=== PATIENT | female | born 1955 | race Caucasian/White ===

== ENCOUNTER 2018-05-24 11:51 | Emergency (ER) | payer OTHER, SELFPAY ==
[2018-05-24 11:52] VITALS: BP 125/78; PULSE 66; RESP 22; TEMP 36.4; O2SAT 99; BMI 17.7
[2018-05-24 12:11] VITALS: TEMP 36.5; BMI 18.3
--- NOTE | 2018-05-24 12:11 | RAD_ITS ---
STUDY: X-RAY CHEST REASON FOR EXAM: Female, 63 years old. SOBSShort of Breath/Dyspnea TECHNIQUE: Frontal and lateral views of the chest. COMPARISON: None. FINDINGS: The lungs are clear and expanded. There is no demonstrated pleural abnormality. Normal size heart. Normal mediastinum and chepe. Normal visualized pulmonary arteries. There is atherosclerotic calcification of the aortic arch with tortuosity. There is a dextroscoliosis of the thoracic spine. There is degenerative osteoarthritis of the bilateral shoulders. There is no demonstrated abnormality of the visualized soft tissue structures of the upper abdomen. RAD/Chest PA and Lateral IMPRESSION: Degenerative changes, as described above. No demonstrated acute cardiopulmonary process. Electronically Signed: Naresh Keith, at 13:50 EDT Tel , Service support ,
[2018-05-24 12:34] LABS: Absolute Lymphocyte Count 1.63 X10^3/ul (0.83-4.51); Absolute Neutrophil Count 6.2 X10^3/uL (2.0-7.7); Basophil# 0.02 X10^3/uL; Basophil% 0.2 % (0-1); Eosinophil# 0.12 X10^3/uL; Eosinophils% 1.4 % (0-5); Hematocrit 44.8 % (37-47); Hemoglobin 14.4 g/dl (12.0-15.0); Lymphocyte # 1.63 X10^3/ul (4.0); Lymphocyte % 19.1 % (19-41); Mean Corp Hgb Conc 32.1 g/gl (32-36); Mean Corpuscular Hgb 30.4 pg (27.0-32.0); Mean Corpuscular Volume 94.7 fL (81-99); Mean Platelet Vol. 10.6 fl (6.2-12.0); Monocyte# 0.55 X10^3/uL; Monocyte% 6.4 % (0-10); Neutrophil # 6.21 X10^3/uL (2.7-7.7); Neutrophil % 72.8 % (47-70); Platelet Count 298 K/mm3 (150-450); RBC Distribution Width SD 44.8 fl (35.1-43.9); Red Blood Count 4.73 M/mm3 (4.2-5.4); White Blood Count 8.5 K/mm3 (4.4-11.0)
[2018-05-24 12:36] LABS: POSITIVE COUNT NO; POSITIVE DIFFERENTIAL NO; POSITIVE MORPHOLOGY NO
[2018-05-24 12:40] LABS: Anion Gap 6 (5-15); BUN 23 mg/dL (7-18); BUN/Creat Ratio 43.6 RATIO (10-20); Calcium,Total 9.1 mg/dL (8.5-10.1); Chloride 104 mmol/L (98-107); Creatinine, Serum 0.53 mg/dL (0.55-1.02); EST Glomerular Filtration Rate 125 mL/min (>60); Est Glom Filt Rate - Afr Amer 151 mL/min (>60); Estimated Creatinine Clearance 68.98 ml/min; Glucose 93 mg/dL (74-106); Sodium Level 137 mmol/L (136-145)
[2018-05-24 12:54] VITALS: BP 116/61; PULSE 63; RESP 15; TEMP 36.4; O2SAT 96
[2018-05-24] MEDS: 0.9% Normal Saline 1,000 ML 75 ML IV (12:54)
--- NOTE | 2018-05-24 13:00 | RAD_ITS ---
STUDY: X-RAY - ABDOMEN/PELVIS REASON FOR EXAM: Female, 63 years old. ConstipationSRAD - Abdomen TECHNIQUE: Single AP view of the abdomen / pelvis. COMPARISON: None. FINDINGS: Normal visualized lung bases. There is an unremarkable bowel gas pattern. There is no demonstrated free abdominal air. There is an electronic device in the right upper quadrant measures approximately 2 cm in diameter. The visualized liver, spleen and kidneys are grossly normal in size and morphology. Normal soft tissue structures. There are diffuse degenerative changes and severe levoscoliosis of the lumbar spine the angle measures approximately 8 degrees of the visualized lumbar spine. RAD/Abdomen Single View IMPRESSION: There is an electronic device in the right upper quadrant measures approximately 2 cm in diameter. Electronically Signed: Naresh Keith, at 13:50 EDT Tel , Service support ,
[2018-05-24 13:03] LABS: Bacteria 0 SEEN /hpf (None Seen); Mucous, Urine 0 SEEN /hpf (<or=2+); Red Blood Cells-Urine 0 SEEN /hpf (0-5); White Blood Cells 0 SEEN /hpf (0-5)
[2018-05-24 13:07] LABS: Color, Urine Yellow (Yellow); Glucose, Dipstick Normal (Normal); Ketone-Dipstick 5 mg/dl (Negative); Leukocyte Esterase-Dipstick 25 /ul (Negative); Nitrite-Dipstick Negative (Negative); Occult Blood-Urine Negative /ul (Negative); Protein-Dipstick 15 mg/dl (Negative); Urine Bilirubin Dipstick Negative (Negative); Urine Clarity Clear (Clear); Urine Urobilinogen Normal (Normal)
[2018-05-24 13:12] LABS: Squamous Epithelial Cells - UA 0-5 SEEN /hpf (5-10)
[2018-05-24 14:13] VITALS: BP 119/65; PULSE 60; RESP 18; TEMP 36.7; O2SAT 95
[2018-05-24 15:22] VITALS: BP 114/63; PULSE 66; RESP 13; TEMP 37.1; O2SAT 94
--- NOTE | 2018-05-24 15:27 | ED.VISSUMM ---
- ER Visit Summary Date of Service: 05/24/18 Chief Complaint: Constipation, shortness of breath History of Present Illness: The patient is a 63 F who reports having constipation for the past 2 weeks. She is passing small amounts of stool with a stool softener. She also reports having shortness of breath for the past 4 days. Patient states he is on a special diet medication to try to increase her weight. Her [facility] doctor had advised that she may need to be admitted for not malnutrition. Physical Examination: Vital signs unremarkable. Patient sitting upright in bed no acute distress. Head neck examination does reveal dry mucous membranes. Heart is regular rate and rhythm. Lung sounds are clear. Abdomen is soft with mild diffuse tenderness. No guarding or rebound. Hypoactive bowel sounds are present throughout. Test Results: Two-view chest x-ray shows degenerative changes with no acute process. Abdominal x-ray shows electronic device in the right upper quadrant measuring 2 cm in diameter. None of the bowel gas pattern is noted. CBC and chemistry studies significant only for a BUN of 23. Urinalysis shows 5 ketones. Emergency Department Course and Treatment: Patient is given IV fluids. Test results are discussed with patient. At this point she appears to be maintaining her hydration well. Electrolytes look appropriate at this time. Patient will be given a prescription for MiraLAX. We will avoid mag citrate as I do not want to alter her electrolyte levels with her current medication regimen. Treatment Plan: [] Disposition: Discharge Impression: Mild constipation This note was generated with [employer] dictation software. It may contain incorrect words, spelling, and punctuation that were not noted in review of the chart prior to signing ED Disposition - Plan for ED Patient: Referrals: Sarita Grey MD [Primary Care Provider] -
--- NOTE | 2018-05-24 15:30 | ED.DCSUM_ITS ---
- ER Visit Summary Date of Service: 05/24/18 Chief Complaint: Constipation, shortness of breath History of Present Illness: The patient is a 63 F who reports having constipation for the past 2 weeks. She is passing small amounts of stool with a stool softener. She also reports having shortness of breath for the past 4 days. Patient states he is on a special diet medication to try to increase her weight. Her [facility] doctor had advised that she may need to be admitted for not malnutrition. Physical Examination: Vital signs unremarkable. Patient sitting upright in bed no acute distress. Head neck examination does reveal dry mucous membranes. Heart is regular rate and rhythm. Lung sounds are clear. Abdomen is soft with mild diffuse tenderness. No guarding or rebound. Hypoactive bowel sounds are present throughout. Test Results: Two-view chest x-ray shows degenerative changes with no acute process. Abdominal x-ray shows electronic device in the right upper quadrant measuring 2 cm in diameter. None of the bowel gas pattern is noted. CBC and chemistry studies significant only for a BUN of 23. Urinalysis shows 5 ketones. Emergency Department Course and Treatment: Patient is given IV fluids. Test results are discussed with patient. At this point she appears to be maintaining her hydration well. Electrolytes look appropriate at this time. Patient will be given a prescription for MiraLAX. We will avoid mag citrate as I do not want to alter her electrolyte levels with her current medication regimen. Treatment Plan: [] Disposition: Discharge Impression: Mild constipation This note was generated with [employer]H dictation software. It may contain incorrect words, spelling, and punctuation that were not noted in review of the chart prior to signing ED Disposition - Plan for ED Patient: Referrals: Sarita Grey MD [Primary Care Provider] -
--- NOTE | 2018-05-24 15:30 | ED.DEP ---
ED Disposition - Plan for ED Patient: Disposition: Home or Assisted Living Instructions: ED Constipation Prescriptions: Polyethylene Glycol 3350 [Miralax] 17 gm PO DAILY #30 packet Referrals: Sarita Grey MD [Primary Care Provider] - Keep Billie appointment
[2018-05-24 15:44] VITALS: BP 114/63; PULSE 70; RESP 15; O2SAT 97
--- NOTE | 2018-05-24 15:44 | ED.RN ---
PT GIVEN WRITTEN AND VERBAL DISCHARGE INSTRUCTIONS AND HOME GOING PRESCRIPTIONS. PT VERBALIZES UNDERSTANDING AND DENIES ANY FURTHER QUESTIONS. PT IV D/C AND COVERED WITH 2X2 GAUZE DRESSING AND PAPER TAPE.
== END 2018-05-24 15:46 | disposition home or self-care (01) ==
PROVIDERS: Emergency Provider Emergency Medicine; Family Provider Internal Medicine; PCP Internal Medicine
DX: K59.00 Constipation, unspecified (principal); Z72.0 Tobacco use; Z79.899 Other long term (current) drug therapy
CPT/HCPCS: 71046; 74018; 80048; 81001; 85025; 96360; 96361; 99283; J7030; J7040; A4216

== ENCOUNTER → 2018-05-30 15:39 | Outpatient (CLI) | payer OTHER, SELFPAY ==
[2018-05-24 12:11] VITALS: BMI 18.3
--- NOTE | 2018-05-30 15:42 | RAD_ITS ---
STUDY: X-RAY - ABDOMEN/PELVIS REASON FOR EXAM: Female, 63 years old. Slight transit, constipation. TECHNIQUE: Single AP view of the abdomen / pelvis. COMPARISON: AP supine view of the abdomen and pelvis May 24, 2018. FINDINGS: Normal visualized lung bases. There is a nonspecific pattern of gas in nondistended segments of small bowel and colon. The swallowed electronic device now projects in the medial left lower quadrant, but it is unclear whether this is in a small bowel or colonic loop. There is no demonstrated free abdominal air. The visualized liver, spleen and kidneys are grossly normal in size and morphology. Atherosclerotic calcification of the abdominal aorta again noted. There are stable diffuse degenerative changes and moderate to moderately severe levorotoscoliosis of the visualized lumbar spine. RAD/Abdomen Single View IMPRESSION: Electronic device now in the medial left lower quadrant, but it is unclear whether this is in small bowel or colon. The overall bowel gas pattern is nonspecific. Electronically Signed: Homer Bullard MD at 17:24 EDT , Service support ,
== END ==
PROVIDERS: Family Provider Internal Medicine; PCP Internal Medicine
DX: K59.01 Slow transit constipation (principal)
CPT/HCPCS: 74018

== ENCOUNTER 2018-11-09 16:03 | Emergency (ER) | payer OTHER, SELFPAY ==
[2018-11-09 16:04] VITALS: BP 117/74; PULSE 104; RESP 16; TEMP 36.9; O2SAT 94; BMI 17.7
--- NOTE | 2018-11-09 16:18 | NURSING ---
dostephanief unclogged by la lara. pt wishes to leave at this time without donnell seen.
== END 2018-11-09 16:25 | disposition left against medical advice (07) ==
PROVIDERS: Emergency Provider Emergency Medicine; Family Provider Internal Medicine; PCP Internal Medicine
DX: R69 Illness, unspecified (principal)

== ENCOUNTER 2018-11-18 14:32 | Emergency (ER) | payer MEDICAID, SELFPAY ==
[2018-11-18 14:33] VITALS: BP 122/75; PULSE 89; RESP 16; TEMP 37.2; O2SAT 94; O2SAT 95; BMI 18.1
--- NOTE | 2018-11-18 14:57 | ED.DCSUM_ITS ---
History of Present Illness Chief Complaint: General Illness Detail of Chief Complaint: Occluded feeding tube Informant: Patient Onset: Today Timing: Continuous Quality: Feeding tube occluded Location: To be determined Current Severity: Severe Maximum Severity: Severe Worsened by: Not applicable Relieved by: Nothing Associated Symptoms: None Narrative: Patient is a 61-year-old woman who had a feeding tube placed by her general surgeon at [facility]. She contacted her general surgeon who informed her to go the emergency room since her NG is occluded. She is on tube feeds to gain weight prior to surgery. She has no other complaints. Prior similar symptoms: Yes Recent Illness/Hospitalization: Yes - Past Medical History (1) Duodenal ulcer, acute with obstruction Status: Acute Past Medical History - Allergies and Home Meds Allergies/Adverse Reactions: Allergies dicyclomine HCl [From Bentyl] Allergy (Verified 11/09/18 16:04) Hives Primary Care Physician: Sarita Grey MD [Primary Care Provider] - Prior records reviewed: Yes Surgical History: noncontributory Lives: Alone Smoking Status: Former smoker Alcohol: None Drugs: None Review of Systems General: Denies: Chills, Fever, Malaise Eyes: Denies: Visual changes - bilaterally, Blurred Vision - bilaterally ENT: Denies: Bilateral ear pain, Rhinorrhea, Sore throat Cardiovascular: Denies: Chest pain Respiratory: Denies: Dyspnea, Cough Hematologic: Denies: Easy bruising, Easy bleeding Physical Exam Vital Signs/Narrative: Vital Signs Temp Pulse Resp BP Pulse Ox 11/18/18 14:33 98.9 F 89 16 122/75 H 95 Inital Vital Signs reviewed: Yes General: Well developed, Cachectic, No Acute Distress Head: Normocephalic, Atraumatic Eyes: Perrl, EOMI. Negative for: Pale conjunctiva, Scleral icterus ENT: Moist mucous membranes, No rhinorrhea Cardiovascular: Regular rate, Regular rhythm, No murmurs Respiratory: No distress, CTA bilaterally Skin: Normal color, No rash Neurological: Alert, Oriented x3, Cranial nerves II-XII grossly intact, Normal Strength, Normal Sensation Psychological: Normal affect, Normal Mood Diagnostic/Tx/Re-eval - Medical Decision Making Nurse was asked to get a declog her for external feeding tubes. Patient states prior to coming she attempted to use Sprite Coca-[employer]a with no success. Using the declog her significant amount of debris was removed. Unable to advance a clog or more than 4 inches. Nurses unable to irrigate. She was instructed to contact her surgeon and would need to be replaced in OR. ED Disposition - Plan for ED Patient: Disposition: Home or Assisted Living Diagnosis: Occluded feeding tube Referrals: Sarita Grey MD [Primary Care Provider] - Additional Instructions: Recommend going to [facility] and seeing your general surgeon to have tube replaced since we are unable to declog it.
== END 2018-11-18 15:55 | disposition home or self-care (01) ==
PROVIDERS: Emergency Provider Emergency Medicine; Family Provider Internal Medicine; PCP Internal Medicine
DX: T85.898A Other specified complication of other internal prosthetic devices, implants and grafts, initial encounter (principal); Z46.59 Encounter for fitting and adjustment of other gastrointestinal appliance and device; Z87.891 Personal history of nicotine dependence
CPT/HCPCS: 99282

== ENCOUNTER 2019-03-22 21:11 | Emergency (ER) | payer MEDICAID, SELFPAY ==
[2019-03-22 21:12] VITALS: BP 145/82; PULSE 119; RESP 16; TEMP 37.3; O2SAT 95; BMI 19.0
--- NOTE | 2019-03-22 22:49 | ED.VISSUMM ---
- ER Visit Summary Date of Service: 03/22/19 Chief Complaint: [Clogged feeding tube] History of Present Illness: The patient is a 64 F [presents to the emergency department stating that about an hour ago her feeding tube became clogged. Patient states that she normally runs Osmolite through it 24 hours a day. Patient had a surgery in January that removed two thirds of her stomach. Patient had the CorPak feeding tube placed on February 14. Patient is currently taking some p.o. fluids and medication. States that she was unsuccessful in unclogging it at home. Patient denies any fevers or abdominal pain. Patient is having bowel movements. Denies any vomiting.] Physical Examination: [HEENT-PERRLA, EOMI. Cranial nerves II through XII grossly intact. TMs clear. Mucous membranes moist. No adenopathy. Patient has a CorPak feeding tube from the right side of her nose. Cardiovascular-regular rate and rhythm without murmur or ectopy Lungs-clear to auscultation, chest wall stable without crepitus or subcu emphysema Abdomen-normoactive bowel sounds, soft, nontender, no rebound or rigidity, no peritoneal signs. Extremities-intact ?4, normal range of motion, normal pulses, atraumatic] Test Results: [None indicated] Emergency Department Course and Treatment: [We attempted in the emergency department to use Coca-Cola to unclog the tube unsuccessfully. I did discuss case with our general surgeon on-call and no further recommendations were made at this time. There is not felt that this tube would be able to be replaced in the emergency department. Was recommended that patient follow-up with her surgeon.] Treatment Plan: [Patient to follow-up with her general surgeon for further instructions on possibly replacing the tube or removing it.] Disposition: [Discharged home in stable condition] Impression: [Clogged feeding tube] This note was generated with [employer] Access dictation software. It may contain incorrect words, spelling, and punctuation that were not noted in review of the chart prior to signing ED Disposition - Plan for ED Patient: Referrals: Sarita Grey MD [Primary Care Provider] -
--- NOTE | 2019-03-22 22:53 | ED.DEP ---
ED Disposition - Plan for ED Patient: Referrals: Sarita Grey MD [Primary Care Provider] - Additional Instructions: Call your surgeon tomorrow for instructions on dealing with the clogged feeding tube
[2019-03-22 23:57] VITALS: BP 135/85; PULSE 72; RESP 16; TEMP 36.9; O2SAT 98
== END 2019-03-22 23:57 | disposition home or self-care (01) ==
PROVIDERS: Emergency Provider Emergency Medicine; PCP Internal Medicine
DX: K94.23 Gastrostomy malfunction (principal)
CPT/HCPCS: 99282

== ENCOUNTER 2019-08-23 09:31 | Emergency (ER) | payer MEDICAID, SELFPAY ==
[2019-08-23 09:32] VITALS: BP 90/47; PULSE 86; RESP 16; TEMP 36.2; O2SAT 96; BMI 21.9
[2019-08-23 09:34] VITALS: BP 90/47; PULSE 86; RESP 16; TEMP 36.2; O2SAT 96
--- NOTE | 2019-08-23 10:12 | ED.DCSUM_ITS ---
- ER Visit Summary Date of Service: 08/23/19 Chief Complaint: [Back pain] History of Present Illness: The patient is a 64 F [presents the emergency department with back pain that she is had for about a week. Patient states the pain is continuous. She describes it as a up in her upper back. Patient states the pain is worse with breathing. Patient states the pain wraps around to the front of the upper abdomen. She had no nausea or vomiting. She denies any fever or cough. She denies any trauma to her back. She does have history of scoliosis. Patient rates the pain a 10 out of 10. Patient also has history of a feeding tube and she scheduled to have a replacement done at [facility] in 2 days.] Patient denies urinary symptoms. No history of kidney stones or PE. Physical Examination: [HEENT-PERRLA, EOMI. Cranial nerves II through XII grossly intact. TMs clear. Mucous membranes moist. No adenopathy. Cardiovascular-regular rate and rhythm without murmur or ectopy Lungs-clear to auscultation, chest wall stable without crepitus or subcu emphysema Abdomen-normoactive bowel sounds, soft, nontender, no rebound or rigidity, no peritoneal signs. Patient does have a feeding tube in the central portion of the abdomen. Back exam-patient does have been noted scoliosis. She does have some mild tenderness over the left posterior lower ribs that somewhat reproduces her pain. Extremities-intact ?4, normal range of motion, normal pulses, atraumatic] Test Results: [CBC with differential obtained showing a 7.0, hemoglobin 14.8, hematocrit 45, placed 305. Chemistries were unremarkable. LFTs unremarkable. D-dimer was normal at 0.28. Urinalysis was normal. X-rays of the chest and left ribs obtained showed no evidence of acute fractures. No pneumothorax.] Emergency Department Course and Treatment: [Patient was medicated with morphine and Zofran 4 mg each IV. She has she had good pain relief but then started having more pain again and was given 4 more milligrams of morphine IV.] Treatment Plan: [Patient will be given a prescription for Flexeril and [place]. Patient advised to follow-up with primary care physician in 3 to 5 days.] Disposition: [Discharged home in stable condition] Impression: [Back pain-etiology uncertain] This note was generated with Dragon dictation software. It may contain incorrect words, spelling, and punctuation that were not noted in review of the chart prior to signing ED Disposition - Plan for ED Patient: Referrals: Sarita Grey MD [Primary Care Provider] -
[2019-08-23 10:19] LABS: Absolute Lymphocyte Count 1.72 X10^3/uL (0.83-4.51); Absolute Neutrophil Count 4.5 X10^3/uL (2.0-7.7); Basophil# 0.01 X10^3/uL; Basophil% 0.1 % (0-1); Eosinophil# 0.11 X10^3/uL; Eosinophils% 1.6 % (0-5); Hematocrit 44.9 % (37-47); Hemoglobin 14.8 g/dL (12.0-15.0); Lymphocyte # 1.72 X10^3/ul (4.0); Lymphocyte % 24.7 % (19-41); Mean Corpuscular Hgb 31.8 pg (27.0-32.0); Mean Corpuscular Volume 96.6 fL (81-99); Mean Platelet Vol. 10.8 fl (6.2-12.0); Monocyte# 0.57 X10^3/uL; Monocyte% 8.2 % (0-10); NRBC Flagged by Analyzer 0 % (0-5); Neutrophil # 4.53 X10^3/uL (2.7-7.7); Neutrophil % 65.1 % (47-70); Platelet Count 305 K/mm3 (150-450); RBC Distribution Width CV 13.7 % (11.6-14.6); RBC Distribution Width SD 48.8 fl (35.1-43.9); Red Blood Count 4.65 M/mm3 (4.2-5.4)
[2019-08-23] MEDS: Morphine 4 MG/ML Syringe IV ×2 (10:23→11:11)
[2019-08-23] MEDS: Ondansetron 4 MG/2 ML Vial IV (10:23)
[2019-08-23] MEDS: 0.9% Normal Saline 1,000 ML 150 ML IV (10:24)
[2019-08-23 10:31] LABS: D-Dimer Quantitative (DVT/PE) 0.28 FEU/ug/m (0.27-0.49)
[2019-08-23 10:32] LABS: AST(SGOT) 14 U/L (15-37); Alanine Aminotransfer ALT/SGPT 28 U/L (13-56); Albumin, Serum 3.7 g/dL (3.2-5.0); Alkaline Phosphatase 132 U/L (45-117); Anion Gap 8 (5-15); BUN 23 mg/dL (7-18); BUN/Creat Ratio 34.3 RATIO (10-20); Calcium,Total 9.1 mg/dL (8.5-10.1); Chloride 99 mmol/L (98-107); Creatinine, Serum 0.67 mg/dL (0.55-1.02); EST Glomerular Filtration Rate 94 mL/min (>60); Est Glom Filt Rate - Afr Amer 114 mL/min (>60); Estimated Creatinine Clearance 64.62 ml/min; Globulin 3.8 g/dL (2.2-4.2); Glucose 109 mg/dL (74-106); Lipase 100 U/L (73-393); Potassium 4.6 mmol/L (3.5-5.1); Protein, Total 7.5 g/dL (6.4-8.2); Sodium Level 136 mmol/L (136-145)
[2019-08-23 10:45] VITALS: BP 124/72; PULSE 72; RESP 19; TEMP 36.4; O2SAT 98
[2019-08-23 11:06] LABS: Mucous, Urine 0 SEEN /hpf (<or=2+); Red Blood Cells-Urine 0 SEEN /hpf (0-5)
[2019-08-23 11:10] LABS: Color, Urine Yellow (Yellow); Glucose, Dipstick Normal (Normal); Ketone-Dipstick Negative (Negative); Leukocyte Esterase-Dipstick 25 /ul (Negative); Nitrite-Dipstick Negative (Negative); Occult Blood-Urine Negative /ul (Negative); Protein-Dipstick Negative (Negative); Urine Bilirubin Dipstick Negative (Negative); Urine Clarity Sl. Cloudy (Clear); Urine Urobilinogen Normal (Normal)
[2019-08-23 11:11] VITALS: BP 108/68; PULSE 74; RESP 16; TEMP 36.6; O2SAT 98
[2019-08-23 11:19] LABS: Bacteria RARE /hpf (None Seen); Squamous Epithelial Cells - UA 0-5 SEEN /hpf (5-10); White Blood Cells 0-5 SEEN /hpf (0-5)
--- NOTE | 2019-08-23 11:21 | RAD_ITS ---
STUDY: X-RAY - UNILATERAL RIBS ( LEFT ) WITH CHEST REASON FOR EXAM: Female, 64 years old. ANTERIOR PAIN W/ RADIATION TOWARDS POSTERIOR ASPECT. NKI. TECHNIQUE - RIBS: 2 view(s) of the ribs. TECHNIQUE - CHEST: Frontal view COMPARISON: None. FINDINGS - RIBS: Normal visualized ribs without a demonstrated fracture. FINDINGS - CHEST: The lungs are clear and expanded. There is no demonstrated pleural abnormality. Normal size heart. Normal mediastinum and chepe. Normal visualized pulmonary arteries. Normal visualized aortic arch and descending thoracic aorta. Degenerative changes and significant scoliosis of the vertebral column. Normal visualized ribs, clavicles, and shoulders. Probable gastrostomy tube overlying the upper abdomen. RAD/Ribs Uni Min 3V w/PA Chest IMPRESSION: No acute rib fracture. Electronically Signed: Roberto Arnold DO at 12:12 EDT Tel [phone], Service support ,
[2019-08-23 12:09] VITALS: BP 118/62; PULSE 71; RESP 15; TEMP 36.7; O2SAT 98
--- NOTE | 2019-08-23 12:28 | DCINST.ED_ITS ---
ED Disposition - Plan for ED Patient: Instructions: ED Neck Back Pain General Prescriptions: cycloBENZAPRine HCl [Flexeril] 10 mg PO TID PRN #20 tab PRN Reason: Muscle Spasm Prescription Printed Hydrocodone Bitart/Apap 5-325 [[place] 5MG-325MG] 1 tab PO Q4H PRN PRN 2 Days #10 tab PRN Reason: Pain Prescription Printed Referrals: Sarita Grey MD [Primary Care Provider] - 5-7 Days
[2019-08-23 12:57] VITALS: BP 138/77; PULSE 69; RESP 15; O2SAT 98
== END 2019-08-23 12:58 | disposition home or self-care (01) ==
PROVIDERS: Emergency Provider Emergency Medicine; PCP Internal Medicine
DX: M54.9 Dorsalgia, unspecified (principal)
CPT/HCPCS: 71101; 80053; 81001; 83690; 85025; 85379; 96361; 96374; 96375; 96376; 99284; J7030; A4216; J2405

== ENCOUNTER 2019-08-29 14:37 | Emergency (ER) | payer MEDICAID, SELFPAY ==
[2019-08-29 14:38] VITALS: BP 142/79; BP 142/89; PULSE 98; PULSE 99; RESP 17; RESP 20; TEMP 36.7; O2SAT 92; O2SAT 93; BMI 21.9
--- NOTE | 2019-08-29 15:13 | EKG12_ITS ---
Test Reason : ABD PAIN Blood Pressure : / mmHG Vent. Rate : 079 BPM Atrial Rate : 079 BPM P-R Int : 174 ms QRS Dur : 090 ms QT Int : 388 ms P-R-T Axes : 044 020 022 degrees QTc Int : 444 ms Normal sinus rhythm Normal ECG Confirmed by YRIS COYLE, YAYA ([id number]), editor dictionary GOMEZ SOW ([id number]) on 09/02/2019 11:06:41 AM Referred By: SHERRIE Confirmed By:YAYA ARNDT MD
--- NOTE | 2019-08-29 15:16 | ED.VIS.GEN ---
History of Present Illness Chief Complaint: Abd Pain Narrative: Patient presents with left-sided chest wall pain. She was seen here recently and then again at [facility] on August 23, she had similar pain at the time she had left-sided chest wall pain. The chief complaint in the chart says abdominal pain patient is denying any current abdominal pain she does have a PEG and had a minor procedure done to replace the PEG recently but she denies any abdominal pain, nausea or vomiting. She is describing the left chest wall pain is sharp and stabbing worse with movement of the chest wall or lifting her arm up. It is also worse with palpation of the chest wall. No rash in that region. She had a CAT scan at [facility] which showed no evidence of pulmonary embolism or intrathoracic pathology. This pain has been ongoing for about 6 days. Past Medical History - Allergies and Home Meds Allergies/Adverse Reactions: Allergies dicyclomine HCl [From Bentyl] Allergy (Verified 08/29/19 14:38) [facility] Physician: Sarita Grey MD [Primary Care Provider] - Past Medical History: - - History of severe gastroparesis. She has a PEG tube, otherwise the past medical history was reviewed at the bedside with the patient and is unremarkable Surgical History: noncontributory Smoking Status: Former smoker Review of Systems General: Denies: Chills, Fever Cardiovascular: Reports: Chest pain. Denies: Palpitations, Heart racing Respiratory: Denies: Dyspnea, Cough, Sputum Gastrointestinal: Denies: Abdominal pain, Nausea, Vomiting Musculoskeletal: Denies: Myalgias, Neck pain Skin: Denies: Rash Neurological: Denies: Headache Hematologic: Denies: Easy bruising Physical Exam Vital Signs/Narrative: Vital Signs Temp Pulse Resp BP Pulse Ox 08/29/19 14:38 98.1 F 98 20 H 142/89 H 92 Inital Vital Signs reviewed: Yes General: - - Patient appears chronically ill, she does not appear acutely ill. She appears in some distress Head: Normocephalic, Atraumatic Eyes: Negative for: Pale conjunctiva ENT: Moist mucous membranes Cardiovascular: Regular rate, Regular rhythm Respiratory: No distress, CTA bilaterally, Chest tenderness, - - She has left-sided chest wall tenderness extending into the posterior axillary line region, it is mid thoracic region. The pain is quite reproducible with palpation as well as movement and movement of the left arm. No obvious rashes seen, no chest wall deformity. Abdomen: Soft, Nontender Back: Nontender, Normal Inspection Extremities: Nontender, No edema Skin: Normal color, No rash Neurological: Alert, Normal Strength, Normal Sensation Diagnostic/Tx/Re-eval - Medical Decision Making His work-up is unremarkable she has reproducible chest wall pain, she had a normal PE study just a few days at the outside institution which I reviewed, she did improve with analgesia in the ED and I will discharge her in stable condition. ED Disposition - Plan for ED Patient: Disposition: Home or Assisted Living Diagnosis: Chest wall pain Instructions: ED Chest Pain Atypical Unkn Cause, ED Chest Pain NonCardiac Prescriptions: Oxycodone HCl/Acetaminophen [Percocet 5/325] 1 tablet PO Q4H PRN PRN 3 Days #18 tablet PRN Reason: Pain Score 1-5/10 Transmission Status: Sent to [id number] Referrals: Sarita Grey MD [Primary Care Provider] - 3-5 Days
[2019-08-29 15:33] LABS: Absolute Lymphocyte Count 1.94 X10^3/uL (0.83-4.51); Basophil# 0.02 X10^3/uL; Basophil% 0.4 % (0-1); Eosinophil# 0.13 X10^3/uL; Eosinophils% 2.3 % (0-5); Hemoglobin 14.5 g/dL (12.0-15.0); Lymphocyte # 1.94 X10^3/ul (4.0); Lymphocyte % 34.7 % (19-41); Mean Corp Hgb Conc 31.5 g/dL (32-36); Mean Corpuscular Hgb 30.8 pg (27.0-32.0); Mean Corpuscular Volume 97.7 fL (81-99); Mean Platelet Vol. 10.2 fl (6.2-12.0); Monocyte# 0.49 X10^3/uL; Monocyte% 8.8 % (0-10); NRBC Flagged by Analyzer 0 % (0-5); Neutrophil % 53.6 % (47-70); Platelet Count 287 K/mm3 (150-450); RBC Distribution Width CV 13.8 % (11.6-14.6); RBC Distribution Width SD 49.8 fl (35.1-43.9); Red Blood Count 4.71 M/mm3 (4.2-5.4); White Blood Count 5.6 K/mm3 (4.4-11.0)
--- NOTE | 2019-08-29 15:40 | RAD_ITS ---
STUDY: X-RAY CHEST REASON FOR EXAM: Female, 64 years old. CHEST WALL PAIN. PT C/O LEFT SIDED ABD PAIN THAT RADIATES INTO THE LEFT FLANK AND BACK. PT REPORTS BEING SEEN HERE FOR SAME ON SUNDAY. TECHNIQUE: Single AP portable view of the chest. COMPARISON: 08/23/2019 FINDINGS: Alveolar opacity in the lower right lung consistent with right lower lobe pneumonia or atelectasis. There is no demonstrated pleural abnormality. Normal size heart. Normal mediastinum and chepe. Normal visualized pulmonary arteries. Normal visualized aortic arch and descending thoracic aorta. There is a dextroscoliosis of the thoracic spine. Normal visualized ribs, clavicles, and shoulders. There is no demonstrated abnormality of the visualized soft tissue structures of the upper abdomen. RAD/Chest 1 View (Portable) IMPRESSION: Right lower lobe pneumonia or atelectasis. Electronically Signed: Jose Cunha MD at 15:59 EDT Tel , Service support ,
[2019-08-29] MEDS: Ondansetron 4 MG/2 ML Vial IV (15:51)
[2019-08-29] MEDS: HYDROmorphone 1 MG/ML Syringe IV ×2 (15:51→17:53)
[2019-08-29] MEDS: Ketorolac 15 MG/ML Vial IV (15:52)
[2019-08-29 15:55] LABS: ALB/GLOB Ratio 0.9 RATIO (0.9-2.4); AST(SGOT) 13 U/L (15-37); Alanine Aminotransfer ALT/SGPT 25 U/L (13-56); Albumin, Serum 3.5 g/dL (3.2-5.0); Alkaline Phosphatase 115 U/L (45-117); Anion Gap 7 (5-15); BUN 25 mg/dL (7-18); BUN/Creat Ratio 35.4 RATIO (10-20); Calcium,Total 9.5 mg/dL (8.5-10.1); Chloride 97 mmol/L (98-107); Creatinine, Serum 0.71 mg/dL (0.55-1.02); EST Glomerular Filtration Rate 89 mL/min (>60); Est Glom Filt Rate - Afr Amer 108 mL/min (>60); Estimated Creatinine Clearance 60.98 ml/min; Globulin 3.8 g/dL (2.2-4.2); Glucose 92 mg/dL (74-106); Potassium 4.5 mmol/L (3.5-5.1); Protein, Total 7.3 g/dL (6.4-8.2); Sodium Level 135 mmol/L (136-145)
[2019-08-29 17:56] VITALS: BP 138/77; PULSE 69; RESP 15; O2SAT 96
== END 2019-08-29 18:25 | disposition home or self-care (01) ==
PROVIDERS: Emergency Provider Emergency Medicine; PCP Internal Medicine
DX: R07.89 Other chest pain (principal); Z87.891 Personal history of nicotine dependence
CPT/HCPCS: 71045; 80053; 84484; 85025; 93005; 96374; 96375; 96376; 99284; A4216; J2405

== ENCOUNTER 2020-03-28 06:05 | Inpatient (IN) | payer MEDICAID, SELFPAY ==
[2020-03-28] VITALS (18 sets, daily range): BP systolic 93–129; BP diastolic 45–75; PULSE 82–111; RESP 16–27; TEMP 36.4–37.6; O2SAT 86–96; BMI 25.7; BMI 25.8
--- NOTE | 2020-03-28 06:24 | EKG12_ITS ---
Test Reason : SOB Blood Pressure : / mmHG Vent. Rate : 098 BPM Atrial Rate : 098 BPM P-R Int : 176 ms QRS Dur : 098 ms QT Int : 346 ms P-R-T Axes : 043 031 029 degrees QTc Int : 441 ms Normal sinus rhythm Cannot rule out Inferior infarct , age undetermined Abnormal ECG Confirmed by YRIS COYLE, YAYA ([id number]), editor managing director UMAIR NAVA ([id number]) on 03/31/2020 10:54:10 AM Referred By: BEENA Confirmed By:YAYA ARNDT MD
--- NOTE | 2020-03-28 06:29 | ED.VIS.GEN ---
History of Present Illness Chief Complaint: Shortness of Breath Informant: Patient Narrative: Patient stated that she had a regurgitation vomiting episode approximately 3 days ago. She choked on vomit. She stated since then she has had increased shortness of breath from baseline. She stated she has chronic shortness of breath for the last few months. She stated she has a history of COPD and is on a vent which does not seem to do much per patient. She stated she has been doing breathing treatments with her last one being last night prior to trying to go to sleep. She had increased shortness of breath last night. Stated she recently had a G-tube revision in December. At that time she was transferred to the [facility] and had a heart cath. She stated that she has chronic blockages but nothing acute. She does not have any cardiac stents. She states she has chronic COPD and was on oxygen after her discharge from the hospital prior. She is no longer on oxygen as she no longer needs a. She quit smoking remotely. She has a new cough ever since she aspirated the vomit. Patient denies any coronavirus exposures. No fevers or chills. She stated she is having some soreness in the right side of her neck and shoulder when she moves her arm. She does not remember doing anything to cause that. Denies any chest pain. - Past Medical History (1) Duodenal ulcer, acute with obstruction Status: Acute Past Medical History - Allergies and Home Meds Allergies/Adverse Reactions: Allergies dicyclomine HCl [From Bentyl] Allergy (Verified 03/28/20 06:05) Hives Prior records reviewed: Yes Past Medical History: - - See problem list Surgical History: noncontributory Smoking Status: Former smoker Alcohol: None Drugs: None Review of Systems General: Denies: Chills, Fever, Sweats Eyes: Denies: Visual changes - bilaterally, Diplopia ENT: Denies: Rhinorrhea, Sore throat Cardiovascular: Denies: Chest pain, Palpitations Respiratory: Reports: Dyspnea, Cough. Denies: Dyspnea on exertion Gastrointestinal: Denies: Abdominal pain, Nausea, Vomiting, Diarrhea, Melena, Hematochezia Genitourinary: Denies: Dysuria, Hematuria, Frequency Musculoskeletal: Reports: Neck pain, Extremity Pain. Denies: Back pain Skin: Denies: Rash, Wounds Neurological: Denies: Headache, Weakness, Numbness Physical Exam Vital Signs/Narrative: Vital Signs Temp Pulse Resp BP Pulse Ox 03/28/20 06:06 99.7 F H 109 H 27 H 129/75 H 86 General: Well nourished, Well developed, No Acute Distress Head: Normocephalic, Atraumatic Eyes: Perrl, EOMI ENT: Moist mucous membranes, No rhinorrhea Neck: Supple, Nontender Cardiovascular: Regular rhythm, No murmurs, Tachycardia Respiratory: Chest nontender, Rhonchi, Decreased Air Movement, - - Tachypnea noted. Negative for: No distress, Retractions Abdomen: Soft, Nontender, Nondistended, Normal bowel sounds Back: Nontender, Normal Inspection Extremities: Nontender, No edema Skin: Normal color, No rash Neurological: Alert, Oriented x3, Cranial nerves II-XII grossly intact, Normal Strength, Normal Sensation Psychological: Normal affect, Normal Mood Diagnostic/Tx/Re-eval - Medical Decision Making Patient placed on nasal cannula oxygen. Given breathing treatment upon arrival. Lab work EKG chest x-ray obtained. Lab work shows no leukocytosis but positive left shift. Troponin negative. EKG shows sinus rhythm at a rate of 98 with no acute ischemia or arrhythmia. Chest x-ray my interpretation shows chronic changes with early left lower lobe infiltrate. I suspect this is aspiration pneumonia. Patient felt better after breathing treatments. She remains on nasal cannula oxygen to keep her pulse ox in the mid 90s. Have low suspicion for acute coronary syndrome PE or dissection. I suspect she has an aspiration pneumonitis. She had a known vomiting choking episode which increased her shortness of breath. She was given Solu-Medrol Unasyn. Blood cultures will be sent. Coronavirus testing negative. Patient will be admitted. I do not feel she needs BiPAP or intubation. - Critical Care Time Critical care time (excluding procedures): 30-74 minutes ED Disposition - Plan for ED Patient: Disposition: Acute Care Hospital [facility] Diagnosis: Hypoxia, Respiratory failure, Aspiration pneumonia
[2020-03-28] MEDS: Albuterol 2.5 MG/3 ML VIAL.NEB. INHALATION ×3 (06:38)
[2020-03-28] MEDS: Ipratropium/Albuterol Sulfate 3 ML AMPUL.NEB INHALATION ×5 (06:38→23:34)
[2020-03-28 06:42] LABS: Absolute Lymphocyte Count 0.65 X10^3/uL (0.83-4.51); Absolute Neutrophil Count 9.2 X10^3/uL (2.0-7.7); Basophil# 0.02 X10^3/uL; Basophil% 0.2 % (0-1); Eosinophil# 0.05 X10^3/uL; Eosinophils% 0.5 % (0-5); Hematocrit 43.5 % (37-47); Hemoglobin 13.5 g/dL (12.0-15.0); Lymphocyte # 0.65 X10^3/ul (4.0); Lymphocyte % 6.2 % (19-41); Mean Corpuscular Hgb 30.1 pg (27.0-32.0); Mean Corpuscular Volume 97.1 fL (81-99); Mean Platelet Vol. 10.1 fl (6.2-12.0); Monocyte% 5.7 % (0-10); NRBC Flagged by Analyzer 0 % (0-5); Neutrophil # 9.18 X10^3/uL (2.7-7.7); Platelet Count 208 K/mm3 (150-450); RBC Distribution Width CV 13.3 % (11.6-14.6); RBC Distribution Width SD 47.8 fl (35.1-43.9); Red Blood Count 4.48 M/mm3 (4.2-5.4); White Blood Count 10.5 K/mm3 (4.4-11.0)
--- NOTE | 2020-03-28 06:55 | RAD_ITS ---
STUDY: X-RAY CHEST REASON FOR EXAM: Female, 65 years old. sob and cough TECHNIQUE: Single AP portable view of the chest. COMPARISON: 08/29/2019 FINDINGS: Linear changes in the right base likely platelike atelectasis. There is increased airspace opacification in the left base. There is no demonstrated pleural abnormality. Normal size heart. Normal mediastinum and chepe. Normal visualized pulmonary arteries. There is atherosclerotic calcification of the aortic arch with tortuosity. There is a dextroscoliosis of the thoracic spine. Osteopenia degenerative changes. Normal visualized ribs, clavicles, and shoulders. There is no demonstrated abnormality of the visualized soft tissue structures of the upper abdomen. RAD/Chest 1 View (Portable) IMPRESSION: Suspect pneumonia in the left lower lobe. Stable atelectasis right base. Other nonacute findings as outlined above. Electronically Signed: Jenn Ann MD at 7:18 EST , Service support ,
[2020-03-28 06:57] LABS: Anion Gap 3 (5-15); BUN 19 mg/dL (7-18); BUN/Creat Ratio 30.6 RATIO (10-20); Calcium,Total 8.7 mg/dL (8.5-10.1); Chloride 103 mmol/L (98-107); Creatinine, Serum 0.62 mg/dL (0.55-1.02); EST Glomerular Filtration Rate 103 mL/min (>60); Est Glom Filt Rate - Afr Amer 125 mL/min (>60); Estimated Creatinine Clearance 80.61 ml/min; Glucose 115 mg/dL (74-106); Potassium 4.3 mmol/L (3.5-5.1); Sodium Level 135 mmol/L (136-145)
[2020-03-28 07:34] LABS: International Normalized Ratio 0.9; Prothrombin Time (Protime)PT. 12.1 SECONDS (11.7-14.9)
[2020-03-28 07:35] LABS: Partial Thromboplast Time 29.4 Seconds (24.1-36.2)
[2020-03-28 07:42] LABS: AST(SGOT) 14 U/L (15-37); Alanine Aminotransfer ALT/SGPT 37 U/L (13-56); Albumin, Serum 3.5 g/dL (3.2-5.0); Alkaline Phosphatase 104 U/L (45-117); Bilirubin, Direct 0.15 mg/dL (0.00-0.30); Globulin 3.5 g/dL (2.2-4.2)
[2020-03-28] MEDS: MethylPREDNISolone 125 MG/2 ML Vial IV (07:51)
[2020-03-28 08:22] LABS: Lactic Acid 1.8 mmol/L (0.4-1.9)
--- NOTE | 2020-03-28 09:13 | PCM.HP.STD ---
History of Present Illness Date of Admission: 03/28/20 Chief Complaint: SOB The patient is a 65 year old F with a PMH as below presents to the hospital with shortness of breath. About 3 days ago she had an episode of emesis, she states that she does have significant reflux, and since then she has been short of breath. She does have chronic shortness of breath secondary to history of COPD, and because of this episode of shortness of breath she has been doing breathing treatments at home though they do not seem to been helping much. She presented today secondary to increased shortness of breath last night into this morning. Of note she does have coronary artery disease and was seen in [facility] last month for heart cath which she said should not get a stent for, just showed chronic blockages with no acute need for a stent. At baseline she is not on oxygen however she has needed oxygen periodically after hospital discharges in the past. In the ED she is found to have a left lower lobe infiltrate, and with her tachycardia, tachypnea, she does meet criteria for sepsis though lactic acid is only 1.8, rapid Covid antigen was negative. Blood cultures are pending and she was given a dose of Unasyn to cover her possible aspiration pneumonia. She does have a Josh button Past Medical History Allergies dicyclomine HCl [From Bentyl] Allergy (Verified 03/28/20 06:05) Hives Home Medications: Ambulatory Orders Medication Instructions Recorded Cholecalciferol (Vitamin D3) 4,000 unit PO DAILY 05/24/18 [Vitamin D3] Cyanocobalamin [Vitamin B12] 1,000 mcg PO DAILY@0800 03/22/19 Ferrous Sulfate 325 mg PO DAILY 03/22/19 Melatonin 3 mg PO QHS 03/22/19 Senna [Senokot] 1 tab PO DAILY PRN 03/22/19 Acetaminophen 650 mg PO Q6H 08/23/19 Biotin 5,000 mcg SL DAILY 08/23/19 Calcium Carbonate [Calcium] 300 mg PO DAILY 08/23/19 Duloxetine HCl 60 mg PO DAILY 08/23/19 Multivitamin 1 ea PO DAILY 08/23/19 Nutritional Supplement [Osmolite 1,000 ml PO DAILY 08/23/19 1.5 Germán] Ondansetron [Zofran Odt] 4 mg PO Q6H PRN PRN 08/23/19 Albuterol Inhaler [Ventolin Hfa 2 puff INHALATION Q4H PRN PRN 03/28/20 (SP)] Albuterol Sulfate 1.25 mg IH Q6H PRN PRN 03/28/20 Ascorbic Acid 500 mg PO DAILY 03/28/20 Aspirin [Aspirin, Baby] 81 mg PO DAILY@0800 03/28/20 Atorvastatin Calcium 80 mg PO DAILY 03/28/20 Famotidine 20 mg PO DAILY 03/28/20 Fluticasone 110 Mcg [Flovent (SP)] 2 puff INHALATION BID 03/28/20 Gabapentin 600 mg PO TID 03/28/20 Ipratropium/Albuterol Sulfate 3 ml INHALATION Q4H.RT 03/28/20 [Duoneb] Isosorbide Mononitrate [Isosorbide 30 mg PO DAILY 03/28/20 Mononitrate ER] Lisinopril 2.5 mg PO DAILY 03/28/20 Metoprolol Succinate 25 mg PO DAILY 03/28/20 Pantoprazole Sodium 40 mg PO BID 03/28/20 Tizanidine HCl 4 mg PO Q8H PRN PRN 03/28/20 Surgical History: - - Gastrectomy, G-tube placement Psychiatric History: No pertinent psych hx Smoking Status: Former smoker Tobacco Use: Cigarettes Alcohol: None Drugs: None - *Family History Maternal History Items: No pertinent history Paternal History Items: Heart Disease Review of Systems Constitutional: Denies: Chills, Fever, Weight Change HEENT: Denies: Head Aches, Sinus Congestion, Sinus Drainage Cardiovascular: Denies: Chest Pain, Palpitations Respiratory: Reports: Shortness of Breath. Denies: Cough, Shortness of breath at rest, Sputum production Gastrointestinal: Reports: Nausea, Vomiting. Denies: Abdominal Pain Genitourinary: Denies: Dysuria Musculoskeletal: Denies: Joint Pain, Joint Tenderness Skin: Denies: Rash, Wounds Neurological: Denies: Numbness, Tingling, Focal weakness Psychiatric: Denies: Anxiety, Depression Hematologic/ Lymphatic: Denies: Easy Bruising, Easy Bleeding VTE Information - Inpt Only VTE Present on Admission: No Patient Problems: Active and Suspected Problems Hypoxia (Acute) Respiratory failure (Acute) Aspiration pneumonia (Acute) Duodenal ulcer, acute with obstruction (Acute) - Physical Exam Vitals/I&O's: Vital Signs Temp Pulse Resp BP Pulse Ox 98.2 F 111 H 22 H 107/73 92 03/28/20 07:53 03/28/20 07:53 03/28/20 07:53 03/28/20 07:53 03/28/20 07:53 Oxygen Flow Rate (L/min) 2 Oxygen Delivery Method Nasal Cannula Weight: 123 lb 3.814 oz Body Mass Index (BMI) 25.7 General: Alert, Oriented x3, Cooperative, No apparent distress HEENT: Atraumatic, PERRLA, EOMI, Normocephalic Oral: Moist Mucosa Neck: Supple, No JVD Lungs: No wheeze, Diminished, Rhonchi Cardiovascular: Regular Rhythm, Normal S1, Normal S2, No murmurs, Tachycardic Abdomen: Soft, Non Tender, Non-Distended, No Hepato-splenomegaly, - - G-tube in place Extremities: No edema, Capillary Refill Less than 3 Seconds Skin: No rashes, No breakdown Neurological: Neuro grossly intact, Sensory exam intact to light touch and pain Psych/Mental Status: Normal Affect, Appropriate Microbiology Past 72 Hours 03/28/20 06:35 Mucosa - Nose SARS-CoV-2 Antigen (Rapid) - Final Laboratory Results 03/28/20 06:30: WBC 10.5, RBC 4.48, Hgb 13.5, Hct 43.5, MCV 97.1, MCH 30.1, MCHC 31.0 L, RDW Std Deviation 47.8 H, RDW Coeff of Kendy 13.3, Plt Count 208, MPV 10.1, Immature Gran % (Auto) 0.400, Neut % (Auto) 87.0 H, Lymph % (Auto) 6.2 L, [place] % (Auto) 5.7, Eos % (Auto) 0.5, Baso % (Auto) 0.2, Absolute Neuts (auto) 9.2 H, Absolute Lymphs (auto) 0.65 L, Nucleated RBC % 0 03/28/20 06:30: Sodium 135 L, Potassium 4.3, Chloride 103, Carbon Dioxide 29.0, Anion Gap 3 L, BUN 19 H, Creatinine 0.62, Estim Creat Clear Calc 80.61, Est GFR (MDRD) Af Amer 125, Est GFR (MDRD) Non-Af 103, BUN/Creatinine Ratio 30.6 H, Glucose 115 H, Calcium 8.7, Troponin I < 0.015 03/28/20 06:30: PT 12.1, INR 0.9, APTT 29.4 03/28/20 06:30: Total Bilirubin 0.50, Direct Bilirubin 0.15, AST 14 L, ALT 37, Alkaline Phosphatase 104, Total Protein 7.0, Albumin 3.5, Globulin 3.5 03/28/20 07:35: Lactic Acid 1.8 Current Medications Acetaminophen (Acetaminophen 325 Mg Tablet) 650 mg PO Q6H PRN PRN PRN Reason: Pain Score 1-10/Temp > 100.7 F Albuterol/Ipratropium (Ipratropium/Albuterol Sulfate 3 Ml Ampul.Neb) 3 ml INHALATION Q4H.RT [facility] Aspirin (Aspirin 81 Mg Tab.Chew) 81 mg PO DAILY@0800 [facility] Atorvastatin Calcium (Atorvastatin Calcium 80 Mg Tablet) 80 mg PO DAILY [facility] Calcium Carbonate (Calcium (Elemental) 500 Mg Tablet) 300 mg PO DAILY [facility] Cyanocobalamin (Cyanocobalamin 500 Mcg Tablet) 1,000 mcg PO DAILY@0800 [facility] Duloxetine HCl (Duloxetine Hcl 30 Mg Capsule) 60 mg PO DAILY [facility] Enoxaparin Sodium (Enoxaparin 40 Mg/0.4 Ml Syringe) 40 mg SC DAILY [facility] Famotidine (Famotidine 20 Mg Tablet) 20 mg PO DAILY [facility] Ferrous Sulfate (Ferrous Sulfate 325 Mg Tablet) 325 mg PO DAILY [facility] Gabapentin (Gabapentin 300 Mg Capsule) 600 mg PO TID [facility] Sodium Chloride () 1,000 mls @ 100 mls/hr IV .Q10H [facility] Ampicillin Sodium/Sulbactam (Sodium 3 gm/ Sodium Chloride) 112 mls @ 150 mls/hr IV Q8 [facility] Isosorbide Mononitrate (Isosorbide Mononitrate 30 Mg Tablet) 30 mg PO DAILY [facility] Lisinopril (Lisinopril 2.5 Mg Tablet) 2.5 mg PO DAILY [facility] Melatonin (Melatonin 3 Mg Tablet) 3 mg PO QHS PRN PRN PRN Reason: INSOMNIA Non-Formulary Medication (Fluticasone 110 Mcg) 2 puff INHALATION BID [facility] Non-Formulary Medication (Metoprolol Succinate) 25 mg PO DAILY [facility] Ondansetron HCl (Ondansetron 4 Mg/2 Ml Vial) 4 mg IV Q8H PRN PRN PRN Reason: NAUSEA/VOMITING Pantoprazole Sodium (Pantoprazole Sodium 40 Mg Tablet) 40 mg PO BID [facility] Assessment/Plan All Active Problems Hypoxia (Acute) Respiratory failure (Acute) Aspiration pneumonia (Acute) Duodenal ulcer, acute with obstruction (Acute) 1. Sepsis secondary to aspiration pneumonia -Continue with Unasyn, blood cultures are pending -We will continue with her home inhalers as well -IV fluids at 100 -Given her possible aspiration or reflux, will consult speech therapy for evaluation and a diet recommendation, will make her n.p.o. for now -She is supposed to be on tube feeds 8 hours a night while laying flat, obviously this is a set up for aspiration therefore will transition the amount that she is supposed to get overnight to 3 bolus feeds during the day. 2. COPD not appear to be in a current exacerbation -She received steroids in the ED, will hold off for right now while she is receiving inhalers, and antibiotics -If she does have increasing oxygen requirements can start her on Solu-Medrol -Continue with her inhalers as well as her Flovent 3. CAD/HTN/HLD -She does have chronic blockages but nothing acute that requires any stents -Blood pressure does appear stable -Continue with her home aspirin, Lipitor, isosorbide mononitrate, lisinopril, metoprolol 4. GERD status post partial gastrectomy for ulcer now with a G-tube -Stable -Continue with PPI, however we will also add Carafate -Continue with Tums -Continue with famotidine 5. Anxiety/depression -Stable -Continue Cymbalta DVT: Lovenox Inpatient E&M: 59723 Init Hosp L3
[2020-03-28] MEDS: 0.9% Normal Saline 1,000 ML 100 ML IV ×2 (12:16→23:46)
[2020-03-28] MEDS: Ondansetron 4 MG/2 ML Vial IV (12:52)
[2020-03-28] MEDS: Ketorolac 15 MG/ML Vial IV (14:38)
[2020-03-28] MEDS: DULoxetine Hcl 60 MG Capsule PO (14:48)
[2020-03-28] MEDS: Ferrous Sulfate 325 MG Tablet PO (14:48)
[2020-03-28] MEDS: Gabapentin 600 MG Tablet PO ×2 (14:48→22:03)
[2020-03-28] MEDS: Isosorbide Mononitrate 30 MG Tablet PO (14:48)
[2020-03-28] MEDS: Aspirin 81 MG TAB.CHEW PO (14:48)
[2020-03-28] MEDS: Sucralfate 1 GM Tablet PO ×3 (14:48→22:04)
[2020-03-28] MEDS: Pantoprazole Sodium 40 MG Tablet PO ×2 (14:48→22:06)
[2020-03-28] MEDS: Cyanocobalamin 500 MCG Tablet 1000 MCG PO (14:48)
[2020-03-28] MEDS: Famotidine 20 MG Tablet PO (14:48)
[2020-03-28] MEDS: Enoxaparin 40 MG/0.4 ML Syringe SC (14:52)
--- NOTE | 2020-03-28 15:12 | NURSING ---
This nurse spoke to [facility] concerning swallow eval. Hayley states pt ok to swallow meds today but keep NPO and do barium swallow tomorrow.
[2020-03-28] MEDS: Budesonide Respules 0.5 MG/2 ML AMPUL.NEB. INHALATION (19:36)
[2020-03-28] MEDS: Atorvastatin Calcium 80 MG Tablet PO (22:04)
--- NOTE | 2020-03-28 23:14 | PCS.PANDOC ---
PANDEMIC DOCUMENTATION INITIATED: Date: 03/28/20 Time: 1899
[2020-03-29] VITALS (18 sets, daily range): BP systolic 96–117; BP diastolic 50–77; PULSE 85–115; RESP 16–20; TEMP 36.4–36.8; O2SAT 92–96
[2020-03-29] MEDS: Ipratropium/Albuterol Sulfate 3 ML AMPUL.NEB INHALATION ×5 (03:11→19:48)
[2020-03-29] MEDS: Ketorolac 15 MG/ML Vial IV ×2 (04:17→18:49)
[2020-03-29 04:43] LABS: Absolute Lymphocyte Count 0.81 X10^3/uL (0.83-4.51); Absolute Neutrophil Count 6.4 X10^3/uL (2.0-7.7); Basophil# 0.01 X10^3/uL; Basophil% 0.1 % (0-1); Hematocrit 35.5 % (37-47); Lymphocyte # 0.81 X10^3/ul (4.0); Lymphocyte % 10.5 % (19-41); Mean Corpuscular Hgb 30.1 pg (27.0-32.0); Mean Platelet Vol. 9.9 fl (6.2-12.0); Monocyte# 0.46 X10^3/uL; Monocyte% 5.9 % (0-10); NRBC Flagged by Analyzer 0 % (0-5); Neutrophil # 6.44 X10^3/uL (2.7-7.7); Neutrophil % 83.2 % (47-70); Platelet Count 175 K/mm3 (150-450); RBC Distribution Width CV 13.4 % (11.6-14.6); RBC Distribution Width SD 48.5 fl (35.1-43.9); Red Blood Count 3.66 M/mm3 (4.2-5.4); White Blood Count 7.7 K/mm3 (4.4-11.0)
[2020-03-29 04:57] LABS: Anion Gap 6 (5-15); BUN 20 mg/dL (7-18); BUN/Creat Ratio 39.1 RATIO (10-20); Calcium,Total 7.4 mg/dL (8.5-10.1); Chloride 109 mmol/L (98-107); Creatinine, Serum 0.51 mg/dL (0.55-1.02); EST Glomerular Filtration Rate 128 mL/min (>60); Est Glom Filt Rate - Afr Amer 155 mL/min (>60); Estimated Creatinine Clearance 98.34 ml/min; Glucose 112 mg/dL (74-106); Potassium 3.9 mmol/L (3.5-5.1); Sodium Level 140 mmol/L (136-145)
[2020-03-29] MEDS: Gabapentin 600 MG Tablet PO ×3 (05:10→21:20)
[2020-03-29] MEDS: Sucralfate 1 GM Tablet PO ×3 (06:26→21:20)
[2020-03-29] MEDS: Budesonide Respules 0.5 MG/2 ML AMPUL.NEB. INHALATION ×2 (06:57→19:48)
[2020-03-29] MEDS: Pantoprazole Sodium 40 MG Tablet PO ×2 (08:03→21:20)
[2020-03-29] MEDS: Isosorbide Mononitrate 30 MG Tablet PO (08:03)
[2020-03-29] MEDS: Famotidine 20 MG Tablet PO (08:03)
[2020-03-29] MEDS: Aspirin 81 MG TAB.CHEW PO (08:04)
[2020-03-29] MEDS: Cyanocobalamin 500 MCG Tablet 1000 MCG PO (08:04)
[2020-03-29] MEDS: DULoxetine Hcl 60 MG Capsule PO (08:04)
[2020-03-29] MEDS: Enoxaparin 40 MG/0.4 ML Syringe SC (08:06)
[2020-03-29] MEDS: 0.9% Normal Saline 1,000 ML 100 ML IV ×2 (10:17→21:20)
[2020-03-29] MEDS: Ferrous Sulfate 325 MG Tablet PO (10:43)
[2020-03-29] MEDS: Ondansetron 4 MG/2 ML Vial IV (11:11)
--- NOTE | 2020-03-29 11:30 | CASEMGMT ---
RN CM Face to Face with patient for initial transition planning/care coordination assessment. RN CM introduced self and role at [facility]. Patient lying in bed, alert and oriented. Patient willing to participate in assessment and is able to answer all questions appropriately. Care providers, pharmacy, and demographics verified. Patient wishes to discharge home and is active with [facility]. Patient states she has no further needs or concerns at this time. CM to follow for discharge planning needs that may arise. PCP: Matilda Specialists: [facility] Preferred Pharmacy: [facility] Insurance: [facility] Prescription Benefit: yes Living Will/HPOA: yes, son Carlos Burrell LNOK: son Living Arrangements: Patient lives alone in a single story home with 3 steps and railing to enter the home. Transportation: self/son DME/HHC: Patient has shower chair, walker and nebulizer at home. Patient states she has a nurse once per week from [facility]. Patient states she has all her supplies and tube feed at home. Disposition Plan: Patient to discharge home with family support and follow-up plans in place. Chelsea MODI, RN, CM
--- NOTE | 2020-03-29 13:23 | PN_ITS ---
Patient Problems: Active and Suspected Problems Hypoxia (Acute) Respiratory failure (Acute) Aspiration pneumonia (Acute) Duodenal ulcer, acute with obstruction (Acute) Subjective: Patient seen and examined. She was admitted with a complaint of shortness of breath. She had had emesis due to significant reflux in December started having shortness of breath which was worse than her usual. X-ray pelvis showed a left lower lobe infiltrate. He was admitted and has been managed for sepsis due to aspiration pneumonia. Covid test was negative. She is on IV Unasyn. Vitals/I&O's: Vital Signs Temp Pulse Resp BP Pulse Ox 97.8 F 88 18 101/61 94 03/29/20 11:05 03/29/20 11:05 03/29/20 11:05 03/29/20 11:05 03/29/20 11:05 Oxygen Flow Rate (L/min) 5 Oxygen Delivery Method Nasal Cannula Weight: 123 lb 3.814 oz Body Mass Index (BMI) 25.7 Intake and Output for Last 24 Hours 03/27/20 03/28/20 03/29/20 23:59 23:59 23:59 Intake Total 1312.66 / 1312.66 1207.00 / 1207.00 Balance 1312.66 / 1312.66 1207.00 / 1207.00 General: Alert, Oriented x3, Cooperative HEENT: Atraumatic, PERRLA, EOMI, Normocephalic Oral: Dry Mucosa Neck: Supple, No JVD, Negative Carotid Bruits Lungs: - - decreased breath sounds bibasally, no wheezes or crackles. Cardiovascular: Regular rate, Regular Rhythm, Normal S1, Normal S2, No murmurs Abdomen: Bowel Sounds Present, Soft, Non Tender, Non-Distended, No Hepato- splenomegaly Extremities: No clubbing, No cyanosis, No edema, Capillary Refill Less than 3 Seconds Skin: No rashes, No breakdown Musculoskeletal: No Tenderness to Palpation of Joints or Extremities Lymphatic: No Cervical, Supraclavicular, or Inguinal Adenopathy Neurological: Cranial nerves II-XII grossly intact, Neuro grossly intact, Motor Exam 5/5 strength throughout Psych/Mental Status: Normal Affect, Appropriate, Alert and oriented to time, place, person, mood and affect Microbiology Past 72 Hours 03/28/20 06:35 Mucosa - Nose SARS-CoV-2 Antigen (Rapid) - Final Laboratory Results 03/29/20 04:32: WBC 7.7, RBC 3.66 L, Hgb 11.0 L, Hct 35.5 L, MCV 97.0, MCH 30.1, MCHC 31.0 L, RDW Std Deviation 48.5 H, RDW Coeff of Kendy 13.4, Plt Count 175, MPV 9.9, Immature Gran % (Auto) 0.300, Neut % (Auto) 83.2 H, Lymph % (Auto) 10.5 L, [place] % (Auto) 5.9, Eos % (Auto) 0.0, Baso % (Auto) 0.1, Absolute Neuts (auto) 6.4, Absolute Lymphs (auto) 0.81 L, Nucleated RBC % 0 03/29/20 04:32: Sodium 140, Potassium 3.9, Chloride 109 H, Carbon Dioxide 25.0, Anion Gap 6, BUN 20 H, Creatinine 0.51 L, Estim Creat Clear Calc 98.34, Est GFR (MDRD) Af Amer 155, Est GFR (MDRD) Non-Af 128, BUN/Creatinine Ratio 39.1 H, Glucose 112 H, Calcium 7.4 L Diagnostic Data Chest X-Ray 03/28/20 06:55 IMPRESSION: Suspect pneumonia in the left lower lobe. Stable atelectasis right base. Other nonacute findings as outlined above. Electronically Signed: Jenn Ann MD at 7:18 EST , Service support , Current Medications Acetaminophen (Acetaminophen 325 Mg Tablet) 650 mg PO Q6H PRN PRN PRN Reason: Pain Score 1-10/Temp > 100.7 F Albuterol/Ipratropium (Ipratropium/Albuterol Sulfate 3 Ml Ampul.Neb) 3 ml INHALATION Q4H.RT [facility] Last Admin: 03/29/20 10:43 Dose: 3 ml Documented by: Aspirin (Aspirin 81 Mg Tab.Chew) 81 mg PO DAILY@0800 [facility] Last Admin: 03/29/20 08:04 Dose: 81 mg Documented by: Atorvastatin Calcium (Atorvastatin Calcium 80 Mg Tablet) 80 mg PO QHS [facility] Last Admin: 03/28/20 22:04 Dose: 80 mg Documented by: Budesonide (Budesonide Respules 0.5 Mg/2 Ml Ampul.Neb.) 0.5 mg INHALATION Q12H.RT [facility] Last Admin: 03/29/20 06:57 Dose: 0.5 mg Documented by: Cyanocobalamin (Cyanocobalamin 500 Mcg Tablet) 1,000 mcg PO DAILY@0800 [facility] Last Admin: 03/29/20 08:04 Dose: 1,000 mcg Documented by: Duloxetine HCl (Duloxetine Hcl 60 Mg Capsule) 60 mg PO DAILY [facility] Last Admin: 03/29/20 08:04 Dose: 60 mg Documented by: Enoxaparin Sodium (Enoxaparin 40 Mg/0.4 Ml Syringe) 40 mg SC DAILY [facility] Last Admin: 03/29/20 08:06 Dose: 40 mg Documented by: Famotidine (Famotidine 20 Mg Tablet) 20 mg PO DAILY [facility] Last Admin: 03/29/20 08:03 Dose: 20 mg Documented by: Ferrous Sulfate (Ferrous Sulfate 325 Mg Tablet) 325 mg PO 1200 [facility] Last Admin: 03/29/20 10:43 Dose: 325 mg Documented by: Gabapentin (Gabapentin 600 Mg Tablet) 600 mg PO TID [facility] Last Admin: 03/29/20 05:10 Dose: 600 mg Documented by: Sodium Chloride () 1,000 mls @ 100 mls/hr IV .Q10H [facility] Last Admin: 03/29/20 10:17 Dose: 100 mls/hr Documented by: Ampicillin Sodium/Sulbactam (Sodium 3 gm/ Sodium Chloride) 112 mls @ 150 mls/hr IV Q8 [facility] Last Infusion: 03/29/20 06:04 Dose: Infused Documented by: Isosorbide Mononitrate (Isosorbide Mononitrate 30 Mg Tablet) 30 mg PO DAILY [facility] Last Admin: 03/29/20 08:03 Dose: 30 mg Documented by: Ketorolac Tromethamine (Ketorolac 15 Mg/Ml Vial) 15 mg IV Q6H PRN PRN PRN Reason: shoulder and back pain Stop: 04/02/20 14:08 Last Admin: 03/29/20 04:17 Dose: 15 mg Documented by: Lisinopril (Lisinopril 2.5 Mg Tablet) 2.5 mg PO DAILY [facility] Last Admin: 03/29/20 08:09 Dose: Not Given Documented by: Melatonin (Melatonin 3 Mg Tablet) 3 mg PO QHS PRN PRN PRN Reason: INSOMNIA Metoprolol Succinate (Metoprolol(Xl)Succ 25 Mg Tablet) 25 mg PO DAILY [facility] Last Admin: 03/29/20 08:09 Dose: Not Given Documented by: Nutritional Formula (Osmolite 1.2) 333 ml GT TID@0900,1300,1900 [facility] Last Admin: 03/29/20 10:24 Dose: 333 ml Documented by: Ondansetron HCl (Ondansetron 4 Mg/2 Ml Vial) 4 mg IV Q8H PRN PRN PRN Reason: NAUSEA/VOMITING Last Admin: 03/29/20 11:11 Dose: 4 mg Documented by: Pantoprazole Sodium (Pantoprazole Sodium 40 Mg Tablet) 40 mg PO BID [facility] Last Admin: 03/29/20 08:03 Dose: 40 mg Documented by: Sodium Chloride (0.9% Saline Lock 10 Ml Syringe) 10 - 40 ml IV UD PRN PRN Reason: SALINE FLUSH Sucralfate (Sucralfate 1 Gm Tablet) 1 gm PO 1HR_ACHS [facility] Last Admin: 03/29/20 11:55 Dose: Not Given Documented by: STROKE Vital Signs/Narrative: Vital Signs Temp Pulse Resp BP Pulse Ox 03/29/20 11:05 97.8 F 88 18 101/61 94 03/29/20 11:00 115 H 03/29/20 10:43 85 16 Medical Necessity - Tobacco Use Smoking Status: Former smoker Tobacco Use: Cigarettes Assessment/Plan All Active Problems Hypoxia (Acute) Respiratory failure (Acute) Aspiration pneumonia (Acute) Duodenal ulcer, acute with obstruction (Acute) #Sepsis due to aspiration pneumonia * on IV unasyn * blood cultures pending * continue gentle hydration with IVF * speech therapy on board * has tube feed going also * # Acute hypoxic respiratory failure due to aspiration pneumonia * now on 5L of oxygen * on antibiotics as above * titrate oxygen to maintain sats >90% * consult pulmo if oxygen requirments increase further * # GERD s/p partial gastrectomy * on PPI and carafate * on Tums and famotidine. * #CAD * Says she recently had a cath at [facility] and was told she had blockages. She was also told she needed open heart surgery because she had a valve problem, but wants a second opinion from a [place] [facility] [place] [facility] group leader here. * records requested from [facility] * on aspirin, statin, imdur, lisinopril and metoprolol * #Hypertension * On lisinopril and metoprolol * #Anxiety and depression: On Cymbalta DVT prophylaxis: lovenox Inpatient E&M: 52735 Subs Hosp L2
--- NOTE | 2020-03-29 14:20 | SP.MBSS_ITS ---
Modified Barium Swallow - Patient Information Study Date: 03/29/20 Study Time: 14:20 Direct Billable Minutes: 150 Total Minutes procedure & reportin Diagnosis: dysphagia Referring Physician: Tsering Harman Reason for Referral: Objective assessment of swallow function under fluoroscopy recommended to identify aspiration and shape dysphagia management/treatment goals Medical History: Pt was a 65 year old F who presented to [facility] ED d/t SOB. Reports significant reflux, had an episode of emesis 3 days prior to admission w/ SOB since then. Hx of chronic shortness of breath secondary to history of COPD. In the ED she was found to have a left lower lobe infiltrate. She does have a Josh button and per the pt, she does 8 hour tube feedings at night WHILE LAYING DOWN. Pt reports having prior surgery which left her with only ~10% of her stomach. States that she has had gastric emptying studies and that she uses her Josh button/PEG for continuous tube feeds overnight (8hrs). TFs are done at a slow rate and overnight to allow for gastric emptying/reduce risk for reflux d/t small stomach and to allow patient to develop an appetite as she has to eat small meals every 2 hours w/ the eventual goal of discontinuing TFs if able to return to PO intake. States that she would life flat at night while TF ran, reporting that it is unc omfortable to be in a semi-reclined position d/t her scoliosis. Extensive education provided re: importance of elevating HOB AT LEAST 30 degrees while TF running. HIGH risk for aspiration of reflux, especially in light of reported small stomach w/ impaired gastric clearance. Current Diet Ordered: NPO Dentition: Edentulous - has dentures at home Mental Status: WNL Comment: Oxygenating on 6L/min O2 via nasal cannula - Penetration-Aspiration Scale Score Thin Liquid via teaspoon Result: 1= does not enter airway Thin Liquid via teaspoon Trial 2 Result: 1= does not enter airway Thin Liquid via small single sip from cup Result: 1= does not enter airway Pudding Result: 1= does not enter airway 1/4 Shortbread Cookie Coated in Barium Result: 1= does not enter airway Thin Liquid via large single sip from cup Result: 2= enter airway/above vocal folds/ejected Thin Liquid via small single sip from cup Trial 2 Result: 1= does not enter airway Thin Liquid via single sip from straw Result: 1= does not enter airway - Oral Phase Labial Seal: No Labial Escape Tongue Control During Bolus Hold: Cohesive bolus between tongue to palatal seal Bolus Preparation/Mastication: Slow prolonged chewing/mashing with complete recollection Bolus Transport/Lingual Motion: Slowed tongue motion Oral Residue: Residue collection on oral structures - Pharyngeal Phase Initiation of Pharyngeal Swallow: Bolus head in pyriforms Soft Palate Elevation: No bolus between soft palate and pharyngeal wall Laryngeal Elevation: Partial superior movement thyroid cart/partial apprx aryt- epig petiole Anterior Hyoid Excursion: Partial anterior movement Epiglottic Movement: Complete inversion Laryngeal Vestibule Closure at Height of Swallow: Complete; no air/contrast in laryngeal vestibule Pharyngeal Stripping Wave: Present - complete Pharyngoesophageal Segment Opening: Parital distension and partial duration; parital obstruction of flow Tongue Base Retraction: Wide column of contrast between tongue base & post. pharyngeal wall Pharyngeal Residue: Collection of residue within or on pharyngeal structures - Esophageal Phase Esophageal Clearance: Complete clearance - Treatment Strategies Effects of treatment strategies attemped:: Small sips/reduced liquid bolus volume = effective to reduce likelihood of penetration Multiple swallows = effective to facilitate oral/pharyngeal residue clearance Liquid wash - alternating bites/sips: effective to facilitate oral/pharyngeal residue clearance - Diagnosis/Impression Diagnosis: oropharyngeal dysphagia Impression: Oral phase marked by: * adequate lingual cupping for containment of liquid w/in the oral cavity during cued oral holding * premature pharyngeal bolus entry of liquids * prolonged mastication d/t lack of dentition * oral residue retention on the oral tongue, velum and tongue base Pharyngeal phase marked by: * suboptimal bolus location upon swallow onset * diminished tongue base (TB) retraction w/ the posterior pharyngeal wall (PPW); pharyngeal stripping wave over compensating to achieve TB to PPW contact * thin liquid undercoated the posterior laryngeal surface of the epiglottis w/out laryngeal vestibule penetration w/ small volume sips of thin liquid * transient laryngeal vestibule penetration occurred w/ larger volume thin liquid bolus w/ complete ejection * reduced hyolaryngeal excursion * contrast retention collected along the base of tongue, tip of epiglottis, and superior 1/2 of the posterior pharyngeal wall w/ lining of the aryepiglottic folds/pyriform sinuses * prominent cricopharyngeus/small CP bar evident which did not impede bolus flow through PES into the esophagus Esophageal phase appeared unremarkable, scan for esophageal clearance not completed. - Recommendations Diet: Regular Textures - soft and bite sized, Thin Liquids Comment: small meals w/ increased frequency Compensatory Strategies: Small Bites, Small Sips, Slow Rate, Multiple Swallows, Alternate bites/solids and sips/liquids, Sitting upright, Remain sitting upright for 30 minutes after PO intake Supervision: Assist as needed Recommend Repeat Modified Barium Swallow: No Need for Skilled Speech Therapy Services: Yes Comment: This patient would benefit from continued dysphagia intervention targeting education and instruction on compensatory strategy use during intake and for initiation of an oropharyngeal strengthening exercise program to improve swallow function and reduce oral/pharyngeal residue and subsequent risk for aspiration. Recommended Referrals: Dietitian Consult - RD to determine appropriate TF schedule - Pt reports only has ~10% of stomach w/ slow gastric emptying - prefers nocturnal TFs to allow for appetite stimulation - attempting to eat small meals every 2 hours w/ pateint goal of resuming PO intake as primary source of nutrition Education Completed: 1. Described result of evaluation., 2. Pt understands evaluation & agrees with goals and treatment plan. Comment: Results and recommendations were discussed w/ the patient immediately following MBS completion. Pt expressed concern re: TFs via bolus 3x daily and sensation of feeling overly full w/ abdominal discomfort, burping and diarrhea. This [employer] agrees w/ concerns and discussed concerns re: nocturnal vs. diurnal and continuous vs. bolus TFs w/ Teja RN. Although patient was changed from continuous nocturnal TFs to bolus feeds d/t the patient lying flat on back while continuous nocturnal feeding ran w/ high risk for reflux/aspiration, the risk for reflux/aspiration remains present w/ bolus feedings d/t small stomach size w/ the added disadvantage of decreasing daytime appetite. Pt reports that it is uncomfortable to lie on a wedge to elevate her HOB during nocturnal TFs d/t scoliosis. Would benefit from additional education to improve understanding of the importance of elevated HOB precautions and for problem solving & support to determine how to comfortable achieve proper positioning to improve compliance and reduce complications. - Status Active ST Patient: Active - Contact Information [facility] Speech Therapy:: Zuri Chery M.A., [facility]-[employer] Speech-Language Pathologist [phone]
--- NOTE | 2020-03-29 16:02 | CHAPLAIN ---
Type of Pastoral Visit ___ Initial Visit ___ Follow-up Visit ___ On-call Visit ___ General Patient Visit ___ Spiritual Assessment ___ Family Conference ___ Bereavement ___ Rapid Response ___ Code Blue _x__ Other (describe below) Pastoral Care Referral From _x__ Patient ___ Family ___ Nurse ___ Physician ___ Independent Consultant ___ Field Research Associate ___ Other (describe below) Sacrament/Intervention ___ Active listening ___ Anointing ___ Gnosticism ___ Bereavement ___ Communion ___ Ashly exploration ___ ___ Life review ___ Prayer ___ Reconciliation ___ Sacrament of Sick ___ Supportive presence ___ Wedding ___ Other (describe below) Pastoral Comments unable to meet with patient as she was occupied; left a calling card
[2020-03-29] MEDS: Atorvastatin Calcium 80 MG Tablet PO (21:20)
[2020-03-30] VITALS (16 sets, daily range): BP systolic 107–130; BP diastolic 54–75; PULSE 76–98; RESP 16–23; TEMP 36.5–36.8; O2SAT 93–96; BMI 25.7
[2020-03-30] MEDS: Gabapentin 600 MG Tablet PO ×3 (05:26→21:29)
[2020-03-30] MEDS: Sucralfate 1 GM Tablet PO ×4 (06:03→21:29)
[2020-03-30] MEDS: Ipratropium/Albuterol Sulfate 3 ML AMPUL.NEB INHALATION ×4 (06:57→19:56)
[2020-03-30] MEDS: Budesonide Respules 0.5 MG/2 ML AMPUL.NEB. INHALATION ×2 (06:57→19:56)
[2020-03-30 06:58] LABS: Absolute Lymphocyte Count 1.29 X10^3/uL (0.83-4.51); Absolute Neutrophil Count 5.2 X10^3/uL (2.0-7.7); Basophil# 0.01 X10^3/uL; Basophil% 0.1 % (0-1); Eosinophil# 0.19 X10^3/uL; Eosinophils% 2.6 % (0-5); Hematocrit 36.6 % (37-47); Hemoglobin 11.4 g/dL (12.0-15.0); Lymphocyte # 1.29 X10^3/ul (4.0); Mean Corp Hgb Conc 31.1 g/dL (32-36); Mean Corpuscular Hgb 30.8 pg (27.0-32.0); Mean Corpuscular Volume 98.9 fL (81-99); Mean Platelet Vol. 10.5 fl (6.2-12.0); Monocyte# 0.44 X10^3/uL; Monocyte% 6.1 % (0-10); Neutrophil # 5.21 X10^3/uL (2.7-7.7); Neutrophil % 72.8 % (47-70); POSITIVE COUNT YES; Platelet Count 191 K/mm3 (150-450); RBC Distribution Width CV 13.6 % (11.6-14.6); RBC Distribution Width SD 49.5 fl (35.1-43.9); White Blood Count 7.2 K/mm3 (4.4-11.0)
[2020-03-30 06:59] LABS: Differential Indicated SCAN CRITERIA MET
[2020-03-30 07:17] LABS: Anion Gap 6 (5-15); BUN 10 mg/dL (7-18); BUN/Creat Ratio 23.3 RATIO (10-20); Calcium,Total 7.4 mg/dL (8.5-10.1); Chloride 113 mmol/L (98-107); Creatinine, Serum 0.43 mg/dL (0.55-1.02); EST Glomerular Filtration Rate 157 mL/min (>60); Est Glom Filt Rate - Afr Amer 190 mL/min (>60); Estimated Creatinine Clearance 116.64 ml/min; Glucose 84 mg/dL (74-106); Potassium 4.1 mmol/L (3.5-5.1); Sodium Level 143 mmol/L (136-145)
[2020-03-30] MEDS: Cyanocobalamin 500 MCG Tablet 1000 MCG PO (08:37)
[2020-03-30] MEDS: Aspirin 81 MG TAB.CHEW PO (08:37)
[2020-03-30] MEDS: Furosemide 40 MG/4 ML Vial IV (08:37)
[2020-03-30] MEDS: Enoxaparin 40 MG/0.4 ML Syringe SC (08:38)
[2020-03-30] MEDS: DULoxetine Hcl 60 MG Capsule PO (08:38)
[2020-03-30] MEDS: Famotidine 20 MG Tablet PO (08:38)
[2020-03-30] MEDS: Pantoprazole Sodium 40 MG Tablet PO ×2 (08:38→21:32)
[2020-03-30] MEDS: 0.9% Saline Lock 10 ML Syringe IV ×3 (08:41→20:10)
[2020-03-30] MEDS: Metoprolol(XL)Succ 25 MG Tablet PO (10:34)
[2020-03-30] MEDS: Isosorbide Mononitrate 30 MG Tablet PO (10:34)
[2020-03-30] MEDS: Ferrous Sulfate 325 MG Tablet PO (10:34)
[2020-03-30] MEDS: Lisinopril 2.5 MG Tablet PO (10:34)
--- NOTE | 2020-03-30 11:40 | PCM.NTREPORT ---
Nutrition Therapy Report - History Nutrition Services has been consulted to:: Manage nutrient details of diet order, Manage enteral nutrition Current diet / nutrition support order:: regular-soft/bite sized; Osmolite 1.2 333mL TID to provide 1200 calories, 55.5 g protein - Anthropometric Measurements Height:: 4 ft 10 in Weight:: 55.9 kg Body Mass Index (BMI):: 25.7 - Relevant Labs Relevant Labs:: RBC 3.70 M/mm3 (4.2-5.4) L 03/30/20 06:25 Hgb 11.4 g/dL (12.0-15.0) L 03/30/20 06:25 Hct 36.6 % (37-47) L 03/30/20 06:25 MCHC 31.1 g/dL (32-36) L 03/30/20 06:25 RDW Std Deviation 49.5 fl (35.1-43.9) H 03/30/20 06:25 Neut % (Auto) 72.8 % (47-70) H 03/30/20 06:25 Lymph % (Auto) 18.0 % (19-41) L 03/30/20 06:25 Absolute Neuts (auto) 9.2 X10^3/uL (2.0-7.7) H 03/28/20 06:30 Absolute Lymphs (auto) 0.81 X10^3/uL (0.83-4.51) L 03/29/20 04:32 Sodium 135 mmol/L (136-145) L 03/28/20 06:30 Chloride 113 mmol/L (98-107) H 03/30/20 06:25 Anion Gap 3 (5-15) L 03/28/20 06:30 BUN 20 mg/dL (7-18) H 03/29/20 04:32 Creatinine 0.43 mg/dL (0.55-1.02) L 03/30/20 06:25 BUN/Creatinine Ratio 23.3 RATIO (10-20) H 03/30/20 06:25 Glucose 112 mg/dL (74-106) H 03/29/20 04:32 Calcium 7.4 mg/dL (8.5-10.1) L 03/30/20 06:25 AST 14 U/L (15-37) L 03/28/20 06:30 - Assessment Food / Nutrition-Related History:: Pt noted to have history of gastrectomy d/t ulcers w/ PEG placement for supplemental nutrition. Pt reports nocturnal feeding of Osmolite 1.5 at home-60mL/hour for 8 hours w/ 100mL H2O flush every 4 hours to provide 720 calories, 30 g protein. Pt reports laying flat in bed while continuous nutrition support running d/t scoliosis. Pt states she has a regular bed at home and has difficulty keeping herself elevated. Per speech therapy documentation- suspected that current aspiration pneumonia related to lying flat while tube feeds running. Pt states she follows w/ a dietitian at [facility]. Pt reports small, frequent meals at home and tries to eat every 2 hours. Reports eating scrambled eggs and ~3 oz of coffee for breakfast this date. Was drinking Ensure/Boost 5x/day but has become intolerant to oral nutrition supplements. Currently has an order for Osmolite 1.2 333mL TID to provide 1200 calories, 55.5 g protein, and 820mL fluid/day. Pt reports nausea after bolus and has refused additional bolus feeds since. - Nutrition Diagnosis Problem / Etiology / Signs & Symptoms (PES):: Pt w/ inadequate oral intake related to altered GI function s/p gastrectomy as evidenced by estimated PO intake meeting less than 50% of estimated nutritional needs. Evidence of Malnutrition Exists:: No - Nutrition Intervention Nutrition Prescription:: [id number] calories, 55-65 g protein/day - Food / Nutrient Delivery Interventions Summary of nutrition intervention:: Discussed w/ pt- given reported significant gastrectomy, do not suspect pt will tolerate bolus feeds of any amount. Pt states she would be agreeable to maintaining HOB 30 degrees while in hopsital bed and resuming nocturnal feeds. Pt refuses all offers of oral nutrition supplements at this time. Small frequent meals/snacks encouraged. Discussed w/ Dr. Harman, will change enteral nutrition to nocturnal feeds. Discussed w/ case specialist, [place]- will try to obtain hospital bed at home for pt to prevent further aspiration events. Nutrition support ordered as / adjusted to:: Osmolite 1.2 at 60mL/hour for 10 hours starting at 19:00 w/ 100mL H2O flush every 4 hours to provide 720 calories, 30 g protein, and 960mL (appropriate interchange for home tube feed product, Osmolite 1.5;meeting ~50% of estimated nutritional needs); continue regular diet, consistency per FELL CUTTER. Nutrition education provided?: Yes - MNT Monitoring Further MNT monitoring and evaluation required?: Yes MNT Follow-up in:: 1-2 days
--- NOTE | 2020-03-30 13:09 | CASEMGMT ---
Per Mony, cake stripper, pt needs a hospital bed at home d/t chronic aspiration with her nighttime tube feeds. Pt also has scoliosis and unable to place wedge under self at night d/t same in normal bed. This RN CM to room to discuss with pt at this time. After verbal list of local DME companies provided, pt states she would like [employer] for equipment at this time. Pt may also qualify for home oxygen at discharge as she is currently on 4L nc at this time. Pt has no home oxygen at this time. FILOMENA order, facesheet, and H&P faxed to [facility] at this time. Per pt, she is active with SN only at this time. Pt voices no further quesitons/concerns/needs at this time. CM to follow for home oxygen need. Prateek PATRICK CM
--- NOTE | 2020-03-30 13:55 | PCM.PN.HOSP ---
Patient Problems: Active and Suspected Problems Hypoxia (Acute) Respiratory failure (Acute) Aspiration pneumonia (Acute) Duodenal ulcer, acute with obstruction (Acute) Subjective: Patient seen and examined. She still complains of shortness of breath and is wheezing a bit. She denies any cough or chest pain or palpitations. Patient states that she is not tolerating the bolus tube feeding well and would prefer to be continuing her nighttime tube feeding as recommended so that she can eat during the day. There was concern about aspiration because she uses the tube feeding at night while she is laying down recumbent to sleep. She has remained hemodynamically stable. Vitals/I&O's: Vital Signs Temp Pulse Resp BP Pulse Ox 97.7 F L 92 21 H 130/65 H 94 03/30/20 10:32 03/30/20 11:09 03/30/20 11:09 03/30/20 10:34 03/30/20 10:32 Oxygen Flow Rate (L/min) 5 Oxygen Delivery Method Nasal Cannula Weight: 123 lb 3.814 oz Body Mass Index (BMI) 25.7 Intake and Output for Last 24 Hours 03/28/20 03/29/20 03/30/20 23:59 23:59 23:59 Intake Total 1312.66 / 1312.66 2491.01 / 2611.01 1475.33 / 1475.33 Output Total 0 / 0 Balance 1312.66 / 1312.66 2491.01 / 2611.01 1475.33 / 1475.33 General: Alert, Oriented x3, Cooperative HEENT: Atraumatic, PERRLA, EOMI, Normocephalic Oral: Dry Mucosa Neck: Supple, No JVD, Negative Carotid Bruits Lungs: - - decreased breath sounds bibasally, bilateral wheezing; no crackles. on 5L of oxygen Cardiovascular: Regular rate, Regular Rhythm, Normal S1, Normal S2, No murmurs Abdomen: Bowel Sounds Present, Soft, Non Tender, Non-Distended, No Hepato-splenomegaly Extremities: No clubbing, No cyanosis, No edema, Capillary Refill Less than 3 Seconds Skin: No rashes, No breakdown Musculoskeletal: No Tenderness to Palpation of Joints or Extremities Lymphatic: No Cervical, Supraclavicular, or Inguinal Adenopathy Neurological: Cranial nerves II-XII grossly intact, Neuro grossly intact, Motor Exam 5/5 strength throughout Psych/Mental Status: Normal Affect, Appropriate, Alert and oriented to time, place, person, mood and affect Microbiology Past 72 Hours 03/28/20 06:35 Mucosa - Nose SARS-CoV-2 Antigen (Rapid) - Final Laboratory Results 03/30/20 06:25: WBC 7.2, RBC 3.70 L, Hgb 11.4 L, Hct 36.6 L, MCV 98.9, MCH 30.8, MCHC 31.1 L, RDW Std Deviation 49.5 H, RDW Coeff of Kendy 13.6, Plt Count 191, MPV 10.5, Immature Gran % (Auto) 0.400, Neut % (Auto) 72.8 H, Lymph % (Auto) 18.0 L, Randall % (Auto) 6.1, Eos % (Auto) 2.6, Baso % (Auto) 0.1, Absolute Neuts (auto) 5.2, Absolute Lymphs (auto) 1.29, Nucleated RBC % 2.0 03/30/20 06:25: Sodium 143, Potassium 4.1, Chloride 113 H, Carbon Dioxide 24.0, Anion Gap 6, BUN 10, Creatinine 0.43 L, Estim Creat Clear Calc 116.64, Est GFR (MDRD) Af Amer 190, Est GFR (MDRD) Non-Af 157, BUN/Creatinine Ratio 23.3 H, Glucose 84, Calcium 7.4 L Current Medications Acetaminophen (Acetaminophen 325 Mg Tablet) 650 mg PO Q6H PRN PRN PRN Reason: Pain Score 1-10/Temp > 100.7 F Albuterol/Ipratropium (Ipratropium/Albuterol Sulfate 3 Ml Ampul.Neb) 3 ml INHALATION Q4H.RT [facility] Last Admin: 03/30/20 11:08 Dose: 3 ml Documented by: Aspirin (Aspirin 81 Mg Tab.Chew) 81 mg PO DAILY@0800 [facility] Last Admin: 03/30/20 08:37 Dose: 81 mg Documented by: Atorvastatin Calcium (Atorvastatin Calcium 80 Mg Tablet) 80 mg PO QHS [facility] Last Admin: 03/29/20 21:20 Dose: 80 mg Documented by: Budesonide (Budesonide Respules 0.5 Mg/2 Ml Ampul.Neb.) 0.5 mg INHALATION Q12H.RT [facility] Last Admin: 03/30/20 06:57 Dose: 0.5 mg Documented by: Cyanocobalamin (Cyanocobalamin 500 Mcg Tablet) 1,000 mcg PO DAILY@0800 [facility] Last Admin: 03/30/20 08:37 Dose: 1,000 mcg Documented by: Duloxetine HCl (Duloxetine Hcl 60 Mg Capsule) 60 mg PO DAILY [facility] Last Admin: 03/30/20 08:38 Dose: 60 mg Documented by: Enoxaparin Sodium (Enoxaparin 40 Mg/0.4 Ml Syringe) 40 mg SC DAILY [facility] Last Admin: 03/30/20 08:38 Dose: 40 mg Documented by: Famotidine (Famotidine 20 Mg Tablet) 20 mg PO DAILY [facility] Last Admin: 03/30/20 08:38 Dose: 20 mg Documented by: Ferrous Sulfate (Ferrous Sulfate 325 Mg Tablet) 325 mg PO 1200 [facility] Last Admin: 03/30/20 10:34 Dose: 325 mg Documented by: Gabapentin (Gabapentin 600 Mg Tablet) 600 mg PO TID [facility] Last Admin: 03/30/20 05:26 Dose: 600 mg Documented by: Ampicillin Sodium/Sulbactam (Sodium 3 gm/ Sodium Chloride) 112 mls @ 150 mls/hr IV Q8 [facility] Last Admin: 03/30/20 13:55 Dose: 150 mls/hr Documented by: Isosorbide Mononitrate (Isosorbide Mononitrate 30 Mg Tablet) 30 mg PO DAILY [facility] Last Admin: 03/30/20 10:34 Dose: 30 mg Documented by: Ketorolac Tromethamine (Ketorolac 15 Mg/Ml Vial) 15 mg IV Q6H PRN PRN PRN Reason: shoulder and back pain Stop: 04/02/20 14:08 Last Admin: 03/29/20 18:49 Dose: 15 mg Documented by: Lisinopril (Lisinopril 2.5 Mg Tablet) 2.5 mg PO DAILY [facility] Last Admin: 03/30/20 10:34 Dose: 2.5 mg Documented by: Melatonin (Melatonin 3 Mg Tablet) 3 mg PO QHS PRN PRN PRN Reason: INSOMNIA Methylprednisolone (Methylprednisolone 40 Mg/Ml Vial) 40 mg IV Q8 [facility] Last Admin: 03/30/20 13:53 Dose: 40 mg Documented by: Metoprolol Succinate (Metoprolol(Xl)Succ 25 Mg Tablet) 25 mg PO DAILY [facility] Last Admin: 03/30/20 10:34 Dose: 25 mg Documented by: Nutritional Formula (Osmolite 1.2) 60 ml GT DAILY@1900 [facility] Ondansetron HCl (Ondansetron 4 Mg/2 Ml Vial) 4 mg IV Q8H PRN PRN PRN Reason: NAUSEA/VOMITING Last Admin: 03/29/20 11:11 Dose: 4 mg Documented by: Pantoprazole Sodium (Pantoprazole Sodium 40 Mg Tablet) 40 mg PO BID [facility] Last Admin: 03/30/20 08:38 Dose: 40 mg Documented by: Sodium Chloride (0.9% Saline Lock 10 Ml Syringe) 10 - 40 ml IV UD PRN PRN Reason: SALINE FLUSH Last Admin: 03/30/20 13:53 Dose: 10 ml Documented by: Sucralfate (Sucralfate 1 Gm Tablet) 1 gm PO 1HR_ACHS [facility] Last Admin: 03/30/20 10:34 Dose: 1 gm Documented by: STROKE Vital Signs/Narrative: Vital Signs Temp Pulse Resp BP Pulse Ox 03/30/20 11:09 92 21 H 03/30/20 10:34 91 130/65 H 03/30/20 10:32 97.7 F L 91 20 H 130/65 H 94 Medical Necessity - Tobacco Use Smoking Status: Former smoker Tobacco Use: Cigarettes Assessment/Plan All Active Problems Hypoxia (Acute) Respiratory failure (Acute) Aspiration pneumonia (Acute) Duodenal ulcer, acute with obstruction (Acute) #Sepsis due to aspiration pneumonia on IV unasyn blood cultures pending dc IVF start IV solumedrol o/a of wheezing. speech therapy on board has tube feed going also # Acute hypoxic respiratory failure due to aspiration pneumonia still on 5L of oxygen on antibiotics as above titrate oxygen to maintain sats >90% consult pulmo if oxygen requirements increase further # GERD s/p partial gastrectomy on PPI and carafate on Tums and famotidine. #CAD Says she recently had a cath at [facility] and was told she had blockages. She was also told she needed open heart surgery because she had a valve problem, but wants a second opinion from a ticker wirer here. records requested from [facility] still pending on aspirin, statin, imdur, lisinopril and metoprolol to follow up with cardiology on outpatient basis for second opinion #Hypertension On lisinopril and metoprolol #Anxiety and depression: On Cymbalta DVT prophylaxis: lovenox Inpatient E&M: 07681 Subs Hosp L3
[2020-03-30] MEDS: guaiFENesin 1,200 MG Tablet 1200 MG PO (16:35)
[2020-03-30] MEDS: Ketorolac 15 MG/ML Vial IV (20:06)
[2020-03-30] MEDS: Ondansetron 4 MG/2 ML Vial IV (20:06)
[2020-03-30] MEDS: Atorvastatin Calcium 80 MG Tablet PO (21:32)
[2020-03-31] VITALS (15 sets, daily range): BP systolic 105–131; BP diastolic 62–77; PULSE 76–96; RESP 16–24; TEMP 36.4–36.6; O2SAT 87–94
[2020-03-31] MEDS: Gabapentin 600 MG Tablet PO ×3 (05:54→21:36)
[2020-03-31] MEDS: Sucralfate 1 GM Tablet PO ×4 (05:54→21:36)
[2020-03-31] MEDS: 0.9% Saline Lock 10 ML Syringe IV ×3 (05:57→18:34)
[2020-03-31 06:00] LABS: Absolute Neutrophil Count 5.3 X10^3/uL (2.0-7.7); Hematocrit 37.8 % (37-47); Hemoglobin 11.8 g/dL (12.0-15.0); Lymphocyte % 8.2 % (19-41); Mean Corp Hgb Conc 31.2 g/dL (32-36); Mean Corpuscular Hgb 30.1 pg (27.0-32.0); Mean Corpuscular Volume 96.4 fL (81-99); Mean Platelet Vol. 10.2 fl (6.2-12.0); Monocyte# 0.32 X10^3/uL; Monocyte% 5.3 % (0-10); NRBC Flagged by Analyzer 0 % (0-5); Neutrophil # 5.25 X10^3/uL (2.7-7.7); Neutrophil % 86.3 % (47-70); POSITIVE DIFFERENTIAL YES; Platelet Count 237 K/mm3 (150-450); RBC Distribution Width CV 13.3 % (11.6-14.6); RBC Distribution Width SD 47.4 fl (35.1-43.9); Red Blood Count 3.92 M/mm3 (4.2-5.4); White Blood Count 6.1 K/mm3 (4.4-11.0)
[2020-03-31 06:13] LABS: Differential Indicated SCAN CRITERIA MET
[2020-03-31 06:30] LABS: Anion Gap 4 (5-15); BUN 24 mg/dL (7-18); BUN/Creat Ratio 41.5 RATIO (10-20); Calcium,Total 7.8 mg/dL (8.5-10.1); Chloride 109 mmol/L (98-107); Creatinine, Serum 0.58 mg/dL (0.55-1.02); EST Glomerular Filtration Rate 111 mL/min (>60); Est Glom Filt Rate - Afr Amer 135 mL/min (>60); Estimated Creatinine Clearance 86.47 ml/min; Glucose 186 mg/dL (74-106); Potassium 4.3 mmol/L (3.5-5.1); Sodium Level 139 mmol/L (136-145)
[2020-03-31] MEDS: Budesonide Respules 0.5 MG/2 ML AMPUL.NEB. INHALATION ×2 (07:13→19:16)
[2020-03-31] MEDS: Ipratropium/Albuterol Sulfate 3 ML AMPUL.NEB INHALATION ×3 (07:13→19:16)
[2020-03-31] MEDS: Metoprolol(XL)Succ 25 MG Tablet PO (09:22)
[2020-03-31] MEDS: Aspirin 81 MG TAB.CHEW PO (09:22)
[2020-03-31] MEDS: guaiFENesin 1,200 MG Tablet 1200 MG PO ×2 (09:22→21:36)
[2020-03-31] MEDS: Isosorbide Mononitrate 30 MG Tablet PO (09:22)
[2020-03-31] MEDS: Famotidine 20 MG Tablet PO (09:22)
[2020-03-31] MEDS: Cyanocobalamin 500 MCG Tablet 1000 MCG PO (09:22)
[2020-03-31] MEDS: DULoxetine Hcl 60 MG Capsule PO (09:22)
[2020-03-31] MEDS: Pantoprazole Sodium 40 MG Tablet PO ×2 (09:22→21:36)
[2020-03-31] MEDS: Lisinopril 2.5 MG Tablet PO (09:22)
[2020-03-31] MEDS: Enoxaparin 40 MG/0.4 ML Syringe SC (09:23)
--- NOTE | 2020-03-31 10:32 | ECHOD_ITS ---
Version 2 Reason For Study: Dyspnea/SOB Procedure This was a 2D Doppler, Color Flow transthoracic echocardiogram. Contrast injection was performed. Exam performed portable in patient room. Left Ventricle Normal LV size. Left ventricular systolic function is normal. The estimated ejection fraction is 55 %. Stage 1 diastolic dysfunction. Infero-Basal: Akinetic. Mid-Inferior: Severely Hypokinetic. The rest of the wall segments are normal. Right Ventricle Normal RV size. Normal systolic function. Atria Normal left atrium. Normal right atrium. probable left to right shunt. Mitral Valve Normal mitral valve. Moderate (2+) eccentric mitral valve insufficiency. Tricuspid Valve Normal tricuspid valve. Mild tricuspid valve insufficiency. Pulmonary artery systolic pressure is 35 mmHg. Aortic Valve Normal aortic valve. Trisinus/trileaflet aortic valve. Pulmonic Valve Normal pulmonic valve. Great Vessels Normal aortic root. The pulmonary artery is normal size. Normal inferior vena cava. Pericardium/Pleural No pericardial effusion. Medication Diluted definity 2ml given slow IV push to enhance endocardial definition. MMode/2D Measurements & Calculations LVIDd: 4.6 cm IVSd: 1.1 cm Ao root diam: 3.6 cm LVIDs: 3.5 cm LVPWd: 0.64 cm LA dimension: 3.9 cm RVDd: 3.9 cm FS: 23.7 % LAV(MOD-bp): 45.4 ml LA A4 area: 17.4 cm2 RA A4 area: 14.9 cm2 LAV(MOD-bp) Indexed: 30.3 ml/m2 LAV(MOD-sp2): 38.9 ml LAV(MOD-sp4): 44.7 ml Time Measurements MV dec time: 0.14 sec Doppler Measurements & Calculations MV E max kayden: 81.9 cm/sec Lat Peak E' Kayden: 13.6 cm/sec Med Peak E' Kayden: 7.0 cm/sec MV A max kayden: 92.5 cm/sec E/E' lat: 6.0 E/E' med: 11.7 MV E/A: 0.89 MV V2 max: 117.5 cm/sec MV P1/2t max kayden: 99.2 cm/sec Ao V2 max: 103.0 cm/sec MV max P.5 mmHg MV P1/2t: 72.3 msec Ao max P.2 mmHg MV V2 mean: 67.1 cm/sec MV dec slope: 402.0 cm/sec2 MV mean P.1 mmHg MV V2 VTI: 22.6 cm MVA(P1/2t): 3.0 cm2 LV V1 max: 47.6 cm/sec MR max kayden: 553.1 cm/sec PA V2 max: 82.8 cm/sec LV V1 max P.4 mmHg MR max P.4 mmHg MR mean kayden: 440.8 cm/sec MR mean P.2 mmHg MR VTI: 200.6 cm PI end-d kayden: 164.7 cm/sec TR max kayden: 278.3 cm/sec TR max P.0 mmHg Interpretation Summary Normal LV size. Left ventricular systolic function is normal. The estimated ejection fraction is 55 %. Stage 1 diastolic dysfunction. probable left to right shunt Pulmonary artery systolic pressure is 35 mmHg. Infero-Basal: Akinetic. Mid-Inferior: Severely Hypokinetic. Moderate (2+) eccentric mitral valve insufficiency. Ordering Physician: Clyde Henao Referring Physician: Sarita Grey M.D. Performed By: Orlin Vela RCS
[2020-03-31 11:06] LABS: BNP,B-Type NATRIURETIC PEPTIDE 135.6 pg/mL (0-100)
[2020-03-31] MEDS: Ferrous Sulfate 325 MG Tablet PO (11:07)
[2020-03-31 11:42] LABS: D-Dimer Quantitative (DVT/PE) 0.31 FEU/ug/m (0.27-0.49)
--- NOTE | 2020-03-31 12:21 | PN_ITS ---
Patient Problems: Active and Suspected Problems Hypoxia (Acute) Respiratory failure (Acute) Aspiration pneumonia (Acute) Duodenal ulcer, acute with obstruction (Acute) Subjective: Patient seen and examined. She has no complaints this morning. She feels her breathing is the same. She is coughing still, but says she is able to expe ctorate now. She remains on 5L of oxygen. She has otherwise remained stable. She has remained hemodynamically stable. Vitals/I&O's: Vital Signs Temp Pulse Resp BP Pulse Ox 97.8 F 79 16 122/77 H 92 03/31/20 09:22 03/31/20 10:48 03/31/20 10:48 03/31/20 09:22 03/31/20 09:22 Oxygen Flow Rate (L/min) 5 Oxygen Delivery Method Nasal Cannula Weight: 123 lb 3.814 oz Body Mass Index (BMI) 25.7 Intake and Output for Last 24 Hours 03/29/20 03/30/20 03/31/20 23:59 23:59 23:59 Intake Total 2491.01 / 2611.01 2039.33 / 2269.33 1885 / 1885 Output Total 0 / 0 Balance 2491.01 / 2611.01 2039.33 / 2269.33 188 / 1885 General: Alert, Oriented x3, Cooperative HEENT: Atraumatic, PERRLA, EOMI, Normocephalic Oral: Dry Mucosa Neck: Supple, No JVD, Negative Carotid Bruits Lungs: - - decreased breath sounds bibasally, no wheezes or crackles. on 5L of oxygen by nasal canula Cardiovascular: Regular rate, Regular Rhythm, Normal S1, Normal S2, No murmurs Abdomen: Bowel Sounds Present, Soft, Non Tender, Non-Distended, No Hepato- splenomegaly, PEG tube in place Extremities: No clubbing, No cyanosis, No edema, Capillary Refill Less than 3 Seconds Skin: No rashes, No breakdown Musculoskeletal: No Tenderness to Palpation of Joints or Extremities Lymphatic: No Cervical, Supraclavicular, or Inguinal Adenopathy Neurological: Cranial nerves II-XII grossly intact, Neuro grossly intact, Motor Exam 5/5 strength throughout Psych/Mental Status: Normal Affect, Appropriate, Alert and oriented to time, place, person, mood and affect Laboratory Results 03/31/20 05:50: WBC 6.1, RBC 3.92 L, Hgb 11.8 L, Hct 37.8, MCV 96.4, MCH 30.1, MCHC 31.2 L, RDW Std Deviation 47.4 H, RDW Coeff of Kendy 13.3, Plt Count 237, MPV 10.2, Immature Gran % (Auto) 0.200, Neut % (Auto) 86.3 H, Lymph % (Auto) 8.2 L, [place] % (Auto) 5.3, Eos % (Auto) 0.0, Baso % (Auto) 0.0, Absolute Neuts (auto) 5.3, Absolute Lymphs (auto) 0.50 L, Nucleated RBC % 0 03/31/20 05:50: Sodium 139, Potassium 4.3, Chloride 109 H, Carbon Dioxide 26.0, Anion Gap 4 L, BUN 24 H, Creatinine 0.58, Estim Creat Clear Calc 86.47, Est GFR (MDRD) Af Amer 135, Est GFR (MDRD) Non-Af 111, BUN/Creatinine Ratio 41.5 H, Glucose 186 H, Calcium 7.8 L 03/31/20 05:50: B-Natriuretic Peptide 135.6 H 03/31/20 11:07: D-Dimer Quant (PE/DVT) 0.31 Diagnostic Data Chest X-Ray 03/28/20 06:55 IMPRESSION: Suspect pneumonia in the left lower lobe. Stable atelectasis right base. Other nonacute findings as outlined above. Electronically Signed: Jenn Ann MD at 7:18 EST , Service support , Current Medications Acetaminophen (Acetaminophen 325 Mg Tablet) 650 mg PO Q6H PRN PRN PRN Reason: Pain Score 1-10/Temp > 100.7 F Albuterol/Ipratropium (Ipratropium/Albuterol Sulfate 3 Ml Ampul.Neb) 3 ml INHALATION Q4H.RT [facility] Last Admin: 03/31/20 10:48 Dose: 3 ml Documented by: Aspirin (Aspirin 81 Mg Tab.Chew) 81 mg PO DAILY@0800 [facility] Last Admin: 03/31/20 09:22 Dose: 81 mg Documented by: Atorvastatin Calcium (Atorvastatin Calcium 80 Mg Tablet) 80 mg PO QHS [facility] Last Admin: 03/30/20 21:32 Dose: 80 mg Documented by: Budesonide (Budesonide Respules 0.5 Mg/2 Ml Ampul.Neb.) 0.5 mg INHALATION Q12H.RT [facility] Last Admin: 03/31/20 07:13 Dose: 0.5 mg Documented by: Calamine/Phenol (Menthol/Lanolin/Calamine/Znox 113 Gm Tube) 1 applic TOPICAL 4X/DAY [facility]; Protocol Last Admin: 03/31/20 09:22 Dose: Not Given Documented by: Cyanocobalamin (Cyanocobalamin 500 Mcg Tablet) 1,000 mcg PO DAILY@0800 [facility] Last Admin: 03/31/20 09:22 Dose: 1,000 mcg Documented by: Duloxetine HCl (Duloxetine Hcl 60 Mg Capsule) 60 mg PO DAILY [facility] Last Admin: 03/31/20 09:22 Dose: 60 mg Documented by: Enoxaparin Sodium (Enoxaparin 40 Mg/0.4 Ml Syringe) 40 mg SC DAILY [facility] Last Admin: 03/31/20 09:23 Dose: 40 mg Documented by: Famotidine (Famotidine 20 Mg Tablet) 20 mg PO DAILY [facility] Last Admin: 03/31/20 09:22 Dose: 20 mg Documented by: Ferrous Sulfate (Ferrous Sulfate 325 Mg Tablet) 325 mg PO 1200 [facility] Last Admin: 03/31/20 11:07 Dose: 325 mg Documented by: Gabapentin (Gabapentin 600 Mg Tablet) 600 mg PO TID [facility] Last Admin: 03/31/20 05:54 Dose: 600 mg Documented by: Guaifenesin (Guaifenesin 1,200 Mg Tablet) 1,200 mg PO BID [facility] Last Admin: 03/31/20 09:22 Dose: 1,200 mg Documented by: Ampicillin Sodium/Sulbactam (Sodium 3 gm/ Sodium Chloride) 112 mls @ 150 mls/hr IV Q8 [facility] Last Infusion: 03/31/20 06:43 Dose: Infused Documented by: Isosorbide Mononitrate (Isosorbide Mononitrate 30 Mg Tablet) 30 mg PO DAILY [facility] Last Admin: 03/31/20 09:22 Dose: 30 mg Documented by: Ketorolac Tromethamine (Ketorolac 15 Mg/Ml Vial) 15 mg IV Q6H PRN PRN PRN Reason: shoulder and back pain Stop: 04/02/20 14:08 Last Admin: 03/30/20 20:06 Dose: 15 mg Documented by: Lisinopril (Lisinopril 2.5 Mg Tablet) 2.5 mg PO DAILY [facility] Last Admin: 03/31/20 09:22 Dose: 2.5 mg Documented by: Melatonin (Melatonin 3 Mg Tablet) 3 mg PO QHS PRN PRN PRN Reason: INSOMNIA Methylprednisolone (Methylprednisolone 40 Mg/Ml Vial) 40 mg IV Q8 [facility] Last Admin: 03/31/20 05:55 Dose: 40 mg Documented by: Metoprolol Succinate (Metoprolol(Xl)Succ 25 Mg Tablet) 25 mg PO DAILY [facility] Last Admin: 03/31/20 09:22 Dose: 25 mg Documented by: Nutritional Formula (Osmolite 1.2) 60 ml GT DAILY@2100 [facility] Last Admin: 03/30/20 21:26 Dose: 60 ml Documented by: Ondansetron HCl (Ondansetron 4 Mg/2 Ml Vial) 4 mg IV Q8H PRN PRN PRN Reason: NAUSEA/VOMITING Last Admin: 03/30/20 20:06 Dose: 4 mg Documented by: Pantoprazole Sodium (Pantoprazole Sodium 40 Mg Tablet) 40 mg PO BID [facility] Last Admin: 03/31/20 09:22 Dose: 40 mg Documented by: Sodium Chloride (0.9% Saline Lock 10 Ml Syringe) 10 - 40 ml IV UD PRN PRN Reason: SALINE FLUSH Last Admin: 03/31/20 05:57 Dose: 10 ml Documented by: Sucralfate (Sucralfate 1 Gm Tablet) 1 gm PO 1HR_ACHS [facility] Last Admin: 03/31/20 11:07 Dose: 1 gm Documented by: STROKE Vital Signs/Narrative: Vital Signs Temp Pulse Resp BP Pulse Ox 03/31/20 10:48 79 16 03/31/20 09:22 97.8 F 80 20 H 122/77 H 92 03/31/20 09:15 87 03/31/20 08:32 24 H 91 Medical Necessity - Tobacco Use Smoking Status: Former smoker Tobacco Use: Cigarettes Assessment/Plan All Active Problems Hypoxia (Acute) Respiratory failure (Acute) Aspiration pneumonia (Acute) Duodenal ulcer, acute with obstruction (Acute) #Sepsis due to aspiration pneumonia * on IV unasyn * blood cultures pending * on IV solumedrol * speech therapy on board * has tube feed going also * # Acute hypoxic respiratory failure due to aspiration pneumonia * still on 5L of oxygen * on antibiotics as above * titrate oxygen to maintain sats >90% * consult pulmo today as she remains on 5L of oxygen, and cannot be weaned off oxygen * #Dysphagia * patient is on tube feeding at night at home, and has oral intake during the day. * circuit board inspector on board * patient appears to aspirate at night when she lies recumbent whilst sleeping; tube feeding will be running all this while * aspiration precautions * * # GERD s/p partial gastrectomy * on PPI and carafate * on Tums and famotidine. * #CAD * Says she recently had a cath at [facility] and was told she had blockages. She was also told she needed open heart surgery because she had a valve problem, but wants a second opinion from a livestock sales representative here. * records requested from [facility] showed that she had 100% blockage of proximal RCA, and ~ 80% stenosis of distal RCA; she also has a history of mitral regurgitation. Recommendation was for patient to have CABG in addition to mitral valve replacement if she opted for surgery. * on aspirin, statin, imdur, lisinopril and metoprolol * to follow up with cardiology on outpatient basis for second opinion per her request * #Hypertension * On lisinopril and metoprolol * #Anxiety and depression: On Cymbalta DVT prophylaxis: lovenox Inpatient E&M: 92485 Subs Hosp L2
--- NOTE | 2020-03-31 12:59 | PCM.CONS.PUL ---
Reason for Consult Date of Consultation: 03/31/20 Reason for Consultation: Acute hypoxemic respiratory failure History of Present Illness: The patient is a 65-year-old female, with a history as outlined below, who presented to the emergency department on March 28 with complaints of shortness of breath. A few days before her arrival to the emergency department, the patient had a choking episode where she apparently aspirated some gastric contents. The patient at her baseline does not utilize supplemental oxygen. However, she does readily admit to chronic exertional dyspnea. She does have an approximate 13-[id number]-imfu smoking history, having quit completely 13 years ago. She is currently being followed by Dr. Saeed, pulmonary medicine at [facility]. However, the patient reports that she only ever gets to see the nurse practitioner. She does report having completed PFTs and a walk test previously. Nevertheless, the patient does not recall the results of her PFTs. Although she has a documented history of COPD, she is currently prescribed Flovent on an outpatient basis, which would raise concern for asthma. The patient also has a history of coronary artery disease. On presentation to the emergency department, the patient was noted to have a low-grade fever and was tachycardic and tachypneic. Initial laboratory evaluation revealed no evidence of a leukocytosis. Coagulation profile was within normal limits. Chemistry profile was unremarkable. Lactate was within normal limits. Initial chest x-ray revealed a possible left lower lobe infiltrate and atelectasis. The patient was subsequently admitted to the hospital, where she has been maintained on antimicrobials for aspiration pneumonia. She has been worked up from a speech therapy perspective with a modified barium swallow. The patient does have a Josh button in place and receives tube feeding on a nightly basis. She does typically lay completely supine during her tube feeds at night. Past Medical History Allergies dicyclomine HCl [From Bentyl] Allergy (Verified 03/28/20 06:05) Hives Home Medications: Ambulatory Orders Medication Instructions Recorded Cholecalciferol (Vitamin D3) 4,000 unit PO DAILY 05/24/18 [Vitamin D3] Cyanocobalamin [Vitamin B12] 1,000 mcg PO DAILY@0800 03/22/19 Ferrous Sulfate 325 mg PO DAILY 03/22/19 Melatonin 3 mg PO QHS 03/22/19 Senna [Senokot] 1 tab PO DAILY PRN 03/22/19 Acetaminophen 650 mg PO Q6H 08/23/19 Biotin 5,000 mcg SL DAILY 08/23/19 Calcium Carbonate [Calcium] 300 mg PO DAILY 08/23/19 Duloxetine HCl 60 mg PO DAILY 08/23/19 Multivitamin 1 ea PO DAILY 08/23/19 Nutritional Supplement [Osmolite 1,000 ml PO DAILY 08/23/19 1.5 Germán] Ondansetron [Zofran Odt] 4 mg PO Q6H PRN PRN 08/23/19 Albuterol Inhaler [Ventolin Hfa 2 puff INHALATION Q4H PRN PRN 03/28/20 (SP)] Albuterol Sulfate 1.25 mg IH Q6H PRN PRN 03/28/20 Ascorbic Acid 500 mg PO DAILY 03/28/20 Aspirin [Aspirin, Baby] 81 mg PO DAILY@0800 03/28/20 Atorvastatin Calcium 80 mg PO DAILY 03/28/20 Famotidine 20 mg PO DAILY 03/28/20 Fluticasone 110 Mcg [Flovent (SP)] 2 puff INHALATION BID 03/28/20 Gabapentin 600 mg PO TID 03/28/20 Ipratropium/Albuterol Sulfate 3 ml INHALATION Q4H.RT 03/28/20 [Duoneb] Isosorbide Mononitrate [Isosorbide 30 mg PO DAILY 03/28/20 Mononitrate ER] Lisinopril 2.5 mg PO DAILY 03/28/20 Metoprolol Succinate 25 mg PO DAILY 03/28/20 Pantoprazole Sodium 40 mg PO BID 03/28/20 Tizanidine HCl 4 mg PO Q8H PRN PRN 03/28/20 Surgical History: - - Gastrectomy, G-tube placement Psychiatric History: No pertinent psych hx Smoking Status: Former smoker Tobacco Use: Cigarettes Alcohol: None Drugs: None - *Family History Maternal History Items: No pertinent history Paternal History Items: Heart Disease Review of Systems Constitutional: Denies: Chills, Fever Eyes: Denies: Blurred vision, Double vision HEENT: Denies: Head Aches, Sinus Congestion, Sinus Drainage Cardiovascular: Denies: Chest Pain, Palpitations Respiratory: Reports: Shortness of Breath Gastrointestinal: Denies: Abdominal Pain, Nausea, Vomiting Genitourinary: Denies: Dysuria Musculoskeletal: Denies: Joint Pain, Joint Tenderness Skin: Denies: Rash, Wounds Neurological: Denies: Numbness, Tingling, Focal weakness Psychiatric: Denies: Anxiety, Depression, Homicidal Ideations, Suicidal Ideations Hematologic/ Lymphatic: Reports: Anemia Patient Problems: Active and Suspected Problems Hypoxia (Acute) Respiratory failure (Acute) Aspiration pneumonia (Acute) Duodenal ulcer, acute with obstruction (Acute) Objective: The patient's most recent lab work, culture data and imaging studies have all been personally reviewed. Rapid coronavirus antigen testing on March 28 was negative. Blood cultures have shown no growth to date. - Physical Exam Vitals/I&O's: Vital Signs Temp Pulse Resp BP Pulse Ox 97.8 F 79 16 122/77 H 92 03/31/20 09:22 03/31/20 10:48 03/31/20 10:48 03/31/20 09:22 03/31/20 09:22 Oxygen Flow Rate (L/min) 5 Oxygen Delivery Method Nasal Cannula Weight: 123 lb 3.814 oz Body Mass Index (BMI) 25.7 Intake and Output for Last 24 Hours 03/29/20 03/30/20 03/31/20 23:59 23:59 23:59 Intake Total 2491.01 / 2611.01 2039.33 / 2269.33 188 / 1884 Output Total 0 / 0 Balance 2491.01 / 2611.01 2038. / 2269.33 1884 General: Alert, Cooperative, No apparent distress HEENT: Atraumatic, PERRLA, Normocephalic Oral: No Gingival or Mucosal Lesions/ Ulcerations, - - Edentulous Neck: Supple, No Nodes, Trachea Midline Lungs: No rhonchi, No wheeze, No rales, Diminished Cardiovascular: Regular rate, Regular Rhythm Abdomen: Bowel Sounds Present, Soft, Non Tender, - - Josh button in place Extremities: No clubbing, No cyanosis, No edema Skin: No breakdown Musculoskeletal: No Tenderness to Palpation of Joints or Extremities Lymphatic: No Cervical, Supraclavicular, or Inguinal Adenopathy Neurological: Cranial nerves II-XII grossly intact, Neuro grossly intact Psych/Mental Status: Normal Affect, Appropriate Labs (Last 48 Hours) 03/30/20 03/30/20 03/31/20 06:25 06:25 05:50 WBC 7.2 6.1 RBC 3.70 L 3.92 L Hgb 11.4 L 11.8 L Hct 36.6 L 37.8 MCV 98.9 96.4 MCH 30.8 30.1 MCHC 31.1 L 31.2 L RDW Std Deviation 49.5 H 47.4 H RDW Coeff of Kendy 13.6 13.3 Plt Count 191 237 MPV 10.5 10.2 Immature Gran % (Auto) 0.400 0.200 Neut % (Auto) 72.8 H 86.3 H Lymph % (Auto) 18.0 L 8.2 L [place] % (Auto) 6.1 5.3 Eos % (Auto) 2.6 0.0 Baso % (Auto) 0.1 0.0 Absolute Neuts (auto) 5.2 5.3 Absolute Lymphs (auto) 1.29 0.50 L Nucleated RBC % 2.0 0 D-Dimer Quant (PE/DVT) Sodium 143 Potassium 4.1 Chloride 113 H Carbon Dioxide 24.0 Anion Gap 6 BUN 10 Creatinine 0.43 L Estim Creat Clear Calc 116.64 Est GFR (MDRD) Af Amer 190 Est GFR (MDRD) Non-Af 157 BUN/Creatinine Ratio 23.3 H Glucose 84 Calcium 7.4 L B-Natriuretic Peptide 03/31/20 03/31/20 03/31/20 05:50 05:50 11:07 WBC RBC Hgb Hct MCV MCH MCHC RDW Std Deviation RDW Coeff of Kendy Plt Count MPV Immature Gran % (Auto) Neut % (Auto) Lymph % (Auto) [place] % (Auto) Eos % (Auto) Baso % (Auto) Absolute Neuts (auto) Absolute Lymphs (auto) Nucleated RBC % D-Dimer Quant (PE/DVT) 0.31 Sodium 139 Potassium 4.3 Chloride 109 H Carbon Dioxide 26.0 Anion Gap 4 L BUN 24 H Creatinine 0.58 Estim Creat Clear Calc 86.47 Est GFR (MDRD) Af Amer 135 Est GFR (MDRD) Non-Af 111 BUN/Creatinine Ratio 41.5 H Glucose 186 H Calcium 7.8 L B-Natriuretic Peptide 135.6 H Clinical Impression(s) from Imaging Studies Chest X-Ray 03/28/20 06:55 IMPRESSION: Suspect pneumonia in the left lower lobe. Stable atelectasis right base. Other nonacute findings as outlined above. Electronically Signed: Jenn Ann MD at 7:18 EST , Service support , Current Medications Acetaminophen (Acetaminophen 325 Mg Tablet) 650 mg PO Q6H PRN PRN PRN Reason: Pain Score 1-10/Temp > 100.7 F Albuterol/Ipratropium (Ipratropium/Albuterol Sulfate 3 Ml Ampul.Neb) 3 ml INHALATION Q4H.RT [facility] Last Admin: 03/31/20 10:48 Dose: 3 ml Documented by: Aspirin (Aspirin 81 Mg Tab.Chew) 81 mg PO DAILY@0800 [facility] Last Admin: 03/31/20 09:22 Dose: 81 mg Documented by: Atorvastatin Calcium (Atorvastatin Calcium 80 Mg Tablet) 80 mg PO QHS [facility] Last Admin: 03/30/20 21:32 Dose: 80 mg Documented by: Budesonide (Budesonide Respules 0.5 Mg/2 Ml Ampul.Neb.) 0.5 mg INHALATION Q12H.RT [facility] Last Admin: 03/31/20 07:13 Dose: 0.5 mg Documented by: Calamine/Phenol (Menthol/Lanolin/Calamine/Znox 113 Gm Tube) 1 applic TOPICAL 4X/DAY [facility]; Protocol Last Admin: 03/31/20 09:22 Dose: Not Given Documented by: Cyanocobalamin (Cyanocobalamin 500 Mcg Tablet) 1,000 mcg PO DAILY@0800 [facility] Last Admin: 03/31/20 09:22 Dose: 1,000 mcg Documented by: Duloxetine HCl (Duloxetine Hcl 60 Mg Capsule) 60 mg PO DAILY [facility] Last Admin: 03/31/20 09:22 Dose: 60 mg Documented by: Enoxaparin Sodium (Enoxaparin 40 Mg/0.4 Ml Syringe) 40 mg SC DAILY [facility] Last Admin: 03/31/20 09:23 Dose: 40 mg Documented by: Famotidine (Famotidine 20 Mg Tablet) 20 mg PO DAILY [facility] Last Admin: 03/31/20 09:22 Dose: 20 mg Documented by: Ferrous Sulfate (Ferrous Sulfate 325 Mg Tablet) 325 mg PO 1200 [facility] Last Admin: 03/31/20 11:07 Dose: 325 mg Documented by: Furosemide (Furosemide 40 Mg/4 Ml Vial) 40 mg IV BID@1000,1800 [facility] Gabapentin (Gabapentin 600 Mg Tablet) 600 mg PO TID [facility] Last Admin: 03/31/20 05:54 Dose: 600 mg Documented by: Guaifenesin (Guaifenesin 1,200 Mg Tablet) 1,200 mg PO BID [facility] Last Admin: 03/31/20 09:22 Dose: 1,200 mg Documented by: Ampicillin Sodium/Sulbactam (Sodium 3 gm/ Sodium Chloride) 112 mls @ 150 mls/hr IV Q8 [facility] Last Infusion: 03/31/20 06:43 Dose: Infused Documented by: Isosorbide Mononitrate (Isosorbide Mononitrate 30 Mg Tablet) 30 mg PO DAILY [facility] Last Admin: 03/31/20 09:22 Dose: 30 mg Documented by: Ketorolac Tromethamine (Ketorolac 15 Mg/Ml Vial) 15 mg IV Q6H PRN PRN PRN Reason: shoulder and back pain Stop: 04/02/20 14:08 Last Admin: 03/30/20 20:06 Dose: 15 mg Documented by: Lisinopril (Lisinopril 2.5 Mg Tablet) 2.5 mg PO DAILY [facility] Last Admin: 03/31/20 09:22 Dose: 2.5 mg Documented by: Melatonin (Melatonin 3 Mg Tablet) 3 mg PO QHS PRN PRN PRN Reason: INSOMNIA Methylprednisolone (Methylprednisolone 40 Mg/Ml Vial) 40 mg IV Q8 [facility] Last Admin: 03/31/20 05:55 Dose: 40 mg Documented by: Metoprolol Succinate (Metoprolol(Xl)Succ 25 Mg Tablet) 25 mg PO DAILY [facility] Last Admin: 03/31/20 09:22 Dose: 25 mg Documented by: Nutritional Formula (Osmolite 1.2) 60 ml GT DAILY@2100 [facility] Last Admin: 03/30/20 21:26 Dose: 60 ml Documented by: Ondansetron HCl (Ondansetron 4 Mg/2 Ml Vial) 4 mg IV Q8H PRN PRN PRN Reason: NAUSEA/VOMITING Last Admin: 03/30/20 20:06 Dose: 4 mg Documented by: Pantoprazole Sodium (Pantoprazole Sodium 40 Mg Tablet) 40 mg PO BID [facility] Last Admin: 03/31/20 09:22 Dose: 40 mg Documented by: Sodium Chloride (0.9% Saline Lock 10 Ml Syringe) 10 - 40 ml IV UD PRN PRN Reason: SALINE FLUSH Last Admin: 03/31/20 05:57 Dose: 10 ml Documented by: Sucralfate (Sucralfate 1 Gm Tablet) 1 gm PO 1HR_ACHS [facility] Last Admin: 03/31/20 11:07 Dose: 1 gm Documented by: Assessment/Plan All Active Problems Hypoxia (Acute) Respiratory failure (Acute) Aspiration pneumonia (Acute) Duodenal ulcer, acute with obstruction (Acute) RECOMMENDATIONS: 1. Check D-dimer and BNP. 2. Obtain surface echocardiogram. Depending on results of echo, may consider trial of diuretic therapy. 3. Continue scheduled bronchodilators and IV steroids. 4. Provide patient with incentive spirometer and encourage use. 5. Maintain aspiration precautions. Dietary advancement per speech therapy recommendations. 6. Wean supplemental oxygen to maintain saturations at or above 90%. IMPRESSIONS: 1. Acute hypoxemic respiratory failure The patient reportedly at her baseline does not have a supplemental oxygen requirement but is notably short of breath with any form of exertion at her baseline. While she does have a prior smoking history, her diagnosis of COPD is somewhat questionable. She states that she is currently being followed at [facility] pulmonary, but she is only prescribed a Flovent and albuterol inhaler at her baseline. This would raise the suspicion for asthma. I do not have any documentation from the patient's outside pulmonary providers. Nevertheless, it is reasonable to continue scheduled bronchodilators, IV steroids and antimicrobials. I would continue aspiration precautions and continue to wean supplemental oxygen to maintain saturations at or above 90%. Surface echocardiogram will be obtained. If there is any evidence of systolic/diastolic dysfunction or pulmonary hypertension, will start on scheduled diuretic therapy. I have asked that the nursing network control operators supervisor provide the patient with an incentive spirometer and encourage use. 2. History of dysphagia/coronary artery disease/GERD/hypertension Complicates care, management, recovery and prognosis. Continue home medications as indicated. Dietary advancement per speech therapy recommendations. Maintain upright posture with tube feeding. Continue aspiration precautions. This note was generated with [employer] dictation software. It may contain incorrect words, spelling, and punctuation that were not noted in checking the note before signing. Inpatient E&M: 09336 Init Hosp L3
[2020-03-31] MEDS: Furosemide 40 MG/4 ML Vial IV ×2 (13:05→18:34)
--- NOTE | 2020-03-31 13:05 | CHAPLAIN ---
Type of Pastoral Visit _x__ Initial Visit ___ Follow-up Visit ___ On-call Visit ___ General Patient Visit ___ Spiritual Assessment ___ Family Conference ___ Bereavement ___ Rapid Response ___ Code Blue ___ Other (describe below) Pastoral Care Referral From _x__ Patient ___ Family ___ Nurse ___ Physician ___ [place] Supervisor ___ [place] ___ Other (describe below) Sacrament/Intervention _x__ Active listening ___ Anointing ___ Worship ___ Bereavement ___ Communion ___ Ashly exploration ___ _x__ Life review ___ Prayer ___ Reconciliation ___ Sacrament of Sick _x__ Supportive presence ___ Wedding ___ Other (describe below) Pastoral Comments patient very talkative and gives life and health review; visit interrupted by ST that wanted to do evaluation
[2020-03-31] MEDS: Polyethylene Glycol 3350 17 GM PACKET PO (18:34)
[2020-03-31] MEDS: MELATONIN 3 MG TABLET PO (21:35)
[2020-03-31] MEDS: Atorvastatin Calcium 80 MG Tablet PO (21:36)
[2020-03-31] MEDS: Acetaminophen 325 MG Tablet 650 MG PO (21:42)
[2020-04-01] VITALS (17 sets, daily range): BP systolic 100–119; BP diastolic 46–71; PULSE 75–103; RESP 16–20; TEMP 36.1–37.1; O2SAT 93–96
[2020-04-01 04:42] LABS: Absolute Lymphocyte Count 0.76 X10^3/uL (0.83-4.51); Absolute Neutrophil Count 7.7 X10^3/uL (2.0-7.7); Basophil# 0.01 X10^3/uL; Basophil% 0.1 % (0-1); Hematocrit 40.5 % (37-47); Hemoglobin 12.4 g/dL (12.0-15.0); Lymphocyte # 0.76 X10^3/ul (4.0); Lymphocyte % 8.6 % (19-41); Mean Corp Hgb Conc 30.6 g/dL (32-36); Mean Corpuscular Hgb 29.4 pg (27.0-32.0); Mean Platelet Vol. 10.2 fl (6.2-12.0); Monocyte# 0.35 X10^3/uL; Monocyte% 3.9 % (0-10); NRBC Flagged by Analyzer 0 % (0-5); Neutrophil % 86.8 % (47-70); Platelet Count 265 K/mm3 (150-450); RBC Distribution Width CV 13.3 % (11.6-14.6); RBC Distribution Width SD 47.2 fl (35.1-43.9); Red Blood Count 4.22 M/mm3 (4.2-5.4); White Blood Count 8.9 K/mm3 (4.4-11.0)
[2020-04-01 04:59] LABS: Anion Gap 5 (5-15); BUN 30 mg/dL (7-18); BUN/Creat Ratio 45.2 RATIO (10-20); Calcium,Total 7.7 mg/dL (8.5-10.1); Chloride 105 mmol/L (98-107); Creatinine, Serum 0.66 mg/dL (0.55-1.02); EST Glomerular Filtration Rate 95 mL/min (>60); Est Glom Filt Rate - Afr Amer 115 mL/min (>60); Estimated Creatinine Clearance 75.99 ml/min; Glucose 192 mg/dL (74-106); Potassium 4.1 mmol/L (3.5-5.1); Sodium Level 140 mmol/L (136-145)
[2020-04-01 05:40] LABS: Magnesium 2.6 mg/dL (1.6-2.6)
[2020-04-01] MEDS: Gabapentin 600 MG Tablet PO ×3 (06:09→21:40)
[2020-04-01] MEDS: Sucralfate 1 GM Tablet PO ×4 (06:09→21:41)
[2020-04-01] MEDS: Ondansetron 4 MG/2 ML Vial IV (06:18)
[2020-04-01] MEDS: Budesonide Respules 0.5 MG/2 ML AMPUL.NEB. INHALATION ×2 (07:13→19:21)
[2020-04-01] MEDS: Ipratropium/Albuterol Sulfate 3 ML AMPUL.NEB INHALATION ×5 (07:15→23:15)
--- NOTE | 2020-04-01 08:55 | PCM.PN.PUL ---
Patient Problems: Active and Suspected Problems Hypoxia (Acute) Respiratory failure (Acute) Aspiration pneumonia (Acute) Duodenal ulcer, acute with obstruction (Acute) Subjective: The patient was seen and examined at the bedside this morning. Events from the last 24 hours have been reviewed. The patient is currently afebrile, hemodynamically stable and maintaining appropriate oxygen saturations on 5 L/min via nasal cannula. The patient was started on IV diuretic therapy yesterday. Creatinine is stable. The patient does continue to have a cough. I personally turned down her oxygen this morning to 3 L/min and the patient was stable with oxygen saturations of 94%. Objective: The patient's most recent lab work, culture data and imaging studies have all been personally reviewed. Rapid coronavirus antigen testing on March 28 was negative. Blood cultures have shown no growth to date. Surface echocardiogram revealed stage I diastolic dysfunction with an ejection fraction of 55% and a pulmonary artery systolic pressure estimated to be 35 mmHg. - Physical Exam Vitals/I&O's: Vital Signs Temp Pulse Resp BP Pulse Ox 98.5 F 79 16 107/46 L 94 04/01/20 03:30 04/01/20 07:32 04/01/20 07:19 04/01/20 03:30 04/01/20 07:19 Oxygen Flow Rate (L/min) 5 Oxygen Delivery Method Nasal Cannula Weight: 123 lb 3.814 oz Body Mass Index (BMI) 25.7 Intake and Output for Last 24 Hours 03/30/20 03/31/20 04/01/20 23:59 23:59 23:59 Intake Total 2039.33 / 2269.33 2724 / 2724 332 / 332 Output Total 0 / 0 450 / 450 Balance 2039.33 / 2269.33 2274 / 2274 332 / 332 General: Alert, Cooperative, No apparent distress HEENT: Atraumatic, Normocephalic Oral: No Gingival or Mucosal Lesions/ Ulcerations Neck: Supple, No Nodes, Trachea Midline Lungs: Diminished, Rales, Short of Breath Cardiovascular: Regular rate, Regular Rhythm Abdomen: Bowel Sounds Present, Soft, Non Tender, - - Josh button in place Extremities: No clubbing, No cyanosis, No edema Skin: No breakdown Musculoskeletal: No Tenderness to Palpation of Joints or Extremities Lymphatic: No Cervical, Supraclavicular, or Inguinal Adenopathy Neurological: Cranial nerves II-XII grossly intact, Neuro grossly intact Psych/Mental Status: Normal Affect, Appropriate Labs (Last 48 Hours) 03/31/20 03/31/20 03/31/20 05:50 05:50 05:50 WBC 6.1 RBC 3.92 L Hgb 11.8 L Hct 37.8 MCV 96.4 MCH 30.1 MCHC 31.2 L RDW Std Deviation 47.4 H RDW Coeff of Kendy 13.3 Plt Count 237 MPV 10.2 Immature Gran % (Auto) 0.200 Neut % (Auto) 86.3 H Lymph % (Auto) 8.2 L Dane % (Auto) 5.3 Eos % (Auto) 0.0 Baso % (Auto) 0.0 Absolute Neuts (auto) 5.3 Absolute Lymphs (auto) 0.50 L Nucleated RBC % 0 D-Dimer Quant (PE/DVT) Sodium 139 Potassium 4.3 Chloride 109 H Carbon Dioxide 26.0 Anion Gap 4 L BUN 24 H Creatinine 0.58 Estim Creat Clear Calc 86.47 Est GFR (MDRD) Af Amer 135 Est GFR (MDRD) Non-Af 111 BUN/Creatinine Ratio 41.5 H Glucose 186 H Calcium 7.8 L Magnesium B-Natriuretic Peptide 135.6 H 03/31/20 04/01/20 04/01/20 11:07 04:28 04:28 WBC 8.9 RBC 4.22 Hgb 12.4 Hct 40.5 MCV 96.0 MCH 29.4 MCHC 30.6 L RDW Std Deviation 47.2 H RDW Coeff of Kendy 13.3 Plt Count 265 MPV 10.2 Immature Gran % (Auto) 0.600 Neut % (Auto) 86.8 H Lymph % (Auto) 8.6 L Dane % (Auto) 3.9 Eos % (Auto) 0.0 Baso % (Auto) 0.1 Absolute Neuts (auto) 7.7 Absolute Lymphs (auto) 0.76 L Nucleated RBC % 0 D-Dimer Quant (PE/DVT) 0.31 Sodium 140 Potassium 4.1 Chloride 105 Carbon Dioxide 30.0 Anion Gap 5 BUN 30 H Creatinine 0.66 Estim Creat Clear Calc 75.99 Est GFR (MDRD) Af Amer 115 Est GFR (MDRD) Non-Af 95 BUN/Creatinine Ratio 45.2 H Glucose 192 H Calcium 7.7 L Magnesium B-Natriuretic Peptide 04/01/20 04:28 WBC RBC Hgb Hct MCV MCH MCHC RDW Std Deviation RDW Coeff of Kendy Plt Count MPV Immature Gran % (Auto) Neut % (Auto) Lymph % (Auto) Dane % (Auto) Eos % (Auto) Baso % (Auto) Absolute Neuts (auto) Absolute Lymphs (auto) Nucleated RBC % D-Dimer Quant (PE/DVT) Sodium Potassium Chloride Carbon Dioxide Anion Gap BUN Creatinine Estim Creat Clear Calc Est GFR (MDRD) Af Amer Est GFR (MDRD) Non-Af BUN/Creatinine Ratio Glucose Calcium Magnesium 2.6 B-Natriuretic Peptide Clinical Impression(s) from Imaging Studies Chest X-Ray 03/28/20 06:55 IMPRESSION: Suspect pneumonia in the left lower lobe. Stable atelectasis right base. Other nonacute findings as outlined above. Electronically Signed: Jenn Ann MD at 7:18 EST , Service support , Current Medications Acetaminophen (Acetaminophen 325 Mg Tablet) 650 mg PO Q6H PRN PRN PRN Reason: Pain Score 1-10/Temp > 100.7 F Last Admin: 03/31/20 21:42 Dose: 650 mg Documented by: Albuterol/Ipratropium (Ipratropium/Albuterol Sulfate 3 Ml Ampul.Neb) 3 ml INHALATION Q4H.RT [facility] Last Admin: 03/31/20 19:16 Dose: 3 ml Documented by: Aspirin (Aspirin 81 Mg Tab.Chew) 81 mg PO DAILY@0800 [facility] Last Admin: 03/31/20 09:22 Dose: 81 mg Documented by: Atorvastatin Calcium (Atorvastatin Calcium 80 Mg Tablet) 80 mg PO QHS [facility] Last Admin: 03/31/20 21:36 Dose: 80 mg Documented by: Budesonide (Budesonide Respules 0.5 Mg/2 Ml Ampul.Neb.) 0.5 mg INHALATION Q12H.RT [facility] Last Admin: 04/01/20 07:13 Dose: 0.5 mg Documented by: Calamine/Phenol (Menthol/Lanolin/Calamine/Znox 113 Gm Tube) 1 applic TOPICAL 4X/DAY [facility]; Protocol Last Admin: 03/31/20 21:37 Dose: Not Given Documented by: Cyanocobalamin (Cyanocobalamin 500 Mcg Tablet) 1,000 mcg PO DAILY@0800 [facility] Last Admin: 03/31/20 09:22 Dose: 1,000 mcg Documented by: Duloxetine HCl (Duloxetine Hcl 60 Mg Capsule) 60 mg PO DAILY [facility] Last Admin: 03/31/20 09:22 Dose: 60 mg Documented by: Enoxaparin Sodium (Enoxaparin 40 Mg/0.4 Ml Syringe) 40 mg SC DAILY [facility] Last Admin: 03/31/20 09:23 Dose: 40 mg Documented by: Famotidine (Famotidine 20 Mg Tablet) 20 mg PO DAILY [facility] Last Admin: 03/31/20 09:22 Dose: 20 mg Documented by: Ferrous Sulfate (Ferrous Sulfate 325 Mg Tablet) 325 mg PO 1200 [facility] Last Admin: 03/31/20 11:07 Dose: 325 mg Documented by: Furosemide (Furosemide 40 Mg/4 Ml Vial) 40 mg IV BID@1000,1800 [facility] Last Admin: 03/31/20 18:34 Dose: 40 mg Documented by: Gabapentin (Gabapentin 600 Mg Tablet) 600 mg PO TID [facility] Last Admin: 04/01/20 06:09 Dose: 600 mg Documented by: Guaifenesin (Guaifenesin 1,200 Mg Tablet) 1,200 mg PO BID [facility] Last Admin: 03/31/20 21:36 Dose: 1,200 mg Documented by: Isosorbide Mononitrate (Isosorbide Mononitrate 30 Mg Tablet) 30 mg PO DAILY [facility] Last Admin: 03/31/20 09:22 Dose: 30 mg Documented by: Ketorolac Tromethamine (Ketorolac 15 Mg/Ml Vial) 15 mg IV Q6H PRN PRN PRN Reason: shoulder and back pain Stop: 04/02/20 14:08 Last Admin: 03/30/20 20:06 Dose: 15 mg Documented by: Lisinopril (Lisinopril 2.5 Mg Tablet) 2.5 mg PO DAILY [facility] Last Admin: 03/31/20 09:22 Dose: 2.5 mg Documented by: Metoprolol Succinate (Metoprolol(Xl)Succ 25 Mg Tablet) 25 mg PO DAILY [facility] Last Admin: 03/31/20 09:22 Dose: 25 mg Documented by: Nutritional Formula (Osmolite 1.2) 60 ml GT DAILY@2100 [facility] Last Admin: 03/31/20 21:43 Dose: 60 ml Documented by: Ondansetron HCl (Ondansetron 4 Mg/2 Ml Vial) 4 mg IV Q8H PRN PRN PRN Reason: NAUSEA/VOMITING Last Admin: 04/01/20 06:18 Dose: 4 mg Documented by: Pantoprazole Sodium (Pantoprazole Sodium 40 Mg Tablet) 40 mg PO BID [facility] Last Admin: 03/31/20 21:36 Dose: 40 mg Documented by: Polyethylene Glycol (Polyethylene Glycol 3350 17 Gm Packet) 17 gm PO DAILY PRN PRN PRN Reason: CONSTIPATION Last Admin: 03/31/20 18:34 Dose: 17 gm Documented by: Sodium Chloride (0.9% Saline Lock 10 Ml Syringe) 10 - 40 ml IV UD PRN PRN Reason: SALINE FLUSH Last Admin: 03/31/20 18:34 Dose: 10 ml Documented by: Sucralfate (Sucralfate 1 Gm Tablet) 1 gm PO 1HR_ACHS [facility] Last Admin: 04/01/20 06:09 Dose: 1 gm Documented by: Medical Necessity - Tobacco Use Smoking Status: Former smoker Tobacco Use: Cigarettes Assessment/Plan All Active Problems Hypoxia (Acute) Respiratory failure (Acute) Aspiration pneumonia (Acute) Duodenal ulcer, acute with obstruction (Acute) RECOMMENDATIONS: 1. Continue to wean supplemental oxygen to maintain saturations at or above 90%. 2. Continue scheduled diuretic therapy as tolerated by hemodynamics and renal function. 3. Transition from IV antibiotics to Augmentin to complete treatment course. 4. Continue bronchodilator therapy and steroids. Will transition from methylprednisone to prednisone 40 mg daily. 5. Encourage aggressive incentive spirometer use and mobilize patient as tolerated. 6. Obtain repeat chest x-ray. 7. Maintain aspiration precautions. Dietary advancement per speech therapy recommendations. IMPRESSIONS: 1. Acute hypoxemic respiratory failure The patient reportedly at her baseline does not have a supplemental oxygen requirement but is notably short of breath with any form of exertion at her baseline. While she does have a prior smoking history, her diagnosis of COPD is somewhat questionable. She states that she is currently being followed at [facility] pulmonary, but she is only prescribed a Flovent and albuterol inhaler at her baseline. This would raise the suspicion for asthma. I do not have any documentation from the patient's outside pulmonary providers. Nevertheless, it is reasonable to continue scheduled bronchodilators, steroids and antimicrobials. I would continue aspiration precautions and continue to wean supplemental oxygen to maintain saturations at or above 90%. Surface echocardiogram did reveal evidence of diastolic dysfunction, so the patient will be continued on diuretic therapy as tolerated. Encourage incentive spirometer use and mobilize patient as tolerated. 2. History of dysphagia/coronary artery disease/GERD/hypertension Complicates care, management, recovery and prognosis. Continue home medications as indicated. Dietary advancement per speech therapy recommendations. Maintain upright posture with tube feeding. Continue aspiration precautions. This note was generated with [employer] dictation software. It may contain incorrect words, spelling, and punctuation that were not noted in checking the note before signing. Inpatient E&M: 43736 [facility] H[facility] L3
[2020-04-01] MEDS: Cyanocobalamin 500 MCG Tablet 1000 MCG PO (08:57)
[2020-04-01] MEDS: Aspirin 81 MG TAB.CHEW PO (08:57)
[2020-04-01] MEDS: Menthol/Lanolin/Calamine/Znox 113 GM Tube 1 APPLIC TOPICAL ×3 (09:00→17:04)
[2020-04-01] MEDS: Enoxaparin 40 MG/0.4 ML Syringe SC (09:55)
[2020-04-01] MEDS: guaiFENesin 1,200 MG Tablet 1200 MG PO ×2 (10:04→21:40)
[2020-04-01] MEDS: Isosorbide Mononitrate 30 MG Tablet PO (10:04)
[2020-04-01] MEDS: DULoxetine Hcl 60 MG Capsule PO (10:04)
[2020-04-01] MEDS: Pantoprazole Sodium 40 MG Tablet PO ×2 (10:05→21:41)
[2020-04-01] MEDS: Famotidine 20 MG Tablet PO (10:05)
[2020-04-01] MEDS: Furosemide 40 MG/4 ML Vial IV (10:06)
[2020-04-01] MEDS: Metoprolol(XL)Succ 25 MG Tablet PO (10:06)
[2020-04-01] MEDS: Ferrous Sulfate 325 MG Tablet PO (12:08)
[2020-04-01] MEDS: Acetaminophen 325 MG Tablet 650 MG PO (12:08)
[2020-04-01] MEDS: Polyethylene Glycol 3350 17 GM PACKET PO (12:09)
--- NOTE | 2020-04-01 12:40 | RAD_ITS ---
STUDY: X-RAY CHEST REASON FOR EXAM: Female, 65 years old. Respiratory Failure TECHNIQUE: Single AP portable view of the chest. COMPARISON: Comparison is made with prior study dated 03/28/2020. FINDINGS: EKG electrodes are seen. Persistent bibasilar infiltrates worse in the left lower lobe. There has been moderate degree of clearing as compared to prior study. There is no demonstrated pleural abnormality. Normal size heart. Normal mediastinum and chepe. Normal visualized pulmonary arteries. There is atherosclerotic calcification of the aortic arch with tortuosity. There is a dextroscoliosis of the thoracic spine. Normal visualized ribs, clavicles, and shoulders. There is no demonstrated abnormality of the visualized soft tissue structures of the upper abdomen. RAD/Chest 1 View (Portable) IMPRESSION: Persistent bibasilar infiltrates although there has been a moderate degree of improvement as compared to prior study. Electronically Signed: Josh Crooks MD at 15:28 EST , Service support ,
--- NOTE | 2020-04-01 14:07 | PN_ITS ---
Patient Problems: Active and Suspected Problems Hypoxia (Acute) Respiratory failure (Acute) Aspiration pneumonia (Acute) Duodenal ulcer, acute with obstruction (Acute) Subjective: Patient seen and examined. She still coughing but is able to expectorate some more now. She still remains on 5 L of oxygen though later in the day she was done on 3 L of oxygen when she was doing well at 94%. Review systems otherwise negative. She has remained hemodynamically stable. Vitals/I&O's: Vital Signs Temp Pulse Resp BP Pulse Ox 98.6 F 101 H 19 H 100/59 L 96 04/01/20 09:30 04/01/20 11:00 04/01/20 10:43 04/01/20 10:06 04/01/20 09:30 Oxygen Flow Rate (L/min) 3 Oxygen Delivery Method Nasal Cannula Weight: 123 lb 3.814 oz Body Mass Index (BMI) 25.7 Intake and Output for Last 24 Hours 03/30/20 03/31/20 04/01/20 23:59 23:59 23:59 Intake Total 2039.33 / 2269.33 2724 / 2724 809 / 809 Output Total 0 / 0 450 / 450 950 / 950 Balance 2039.33 / 2269.33 2274 / 2274 -141 / -141 General: Alert, Oriented x3, Cooperative HEENT: Atraumatic, PERRLA, EOMI, Normocephalic Oral: Dry Mucosa Neck: Supple, No JVD, Negative Carotid Bruits Lungs: - - decreased breath sounds bibasally, no wheezes or crackles. on 5L of oxygen by nasal canula Cardiovascular: Regular rate, Regular Rhythm, Normal S1, Normal S2, No murmurs Abdomen: Bowel Sounds Present, Soft, Non Tender, Non-Distended, No Hepato- splenomegaly, PEG tube in place Extremities: No clubbing, No cyanosis, No edema, Capillary Refill Less than 3 Seconds Skin: No rashes, No breakdown Musculoskeletal: No Tenderness to Palpation of Joints or Extremities Lymphatic: No Cervical, Supraclavicular, or Inguinal Adenopathy Neurological: Cranial nerves II-XII grossly intact, Neuro grossly intact, Motor Exam 5/5 strength throughout Psych/Mental Status: Normal Affect, Appropriate, Alert and oriented to time, place, person, mood and affect Laboratory Results 04/01/20 04:28: WBC 8.9, RBC 4.22, Hgb 12.4, Hct 40.5, MCV 96.0, MCH 29.4, MCHC 30.6 L, RDW Std Deviation 47.2 H, RDW Coeff of Kendy 13.3, Plt Count 265, MPV 10.2, Immature Gran % (Auto) 0.600, Neut % (Auto) 86.8 H, Lymph % (Auto) 8.6 L, [place] % (Auto) 3.9, Eos % (Auto) 0.0, Baso % (Auto) 0.1, Absolute Neuts (auto) 7.7, Absolute Lymphs (auto) 0.76 L, Nucleated RBC % 0 04/01/20 04:28: Sodium 140, Potassium 4.1, Chloride 105, Carbon Dioxide 30.0, Anion Gap 5, BUN 30 H, Creatinine 0.66, Estim Creat Clear Calc 75.99, Est GFR (MDRD) Af Amer 115, Est GFR (MDRD) Non-Af 95, BUN/Creatinine Ratio 45.2 H, Glucose 192 H, Calcium 7.7 L 04/01/20 04:28: Magnesium 2.6 Current Medications Acetaminophen (Acetaminophen 325 Mg Tablet) 650 mg PO Q6H PRN PRN PRN Reason: Pain Score 1-10/Temp > 100.7 F Last Admin: 04/01/20 12:08 Dose: 650 mg Documented by: Albuterol/Ipratropium (Ipratropium/Albuterol Sulfate 3 Ml Ampul.Neb) 3 ml INHALATION Q4H.RT [facility] Last Admin: 04/01/20 10:42 Dose: 3 ml Documented by: Amoxicillin/Clavulanate Potassium (Amox/[facility]ulanate 500 Mg Tablet) [facility] Aspirin (Aspirin 81 Mg Tab.Chew) 81 mg PO DAILY@0800 [facility] Last Admin: 04/01/20 08:57 Dose: 81 mg Documented by: Atorvastatin Calcium (Atorvastatin Calcium 80 Mg Tablet) 80 mg PO QHS [facility] Last Admin: 03/31/20 21:36 Dose: 80 mg Documented by: Budesonide (Budesonide Respules 0.5 Mg/2 Ml Ampul.Neb.) 0.5 mg INHALATION Q12H.RT [facility] Stop: 04/02/20 09:59 Last Admin: 04/01/20 07:13 Dose: 0.5 mg Documented by: Calamine/Phenol (Menthol/Lanolin/Calamine/Znox 113 Gm Tube) 1 applic TOPICAL 4X/DAY [facility]; Protocol Last Admin: 04/01/20 09:00 Dose: 1 applicatio Documented by: Cyanocobalamin (Cyanocobalamin 500 Mcg Tablet) 1,000 mcg PO DAILY@0800 [facility] Last Admin: 04/01/20 08:57 Dose: 1,000 mcg Documented by: Duloxetine HCl (Duloxetine Hcl 60 Mg Capsule) 60 mg PO DAILY [facility] Last Admin: 04/01/20 10:04 Dose: 60 mg Documented by: Enoxaparin Sodium (Enoxaparin 40 Mg/0.4 Ml Syringe) 40 mg SC DAILY [facility] Last Admin: 04/01/20 09:55 Dose: 40 mg Documented by: Famotidine (Famotidine 20 Mg Tablet) 20 mg PO DAILY [facility] Last Admin: 04/01/20 10:05 Dose: 20 mg Documented by: Ferrous Sulfate (Ferrous Sulfate 325 Mg Tablet) 325 mg PO 1200 [facility] Last Admin: 04/01/20 12:08 Dose: 325 mg Documented by: Furosemide (Furosemide 40 Mg/4 Ml Vial) 40 mg IV DAILY [facility] Gabapentin (Gabapentin 600 Mg Tablet) 600 mg PO TID [facility] Last Admin: 04/01/20 06:09 Dose: 600 mg Documented by: Guaifenesin (Guaifenesin 1,200 Mg Tablet) 1,200 mg PO BID [facility] Last Admin: 04/01/20 10:04 Dose: 1,200 mg Documented by: Isosorbide Mononitrate (Isosorbide Mononitrate 30 Mg Tablet) 30 mg PO DAILY [facility] Last Admin: 04/01/20 10:04 Dose: 30 mg Documented by: Ketorolac Tromethamine (Ketorolac 15 Mg/Ml Vial) 15 mg IV Q6H PRN PRN PRN Reason: shoulder and back pain Stop: 04/02/20 14:08 Last Admin: 03/30/20 20:06 Dose: 15 mg Documented by: Lisinopril (Lisinopril 2.5 Mg Tablet) 2.5 mg PO DAILY [facility] Last Admin: 04/01/20 10:06 Dose: Not Given Documented by: Metoprolol Succinate (Metoprolol(Xl)Succ 25 Mg Tablet) 25 mg PO DAILY [facility] Last Admin: 04/01/20 10:06 Dose: 25 mg Documented by: Nutritional Formula (Osmolite 1.2) 60 ml GT DAILY@2100 [facility] Last Admin: 03/31/20 21:43 Dose: 60 ml Documented by: Ondansetron HCl (Ondansetron 4 Mg/2 Ml Vial) 4 mg IV Q8H PRN PRN PRN Reason: NAUSEA/VOMITING Last Admin: 04/01/20 06:18 Dose: 4 mg Documented by: Pantoprazole Sodium (Pantoprazole Sodium 40 Mg Tablet) 40 mg PO BID [facility] Last Admin: 04/01/20 10:05 Dose: 40 mg Documented by: Polyethylene Glycol (Polyethylene Glycol 3350 17 Gm Packet) 17 gm PO DAILY PRN PRN PRN Reason: CONSTIPATION Last Admin: 04/01/20 12:09 Dose: 17 gm Documented by: Prednisone (Prednisone 20 Mg Tablet) 40 mg PO DAILY@0800 [facility] Sodium Chloride (0.9% Saline Lock 10 Ml Syringe) 10 - 40 ml IV UD PRN PRN Reason: SALINE FLUSH Last Admin: 03/31/20 18:34 Dose: 10 ml Documented by: Sucralfate (Sucralfate 1 Gm Tablet) 1 gm PO 1HR_ACHS [facility] Last Admin: 04/01/20 11:07 Dose: 1 gm Documented by: STROKE Vital Signs/Narrative: Vital Signs Pulse Resp 04/01/20 11:00 101 H 04/01/20 10:43 103 H 19 H Medical Necessity - Tobacco Use Smoking Status: Former smoker Tobacco Use: Cigarettes Assessment/Plan All Active Problems Hypoxia (Acute) Respiratory failure (Acute) Aspiration pneumonia (Acute) Duodenal ulcer, acute with obstruction (Acute) #Sepsis due to aspiration pneumonia * on IV unasyn * blood still cultures pending * on IV solumedrol * speech therapy on board * # Acute hypoxic respiratory failure due to aspiration pneumonia * still on 5L of oxygen this morning, though she was later turned down to 3L of oxygen. * on antibiotics as above * titrate oxygen to maintain sats >90% * pulmonology on board * #Dysphagia * patient is on tube feeding at night at home, and has oral intake during the day. * drug abuse social worker on board * now on tube feeding at night, and oral feeds during the day * to sleep propped up a bit in bed to reduce chances of aspiration; will need a hospital bed at home, case management working on that. * * # GERD s/p partial gastrectomy * on PPI and carafate * on Tums and famotidine. * #CAD * Says she recently had a cath at [facility] and was told she had blockages. She was also told she needed open heart surgery because she had a valve problem, but wants a second opinion from a pastry baker here. * records requested from [facility] showed that she had 100% blockage of proximal RCA, and ~ 80% stenosis of distal RCA; she also has a history of mitral regurgitation. Recommendation was for patient to have CABG in addition to mitral valve replacement if she opted for surgery. * on aspirin, statin, imdur, lisinopril and metoprolol * to follow up with cardiology on outpatient basis for second opinion per her request * #Hypertension * On lisinopril and metoprolol * #Anxiety and depression: On Cymbalta DVT prophylaxis: lovenox Inpatient E&M: 69640 Subs Hosp L2
[2020-04-01] MEDS: Amox/Clavulanate 500 MG Tablet PO (17:37)
--- NOTE | 2020-04-01 18:39 | NURSING ---
only 3.5ml sterile water deflated from [place] tube balloon. pt had family bring in own supplies and on counter. special syringe used as ours does not fit. 6ml new sterile water reinserted. no pain and memo well with [place] tube snug on skin with resistance noted. once redressed with split 4x4's pt able to move it again and worried balloon has a hole will have to recheck to see giulia if has lost fluid.
[2020-04-01] MEDS: Atorvastatin Calcium 80 MG Tablet PO (21:41)
[2020-04-02] VITALS (16 sets, daily range): BP systolic 91–121; BP diastolic 48–71; PULSE 76–105; RESP 16–23; TEMP 36.6–37; O2SAT 91–96
[2020-04-02] MEDS: Gabapentin 600 MG Tablet PO ×3 (05:56→21:54)
[2020-04-02] MEDS: Sucralfate 1 GM Tablet PO ×4 (05:56→21:53)
[2020-04-02] MEDS: Ondansetron 4 MG/2 ML Vial IV (06:04)
[2020-04-02] MEDS: Acetaminophen 325 MG Tablet 650 MG PO (06:04)
[2020-04-02 06:19] LABS: Absolute Lymphocyte Count 3.44 X10^3/uL (0.83-4.51); Absolute Neutrophil Count 5.7 X10^3/uL (2.0-7.7); Basophil# 0.02 X10^3/uL; Basophil% 0.2 % (0-1); Eosinophil# 0.08 X10^3/uL; Eosinophils% 0.8 % (0-5); Hematocrit 41.7 % (37-47); Hemoglobin 12.9 g/dL (12.0-15.0); Lymphocyte # 3.44 X10^3/ul (4.0); Lymphocyte % 34.7 % (19-41); Mean Corp Hgb Conc 30.9 g/dL (32-36); Mean Corpuscular Hgb 30.1 pg (27.0-32.0); Mean Corpuscular Volume 97.4 fL (81-99); Monocyte# 0.63 X10^3/uL; Monocyte% 6.4 % (0-10); NRBC Flagged by Analyzer 0 % (0-5); Neutrophil # 5.69 X10^3/uL (2.7-7.7); Neutrophil % 57.4 % (47-70); Platelet Count 288 K/mm3 (150-450); RBC Distribution Width CV 13.6 % (11.6-14.6); RBC Distribution Width SD 48.5 fl (35.1-43.9); Red Blood Count 4.28 M/mm3 (4.2-5.4); White Blood Count 9.9 K/mm3 (4.4-11.0)
[2020-04-02 06:43] LABS: Anion Gap 6 (5-15); BUN 36 mg/dL (7-18); Calcium,Total 8.1 mg/dL (8.5-10.1); Chloride 105 mmol/L (98-107); Creatinine, Serum 0.62 mg/dL (0.55-1.02); EST Glomerular Filtration Rate 103 mL/min (>60); Est Glom Filt Rate - Afr Amer 124 mL/min (>60); Estimated Creatinine Clearance 80.89 ml/min; Glucose 122 mg/dL (74-106); Potassium 3.5 mmol/L (3.5-5.1); Sodium Level 139 mmol/L (136-145)
--- NOTE | 2020-04-02 06:53 | PN_ITS ---
Patient Problems: Active and Suspected Problems Hypoxia (Acute) Respiratory failure (Acute) Aspiration pneumonia (Acute) Duodenal ulcer, acute with obstruction (Acute) Subjective: The patient was seen and examined at the bedside this morning. Events from the last 24 hours have been reviewed. The patient is currently afebrile, he modynamically stable and maintaining appropriate oxygen saturations on 2 L/min via nasal cannula. Renal function remains stable. However, the patient is still documented to be overall net positive for the hospital admission. Objective: The patient's most recent lab work, culture data and imaging studies have all been personally reviewed. Rapid coronavirus antigen testing on March 28 was negative. Blood cultures have shown no growth to date. Surface echocardiogram revealed stage I diastolic dysfunction with an ejection fraction of 55% and a pulmonary artery systolic pressure estimated to be 35 mmHg. - Physical Exam Vitals/I&O's: Vital Signs Temp Pulse Resp BP Pulse Ox 98.6 F 82 18 118/71 92 04/02/20 03:55 04/02/20 03:55 04/02/20 03:55 04/02/20 03:55 04/02/20 03:55 Oxygen Flow Rate (L/min) 2 Oxygen Delivery Method Nasal Cannula Weight: 123 lb 3.814 oz Body Mass Index (BMI) 25.7 Intake and Output for Last 24 Hours 03/31/20 04/01/20 04/02/20 23:59 23:59 23:59 Intake Total 2724 / 2724 1309 / 1309 600 / 600 Output Total 450 / 450 1900 / 1900 200 / 200 Balance 2274 / 2274 -591 / -591 400 / 400 General: Alert, Cooperative, No apparent distress HEENT: Atraumatic, Normocephalic Oral: No Gingival or Mucosal Lesions/ Ulcerations Neck: Supple, No Nodes, Trachea Midline Lungs: Diminished, Rales Cardiovascular: Regular rate, Regular Rhythm Abdomen: Bowel Sounds Present, Soft, Non Tender, - - Josh button in place Extremities: No clubbing, No cyanosis, No edema Skin: No breakdown Musculoskeletal: No Tenderness to Palpation of Joints or Extremities Lymphatic: No Cervical, Supraclavicular, or Inguinal Adenopathy Neurological: Cranial nerves II-XII grossly intact, Neuro grossly intact Psych/Mental Status: Normal Affect, Appropriate Labs (Last 48 Hours) 03/31/20 03/31/20 04/01/20 05:50 11:07 04:28 WBC 8.9 RBC 4.22 Hgb 12.4 Hct 40.5 MCV 96.0 MCH 29.4 MCHC 30.6 L RDW Std Deviation 47.2 H RDW Coeff of Kendy 13.3 Plt Count 265 MPV 10.2 Immature Gran % (Auto) 0.600 Neut % (Auto) 86.8 H Lymph % (Auto) 8.6 L [place] % (Auto) 3.9 Eos % (Auto) 0.0 Baso % (Auto) 0.1 Absolute Neuts (auto) 7.7 Absolute Lymphs (auto) 0.76 L Nucleated RBC % 0 D-Dimer Quant (PE/DVT) 0.31 Sodium Potassium Chloride Carbon Dioxide Anion Gap BUN Creatinine Estim Creat Clear Calc Est GFR (MDRD) Af Amer Est GFR (MDRD) Non-Af BUN/Creatinine Ratio Glucose Calcium Magnesium B-Natriuretic Peptide 135.6 H 04/01/20 04/01/20 04/02/20 04:28 04:28 06:12 WBC 9.9 RBC 4.28 Hgb 12.9 Hct 41.7 MCV 97.4 MCH 30.1 MCHC 30.9 L RDW Std Deviation 48.5 H RDW Coeff of Kendy 13.6 Plt Count 288 MPV 10.0 Immature Gran % (Auto) 0.500 Neut % (Auto) 57.4 Lymph % (Auto) 34.7 [place] % (Auto) 6.4 Eos % (Auto) 0.8 Baso % (Auto) 0.2 Absolute Neuts (auto) 5.7 Absolute Lymphs (auto) 3.44 Nucleated RBC % 0 D-Dimer Quant (PE/DVT) Sodium 140 Potassium 4.1 Chloride 105 Carbon Dioxide 30.0 Anion Gap 5 BUN 30 H Creatinine 0.66 Estim Creat Clear Calc 75.99 Est GFR (MDRD) Af Amer 115 Est GFR (MDRD) Non-Af 95 BUN/Creatinine Ratio 45.2 H Glucose 192 H Calcium 7.7 L Magnesium 2.6 B-Natriuretic Peptide 04/02/20 06:12 WBC RBC Hgb Hct MCV MCH MCHC RDW Std Deviation RDW Coeff of Kendy Plt Count MPV Immature Gran % (Auto) Neut % (Auto) Lymph % (Auto) [place] % (Auto) Eos % (Auto) Baso % (Auto) Absolute Neuts (auto) Absolute Lymphs (auto) Nucleated RBC % D-Dimer Quant (PE/DVT) Sodium 139 Potassium 3.5 Chloride 105 Carbon Dioxide 28.0 Anion Gap 6 BUN 36 H Creatinine 0.62 Estim Creat Clear Calc 80.89 Est GFR (MDRD) Af Amer 124 Est GFR (MDRD) Non-Af 103 BUN/Creatinine Ratio 58.0 H Glucose 122 H Calcium 8.1 L Magnesium B-Natriuretic Peptide Clinical Impression(s) from Imaging Studies Chest X-Ray 03/28/20 06:55 IMPRESSION: Suspect pneumonia in the left lower lobe. Stable atelectasis right base. Other nonacute findings as outlined above. Electronically Signed: Jenn Ann MD at 7:18 EST , Service support , Chest X-Ray 04/01/20 12:40 IMPRESSION: Persistent bibasilar infiltrates although there has been a moderate degree of improvement as compared to prior study. Electronically Signed: Josh Crooks MD at 15:28 EST , Service support , Current Medications Acetaminophen (Acetaminophen 325 Mg Tablet) 650 mg PO Q6H PRN PRN PRN Reason: Pain Score 1-10/Temp > 100.7 F Last Admin: 04/02/20 06:04 Dose: 650 mg Documented by: Albuterol/Ipratropium (Ipratropium/Albuterol Sulfate 3 Ml Ampul.Neb) 3 ml INHALATION Q4H.RT [facility] Last Admin: 04/01/20 23:15 Dose: 3 ml Documented by: Amoxicillin/Clavulanate Potassium (Amox/Clavulanate 500 Mg Tablet) 500 mg PO BIDCM [facility] Last Admin: 04/01/20 17:37 Dose: 500 mg Documented by: Aspirin (Aspirin 81 Mg Tab.Chew) 81 mg PO DAILY@0800 [facility] Last Admin: 04/01/20 08:57 Dose: 81 mg Documented by: Atorvastatin Calcium (Atorvastatin Calcium 80 Mg Tablet) 80 mg PO QHS [facility] Last Admin: 04/01/20 21:41 Dose: 80 mg Documented by: Budesonide (Budesonide Respules 0.5 Mg/2 Ml Ampul.Neb.) 0.5 mg INHALATION Q12H.RT [facility] Stop: 04/02/20 09:59 Last Admin: 04/01/20 19:21 Dose: 0.5 mg Documented by: Calamine/Phenol (Menthol/Lanolin/Calamine/Znox 113 Gm Tube) 1 applic TOPICAL 4X/DAY [facility]; Protocol Last Admin: 04/01/20 21:43 Dose: Not Given Documented by: Cyanocobalamin (Cyanocobalamin 500 Mcg Tablet) 1,000 mcg PO DAILY@0800 [facility] Last Admin: 04/01/20 08:57 Dose: 1,000 mcg Documented by: Duloxetine HCl (Duloxetine Hcl 60 Mg Capsule) 60 mg PO DAILY [facility] Last Admin: 04/01/20 10:04 Dose: 60 mg Documented by: Enoxaparin Sodium (Enoxaparin 40 Mg/0.4 Ml Syringe) 40 mg SC DAILY [facility] Last Admin: 04/01/20 09:55 Dose: 40 mg Documented by: Famotidine (Famotidine 20 Mg Tablet) 20 mg PO DAILY [facility] Last Admin: 04/01/20 10:05 Dose: 20 mg Documented by: Ferrous Sulfate (Ferrous Sulfate 325 Mg Tablet) 325 mg PO 1200 [facility] Last Admin: 04/01/20 12:08 Dose: 325 mg Documented by: Furosemide (Furosemide 40 Mg/4 Ml Vial) 40 mg IV DAILY [facility] Gabapentin (Gabapentin 600 Mg Tablet) 600 mg PO TID [facility] Last Admin: 04/02/20 05:56 Dose: 600 mg Documented by: Guaifenesin (Guaifenesin 1,200 Mg Tablet) 1,200 mg PO BID [facility] Last Admin: 04/01/20 21:40 Dose: 1,200 mg Documented by: Isosorbide Mononitrate (Isosorbide Mononitrate 30 Mg Tablet) 30 mg PO DAILY [facility] Last Admin: 04/01/20 10:04 Dose: 30 mg Documented by: Ketorolac Tromethamine (Ketorolac 15 Mg/Ml Vial) 15 mg IV Q6H PRN PRN PRN Reason: shoulder and back pain Stop: 04/02/20 14:08 Last Admin: 03/30/20 20:06 Dose: 15 mg Documented by: Lisinopril (Lisinopril 2.5 Mg Tablet) 2.5 mg PO DAILY [facility] Last Admin: 04/01/20 10:06 Dose: Not Given Documented by: Melatonin (Melatonin 3 Mg Tablet) 3 mg PO QHS [facility] Last Admin: 04/02/20 02:19 Dose: Not Given Documented by: Metoprolol Succinate (Metoprolol(Xl)Succ 25 Mg Tablet) 25 mg PO DAILY [facility] Last Admin: 04/01/20 10:06 Dose: 25 mg Documented by: Nutritional Formula (Osmolite 1.2) 60 ml GT DAILY@2100 [facility] Last Admin: 04/01/20 21:49 Dose: 60 ml Documented by: Ondansetron HCl (Ondansetron 4 Mg/2 Ml Vial) 4 mg IV Q8H PRN PRN PRN Reason: NAUSEA/VOMITING Last Admin: 04/02/20 06:04 Dose: 4 mg Documented by: Pantoprazole Sodium (Pantoprazole Sodium 40 Mg Tablet) 40 mg PO BID [facility] Last Admin: 04/01/20 21:41 Dose: 40 mg Documented by: Polyethylene Glycol (Polyethylene Glycol 3350 17 Gm Packet) 17 gm PO DAILY PRN PRN PRN Reason: CONSTIPATION Last Admin: 04/01/20 12:09 Dose: 17 gm Documented by: Prednisone (Prednisone 20 Mg Tablet) 40 mg PO DAILY@0800 [facility] Sodium Chloride (0.9% Saline Lock 10 Ml Syringe) 10 - 40 ml IV UD PRN PRN Reason: SALINE FLUSH Last Admin: 03/31/20 18:34 Dose: 10 ml Documented by: Sucralfate (Sucralfate 1 Gm Tablet) 1 gm PO 1HR_ACHS [facility] Last Admin: 04/02/20 05:56 Dose: 1 gm Documented by: Medical Necessity - Tobacco Use Smoking Status: Former smoker Tobacco Use: Cigarettes Assessment/Plan All Active Problems Hypoxia (Acute) Respiratory failure (Acute) Aspiration pneumonia (Acute) Duodenal ulcer, acute with obstruction (Acute) RECOMMENDATIONS: 1. Continue to wean supplemental oxygen to maintain saturations at or above 90%. 2. Continue scheduled diuretic therapy as tolerated by hemodynamics and renal function. 3. Continue Augmentin to complete treatment course. 4. Continue bronchodilator therapy and steroids. Recommend prednisone taper at discharge. 5. Encourage aggressive incentive spirometer use and mobilize patient as tolerated. 6. Maintain aspiration precautions. Dietary advancement per speech therapy recommendations. IMPRESSIONS: 1. Acute hypoxemic respiratory failure The patient reportedly at her baseline does not have a supplemental oxygen requirement but is notably short of breath with any form of exertion at her baseline. While she does have a prior smoking history, her diagnosis of COPD is somewhat questionable. She states that she is currently being followed at [facility] pulmonary, but she is only prescribed a Flovent and albuterol inhaler at her baseline. This would raise the suspicion for asthma. I do not have any docume ntation from the patient's outside pulmonary providers. Nevertheless, it is reasonable to continue scheduled bronchodilators, steroids and antimicrobials. I would continue aspiration precautions and continue to wean supplemental oxygen to maintain saturations at or above 90%. Surface echocardiogram did reveal evidence of diastolic dysfunction, so the patient will be continued on diuretic therapy as tolerated. Encourage incentive spirometer use and mobilize patient as tolerated. 2. History of dysphagia/coronary artery disease/GERD/hypertension Complicates care, management, recovery and prognosis. Continue home medications as indicated. Dietary advancement per speech therapy recommendations. Maintain upright posture with tube feeding. Continue aspiration precautions. This note was generated with 2can dictation software. It may contain incorrect words, spelling, and punctuation that were not noted in checking the note before signing. Inpatient E&M: 36134 Subs Hosp L2
[2020-04-02] MEDS: Ipratropium/Albuterol Sulfate 3 ML AMPUL.NEB INHALATION ×4 (07:22→19:19)
[2020-04-02] MEDS: Budesonide Respules 0.5 MG/2 ML AMPUL.NEB. INHALATION (07:22)
[2020-04-02] MEDS: Amox/Clavulanate 500 MG Tablet PO ×2 (09:09→16:43)
[2020-04-02] MEDS: Isosorbide Mononitrate 30 MG Tablet PO (09:09)
[2020-04-02] MEDS: Pantoprazole Sodium 40 MG Tablet PO ×2 (09:09→21:54)
[2020-04-02] MEDS: Cyanocobalamin 500 MCG Tablet 1000 MCG PO (09:09)
[2020-04-02] MEDS: Lisinopril 2.5 MG Tablet PO (09:09)
[2020-04-02] MEDS: DULoxetine Hcl 60 MG Capsule PO (09:09)
[2020-04-02] MEDS: Metoprolol(XL)Succ 25 MG Tablet PO (09:10)
[2020-04-02] MEDS: predniSONE 20 MG Tablet 40 MG PO (09:10)
[2020-04-02] MEDS: Enoxaparin 40 MG/0.4 ML Syringe SC (09:10)
[2020-04-02] MEDS: Aspirin 81 MG TAB.CHEW PO (09:10)
[2020-04-02] MEDS: guaiFENesin 1,200 MG Tablet 1200 MG PO ×2 (09:10→21:53)
[2020-04-02] MEDS: Famotidine 20 MG Tablet PO (09:10)
[2020-04-02] MEDS: Furosemide 40 MG/4 ML Vial IV (09:11)
[2020-04-02] MEDS: Ferrous Sulfate 325 MG Tablet PO (11:00)
--- NOTE | 2020-04-02 12:28 | PCM.PN.HOSP ---
Patient Problems: Active and Suspected Problems Hypoxia (Acute) Respiratory failure (Acute) Aspiration pneumonia (Acute) Duodenal ulcer, acute with obstruction (Acute) Subjective: Patient seen and examined. She is still coughing, and is expectorating much better now. She is worried about her PEG tube, as she feels it is about to fall out. She has had to have it changed a couple of times over the last few weeks. Review of systems otherwise negative. She has remained hemodynamically stable. She is down to 2L today. Vitals/I&O's: Vital Signs Temp Pulse Resp BP Pulse Ox 97.9 F 102 H 21 H 112/69 93 04/02/20 09:05 04/02/20 11:07 04/02/20 11:07 04/02/20 09:05 04/02/20 11:07 Oxygen Flow Rate (L/min) 2 Oxygen Delivery Method Nasal Cannula Weight: 123 lb 3.814 oz Body Mass Index (BMI) 25.7 Intake and Output for Last 24 Hours 03/31/20 04/01/20 04/02/20 23:59 23:59 23:59 Intake Total 2724 / 2724 1309 / 1309 600 / 600 Output Total 450 / 450 1900 / 1900 200 / 200 Balance 2274 / 2274 -591 / -591 400 / 400 General: Alert, Oriented x3, Cooperative HEENT: Atraumatic, PERRLA, EOMI, Normocephalic Oral: Dry Mucosa Neck: Supple, No JVD, Negative Carotid Bruits Lungs: - - decreased breath sounds bibasally, no wheezes or crackles. on 2L of oxygen by nasal canula Cardiovascular: Regular rate, Regular Rhythm, Normal S1, Normal S2, No murmurs Abdomen: Bowel Sounds Present, Soft, Non Tender, Non-Distended, No Hepato-splenomegaly, PEG tube in place Extremities: No clubbing, No cyanosis, No edema, Capillary Refill Less than 3 Seconds Skin: No rashes, No breakdown Musculoskeletal: No Tenderness to Palpation of Joints or Extremities Lymphatic: No Cervical, Supraclavicular, or Inguinal Adenopathy Neurological: Cranial nerves II-XII grossly intact, Neuro grossly intact, Motor Exam 5/5 strength throughout Psych/Mental Status: Normal Affect, Appropriate, Alert and oriented to time, place, person, mood and affect Microbiology Past 72 Hours 03/28/20 07:35 Blood Culture (Wb) - Anticubital Left Blood Culture - Final No growth in 5 days. 03/28/20 07:40 Blood Culture (Wb) - Anticubital Right Blood Culture - Final No growth in 5 days. Laboratory Results 04/02/20 06:12: WBC 9.9, RBC 4.28, Hgb 12.9, Hct 41.7, MCV 97.4, MCH 30.1, MCHC 30.9 L, RDW Std Deviation 48.5 H, RDW Coeff of Kendy 13.6, Plt Count 288, MPV 10.0, Immature Gran % (Auto) 0.500, Neut % (Auto) 57.4, Lymph % (Auto) 34.7, [place] % (Auto) 6.4, Eos % (Auto) 0.8, Baso % (Auto) 0.2, Absolute Neuts (auto) 5.7, Absolute Lymphs (auto) 3.44, Nucleated RBC % 0 04/02/20 06:12: Sodium 139, Potassium 3.5, Chloride 105, Carbon Dioxide 28.0, Anion Gap 6, BUN 36 H, Creatinine 0.62, Estim Creat Clear Calc 80.89, Est GFR (MDRD) Af Amer 124, Est GFR (MDRD) Non-Af 103, BUN/Creatinine Ratio 58.0 H, Glucose 122 H, Calcium 8.1 L Current Medications Acetaminophen (Acetaminophen 325 Mg Tablet) 650 mg PO Q6H PRN PRN PRN Reason: Pain Score 1-10/Temp > 100.7 F Last Admin: 04/02/20 06:04 Dose: 650 mg Documented by: Albuterol/Ipratropium (Ipratropium/Albuterol Sulfate 3 Ml Ampul.Neb) 3 ml INHALATION Q4H.RT [facility] Last Admin: 04/02/20 11:07 Dose: 3 ml Documented by: Amoxicillin/Clavulanate Potassium (Amox/Clavulanate 500 Mg Tablet) 500 mg PO BIDCM [facility] Last Admin: 04/02/20 09:09 Dose: 500 mg Documented by: Aspirin (Aspirin 81 Mg Tab.Chew) 81 mg PO DAILY@0800 [facility] Last Admin: 04/02/20 09:10 Dose: 81 mg Documented by: Atorvastatin Calcium (Atorvastatin Calcium 80 Mg Tablet) 80 mg PO QHS [facility] Last Admin: 04/01/20 21:41 Dose: 80 mg Documented by: Calamine/Phenol (Menthol/Lanolin/Calamine/Znox 113 Gm Tube) 1 applic TOPICAL 4X/DAY [facility]; Protocol Last Admin: 04/02/20 09:12 Dose: Not Given Documented by: Cyanocobalamin (Cyanocobalamin 500 Mcg Tablet) 1,000 mcg PO DAILY@0800 [facility] Last Admin: 04/02/20 09:09 Dose: 1,000 mcg Documented by: Duloxetine HCl (Duloxetine Hcl 60 Mg Capsule) 60 mg PO DAILY [facility] Last Admin: 04/02/20 09:09 Dose: 60 mg Documented by: Enoxaparin Sodium (Enoxaparin 40 Mg/0.4 Ml Syringe) 40 mg SC DAILY [facility] Last Admin: 04/02/20 09:10 Dose: 40 mg Documented by: Famotidine (Famotidine 20 Mg Tablet) 20 mg PO DAILY [facility] Last Admin: 04/02/20 09:10 Dose: 20 mg Documented by: Ferrous Sulfate (Ferrous Sulfate 325 Mg Tablet) 325 mg PO 1200 [facility] Last Admin: 04/02/20 11:00 Dose: 325 mg Documented by: Furosemide (Furosemide 40 Mg/4 Ml Vial) 40 mg IV DAILY [facility] Last Admin: 04/02/20 09:11 Dose: 40 mg Documented by: Gabapentin (Gabapentin 600 Mg Tablet) 600 mg PO TID [facility] Last Admin: 04/02/20 05:56 Dose: 600 mg Documented by: Guaifenesin (Guaifenesin 1,200 Mg Tablet) 1,200 mg PO BID [facility] Last Admin: 04/02/20 09:10 Dose: 1,200 mg Documented by: Isosorbide Mononitrate (Isosorbide Mononitrate 30 Mg Tablet) 30 mg PO DAILY [facility] Last Admin: 04/02/20 09:09 Dose: 30 mg Documented by: Ketorolac Tromethamine (Ketorolac 15 Mg/Ml Vial) 15 mg IV Q6H PRN PRN PRN Reason: shoulder and back pain Stop: 04/02/20 14:08 Last Admin: 03/30/20 20:06 Dose: 15 mg Documented by: Lisinopril (Lisinopril 2.5 Mg Tablet) 2.5 mg PO DAILY [facility] Last Admin: 04/02/20 09:09 Dose: 2.5 mg Documented by: Melatonin (Melatonin 3 Mg Tablet) 3 mg PO QHS [facility] Last Admin: 04/02/20 02:19 Dose: Not Given Documented by: Metoprolol Succinate (Metoprolol(Xl)Succ 25 Mg Tablet) 25 mg PO DAILY [facility] Last Admin: 04/02/20 09:10 Dose: 25 mg Documented by: Nutritional Formula (Osmolite 1.2) 60 ml GT DAILY@2100 [facility] Last Admin: 04/01/20 21:49 Dose: 60 ml Documented by: Ondansetron HCl (Ondansetron 4 Mg/2 Ml Vial) 4 mg IV Q8H PRN PRN PRN Reason: NAUSEA/VOMITING Last Admin: 04/02/20 06:04 Dose: 4 mg Documented by: Pantoprazole Sodium (Pantoprazole Sodium 40 Mg Tablet) 40 mg PO BID [facility] Last Admin: 04/02/20 09:09 Dose: 40 mg Documented by: Polyethylene Glycol (Polyethylene Glycol 3350 17 Gm Packet) 17 gm PO DAILY PRN PRN PRN Reason: CONSTIPATION Last Admin: 04/01/20 12:09 Dose: 17 gm Documented by: Prednisone (Prednisone 20 Mg Tablet) 40 mg PO DAILY@0800 [facility] Last Admin: 04/02/20 09:10 Dose: 40 mg Documented by: Sodium Chloride (0.9% Saline Lock 10 Ml Syringe) 10 - 40 ml IV UD PRN PRN Reason: SALINE FLUSH Last Admin: 03/31/20 18:34 Dose: 10 ml Documented by: Sucralfate (Sucralfate 1 Gm Tablet) 1 gm PO 1HR_ACHS [facility] Last Admin: 04/02/20 11:00 Dose: 1 gm Documented by: STROKE Vital Signs/Narrative: Vital Signs Temp Pulse Resp BP Pulse Ox 04/02/20 11:07 102 H 21 H 93 04/02/20 09:10 87 04/02/20 09:05 97.9 F 87 16 112/69 93 Medical Necessity - Tobacco Use Smoking Status: Former smoker Tobacco Use: Cigarettes Assessment/Plan All Active Problems Hypoxia (Acute) Respiratory failure (Acute) Aspiration pneumonia (Acute) Duodenal ulcer, acute with obstruction (Acute) #Sepsis due to aspiration pneumonia blood cultures showed no growth after 5 days now on PO augmentin; IV unasyn stopped on IV solumedrol speech therapy on board # Acute hypoxic respiratory failure due to aspiration pneumonia now down to 2L of oxygen. on antibiotics as above titrate oxygen to maintain sats >90% pulmonology on board #Dysphagia patient is on tube feeding at night at home, and has oral intake during the day. provider network mgr on board now on tube feeding at night, and oral feeds during the day to sleep propped up a bit in bed to reduce chances of aspiration; will need a hospital bed at home, case management working on that. patient worried about PEG tube, thinking it may be about to fall out. general surgery consulted to evaluate the PEG tube # GERD s/p partial gastrectomy on PPI and carafate on Tums and famotidine. #CAD Says she recently had a cath at [facility] and was told she had blockages. She was also told she needed open heart surgery because she had a valve problem, but wants a second opinion from a millinery copyist here. records requested [facility] showed that she had 100% blockage of proximal RCA, and ~ 80% stenosis of distal RCA; she also has a history of mitral regurgitation. Recommendation was for patient to have CABG in addition to mitral valve replacement if she opted for surgery. on aspirin, statin, imdur, lisinopril and metoprolol to follow up with cardiology on outpatient basis for second opinion per her request #Hypertension On lisinopril and metoprolol #Anxiety and depression: On Cymbalta DVT prophylaxis: lovenox Inpatient E&M: 07930 Subs Hosp L2
[2020-04-02] MEDS: Ketorolac 15 MG/ML Vial IV (13:02)
--- NOTE | 2020-04-02 13:31 | CASEMGMT ---
Green sheet left on chart hospital bed, HHC resumption, and possible home oxygen need at this time. Unable to reach Mae Abad after multiple attempts to see if script for hospital bed can be sent today. Carlos PATRICK CM updated at this time, voices understanding. Prateek PATRICK CM
--- NOTE | 2020-04-02 16:55 | CASEMGMT ---
DARNELL VOGEL NOTE: DARNELL VOGEL spoke nuria/Bela @ [employer]. She was made aware pt may be ready for discharge over the weekend, but this is not certain. She was made aware pt will need hospital bed @ discharge. She states script to be faxed to [facility] at this time and she will attempt to have hospital bed delivered to pt's home this PM. She states, if unable to have it delivered this PM, she will check into seeing if they will have someone available that could deliver it over the weekend, if pt is discharged over the weekend. Script for hospital bed obtained from Dr Harman and faxed to [employer] at this time. If pt is discharged home over the weekend, nurse is to call [facility] to let them know hospital bed will need to be delivered to pt's home, if possible. Pt made aware of the above. She states either her [id number], Colleen, ([phone]) or her son, Carlos ([phone]) will be available to meet with [employer] @ her home for bed delivery. Pt states, if she is discharged home over the weekend and hospital bed is unable to be delivered to her home this weekend, she plans to sleep in her recliner, as she can keep her head elevated in the recliner to help prevent aspiration. Armin MODI RN, CM
--- NOTE | 2020-04-02 17:05 | PCM.CONS.B ---
- Consult Date of Consult: 04/02/20 - Reason for Consult Chief Complaint: attention to jejunostomy tube History of Present Illness: Lacey is admitted to hospitalist service for sepsis due to aspiration pneumonia - noted left lower lobe infiltrate. Has known COPD and reflux due to her multiple gastrointestinal surgeries. She has had multiple revisions of a feeding tube, her last being in 01/22/2020 and this is a tunneled jejunostomy tube. Patient complains that the jejunostomy tube keeps on falling out when she coughs. Past Medical History: ? Atrial fibrillation (HCC) ? ? COPD (chronic obstructive pulmonary disease) (HCC) ? ? Esophageal reflux ? ? Headache(784.0) ? ? Osteoporosis, unspecified 12/11/2007 ? Scoliosis (and kyphoscoliosis), idiopathic ? ? Tobacco use disorder ? ? Uterovaginal prolapse, incomplete Past Surgical History: APPENDECTOMY ? ? COLONOSCOP W/ OR W/O [facility] SPEC ? 05/20/2001 ? Colonoscopy COLONOSCOP W/ OR W/O [facility] SPEC ? 03/13/2013 ? Colonoscopy EGD W/O OR W/BRUSH/WASH ? 03/13/2013 ? EGD EGD W/O OR W/BRUSH/WASH ? 09/17/15 ? EGD LIGATE FALLOPIAN TUBE ? ? ? Tubal ligation xlap, revision of jejunostomy tube 12/31/2019 Had suture granuloma 07/16 and 08/24 jejunostomy placed for gastroparesis Apr 2019 s/p subtotal gastrectomy for duodenal stricture 01/13/19 Medications: gabapentin (NEURONTIN) 300 mg capsule predniSONE (DELTASONE) 10 mg tablet famotidine (PEPCID) 20 mg tablet fluticasone (FLOVENT HFA) 110 mcg/actuation inhaler aspirin, enteric coated (ECOTRIN LOW STRENGTH) 81 mg EC tablet atorvastatin (LIPITOR) 80 mg tablet isosorbide mononitrate ER (IMDUR) 30 mg 24 hr tablet metoprolol succinate ER (TOPROL XL) 25 mg 24 hr tablet lisinopril 2.5 mg tablet tiZANidine (ZANAFLEX) 4 mg tablet ondansetron orally disintegrating (ZOFRAN ODT) 4 mg disintegrating tablet nutritional supplements (OSMOLITE 1.5 BLUE) 0.06 gram-1.5 kcal/mL liqd OXYGEN, HOME THERAPY, ipratropium-albuterol (DUONEB) 0.5 mg-3 mg(2.5 mg base)/[address] (PROTONIX) 40 mg tablet DULoxetine (CYMBALTA) 60 mg capsule Albuterol Sulfate 1.25 mg/3 mL nebulizer solution albuterol HFA (VENTOLIN HFA) 90 mcg/actuation inhaler [employer] calcium carbonate (CALCIUM 300 ORAL) cyanocobalamin (VITAMIN B-12) 1,000 mcg tab biotin 5,000 mcg ODT FERROUS SULFATE ORAL melatonin 3 mg tablet senna (SENNA) 8.6 mg tab multivitamin tablet acetaminophen (TYLENOL) 325 mg tablet cholecalciferol, vitamin D3, (VITAMIN D3) 4,000 unit cap Allergies: dicyclomine Social history: TOB use positive Review of Systems: GENERAL: Negative for Malaise, significant weight loss, fever RESPIRATORY: see HPI CARDIOVASCULAR: Negative for chest pain, leg swelling and palpitations GI: Negative for abdominal discomfort, blood in stools or black stools and change in bowel habits : Negative for dysuria, frequency and incontinence MUSCULOSKELETAL: has chronic back pain. SKIN: Negative for lesions, rash, and itching. HEMATOLOGY/LYMPHOLOGY Negative for prolonged bleeding, bruising easily, and swollen nodes. ENDOCRINE: Negative for cold or heat intolerance, polyuria, polydipsia and goiter. NEURO: negative Physical examination: Vital signs Temp 97.8F HR 88 BP 119/61 RR 20 General WD/WN WF in no apparent distress, alert and oriented, not septic appearing HEENT Normocephalic. EOM intact with sclera clear. Neck is supple with no jugular venous distention noted. Trachea is midline. Lungs no labored breathing noted, such as retractions. No cough heard. Heart regular. Abdomen soft and benign. Jejunostomy tube noted left upper abdomen - button/balloon type - suspect balloon no longer fully inflated Extremities no pitting edema noted. Genitourinary/Rectal deferred Skin normal skin integrity. Neurological non focal. Psychological normal affect, patient is calm and appropriate Impression: attention to jejunostomy tube Plan/discussion: I have discussed the above with the patient. I suspect that the balloon to the jejunostomy tube is no longer functioning. I have offered replacement with a Cintron catheter given that we do not have the same type button jejunostomy tube that she presently has. She does not want this. I have recommended taping the button up against the abdominal wall/in place, so that it will not protrude out so easily. Can remove the tape when connected to tube feedings. She will have to have it changed at the office of Dr. Sidhu, as we do not have the same type of jejunostomy tube at this facility. She acknowledges the above. No surgical intervention required at this point, I will sign off case.
[2020-04-02] MEDS: Menthol/Lanolin/Calamine/Znox 113 GM Tube 1 APPLIC TOPICAL (21:51)
[2020-04-02] MEDS: Atorvastatin Calcium 80 MG Tablet PO (21:53)
[2020-04-02] MEDS: MELATONIN 3 MG TABLET PO (21:54)
[2020-04-03] VITALS (10 sets, daily range): BP systolic 104–119; BP diastolic 61–76; PULSE 73–92; RESP 16–22; TEMP 36.3–36.8; O2SAT 88–95
[2020-04-03] MEDS: Ondansetron 4 MG/2 ML Vial IV (04:27)
[2020-04-03] MEDS: Acetaminophen 325 MG Tablet 650 MG PO (04:41)
[2020-04-03] MEDS: Ipratropium/Albuterol Sulfate 3 ML AMPUL.NEB INHALATION ×3 (04:57→15:06)
[2020-04-03] MEDS: Gabapentin 600 MG Tablet PO ×2 (05:57→15:57)
[2020-04-03] MEDS: Sucralfate 1 GM Tablet PO ×2 (06:00→11:30)
--- NOTE | 2020-04-03 06:01 | PCM.PN.PUL ---
Patient Problems: Active and Suspected Problems Hypoxia (Acute) Respiratory failure (Acute) Aspiration pneumonia (Acute) Duodenal ulcer, acute with obstruction (Acute) Subjective: The patient was seen and examined at the bedside this morning. Events from the last 24 hours have been reviewed. The patient is currently afebrile, hemodynamically stable and maintaining appropriate oxygen saturations on 2 L/min via nasal cannula. The patient is currently documented to be overall net +8.4 L for the hospital admission. The patient remains on Augmentin, prednisone and once daily Lasix. The patient still has a residual cough. Objective: The patient's most recent lab work, culture data and imaging studies have all been personally reviewed. Rapid coronavirus antigen testing on March 28 was negative. Blood cultures have shown no growth to date. Surface echocardiogram revealed stage I diastolic dysfunction with an ejection fraction of 55% and a pulmonary artery systolic pressure estimated to be 35 mmHg. - Physical Exam Vitals/I&O's: Vital Signs Temp Pulse Resp BP Pulse Ox 98.3 F 79 18 119/61 92 04/03/20 03:30 04/03/20 03:30 04/03/20 03:30 04/03/20 03:30 04/03/20 03:30 Oxygen Flow Rate (L/min) 2 Oxygen Delivery Method Nasal Cannula Weight: 123 lb 3.814 oz Body Mass Index (BMI) 25.7 Intake and Output for Last 24 Hours 04/01/20 04/02/20 04/03/20 23:59 23:59 23:59 Intake Total 1309 / 1309 600 / 1000 500 / 500 Output Total 1900 / 1900 200 / 200 Balance -591 / -591 400 / 800 500 / 500 General: Alert, Oriented x3, Cooperative, No apparent distress HEENT: Atraumatic, PERRLA, Normocephalic Oral: No Gingival or Mucosal Lesions/ Ulcerations Neck: Supple, No Nodes, Trachea Midline Lungs: No rhonchi, No wheeze, No rales, Diminished Cardiovascular: Regular rate, Regular Rhythm, Normal S1, Normal S2, No murmurs Abdomen: Bowel Sounds Present, Soft, Non Tender Extremities: No clubbing, No cyanosis, No edema Skin: No breakdown Musculoskeletal: No Tenderness to Palpation of Joints or Extremities Lymphatic: No Cervical, Supraclavicular, or Inguinal Adenopathy Neurological: Cranial nerves II-XII grossly intact, Neuro grossly intact Psych/Mental Status: Normal Affect, Appropriate Labs (Last 48 Hours) 04/02/20 04/02/20 06:12 06:12 WBC 9.9 RBC 4.28 Hgb 12.9 Hct 41.7 MCV 97.4 MCH 30.1 MCHC 30.9 L RDW Std Deviation 48.5 H RDW Coeff of Kendy 13.6 Plt Count 288 MPV 10.0 Immature Gran % (Auto) 0.500 Neut % (Auto) 57.4 Lymph % (Auto) 34.7 Hayes % (Auto) 6.4 Eos % (Auto) 0.8 Baso % (Auto) 0.2 Absolute Neuts (auto) 5.7 Absolute Lymphs (auto) 3.44 Nucleated RBC % 0 Sodium 139 Potassium 3.5 Chloride 105 Carbon Dioxide 28.0 Anion Gap 6 BUN 36 H Creatinine 0.62 Estim Creat Clear Calc 80.89 Est GFR (MDRD) Af Amer 124 Est GFR (MDRD) Non-Af 103 BUN/Creatinine Ratio 58.0 H Glucose 122 H Calcium 8.1 L Microbiology 03/28/20 07:35 Blood Culture (Wb) - Anticubital Left Blood Culture - Final No growth in 5 days. 03/28/20 07:40 Blood Culture (Wb) - Anticubital Right Blood Culture - Final No growth in 5 days. Clinical Impression(s) from Imaging Studies Chest X-Ray 03/28/20 06:55 IMPRESSION: Suspect pneumonia in the left lower lobe. Stable atelectasis right base. Other nonacute findings as outlined above. Electronically Signed: Jenn Ann MD at 7:18 EST , Service support , Chest X-Ray 04/01/20 12:40 IMPRESSION: Persistent bibasilar infiltrates although there has been a moderate degree of improvement as compared to prior study. Electronically Signed: Josh Crooks MD at 15:28 EST , Service support , Current Medications Acetaminophen (Acetaminophen 325 Mg Tablet) 650 mg PO Q6H PRN PRN PRN Reason: Pain Score 1-10/Temp > 100.7 F Last Admin: 04/03/20 04:41 Dose: 650 mg Documented by: Albuterol/Ipratropium (Ipratropium/Albuterol Sulfate 3 Ml Ampul.Neb) 3 ml INHALATION Q4H.RT [facility] Last Admin: 04/03/20 04:57 Dose: 3 ml Documented by: Amoxicillin/Clavulanate Potassium (Amox/Clavulanate 500 Mg Tablet) 500 mg PO BIDCM [facility] Last Admin: 04/02/20 16:43 Dose: 500 mg Documented by: Aspirin (Aspirin 81 Mg Tab.Chew) 81 mg PO DAILY@0800 [facility] Last Admin: 04/02/20 09:10 Dose: 81 mg Documented by: Atorvastatin Calcium (Atorvastatin Calcium 80 Mg Tablet) 80 mg PO QHS [facility] Last Admin: 04/02/20 21:53 Dose: 80 mg Documented by: Calamine/Phenol (Menthol/Lanolin/Calamine/Znox 113 Gm Tube) 1 applic TOPICAL 4X/DAY [facility]; Protocol Last Admin: 04/02/20 21:51 Dose: 1 applicatio Documented by: Cyanocobalamin (Cyanocobalamin 500 Mcg Tablet) 1,000 mcg PO DAILY@0800 [facility] Last Admin: 04/02/20 09:09 Dose: 1,000 mcg Documented by: Duloxetine HCl (Duloxetine Hcl 60 Mg Capsule) 60 mg PO DAILY [facility] Last Admin: 04/02/20 09:09 Dose: 60 mg Documented by: Enoxaparin Sodium (Enoxaparin 40 Mg/0.4 Ml Syringe) 40 mg SC DAILY [facility] Last Admin: 04/02/20 09:10 Dose: 40 mg Documented by: Famotidine (Famotidine 20 Mg Tablet) 20 mg PO DAILY [facility] Last Admin: 04/02/20 09:10 Dose: 20 mg Documented by: Ferrous Sulfate (Ferrous Sulfate 325 Mg Tablet) 325 mg PO 1200 [facility] Last Admin: 04/02/20 11:00 Dose: 325 mg Documented by: Furosemide (Furosemide 40 Mg/4 Ml Vial) 40 mg IV DAILY [facility] Last Admin: 04/02/20 09:11 Dose: 40 mg Documented by: Gabapentin (Gabapentin 600 Mg Tablet) 600 mg PO TID [facility] Last Admin: 04/03/20 05:57 Dose: 600 mg Documented by: Guaifenesin (Guaifenesin 1,200 Mg Tablet) 1,200 mg PO BID [facility] Last Admin: 04/02/20 21:53 Dose: 1,200 mg Documented by: Isosorbide Mononitrate (Isosorbide Mononitrate 30 Mg Tablet) 30 mg PO DAILY [facility] Last Admin: 04/02/20 09:09 Dose: 30 mg Documented by: Lisinopril (Lisinopril 2.5 Mg Tablet) 2.5 mg PO DAILY [facility] Last Admin: 04/02/20 09:09 Dose: 2.5 mg Documented by: Melatonin (Melatonin 3 Mg Tablet) 3 mg PO QHS [facility] Last Admin: 04/02/20 21:54 Dose: 3 mg Documented by: Metoprolol Succinate (Metoprolol(Xl)Succ 25 Mg Tablet) 25 mg PO DAILY [facility] Last Admin: 04/02/20 09:10 Dose: 25 mg Documented by: Nutritional Formula (Osmolite 1.2) 60 ml GT DAILY@2100 [facility] Last Admin: 04/02/20 21:52 Dose: 60 ml Documented by: Ondansetron HCl (Ondansetron 4 Mg/2 Ml Vial) 4 mg IV Q8H PRN PRN PRN Reason: NAUSEA/VOMITING Last Admin: 04/03/20 04:27 Dose: 4 mg Documented by: Pantoprazole Sodium (Pantoprazole Sodium 40 Mg Tablet) 40 mg PO BID [facility] Last Admin: 04/02/20 21:54 Dose: 40 mg Documented by: Polyethylene Glycol (Polyethylene Glycol 3350 17 Gm Packet) 17 gm PO DAILY PRN PRN PRN Reason: CONSTIPATION Last Admin: 04/01/20 12:09 Dose: 17 gm Documented by: Prednisone (Prednisone 20 Mg Tablet) 40 mg PO DAILY@0800 [facility] Last Admin: 04/02/20 09:10 Dose: 40 mg Documented by: Sodium Chloride (0.9% Saline Lock 10 Ml Syringe) 10 - 40 ml IV UD PRN PRN Reason: SALINE FLUSH Last Admin: 03/31/20 18:34 Dose: 10 ml Documented by: Sucralfate (Sucralfate 1 Gm Tablet) 1 gm PO 1HR_ACHS [facility] Last Admin: 04/03/20 06:00 Dose: 1 gm Documented by: Medical Necessity - Tobacco Use Smoking Status: Former smoker Tobacco Use: Cigarettes Assessment/Plan All Active Problems Hypoxia (Acute) Respiratory failure (Acute) Aspiration pneumonia (Acute) Duodenal ulcer, acute with obstruction (Acute) RECOMMENDATIONS: 1. Continue to wean supplemental oxygen to maintain saturations at or above 90%. 2. Continue scheduled diuretic therapy as tolerated by hemodynamics and renal function. 3. Continue Augmentin to complete treatment course. 4. Continue bronchodilator therapy and steroids. Recommend prednisone taper at discharge. 5. Encourage aggressive incentive spirometer use and mobilize patient as tolerated. 6. Maintain aspiration precautions. Dietary advancement per speech therapy recommendations. 7. The patient is likely stable for discharge home on supplemental O2. 8. I would recommend close interval follow-up with her pulmonary care team at [facility] within 2 weeks of discharge. 9. Will sign off from a pulmonary perspective. Please call with any additional questions. IMPRESSIONS: 1. Acute hypoxemic respiratory failure, likely secondary to aspiration pneumonia The patient reportedly at her baseline does not have a supplemental oxygen requirement but is notably short of breath with any form of exertion at her baseline. While she does have a prior smoking history, her diagnosis of COPD is somewhat questionable. She states that she is currently being followed at [facility] pulmonary, but she is only prescribed a Flovent and albuterol inhaler at her baseline. This would raise the suspicion for asthma. I do not have any documentation from the patient's outside pulmonary providers. Nevertheless, it is reasonable to continue scheduled bronchodilators, steroids and antimicrobials. I would continue aspiration precautions and continue to wean supplemental oxygen to maintain saturations at or above 90%. Surface echocardiogram did reveal evidence of diastolic dysfunction, so the patient will be continued on diuretic therapy as tolerated. Encourage incentive spirometer use and mobilize patient as tolerated. 2. History of dysphagia/coronary artery disease/GERD/hypertension Complicates care, management, recovery and prognosis. Continue home medications as indicated. Dietary advancement per speech therapy recommendations. Maintain upright posture with tube feeding. Continue aspiration precautions. This note was generated with [employer] dictation software. It may contain incorrect words, spelling, and punctuation that were not noted in checking the note before signing. Inpatient E&M: 95243 Subs Hosp L2
[2020-04-03 08:03] LABS: Absolute Lymphocyte Count 2.92 X10^3/uL (0.83-4.51); Absolute Neutrophil Count 6.5 X10^3/uL (2.0-7.7); Basophil# 0.01 X10^3/uL; Basophil% 0.1 % (0-1); Eosinophil# 0.16 X10^3/uL; Eosinophils% 1.5 % (0-5); Hematocrit 42.7 % (37-47); Hemoglobin 12.9 g/dL (12.0-15.0); Lymphocyte # 2.92 X10^3/ul (4.0); Lymphocyte % 27.5 % (19-41); Mean Corp Hgb Conc 30.2 g/dL (32-36); Mean Corpuscular Hgb 29.5 pg (27.0-32.0); Mean Corpuscular Volume 97.7 fL (81-99); Mean Platelet Vol. 9.9 fl (6.2-12.0); Monocyte# 0.93 X10^3/uL; Monocyte% 8.8 % (0-10); NRBC Flagged by Analyzer 0 % (0-5); Neutrophil # 6.52 X10^3/uL (2.7-7.7); Neutrophil % 61.4 % (47-70); Platelet Count 298 K/mm3 (150-450); RBC Distribution Width CV 13.6 % (11.6-14.6); RBC Distribution Width SD 49.5 fl (35.1-43.9); Red Blood Count 4.37 M/mm3 (4.2-5.4); White Blood Count 10.6 K/mm3 (4.4-11.0)
[2020-04-03 08:37] LABS: Anion Gap 4 (5-15); BUN 41 mg/dL (7-18); BUN/Creat Ratio 68.3 RATIO (10-20); Chloride 103 mmol/L (98-107); EST Glomerular Filtration Rate 107 mL/min (>60); Est Glom Filt Rate - Afr Amer 129 mL/min (>60); Estimated Creatinine Clearance 83.59 ml/min; Glucose 98 mg/dL (74-106); Potassium 3.9 mmol/L (3.5-5.1); Sodium Level 138 mmol/L (136-145)
[2020-04-03] MEDS: Aspirin 81 MG TAB.CHEW PO (09:56)
[2020-04-03] MEDS: Amox/Clavulanate 500 MG Tablet PO (09:57)
[2020-04-03] MEDS: predniSONE 20 MG Tablet 40 MG PO (09:57)
[2020-04-03] MEDS: Cyanocobalamin 500 MCG Tablet 1000 MCG PO (09:57)
[2020-04-03] MEDS: DULoxetine Hcl 60 MG Capsule PO (09:58)
[2020-04-03] MEDS: Menthol/Lanolin/Calamine/Znox 113 GM Tube 1 APPLIC TOPICAL (09:58)
[2020-04-03] MEDS: Isosorbide Mononitrate 30 MG Tablet PO (09:59)
[2020-04-03] MEDS: Furosemide 40 MG/4 ML Vial IV (09:59)
[2020-04-03] MEDS: Enoxaparin 40 MG/0.4 ML Syringe SC (09:59)
[2020-04-03] MEDS: guaiFENesin 1,200 MG Tablet 1200 MG PO (09:59)
[2020-04-03] MEDS: Metoprolol(XL)Succ 25 MG Tablet PO (10:00)
[2020-04-03] MEDS: Pantoprazole Sodium 40 MG Tablet PO (10:00)
[2020-04-03] MEDS: 0.9% Saline Lock 10 ML Syringe IV (10:00)
[2020-04-03] MEDS: Famotidine 20 MG Tablet PO (10:00)
[2020-04-03] MEDS: Lisinopril 2.5 MG Tablet PO (10:00)
--- NOTE | 2020-04-03 11:56 | PCM.DC ---
- Discharge Diagnoses Current Active Problems: Current Active and Chronic Problems Hypoxia (Acute) Respiratory failure (Acute) Aspiration pneumonia (Acute) Duodenal ulcer, acute with obstruction (Acute) You will use the following diet at home:: Cardiac Your food should be the consistency of: Regular Your liquids should be the consistency of: Regular/Thin Discharge Activity: Return to Normal Activity Weight Bearing Status: Weight bearing as tolerated Call your doctor if you observe: Fever of 101 or Higher, Shortness of breath, Dizziness, Swelling in the ankles, Increased palpitations (irregular heartbeat) Instructions: Treating Pneumonia Additional Instructions: to use oxygen 2L as needed for shortness of breath. To sleep propped up in bed to reduce chances of aspiration whilst on tube feeding at night. Allergies/Adverse Reactions: Allergies dicyclomine HCl [From Bentyl] Allergy (Verified 03/28/20 06:05) Hives Medications to take at Discharge Cholecalciferol (Vitamin D3) [Vitamin D3] 4,000 unit PO DAILY 05/24/18 Cyanocobalamin [Vitamin B12] 1,000 mcg PO DAILY@0800 03/22/19 Ferrous Sulfate 325 mg PO DAILY 03/22/19 Melatonin 3 mg PO QHS 03/22/19 Senna [Senokot] 1 tab PO DAILY PRN 03/22/19 Acetaminophen 650 mg PO Q6H 08/23/19 Biotin 5,000 mcg SL DAILY 08/23/19 Calcium Carbonate [Calcium] 300 mg PO DAILY 08/23/19 Duloxetine HCl 60 mg PO DAILY 08/23/19 Multivitamin 1 ea PO DAILY 08/23/19 Nutritional Supplement [Osmolite 1.5 Germán] 1,000 ml PO DAILY 08/23/19 Ondansetron [Zofran Odt] 4 mg PO Q6H PRN PRN 08/23/19 Albuterol Inhaler [Ventolin Hfa] 2 puff INHALATION Q4H PRN PRN 03/28/20 Albuterol Sulfate 1.25 mg IH Q6H PRN PRN 03/28/20 Ascorbic Acid 500 mg PO DAILY 03/28/20 Aspirin [Aspirin, Baby] 81 mg PO DAILY@0800 03/28/20 Atorvastatin Calcium 80 mg PO DAILY 03/28/20 Famotidine 20 mg PO DAILY 03/28/20 Fluticasone 110 Mcg [Flovent 110 Mcg] 2 puff INHALATION BID 03/28/20 Gabapentin 600 mg PO TID 03/28/20 Ipratropium/Albuterol Sulfate [Duoneb] 3 ml INHALATION Q4H.RT 03/28/20 Isosorbide Mononitrate [Isosorbide Mononitrate ER] 30 mg PO DAILY 03/28/20 Lisinopril 2.5 mg PO DAILY 03/28/20 Metoprolol Succinate 25 mg PO DAILY 03/28/20 Pantoprazole Sodium 40 mg PO BID 03/28/20 Tizanidine HCl 4 mg PO Q8H PRN PRN 03/28/20 Amox/Clavulanate Tablet [Augmentin Tablet] 500 mg PO BIDCM 5 Days #10 tab 04/03/20 The following prescriptions were given: Amox/Clavulanate Tablet [Augmentin Tablet] 500 mg PO BIDCM 5 Days #10 tab Transmission Status: Pending to [id number] Primary Care Physician: Sarita Grey MD [Primary Care Provider] - Please follow up with your Primary Care Physician in: 1-2 weeks Test Results: Test results from this visit will be discussed in further detail at your follow-up appointment, if applicable. When: follow up at [facility] for evaluation of her PEG tube Please Follow Up With: Alcides Oliver MD When: 2-3 weeks Please Follow Up With: Clyde Henao DO - Shayy When: 1-2 weeks Proposed Discharge Date: 04/03/20
--- NOTE | 2020-04-03 11:58 | DS.PCM_ITS ---
Discharge Date and Diagnosis - Problem List Patient Problems: Active and Suspected Problems Hypoxia (Acute) Respiratory failure (Acute) Aspiration pneumonia (Acute) Duodenal ulcer, acute with obstruction (Acute) Date of Admission: 03/28/20 Date of Discharge: 04/03/20 - Primary Discharge Diagnosis Acute Problems: Active Problems Hypoxia (Acute) Respiratory failure (Acute) Aspiration pneumonia (Acute) Duodenal ulcer, acute with obstruction (Acute) Hospital Course and Treatment Imaging Results: Diagnostic Data Chest X-Ray 04/01/20 12:40 IMPRESSION: Persistent bibasilar infiltrates although there has been a moderate degree of improvement as compared to prior study. Electronically Signed: Josh Crooks MD at 15:28 EST , Service support , pulmonology- Dr Henao Operations: None Procedures: None Summary of Care Provided: The patient is a 65 year old F with a PMH as outlined who was admitted via the ED on 03/28/2020 with a complaint of shortness of breath. She had thrown up about 3 days ago and also suffered from significant reflux. She had been having shortness of breath which had worsened and was not responding to breathing treatments at home. It appears that she had a choking episode as well after vomiting. Patient did have a history of COPD but did not use home oxygen at her baseline. On admission, she had a low-grade fever and was tachycardic and tachypneic. Labs showed no leukocytosis and coagulation profile was within normal limits. Chemistry was unremarkable and lactic acid was within normal limits. Chest x-ray showed a possible left lower lobe infiltrate and a telectasis. She was therefore started on IV Unasyn for aspiration pneumonia. Covid antigen test done was negative. Patient also had a PEG tube in place on account of chronic dysphagia for which she was on tube feed at night. Patient's oxygen requirements increased during admission to a peak of 5 L of oxygen. Pulmonology was consulted. She was placed on breathing treatments and incentive spirometer. She was gradually weaned down to 2 L of oxygen. General surgery was consulted on account of her concern about PEG tube falling out. The type of jejunostomy tube the patient had and was not available at [facility] so she was to follow-up with the general surgeons at [facility] for PEG tube to be changed. Of note, patient also said that she had recently had a cardiac cath in the [facility] system and was told that she had blockages in her arteries but states that she was not told she needed a stent. She therefore wanted a second opinion here. Her records were obtained from [facility] which showed that she had a cardiac cath which showed that she had 100% blockage of proximal RCA, and ~ 80% stenosis of distal RCA; she also has a history of mitral regurgitation. Recommendation was for patient to have CABG in addition to mitral valve replacement if she opted for surgery. Patient was gradually weaned down to 2 L of oxygen. She qualified for home oxygen as she was saturating at 88% at rest on room air with ambulation was still 88 L and required 2 L to go up to 94%. She was therefore discharged home on 04/03/2020 on p.o. Augmentin twice daily for 5 days. She was also discharged on 2 L of oxygen. She is to follow-up with her primary care doctor and pulmonology as well as cardiology and her general surgeons likely [facility]. Patient seen and examined prior to discharge. She had no complaints and felt well. Review of symptoms otherwise negative. Labs and vitals reviewed. Home medication reviewed and reconciled. O/E; Vital Signs Temp Pulse Resp BP Pulse Ox 97.6 F L 92 20 H 105/76 88 04/03/20 09:30 04/03/20 11:20 04/03/20 10:58 04/03/20 09:30 04/03/20 09:30 [] General: Alert, Oriented x3, Cooperative HEENT: Atraumatic, PERRLA, EOMI, Normocephalic Oral: Dry Mucosa Neck: Supple, No JVD, Negative Carotid Bruits Lungs: - - decreased breath sounds bibasally, no wheezes or crackles. on 2L of oxygen by nasal canula Cardiovascular: Regular rate, Regular Rhythm, Normal S1, Normal S2, No murmurs Abdomen: Bowel Sounds Present, Soft, Non Tender, Non-Distended, No Hepato- splenomegaly, PEG tube in place Extremities: No clubbing, No cyanosis, No edema, Capillary Refill Less than 3 Seconds Skin: No rashes, No breakdown Musculoskeletal: No Tenderness to Palpation of Joints or Extremities Lymphatic: No Cervical, Supraclavicular, or Inguinal Adenopathy Neurological: Cranial nerves II-XII grossly intact, Neuro grossly intact, Motor Exam 5/5 strength throughout Psych/Mental Status: Normal Affect, Appropriate, Alert and oriented to time, place, person, mood and affect Plan is for discharge home today. Patient Problems: Active and Suspected Problems Hypoxia (Acute) Respiratory failure (Acute) Aspiration pneumonia (Acute) Duodenal ulcer, acute with obstruction (Acute) - Physical Exam Vitals/I&O's: Vital Signs Temp Pulse Resp BP Pulse Ox 97.6 F L 92 20 H 105/76 88 04/03/20 09:30 04/03/20 11:20 04/03/20 10:58 04/03/20 09:30 04/03/20 09:30 Oxygen Flow Rate (L/min) [ 2 AMBULATION with Oxygen] Oxygen Flow Rate (L/min) 2 Oxygen Delivery Method Nasal Cannula Weight: 123 lb 3.814 oz Body Mass Index (BMI) 25.7 Intake and Output for Last 24 Hours 04/01/20 04/02/20 04/03/20 23:59 23:59 23:59 Intake Total 1309 / 1309 600 / 1000 1390 / 1390 Output Total 1900 / 1900 200 / 200 250 / 250 Balance -591 / -591 400 / 800 1140 / 1140 Microbiology Past 72 Hours 03/28/20 07:35 Blood Culture (Wb) - Anticubital Left Blood Culture - Final No growth in 5 days. 03/28/20 07:40 Blood Culture (Wb) - Anticubital Right Blood Culture - Final No growth in 5 days. Laboratory Results 04/03/20 07:17: WBC 10.6, RBC 4.37, Hgb 12.9, Hct 42.7, MCV 97.7, MCH 29.5, MCHC 30.2 L, RDW Std Deviation 49.5 H, RDW Coeff of Kendy 13.6, Plt Count 298, MPV 9.9, Immature Gran % (Auto) 0.700, Neut % (Auto) 61.4, Lymph % (Auto) 27.5, Stephens % (Auto) 8.8, Eos % (Auto) 1.5, Baso % (Auto) 0.1, Absolute Neuts (auto) 6.5, Absolute Lymphs (auto) 2.92, Nucleated RBC % 0 04/03/20 07:17: Sodium 138, Potassium 3.9, Chloride 103, Carbon Dioxide 31.0, Anion Gap 4 L, BUN 41 H, Creatinine 0.60, Estim Creat Clear Calc 83.59, Est GFR (MDRD) Af Amer 129, Est GFR (MDRD) Non-Af 107, BUN/Creatinine Ratio 68.3 H, Glucose 98, Calcium 9.0 Current Medications Acetaminophen (Acetaminophen 325 Mg Tablet) 650 mg PO Q6H PRN PRN PRN Reason: Pain Score 1-10/Temp > 100.7 F Last Admin: 04/03/20 04:41 Dose: 650 mg Documented by: Albuterol/Ipratropium (Ipratropium/Albuterol Sulfate 3 Ml Ampul.Neb) 3 ml INHALATION Q4H.RT [facility] Last Admin: 04/03/20 10:58 Dose: 3 ml Documented by: Amoxicillin/Clavulanate Potassium (Amox/Clavulanate 500 Mg Tablet) 500 mg PO BIDCM [facility] Last Admin: 04/03/20 09:57 Dose: 500 mg Documented by: Aspirin (Aspirin 81 Mg Tab.Chew) 81 mg PO DAILY@0800 [facility] Last Admin: 04/03/20 09:56 Dose: 81 mg Documented by: Atorvastatin Calcium (Atorvastatin Calcium 80 Mg Tablet) 80 mg PO QHS [facility] Last Admin: 04/02/20 21:53 Dose: 80 mg Documented by: Calamine/Phenol (Menthol/Lanolin/Calamine/Znox 113 Gm Tube) 1 applic TOPICAL 4X/DAY [facility]; Protocol Last Admin: 04/03/20 09:58 Dose: 1 applicatio Documented by: Cyanocobalamin (Cyanocobalamin 500 Mcg Tablet) 1,000 mcg PO DAILY@0800 [facility] Last Admin: 04/03/20 09:57 Dose: 1,000 mcg Documented by: Duloxetine HCl (Duloxetine Hcl 60 Mg Capsule) 60 mg PO DAILY [facility] Last Admin: 04/03/20 09:58 Dose: 60 mg Documented by: Enoxaparin Sodium (Enoxaparin 40 Mg/0.4 Ml Syringe) 40 mg SC DAILY [facility] Last Admin: 04/03/20 09:59 Dose: 40 mg Documented by: Famotidine (Famotidine 20 Mg Tablet) 20 mg PO DAILY [facility] Last Admin: 04/03/20 10:00 Dose: 20 mg Documented by: Ferrous Sulfate (Ferrous Sulfate 325 Mg Tablet) 325 mg PO 1200 [facility] Last Admin: 04/02/20 11:00 Dose: 325 mg Documented by: Furosemide (Furosemide 40 Mg/4 Ml Vial) 40 mg IV DAILY [facility] Last Admin: 04/03/20 09:59 Dose: 40 mg Documented by: Gabapentin (Gabapentin 600 Mg Tablet) 600 mg PO TID [facility] Last Admin: 04/03/20 05:57 Dose: 600 mg Documented by: Guaifenesin (Guaifenesin 1,200 Mg Tablet) 1,200 mg PO BID [facility] Last Admin: 04/03/20 09:59 Dose: 1,200 mg Documented by: Isosorbide Mononitrate (Isosorbide Mononitrate 30 Mg Tablet) 30 mg PO DAILY [facility] Last Admin: 04/03/20 09:59 Dose: 30 mg Documented by: Lisinopril (Lisinopril 2.5 Mg Tablet) 2.5 mg PO DAILY [facility] Last Admin: 04/03/20 10:00 Dose: 2.5 mg Documented by: Melatonin (Melatonin 3 Mg Tablet) 3 mg PO QHS [facility] Last Admin: 04/02/20 21:54 Dose: 3 mg Documented by: Metoprolol Succinate (Metoprolol(Xl)Succ 25 Mg Tablet) 25 mg PO DAILY [facility] Last Admin: 04/03/20 10:00 Dose: 25 mg Documented by: Nutritional Formula (Osmolite 1.2) 60 ml GT DAILY@2100 [facility] Last Admin: 04/02/20 21:52 Dose: 60 ml Documented by: Ondansetron HCl (Ondansetron 4 Mg/2 Ml Vial) 4 mg IV Q8H PRN PRN PRN Reason: NAUSEA/VOMITING Last Admin: 04/03/20 04:27 Dose: 4 mg Documented by: Pantoprazole Sodium (Pantoprazole Sodium 40 Mg Tablet) 40 mg PO BID [facility] Last Admin: 04/03/20 10:00 Dose: 40 mg Documented by: Polyethylene Glycol (Polyethylene Glycol 3350 17 Gm Packet) 17 gm PO DAILY PRN PRN PRN Reason: CONSTIPATION Last Admin: 04/01/20 12:09 Dose: 17 gm Documented by: Prednisone (Prednisone 20 Mg Tablet) 40 mg PO DAILY@0800 [facility] Last Admin: 04/03/20 09:57 Dose: 40 mg Documented by: Sodium Chloride (0.9% Saline Lock 10 Ml Syringe) 10 - 40 ml IV UD PRN PRN Reason: SALINE FLUSH Last Admin: 04/03/20 10:00 Dose: 10 ml Documented by: Sucralfate (Sucralfate 1 Gm Tablet) 1 gm PO 1HR_ACHS [facility] Last Admin: 04/03/20 11:30 Dose: 1 gm Documented by: Discharge Diet: Low fat/ Low Cholesterol Discharge Activity: Return to Normal Activity Weight Bearing Status: Weight bearing as tolerated Call your doctor if you observe: Fever of 101 or Higher, Shortness of breath, Dizziness, Swelling in the ankles, Increased palpitations (irregular heartbeat) Home Medications: Medications to take at Discharge Cholecalciferol (Vitamin D3) [Vitamin D3] 4,000 unit PO DAILY 05/24/18 Cyanocobalamin [Vitamin B12] 1,000 mcg PO DAILY@0800 03/22/19 Ferrous Sulfate 325 mg PO DAILY 03/22/19 Melatonin 3 mg PO QHS 03/22/19 Senna [Senokot] 1 tab PO DAILY PRN 03/22/19 Acetaminophen 650 mg PO Q6H 08/23/19 Biotin 5,000 mcg SL DAILY 08/23/19 Calcium Carbonate [Calcium] 300 mg PO DAILY 08/23/19 Duloxetine HCl 60 mg PO DAILY 08/23/19 Multivitamin 1 ea PO DAILY 08/23/19 Nutritional Supplement [Osmolite 1.5 Germán] 1,000 ml PO DAILY 08/23/19 Ondansetron [Zofran Odt] 4 mg PO Q6H PRN PRN 08/23/19 Albuterol Inhaler [Ventolin Hfa] 2 puff INHALATION Q4H PRN PRN 03/28/20 Albuterol Sulfate 1.25 mg IH Q6H PRN PRN 03/28/20 Ascorbic Acid 500 mg PO DAILY 03/28/20 Aspirin [Aspirin, Baby] 81 mg PO DAILY@0800 03/28/20 Atorvastatin Calcium 80 mg PO DAILY 03/28/20 Famotidine 20 mg PO DAILY 03/28/20 Fluticasone 110 Mcg [Flovent 110 Mcg] 2 puff INHALATION BID 03/28/20 Gabapentin 600 mg PO TID 03/28/20 Ipratropium/Albuterol Sulfate [Duoneb] 3 ml INHALATION Q4H.RT 03/28/20 Isosorbide Mononitrate [Isosorbide Mononitrate ER] 30 mg PO DAILY 03/28/20 Lisinopril 2.5 mg PO DAILY 03/28/20 Metoprolol Succinate 25 mg PO DAILY 03/28/20 Pantoprazole Sodium 40 mg PO BID 03/28/20 Tizanidine HCl 4 mg PO Q8H PRN PRN 03/28/20 Amox/Clavulanate Tablet [Augmentin Tablet] 500 mg PO BIDCM 5 Days #10 tab 04/03/20 Following Prescriptions Were Given to Patient: Amox/Clavulanate Tablet [Augmentin Tablet] 500 mg PO BIDCM 5 Days #10 tab Transmission Status: Received by [id number] Primary Care Physician: Sarita Grey MD [Primary Care Provider] - Please follow up with your Primary Care Physician in: 1-2 weeks When: follow up at [facility] for evaluation of her PEG tube Please Follow Up With: Alcides Oliver MD When: 2-3 weeks Please Follow Up With: Clyde Henao, - \ When: 1-2 weeks Patient Instructions: Treating Pneumonia Disposition: Home Minutes spent on discharge:: 50 Patient Condition:: Stable Medical Necessity - Tobacco Use Smoking Status: Former smoker Tobacco Use: Cigarettes Meaningful Use Info Meaningful Use Diagnoses (Choose all that apply): None applicable Inpatient E&M: [id number] [facility]
--- NOTE | 2020-04-03 12:52 | NURSING ---
Faxed oxygen qualifications to [facility] and notified of need for home oxygen set up and portable tank.
[2020-04-03] MEDS: Ferrous Sulfate 325 MG Tablet PO (15:57)
== END 2020-04-03 16:55 | disposition home or self-care (01) | DRG 720 ==
LOC: ED 07:22 → PCU 07:58
PROVIDERS: Family Medicine; Internal Medicine Critical Care Medicine; Admitting Provider Family Medicine; Emergency Provider Emergency Medicine; PCP Internal Medicine; Visit Provider Student in an Organized Health Care Education/Training Program
DX: A41.9 Sepsis, unspecified organism (principal); J44.0 Chronic obstructive pulmonary disease with (acute) lower respiratory infection; J69.0 Pneumonitis due to inhalation of food and vomit; J96.01 Acute respiratory failure with hypoxia; I25.10 Atherosclerotic heart disease of native coronary artery without angina pectoris; K21.9 Gastro-esophageal reflux disease without esophagitis; I10 Essential (primary) hypertension; E78.5 Hyperlipidemia, unspecified; R13.10 Dysphagia, unspecified; F41.9 Anxiety disorder, unspecified; F32.9 Major depressive disorder, single episode, unspecified; I44.2 Atrioventricular block, complete; Z93.1 Gastrostomy status; Z87.891 Personal history of nicotine dependence; Z90.3 Acquired absence of stomach [part of]; Z87.11 Personal history of peptic ulcer disease
CPT/HCPCS: 36415; 71045; 74230; 80048; 80076; 83605; 83735; 83880; 84484; 85025; 85379; 85610; 85730; 87040; 87426; 92507; 92526; 92610; 93005; 93306; 94640; 94667; 94668; 97802; 97803; 99285; J7030; A4216; J0295; J1940; J2405

== ENCOUNTER → 2020-06-29 10:32 | Outpatient (CLI) | payer MEDICAID, SELFPAY ==
[2020-04-28 09:43] VITALS: BMI 25.2
--- NOTE | 2020-06-29 14:31 | PFTCOMP_ITS ---
COMPLETE PULMONARY FUNCTION TEST INTERPRETATION Brief HPI: Patient is a 65 year old female, currently under the care of Ale Barakat, who presents to [facility] for complete pulmonary function tests secondary to diagnosis of COPD. Respiratory therapist reports good effort and reproducible results. Interpretation: Forced expiration spirometry shows a moderately severe large airways obstructive ventilatory defect with an FEV1 of 58% predicted. There is no significant bronchodilator response by strict ATS criteria. Spirograms are of good quality and plateau slowly, indicating slowly emptying areas of the lungs. The respiratory flow volume loop shows decreased expiratory flow rates at all lung volumes consistent with airway obstruction. Lung volumes by body plethysmography show a normal total lung capacity at 3.71 L, 101% predicted. All other lung volumes are within normal limits. Diffusion capacity by carbon monoxide is decreased at 42% predicted. The airway resistance is elevated. No previous pulmonary function tests were available for review. Impression: Irreversible moderately severe large airways obstructive ventilatory defect with a symmetric reduction diffusing capacity, in a pattern consistent with COPD
== END ==
PROVIDERS: PCP Internal Medicine; Referring Provider Nurse Practitioner Acute Care; Visit Provider Nurse Practitioner Acute Care
DX: J44.9 Chronic obstructive pulmonary disease, unspecified (principal)
CPT/HCPCS: 94060; 94726; 94729

== ENCOUNTER → 2020-07-01 12:24 | Outpatient (CLI) | payer MEDICAID, SELFPAY ==
[2020-04-28 09:43] VITALS: BMI 25.2
[2020-07-01 12:30] VITALS: PULSE 100; PULSE 103; PULSE 94; PULSE 96; PULSE 99; O2SAT 87; O2SAT 89; O2SAT 90; O2SAT 92
--- NOTE | 2020-07-01 12:57 | CPS ---
Patient says she wears 2L of oxygen at home, however recently increased her O2 to 3L as she states that she still feels short of breath. On room air patient's sat's dropped to 87%, therefore test was initiated on 2L. At the 2 minute ruby patients sat's dropped to 87% therefore O2 was increased to 3L. At the 3 minute ruby patients sat's dropped again to 87% therefore oxygen was increased to 4L. Patients sat's remained above 90% for the remainder of the test on 4L.
--- NOTE | 2020-07-01 16:49 | WT_ITS ---
PSN 6 Minute Walk Test 6 Minute Walk Test 6 Minute Walk Test: 6 Minute Walk Test PSN:6-Minute Walk Test Start: 07/01/20 12:53 Freq: Status: Active Protocol: [id number] Document 07/01/20 12:30 HJ (Rec: 07/01/20 13:02 HJ Desktop) 6 Minute Walk Test Date Performed 07/01/20 Time Performed 12:30 Height 4 ft 10 in Weight: 52.617 kg Weight in Pounds 116.[address]: Ale Barakat [employer]IST Assistive device used: Walker Pre-test Oxygen Delivery Method Room Air Pulse Ox (%) 87 Pulse Rate (60-100 beats/min) 96 Dyspnea Mattie Scale (0-10) 0 Exertion Mattie Scale (6-20) 6 1st minute Oxygen Flow Rate (L/min) (L/min) 2 Oxygen Delivery Method Nasal Cannula Pulse Ox (%) 89 Pulse Rate (60-100 beats/min) 103 H Number of Rests Taken 1 2nd minute Oxygen Flow Rate (L/min) (L/min) 3 Oxygen Delivery Method Nasal Cannula Pulse Ox (%) 92 Pulse Rate (60-100 beats/min) 99 3rd minute Oxygen Flow Rate (L/min) (L/min) 4 Oxygen Delivery Method Nasal Cannula Pulse Ox (%) 90 Pulse Rate (60-100 beats/min) 100 4th minute Oxygen Flow Rate (L/min) (L/min) 4 Oxygen Delivery Method Nasal Cannula Pulse Ox (%) 89 Pulse Rate (60-100 beats/min) 103 H 5th minute Oxygen Flow Rate (L/min) (L/min) 4 Oxygen Delivery Method Nasal Cannula Pulse Ox (%) 90 Pulse Rate (60-100 beats/min) 103 H 6th minute Oxygen Flow Rate (L/min) (L/min) 4 Oxygen Delivery Method Nasal Cannula Pulse Ox (%) 90 Pulse Rate (60-100 beats/min) 99 Post-test Oxygen Flow Rate (L/min) (L/min) 4 Oxygen Delivery Method Nasal Cannula Pulse Ox (%) 90 Pulse Rate (60-100 beats/min) 94 Dyspnea Mattie Scale (0-10) 1 Exertion Mattie Scale (6-20) 11 Full Laps Walked 7 Partial Lap, Number of Tiles Walked 0 Total Distance Walked (ft) 413 07/01/20 12:57 Cardiopulmonary Services by Starla Fulton Patient says she wears 2L of oxygen at home, however recently increased her O2 to 3L as she states that she still feels short of breath. On room air patient's sat's dropped to 87%, therefore test was initiated on 2L. At the 2 minute ruby patients sat's dropped to 87% therefore O2 was increased to 3L. At the 3 minute ruby patients sat's dropped again to 87% therefore oxygen was increased to 4L. Patients sat's remained above 90% for the remainder of the test on 4L. Initialized on 07/01/20 12:57 - END OF NOTE IMPRESSION: The patient was noted to be 87% on room air, but improved on 2 L nasal cannula at rest. The patient required a total of 4 L nasal cannula to maintain saturation throughout testing. In total, the patient traveled only 413 feet over the course of 6 minutes with the assistance of a walker and one break. RECOMMENDATIONS: The patient requires 2 L nasal cannula at rest, but should be using 4 L nasal cannula with exertion.
== END ==
PROVIDERS: PCP Internal Medicine; Referring Provider Nurse Practitioner Acute Care; Visit Provider Nurse Practitioner Acute Care
DX: J44.9 Chronic obstructive pulmonary disease, unspecified (principal)
CPT/HCPCS: 94618

== ENCOUNTER → 2020-07-22 13:54 | Outpatient (CLI) | payer MEDICAID, SELFPAY ==
[2020-07-13 05:48] VITALS: BMI 24.6
--- NOTE | 2020-07-22 13:55 | CT_ITS ---
STUDY: LOW DOSE CT LUNG CANCER SCREENING REASON FOR EXAM: Female, 65 years old. 30 pack-year smoking history. Quit 14 years ago. RADIATION DOSAGE (If Supplied By Facility): CTDIvol = ( 2.01 ) mGy, DLP = ( 60.67 ) mGycm TECHNIQUE: No contrast was administered. Low dose technique was utilized (average mAS-38 and kVp 120). 1.25 mm axial source images with a slice interval of 1.25-mm were reconstructed in lung windows. 2.5 mm axial source images with a slice interval of 2.5-mm were reconstructed in lung windows. 5.0 mm axial source images with a slice interval of 5.0-mm were reconstructed in soft tissue windows. Nodule measured using lung windows on PACS and/or independent workstation with automated measurement of minimum and maximum diameter. Nodule measurement reported as average diameter rounded to the nearest whole number. Growth is defined as an increase ins size of greater than 1.5 mm. COMPARISON: Chest, 04/02/2020. NODULES: Total lung nodules (excluding granulomas): 0 Emphysema: Diffuse emphysematous changes of the lungs. There is deformity of the thorax secondary to scoliosis with dependent changes in the medial right lung base secondary to compression by the diaphragm. Endobronchial lesion: None Aorta: Atherosclerotic tortuosity without aneurysm. Coronary arteries: Diffuse coronary artery calcifications. Heart: Normal in size. Pulmonary artery: Normal Mediastinal nodes: Nonspecific subcentimeter mediastinal lymphadenopathy. Other chest and abdominal findings: Dextroscoliosis and degenerative changes of the thoracic spine. CT/Low Dose CT Lung Screening IMPRESSION: Lung-RADS category 1 - Continue annual screening with LDCT in 12 months. IMPORTANT NOTES FOR USE: ACR Lung-RADS Version 1.1 Assessment Categories Release Date: 2018 Category: Coded 0-4 bases on nodule(s) with highest degree of suspicion. Negative screen is defined as categories 1 and 2; a positive screen is defined as categories 3 and 4. Category 3 and 4A nodules that are unchanged on interval CT should be coded as category 2, and individuals returned to screening in 12 months. Category 4X: Category 3 or 4 nodules with additional imaging findings that increase the suspicion of lung cancer, such as spiculation, GGN that doubles in size in 1 year, enlarged lymph notes, etc. Category Modifiers: S (significant finding unrelated to lung cancer) Electronically Signed: Shyam Garcia DO at 16:52 EDT Tel [phone], Service support ,
== END ==
PROVIDERS: PCP Internal Medicine; Referring Provider Internal Medicine Critical Care Medicine; Visit Provider Internal Medicine Critical Care Medicine
DX: F17.211 Nicotine dependence, cigarettes, in remission (principal)
CPT/HCPCS: 71271

== ENCOUNTER 2020-08-06 18:50 | Emergency (ER) | payer MEDICAID, SELFPAY ==
[2020-07-13 05:48] VITALS: BMI 24.6
[2020-08-06 18:51] VITALS: BP 107/70; PULSE 95; RESP 16; TEMP 36.3; O2SAT 94; BMI 23.8
--- NOTE | 2020-08-06 19:03 | RAD_ITS ---
INDICATION: Injury/Pain EXAMINATION/TECHNIQUE: X-RAY - LEFT XR Knee Complete 4 Views or More COMPARISON: None. FINDINGS: No acute fracture or malalignment. No significant degenerative changes are seen. No joint effusion. The soft tissues are unremarkable. RAD/Knee 4 or More Views IMPRESSION: No acute radiographic abnormalities. Electronically Signed: Paresh Patel MD at 20:02 EDT Tel , Service support ,
--- NOTE | 2020-08-06 19:04 | EX.ED.DYSGE1 ---
HPI History of Present Illness Chief Complaint: Lower Extremity Injury Informant: patient Onset/Context/Timing Onset: Days Context: Sudden Onset Timing: Continuous Quality: Pain Location: Left knee Current Severity: Mild Maximum Severity: Severe Worsened by: Attempt to move Relieved by: Nothing Associated Symptoms Associated Symptoms: Limited ability to ambulate or bear weight Narrative Narrative: Patient is an elderly woman who presents with atraumatic left knee pain. She denies history of gout or pseudogout. She denies fever, chills night sweats. She states the pain is gotten worse and she can no longer tolerate it. She did take ibuprofen with no improvement. She denies paresthesia, anesthesia or motor weakness. Prior similar symptoms: No Recent Illness/Hospitalization: No [facility] Medical History (Updated 08/06/20 @ 21:[address] Dylon Lynne MD) Anxiety and depression Aspiration pneumonia Atherosclerotic heart disease of [place] coronary artery without angina pectoris COPD (chronic obstructive pulmonary disease) Duodenal ulcer, acute with obstruction Enterocutaneous fistula Gastroparesis GERD (gastroesophageal reflux disease) History of smoking Hypoxia Malnutrition of moderate degree Nonrheumatic mitral (valve) insufficiency Osteoporosis Paroxysmal atrial fibrillation Respiratory failure Scoliosis Home Medications cholecalciferol (vitamin D3) 4,000 unit PO DAILY 05/24/18 [History Last Taken 03/27/20 09:00] cyanocobalamin (vitamin B-12) 1,000 mcg PO DAILY@0800 03/22/19 [History Last Taken 03/27/20 09:00] ferrous sulfate 325 mg PO DAILY 03/22/19 [History Last Taken 03/27/20 15:00] melatonin 3 mg PO QHS 03/22/19 [History Last Taken 03/27/20 21:00] sennosides 1 tab PO DAILY PRN 03/22/19 [History Last Taken Unknown] acetaminophen 650 mg PO Q6H 08/23/19 [History Last Taken 03/27/20 15:00] biotin 5,000 mcg SUBLINGUAL DAILY 08/23/19 [History Last Taken 03/27/20 08:00] calcium carbonate 300 mg PO DAILY 08/23/19 [History Last Taken 03/27/20 09:00] multivitamin 1 ea PO DAILY 08/23/19 [History Last Taken 03/27/20 09:00] nutritional supplements 1,000 ml PO DAILY 08/23/19 [History Last Taken Unknown] ondansetron 4 mg PO Q6H PRN PRN 08/23/19 [History Last Taken 03/27/20 21:00] albuterol sulfate 1.25 mg IH Q6H PRN PRN 03/28/20 [History Last Taken Unknown] albuterol sulfate 2 puff INHALATION Q4H PRN PRN 03/28/20 [History Last Taken 03/27/20 04:00] ascorbic acid (vitamin C) 500 mg PO DAILY 03/28/20 [History Last Taken 03/27/20 09:00] aspirin 81 mg PO DAILY@0800 03/28/20 [History Last Taken 03/27/20 09:00] famotidine 20 mg PO DAILY 03/28/20 [History Last Taken 03/27/20 21:00] fluticasone propionate 2 puff INHALATION BID 03/28/20 [History Last Taken 03/27/20 21:00] gabapentin 600 mg PO TID 03/28/20 [History Last Taken 03/27/20 23:00] ipratropium-albuterol 3 ml INHALATION Q4H.RT 03/28/20 [History Last Taken Unknown] isosorbide mononitrate 30 mg PO DAILY 03/28/20 [History Last Taken 03/27/20 08:00] lisinopril 2.5 mg PO DAILY 03/28/20 [History Last Taken 03/27/20 21:00] pantoprazole 40 mg PO BID 03/28/20 [History Last Taken 03/27/20 21:00] tizanidine 4 mg PO Q8H PRN PRN 03/28/20 [History Last Taken 03/27/20 12:00] duloxetine 60 mg capsule,delayed release 60 mg PO DAILY 04/19/20 [History Last Taken Unknown] atorvastatin 80 mg tablet 80 mg PO DAILY 04/21/20 [History Last Taken Unknown] metoprolol succinate 25 mg tablet,extended release 24 hr 25 mg PO DAILY 04/21/20 [History Last Taken Unknown] Allergy/AdvReac Type Severity Reaction Status Date / Time dicyclomine HCl [From Bentyl] Allergy Hives Verified 08/06/20 18:53 Family History Father Myocardial infarction Son Esophageal cancer Surgical History History of exploratory laparotomy (12/29/19) History of jejunostomy History of jejunostomy tube placement (12/29/19) History of left heart catheterization (02/02/20) History of partial gastrectomy History of transesophageal echocardiography (EDGAR) (02/12/20) Social History (Updated 08/06/20 @ 19:[address] Dylon Lynne MD) household members: none housing: apartment Smoking Status: Former smoker quit date: 03/05/05 details: No alcohol consumption substance use type: does not use ROS ROS ED Constitutional Constitutional ED: Denies chills, fever(s), subjective or sweats Genitourinary Genitourinary ED: Denies dysuria, hematuria or urinary frequency Musculoskeletal Musculoskeletal: Reports other Details: Atraumatic left knee pain ; Denies arthralgias, back pain, myalgias or neck pain Integumentary Denies abscess, Abrasions or rash Neurologic Neurologic: Denies paresthesias or weakness EXAM Physical Exam Const Vital Signs: 08/06/20 18:51 Temperature 97.3 F L Temperature Source Temporal Pulse Rate 95 Respiratory Rate 16 Blood Pressure 107/70 Blood Pressure Mean 82 Pulse Ox 94 Oxygen Delivery Method Nasal Cannula Oxygen Flow Rate (L/min) 4 Positive well nourished and well developed General Appearance ED: well developed HEENT HEENT Narrative: There is no asymmetry. There is no discoloration. Ears appear normal. Normocephalic. Eyes PERRL and EOMs intact bilaterally General Eye ED: Negative for pale conjunctiva or scleral icterus Neck no lymphadenopathy and supple Chest Wall inspection of chest normal Resp normal respiratory effort and clear to auscultation bilaterally Cardio regular rate, regular rhythm and no murmurs Extremity Negative for normal to inspection Extremity Narrative: There is swelling of the left knee medially. The patella is not ballotable. There is no effusion. There is tenderness along the medial joint line. Patient is able to extend 180 degrees and flex to approximately 100 degrees. There is no lax with varus valgus stress testing. Unable to perform modified Theodore's test. Lockman's test cause significant discomfort but there was no appreciable laxity. There is no fullness or pain in the popliteal fossa. General Extremety ED: Negative for tenderness Neuro oriented x3, CN's II-XII intact bilaterally and no sensory deficits noted Sensorium / Orientation: alert Motor Exam: strength 5/5 throughout Psych mental status grossly normal Skin no rashes or lesions noted and no wounds MDM MDM MDM Narrative Medical decision making narrative: Since there is swelling of the knee with joint line tenderness will obtain x-ray to determine cause. Patient was administered one [place] tablet for her discomfort. Radiography Chest X-Ray - ED: Read by ED Physician (Documented in the diagnostic testing portion of the chart) Diagnostic Testing: Radiology Impression Knee X-Ray 08/06/20 19:03 IMPRESSION: No acute radiographic abnormalities. Electronically Signed: Paresh Patel MD at 20:02 EDT Tel , Service support , 4 view x-ray of the left knee was obtained interpreted by me as negative. There is no evidence effusion. There is no degenerative changes. There is no evidence of subluxation, fracture or bony abnormality. Discharge Plan Triage Chief Complaint: Lower Extremity Injury ED Provider: Dylon Lynne Dx/Rx/DC Orders Clinical Impression: Acute pain of left knee Instructions: ED Pain, Acute, Uncertain Cause Prescriptions: No Action duloxetine 60 mg capsule,delayed release(DR/EC) 60 mg PO DAILY RF: 0 metoprolol succinate 25 mg tablet extended release 24 hr 25 mg PO DAILY RF: 0 cholecalciferol (vitamin D3) 2,000 UNIT tablet 4,000 unit PO DAILY RF: 0 sennosides 1 TABLET tablet 1 tab PO DAILY PRN (Reason: Constipation) RF: 0 cyanocobalamin (vitamin B-12) 500 MCG tablet 1,000 mcg PO DAILY@0800 RF: 0 ferrous sulfate 325 MG tablet 325 mg PO DAILY RF: 0 melatonin 3 MG capsule 3 mg PO QHS RF: 0 multivitamin 1 EACH tablet 1 ea PO DAILY RF: 0 acetaminophen 325 MG tablet 650 mg PO Q6H RF: 0 calcium carbonate 500 MG tablet 300 mg PO DAILY RF: 0 ondansetron 4 MG tablet 4 mg PO Q6H PRN PRN (Reason: Nausea) RF: 0 biotin 5,000 MCG tablet, sublingual 5,000 mcg sublingual DAILY RF: 0 nutritional supplements 237 ML liquid 1,000 ml PO DAILY RF: 0 ipratropium-albuterol 3 ML solution for nebulization 3 ml INHALATION Q4H.RT RF: 0 albuterol sulfate 1.25 MG/3 ML solution for nebulization 1.25 mg IH Q6H PRN PRN (Reason: Sob &/Or Wheezing) RF: 0 isosorbide mononitrate 30 MG tablet extended release 24 hr 30 mg PO DAILY RF: 0 famotidine 20 MG tablet 20 mg PO DAILY RF: 0 pantoprazole 40 MG tablet,delayed release (DR/EC) 40 mg PO BID RF: 0 gabapentin 300 MG capsule 600 mg PO TID RF: 0 aspirin 81 MG tablet,chewable 81 mg PO DAILY@0800 RF: 0 albuterol sulfate 1 INHALER inhaler 2 puff INHALATION Q4H PRN PRN (Reason: Wheezing) RF: 0 lisinopril 2.5 MG tablet 2.5 mg PO DAILY RF: 0 fluticasone propionate 1 INHALER inhaler 2 puff INHALATION BID RF: 0 tizanidine 4 MG capsule 4 mg PO Q8H PRN PRN (Reason: Muscle Spasm) RF: 0 ascorbic acid (vitamin C) 500 MG tablet 500 mg PO DAILY RF: 0 atorvastatin 80 mg tablet 80 mg PO DAILY RF: 0 Primary Care Provider: Sarita Grey Referrals: Sarita Grey MD [Primary Care Provider] - Conrad Guido DO [STAFF PHYSICIAN] - 3-5 Days if not improving Disposition Disposition: Home, self care
[2020-08-06] MEDS: HYDROcodone Bitartrate/Apap 5/325 Tablet PO (19:19)
== END 2020-08-06 21:17 | disposition home or self-care (01) ==
PROVIDERS: Emergency Provider Emergency Medicine; PCP Internal Medicine
DX: M25.562 Pain in left knee (principal); I25.10 Atherosclerotic heart disease of native coronary artery without angina pectoris; Z87.891 Personal history of nicotine dependence
CPT/HCPCS: 73564; 99283

== ENCOUNTER 2020-08-31 11:36 | Emergency (ER) | payer MEDICAID, SELFPAY ==
[2020-08-31 11:37] VITALS: BP 89/51; PULSE 89; RESP 20; TEMP 36.2; O2SAT 92
--- NOTE | 2020-08-31 12:06 | EKG12_ITS ---
Test Reason : SOB Blood Pressure : / mmHG Vent. Rate : 066 BPM Atrial Rate : 066 BPM P-R Int : 190 ms QRS Dur : 088 ms QT Int : 416 ms P-R-T Axes : 043 034 021 degrees QTc Int : 436 ms Normal sinus rhythm Normal ECG Confirmed by DULCE COYLE, LALY ([id number]), manager editorial GOMEZ SOW ([id number]) on 09/01/2020 10:39:19 AM Referred By: MR Confirmed By:LALY CARDONA MD
[2020-08-31 12:30] VITALS: O2SAT 92
[2020-08-31 12:39] LABS: Absolute Lymphocyte Count 1.41 X10^3/uL (0.83-4.51); Absolute Neutrophil Count 2.8 X10^3/uL (2.0-7.7); Basophil# 0.01 X10^3/uL; Basophil% 0.2 % (0-1); Eosinophil# 0.27 X10^3/uL; Eosinophils% 5.5 % (0-5); Hematocrit 39.1 % (37-47); Hemoglobin 12.2 g/dL (12.0-15.0); Lymphocyte # 1.41 X10^3/ul (0.83-4.51); Lymphocyte % 28.7 % (19-41); Mean Corp Hgb Conc 31.2 g/dL (32-36); Mean Corpuscular Hgb 29.8 pg (27.0-32.0); Mean Corpuscular Volume 95.6 fL (81-99); Monocyte# 0.41 X10^3/uL; Monocyte% 8.3 % (0-10); NRBC Flagged by Analyzer 0 % (0-5); Neutrophil # 2.81 X10^3/uL (2.7-7.7); Neutrophil % 57.1 % (47-70); Platelet Count 248 K/mm3 (150-450); RBC Distribution Width CV 14.9 % (11.6-14.6); RBC Distribution Width SD 51.1 fl (35.1-43.9); Red Blood Count 4.09 M/mm3 (4.2-5.4); White Blood Count 4.9 K/mm3 (4.4-11.0)
--- NOTE | 2020-08-31 12:50 | RAD_ITS ---
STUDY: X-RAY CHEST REASON FOR EXAM: Female, 65 years old. Chest pain TECHNIQUE: Single AP portable view of the chest. COMPARISON: Comparison is made with prior study dated 04/01/2020. FINDINGS: EKG electrodes are seen. Stable increased linear markings at the lung bases suggestive of bibasilar scarring. There is no demonstrated pleural abnormality. Normal size heart. Normal mediastinum and chepe. Normal visualized pulmonary arteries. There is atherosclerotic calcification of the aortic arch with tortuosity. Marked dextroscoliosis of the thoracic spine and levoscoliosis of the lumbar spine. Normal visualized ribs, clavicles, and shoulders. There is no demonstrated abnormality of the visualized soft tissue structures of the upper abdomen. RAD/Chest 1 View (Portable) IMPRESSION: Stable mild increased linear markings at the lung bases suggestive of scarring. Dextroscoliosis of the thoracic spine and levoscoliosis of the lumbar spine. Electronically Signed: Josh Crooks MD at 13:28 EDT , Service support ,
[2020-08-31 12:52] LABS: Anion Gap 5 (5-15); BUN 22 mg/dL (7-18); BUN/Creat Ratio 34.1 RATIO (10-20); Calcium,Total 8.8 mg/dL (8.5-10.1); Chloride 104 mmol/L (98-107); Creatinine, Serum 0.64 mg/dL (0.55-1.02); EST Glomerular Filtration Rate 98 mL/min (>60); Est Glom Filt Rate - Afr Amer 119 mL/min (>60); Estimated Creatinine Clearance 74.12 ml/min; Glucose 90 mg/dL (74-106); Potassium 4.9 mmol/L (3.5-5.1); Sodium Level 138 mmol/L (136-145); Troponin-I HS 3.3 pg/mL (3.0-53.7)
[2020-08-31 12:53] LABS: D-Dimer Quantitative (DVT/PE) 0.38 FEU/ug/m (0.27-0.49)
[2020-08-31] MEDS: Morphine 4 MG/ML Syringe IV (12:59)
[2020-08-31] MEDS: Ondansetron 4 MG/2 ML Vial IV (12:59)
[2020-08-31 13:00] VITALS: BP 104/68; PULSE 72; RESP 20; O2SAT 94
[2020-08-31 13:05] LABS: Lactic Acid 1.5 mmol/L (0.4-1.9)
--- NOTE | 2020-08-31 14:24 | EDS_ITS ---
HPI History of Present Illness Chief Complaint: Shortness of Breath Narrative Narrative: Patient presenting for evaluation secondary to chest pain back pain and shortness of breath. Patient chronically deals with back pain as she has a very severe scoliosis. Patient states that this had been going on for quite some time, but more recently has been associated with chest pain and feelings of shortness of breath. Patient denies that there is any sort of fever associated with this. No cough. No hemoptysis. She denies any history of DVT or PE or any history of connective tissue disease. Patient states that her primary care had placed her on [place] for this, it really has not been alleviating her symptoms. They recommended that she come to the emergency department for further evaluation. Patient is chronically on 6 L nasal cannula for her COPD, she has not required increase of her oxygen concentration recently. [facility] Medical History (Updated 08/31/20 @ 14:[address] Conrad Wyatt MD) Anxiety and depression Aspiration pneumonia Atherosclerotic heart disease of [place] coronary artery without angina pectoris COPD (chronic obstructive pulmonary disease) Duodenal ulcer, acute with obstruction Enterocutaneous fistula Gastroparesis GERD (gastroesophageal reflux disease) History of smoking Hypoxia Malnutrition of moderate degree Nonrheumatic mitral (valve) insufficiency Osteoporosis Paroxysmal atrial fibrillation Respiratory failure Scoliosis Home Medications cholecalciferol (vitamin D3) 4,000 unit PO DAILY 05/24/18 [History Last Taken 03/27/20 09:00] cyanocobalamin (vitamin B-12) 1,000 mcg PO DAILY@0800 03/22/19 [History Last Taken 03/27/20 09:00] ferrous sulfate 325 mg PO DAILY 03/22/19 [History Last Taken 03/27/20 15:00] melatonin 3 mg PO QHS 03/22/19 [History Last Taken 03/27/20 21:00] sennosides 1 tab PO DAILY PRN 03/22/19 [History Last Taken Unknown] acetaminophen 650 mg PO Q6H 08/23/19 [History Last Taken 03/27/20 15:00] biotin 5,000 mcg SUBLINGUAL DAILY 08/23/19 [History Last Taken 03/27/20 08:00] calcium carbonate 300 mg PO DAILY 08/23/19 [History Last Taken 03/27/20 09:00] multivitamin 1 ea PO DAILY 08/23/19 [History Last Taken 03/27/20 09:00] nutritional supplements 1,000 ml PO DAILY 08/23/19 [History Last Taken Unknown] ondansetron 4 mg PO Q6H PRN PRN 08/23/19 [History Last Taken 03/27/20 21:00] albuterol sulfate 1.25 mg IH Q6H PRN PRN 03/28/20 [History Last Taken Unknown] albuterol sulfate 2 puff INHALATION Q4H PRN PRN 03/28/20 [History Last Taken 03/27/20 04:00] ascorbic acid (vitamin C) 500 mg PO DAILY 03/28/20 [History Last Taken 03/27/20 09:00] aspirin 81 mg PO DAILY@0800 03/28/20 [History Last Taken 03/27/20 09:00] famotidine 20 mg PO DAILY 03/28/20 [History Last Taken 03/27/20 21:00] fluticasone propionate 2 puff INHALATION BID 03/28/20 [History Last Taken 03/27/20 21:00] gabapentin 600 mg PO TID 03/28/20 [History Last Taken 03/27/20 23:00] ipratropium-albuterol 3 ml INHALATION Q4H.RT 03/28/20 [History Last Taken Unknown] isosorbide mononitrate 30 mg PO DAILY 03/28/20 [History Last Taken 03/27/20 08:00] lisinopril 2.5 mg PO DAILY 03/28/20 [History Last Taken 03/27/20 21:00] pantoprazole 40 mg PO BID 03/28/20 [History Last Taken 03/27/20 21:00] tizanidine 4 mg PO Q8H PRN PRN 03/28/20 [History Last Taken 03/27/20 12:00] duloxetine 60 mg capsule,delayed release 60 mg PO DAILY 04/19/20 [History Last Taken Unknown] atorvastatin 80 mg tablet 80 mg PO DAILY 04/21/20 [History Last Taken Unknown] metoprolol succinate 25 mg tablet,extended release 24 hr 25 mg PO DAILY 04/21/20 [History Last Taken Unknown] oxycodone-acetaminophen [Percocet] 1 tab PO Q6H PRN 3 Days #12 tab 08/31/20 [Rx Last Taken Unknown] Allergy/AdvReac Type Severity Reaction Status Date / Time dicyclomine HCl [From Bentyl] Allergy Hives Verified 08/31/20 11:40 Family History Father Myocardial infarction Son Esophageal cancer Surgical History History of exploratory laparotomy (12/29/19) History of jejunostomy History of jejunostomy tube placement (12/29/19) History of left heart catheterization (02/02/20) History of partial gastrectomy History of transesophageal echocardiography (EDGAR) (02/12/20) Social History household members: none housing: apartment Smoking Status: Former smoker quit date: 03/05/05 details: No alcohol consumption substance use type: does not use ROS ROS ED Constitutional Constitutional ED: Denies chills or fever(s) ENT ENT ED: Denies rhinorrhea Cardiovascular Cardiovascular: Reports chest pain Respiratory/Chest Respiratory/Chest: Reports dyspnea Gastrointestinal Gastrointestinal: Denies abdominal pain, diarrhea, nausea or vomiting Genitourinary Genitourinary ED: Denies dysuria or hematuria Musculoskeletal Musculoskeletal: Reports back pain Integumentary Denies rash Neurologic Neurologic: Denies paresthesias or weakness Psychiatric Psychiatric: Denies depression Endocrine Endocrinology: Denies fatigue Allergic/Immunologic Allergic/Immunologic ED: Denies urticaria EXAM Physical Exam Const Vital Signs: 08/31/20 11:37 08/31/20 12:30 08/31/20 13:00 Temperature 97.2 F L Temperature Source Temporal Pulse Rate 89 72 Respiratory Rate 20 H 20 H Blood Pressure 89/51 L 104/68 Blood Pressure Mean 63 80 Pulse Ox 92 92 94 Oxygen Delivery Method Nasal Cannula Nasal Cannula Nasal Cannula Oxygen Flow Rate (L/min) 3 4 4 Positive well developed Constitutional Narrative: General Appearance ED: well developed and other thin chronically ill appearing female, tearful HEENT Reports moist mucous membranes Negative for trauma or tenderness Eyes EOMs intact bilaterally Neck no lymphadenopathy, supple and no JVD Chest Wall Chest Narrative: Chest and thoracic back ttp Resp clear to auscultation bilaterally Resp Narrative: tachypnic Cardio regular rate, regular rhythm, no murmurs and peripheral pulses 2+ throughout Rate: other Other Details: 2+ radial, 2+ DP pulses bilaterally symmetric GI normal to inspection, nondistended, normoactive bowel sounds, non-tender and no masses Palpation: soft Back/Spine normal to inspection Extremity normal to inspection General Extremety ED: Negative for tenderness Neuro oriented x3 and no sensory deficits noted Sensorium / Orientation: alert Motor Exam: strength 5/5 throughout Psych mental status grossly normal Skin no rashes or lesions noted MDM MDM MDM Narrative Medical decision making narrative: Patient presented secondary to chest pain, back pain. She was hypotensive upon arrival, my immediate evaluation shows the patient to be normotensive and to be oxygenating normally on her home O2. She has equal stable bilateral pulses and I will think this presentation of a dissection I did obtain a D-dimer on the patient which was found to be negative. CBC chemistry and high-sensitivity troponin also found to be negative lactic acid was noted to be normal. Chest x-ray by my personal review as well as radiology demonstrates the patient's scoliosis, no other evidence of acute pathology. Patient's pain did improve with intervention in the emergency department. This point do not think that there is an emergent process, patient's pain seems rather atypical, I do not think this is cardiac. Patient is already on [place] reviewed her prescription reporting record this does not seem to indicate a pattern of abuse, and she does have reason to have musculoskeletal chest pain with her severe scoliosis. Patient be given a short course of Percocet. She is encouraged to follow-up with primary care. Patient was discharged in improved condition. Lab Data Labs: Laboratory Results - last 24 hr 08/31/20 08/31/20 08/31/20 12:25 12:25 12:25 WBC 4.9 RBC 4.09 L Hgb 12.2 Hct 39.1 MCV 95.6 MCH 29.8 MCHC 31.2 L RDW Std Deviation 51.1 H RDW Coeff of Kendy 14.9 H Plt Count 248 MPV 10.0 Immature Gran % (Auto) 0.200 Neut % (Auto) 57.1 Lymph % (Auto) 28.7 [place] % (Auto) 8.3 Eos % (Auto) 5.5 H Baso % (Auto) 0.2 Absolute Neuts (auto) 2.8 Absolute Lymphs (auto) 1.41 Nucleated RBC % 0 D-Dimer Quant (PE/DVT) 0.38 Sodium 138 Potassium 4.9 Chloride 104 Carbon Dioxide 29.0 Anion Gap 5 BUN 22 H Creatinine 0.64 Estim Creat Clear Calc 74.12 Est GFR (MDRD) Af Amer 119 Est GFR (MDRD) Non-Af 98 BUN/Creatinine Ratio 34.1 H Glucose 90 Lactic Acid Calcium 8.8 Troponin I High Sens 3.3 08/31/20 12:25 WBC RBC Hgb Hct MCV MCH MCHC RDW Std Deviation RDW Coeff of Kendy Plt Count MPV Immature Gran % (Auto) Neut % (Auto) Lymph % (Auto) [place] % (Auto) Eos % (Auto) Baso % (Auto) Absolute Neuts (auto) Absolute Lymphs (auto) Nucleated RBC % D-Dimer Quant (PE/DVT) Sodium Potassium Chloride Carbon Dioxide Anion Gap BUN Creatinine Estim Creat Clear Calc Est GFR (MDRD) Af Amer Est GFR (MDRD) Non-Af BUN/Creatinine Ratio Glucose Lactic Acid 1.5 Calcium Troponin I High Sens Radiography Chest X-Ray - ED: 1 View, Read by ED Physician and Chronic Changes Diagnostic Testing: Radiology Impression Chest X-Ray 08/31/20 12:50 IMPRESSION: Stable mild increased linear markings at the lung bases suggestive of scarring. Dextroscoliosis of the thoracic spine and levoscoliosis of the lumbar spine. Electronically Signed: Josh Crooks MD at 13:28 EDT , Service support , Discharge Plan Triage Chief Complaint: Shortness of Breath Other Complaint: Back ED Provider: Conrad Wyatt Dx/Rx/DC Orders Clinical Impression: Chest pain, Back pain, Scoliosis Instructions: ED Chest Pain, Noncardiac Prescriptions: New oxycodone-acetaminophen [Percocet] 5-325 mg tablet 1 tab PO Q6H PRN (Reason: pain) 3 Days Qty: 12 RF: 0 No Action duloxetine 60 mg capsule,delayed release(DR/EC) 60 mg PO DAILY RF: 0 metoprolol succinate 25 mg tablet extended release 24 hr 25 mg PO DAILY RF: 0 cholecalciferol (vitamin D3) 2,000 UNIT tablet 4,000 unit PO DAILY RF: 0 sennosides 1 TABLET tablet 1 tab PO DAILY PRN (Reason: Constipation) RF: 0 cyanocobalamin (vitamin B-12) 500 MCG tablet 1,000 mcg PO DAILY@0800 RF: 0 ferrous sulfate 325 MG tablet 325 mg PO DAILY RF: 0 melatonin 3 MG capsule 3 mg PO QHS RF: 0 multivitamin 1 EACH tablet 1 ea PO DAILY RF: 0 acetaminophen 325 MG tablet 650 mg PO Q6H RF: 0 calcium carbonate 500 MG tablet 300 mg PO DAILY RF: 0 ondansetron 4 MG tablet 4 mg PO Q6H PRN PRN (Reason: Nausea) RF: 0 biotin 5,000 MCG tablet, sublingual 5,000 mcg sublingual DAILY RF: 0 nutritional supplements 237 ML liquid 1,000 ml PO DAILY RF: 0 ipratropium-albuterol 3 ML solution for nebulization 3 ml INHALATION Q4H.RT RF: 0 albuterol sulfate 1.25 MG/3 ML solution for nebulization 1.25 mg IH Q6H PRN PRN (Reason: Sob &/Or Wheezing) RF: 0 isosorbide mononitrate 30 MG tablet extended release 24 hr 30 mg PO DAILY RF: 0 famotidine 20 MG tablet 20 mg PO DAILY RF: 0 pantoprazole 40 MG tablet,delayed release (DR/EC) 40 mg PO BID RF: 0 gabapentin 300 MG capsule 600 mg PO TID RF: 0 aspirin 81 MG tablet,chewable 81 mg PO DAILY@0800 RF: 0 albuterol sulfate 1 INHALER inhaler 2 puff INHALATION Q4H PRN PRN (Reason: Wheezing) RF: 0 lisinopril 2.5 MG tablet 2.5 mg PO DAILY RF: 0 fluticasone propionate 1 INHALER inhaler 2 puff INHALATION BID RF: 0 tizanidine 4 MG capsule 4 mg PO Q8H PRN PRN (Reason: Muscle Spasm) RF: 0 ascorbic acid (vitamin C) 500 MG tablet 500 mg PO DAILY RF: 0 atorvastatin 80 mg tablet 80 mg PO DAILY RF: 0 Primary Care Provider: Sarita Grey Referrals: Sarita Grey MD [Primary Care Provider] - 3-5 Days Disposition Disposition: Home, Self Care
[2020-08-31 15:16] VITALS: BP 102/62; O2SAT 94
== END 2020-08-31 15:17 | disposition home or self-care (01) ==
PROVIDERS: Emergency Provider Emergency Medicine; PCP Internal Medicine
DX: R07.9 Chest pain, unspecified (principal); M54.9 Dorsalgia, unspecified; M41.9 Scoliosis, unspecified; I25.10 Atherosclerotic heart disease of native coronary artery without angina pectoris; Z87.891 Personal history of nicotine dependence
CPT/HCPCS: 71045; 80048; 83605; 84484; 85025; 85379; 93005; 96374; 96375; 99284; A4216; J2405

== ENCOUNTER → 2020-10-28 09:52 | Outpatient (CLI) | payer MEDICAID, SELFPAY | PROVIDERS: PCP Internal Medicine; Referring Provider Physician Assistant Medical; Visit Provider Physician Assistant Medical | DX: I48.0 Paroxysmal atrial fibrillation (principal) | CPT/HCPCS: 93225; 93226 ==

== ENCOUNTER 2021-02-28 14:45 | Emergency (ER) | payer MEDICARE, MEDICAID, SELFPAY ==
[2021-02-28 14:46] VITALS: BP 95/56; PULSE 90; RESP 16; TEMP 36.1; O2SAT 93; BMI 25.8
--- NOTE | 2021-02-28 15:53 | RAD_ITS ---
EXAM: XR CHEST, 2 VIEWS : 1955 CLINICAL INDICATION: pain TECHNIQUE: Frontal and lateral views of the chest. This report was created using [email or web address] report generation technology. COMPARISON: 08/31/2020 FINDINGS: LUNGS AND PLEURAL SPACES: There is minimal scarring in both lung bases. There is no effusion or pneumothorax. HEART: Unremarkable. Cardiac silhouette not enlarged. MEDIASTINUM: Central airways and mediastinal contour are unremarkable. BONES/JOINTS: Unremarkable. SOFT TISSUES: Unremarkable. RAD/Chest PA and Lateral IMPRESSION: Bibasilar interstitial opacities likely representing scar. There is no focal consolidation. at 1627 Reported and signed by: Sammy Coe MD Electronically Signed: Sammy Coe MD at 16:26 EST Tel , Service support ,
--- NOTE | 2021-02-28 15:53 | RAD_ITS ---
EXAM: XR ABDOMEN, 1 VIEW : 1955 CLINICAL INDICATION: feeding tube placement -- gastrographin injection for tube placement TECHNIQUE: Frontal supine view of the abdomen/pelvis. This report was created using [employer] report [employer] technology. COMPARISON: None. FINDINGS: LOWER THORAX: No acute pathology. GASTROINTESTINAL TRACT: Unremarkable. Non-obstructive. No bowel or stomach distention. ORGANS: Unremarkable as visualized. No organomegaly. No abnormal calcifications. BONES/JOINTS: No acute pathology. SOFT TISSUES: No acute pathology. TUBES, LINES AND DEVICES: Contrast injected via a feeding tube. Is contrast seen within a small bowel loop. There is no extravasation outside of the bowel lumen. RAD/Abdomen Single View IMPRESSION: Enterostomy tube in place with contrast seen in small bowel. There is no extravasation outside of the bowel lumen. at 1641 Reported and signed by: Sammy Coe MD Electronically Signed: Sammy Coe MD at 16:40 EST Tel , Service support ,
--- NOTE | 2021-02-28 16:00 | EDS_ITS ---
HPI History of Present Illness Chief Complaint: Flank Pain Detail of Chief Complaint: Bilateral lower rib pain Informant: patient Onset/Context/Timing Onset: Days (3 days) Context: Gradual Onset Timing: Waxes and wanes Current Severity: Mild Maximum Severity: Moderate Worsened by: Deep breath, palpation Narrative Narrative: Patient presents with pain around the lower ribs bilaterally, right greater than left. Patient states that on Sunday she was holding up a table that got too heavy and she dropped it. Shortly after she start developing pain around her right and left lower ribs. Pain is worse with a deep breath. She does have a feeding tube that she has been using at night. Her doctor was concerned that she may have dislodged her feeding tube. She does wear 3 to 4 L of oxygen at baseline. She is currently satting 93% on 3 L, but does states she feels more short of breath than normal. [facility] Medical History (Updated 02/28/21 @ 16:[address] Nancy Burt MD) Anxiety and depression Aspiration pneumonia Atherosclerotic heart disease of [place] coronary artery without angina pectoris COPD (chronic obstructive pulmonary disease) Duodenal ulcer, acute with obstruction Enterocutaneous fistula Gastroparesis GERD (gastroesophageal reflux disease) History of smoking Hypoxia Malnutrition of moderate degree Nonrheumatic mitral (valve) insufficiency Osteoporosis Paroxysmal atrial fibrillation Respiratory failure Scoliosis Home Medications cholecalciferol (vitamin D3) 4,000 unit PO DAILY 05/24/18 [History Last Taken 03/27/20 09:00] ferrous sulfate 325 mg PO DAILY 03/22/19 [History Last Taken 03/27/20 15:00] melatonin 3 mg PO QHS 03/22/19 [History Last Taken 03/27/20 21:00] sennosides 1 tab PO DAILY PRN 03/22/19 [History Last Taken Unknown] acetaminophen 650 mg PO Q6H 08/23/19 [History Last Taken 03/27/20 15:00] biotin 5,000 mcg SUBLINGUAL DAILY 08/23/19 [History Last Taken 03/27/20 08:00] calcium carbonate 300 mg PO DAILY 08/23/19 [History Last Taken 03/27/20 09:00] multivitamin 1 ea PO DAILY 08/23/19 [History Last Taken 03/27/20 09:00] nutritional supplements 1,000 ml PO DAILY 08/23/19 [History Last Taken Unknown] ondansetron 4 mg PO Q6H PRN PRN 08/23/19 [History Last Taken 03/27/20 21:00] ascorbic acid (vitamin C) 500 mg PO DAILY 03/28/20 [History Last Taken 03/27/20 09:00] aspirin 81 mg PO DAILY@0800 03/28/20 [History Last Taken 03/27/20 09:00] famotidine 20 mg PO DAILY 03/28/20 [History Last Taken 03/27/20 21:00] gabapentin 600 mg PO TID 03/28/20 [History Last Taken 03/27/20 23:00] isosorbide mononitrate 30 mg PO DAILY 03/28/20 [History Last Taken 03/27/20 08:00] lisinopril 2.5 mg PO DAILY 03/28/20 [History Last Taken 03/27/20 21:00] pantoprazole 40 mg PO BID 03/28/20 [History Last Taken 03/27/20 21:00] tizanidine 4 mg PO Q8H PRN PRN 03/28/20 [History Last Taken 03/27/20 12:00] duloxetine 60 mg capsule,delayed release 60 mg PO DAILY 04/19/20 [History Last Taken Unknown] atorvastatin 80 mg tablet 80 mg PO DAILY 04/21/20 [History Last Taken Unknown] metoprolol succinate 25 mg tablet,extended release 24 hr 25 mg PO DAILY 04/21/20 [History Last Taken Unknown] albuterol sulfate 90 mcg/actuation aerosol inhaler 2 puff INHALATION Q4H PRN PRN #8.5 g 01/20/21 [Rx Last Taken Unknown] cyanocobalamin (vitamin B-12) 500 mcg tablet 500 mcg PO DAILY@0800 tab 01/20/21 [History Last Taken Unknown] fluticasone propionate 110 mcg/actuation HFA aerosol inhaler 2 inh INHALATION BID #12 g 01/20/21 [Rx Last Taken Unknown] ipratropium 0.5 mg-albuterol 3 mg (2.5 mg base)/3 mL nebulization soln 3 ml INHALATION Q4H.RT #180 ml 01/20/21 [Rx Last Taken Unknown] ipratropium 20 mcg-albuterol 100 mcg/actuation mist for inhalation 1 puff INHALATION Q6H #4 g 02/07/21 [Rx Last Taken Unknown] albuterol sulfate 1.25 mg/3 mL solution for nebulization 1.25 mg CONTINUOUS NEBULIZATION Q6H PRN PRN #90 ml 02/18/21 [Rx Last Taken Unknown] oxycodone-acetaminophen [Percocet] 1 tab PO Q6H PRN 3 Days #10 tab 02/28/21 [Rx Last Taken Unknown] Allergy/AdvReac Type Severity Reaction Status Date / Time dicyclomine HCl [From Bentyl] Allergy Hives Verified 02/28/21 14:46 Family History Father Myocardial infarction Son Esophageal cancer Surgical History History of exploratory laparotomy (12/29/19) History of jejunostomy History of jejunostomy tube placement (12/29/19) History of left heart catheterization (02/02/20) History of partial gastrectomy History of transesophageal echocardiography (EDGAR) (02/12/20) Social History household members: none housing: apartment Smoking Status: Former smoker quit date: 03/05/05 details: No alcohol consumption substance use type: does not use ROS ROS ED Constitutional Constitutional ED: Denies chills or fever(s) Eyes Eyes: Denies change in vision ENT ENT ED: Denies sore throat Cardiovascular Cardiovascular: Reports chest pain and other Details: Bilateral lower rib pain Respiratory/Chest Respiratory/Chest: Reports dyspnea; Denies cough Gastrointestinal Gastrointestinal: Reports abdominal pain; Denies diarrhea, nausea or vomiting Musculoskeletal Musculoskeletal: Reports back pain Integumentary Denies rash Neurologic Neurologic: Denies headache(s) or weakness Psychiatric Psychiatric: Denies anxiety or depression Allergic/Immunologic Allergic/Immunologic ED: Denies urticaria EXAM Physical Exam Const Vital Signs: 02/28/21 14:46 02/28/21 16:00 Temperature 96.9 F L Temperature Source Temporal Pulse Rate 90 Respiratory Rate 16 Respiratory Effort Normal Respiratory Pattern Normal Blood Pressure 95/56 L Blood Pressure Mean 69 Pulse Ox 93 Oxygen Delivery Method Nasal Cannula Oxygen Flow Rate (L/min) 3 Positive well nourished and well developed General Appearance ED: well developed HEENT Reports moist mucous membranes Eyes PERRL and EOMs intact bilaterally Neck supple Chest Wall Chest Narrative: Reproducible tenderness of the bilateral lower ribs. No crepitus. Resp normal respiratory effort and clear to auscultation bilaterally Effort and Inspection: pain with movement GI non-tender Palpation: soft Extremity normal to inspection Neuro oriented x3 Sensorium / Orientation: alert Psych mental status grossly normal Skin no rashes or lesions noted MDM MDM MDM Narrative Medical decision making narrative: Patient was given oxycodone which she takes at home as well as Zofran. Radiography Diagnostic Testing: Clinical Impression(s) from Imaging Studies Chest X-Ray 02/28/21 15:53 IMPRESSION: Bibasilar interstitial opacities likely representing scar. There is no focal consolidation. at 1627 Reported and signed by: Sammy Coe MD Electronically Signed: Sammy Coe MD at 16:26 EST Tel , Service support , Treatment and Re-Evaluation Comments:: X-ray per my interpretation reveals chronic changes. No focal infiltrate. No pneumothorax. No obvious rib fracture. Radiologist interpretation is reviewed. Abdominal x-ray reveals feeding tube to be in good position. Test results discussed with the patient. I do believe she has musculoskeletal chest pain as she does have reproducible pain. She picked up a prescription for tizanidine today. She will also be written for limited supply of oxycodone. Discharge Plan Triage Chief Complaint: Flank Pain Other Complaint: Shortness of Breath ED Provider: Nancy Burt Dx/Rx/DC Orders Clinical Impression: Chest wall pain Instructions: ED Chest Pain, Noncardiac Prescriptions: New oxycodone-acetaminophen [Percocet] 5-325 mg tablet 1 tab PO Q6H PRN (Reason: pain) 3 Days Qty: 10 RF: 0 No Action duloxetine 60 mg capsule,delayed release(DR/EC) 60 mg PO DAILY RF: 0 metoprolol succinate 25 mg tablet extended release 24 hr 25 mg PO DAILY RF: 0 albuterol sulfate 90 mcg/actuation HFA aerosol inhaler 2 puff INHALATION Q4H PRN PRN (Reason: Wheezing) Qty: 8.5 RF: 3 fluticasone propionate 110 mcg/actuation HFA aerosol inhaler 2 inh INHALATION BID Qty: 12 RF: 6 ipratropium-albuterol 0.5 mg-3 mg(2.5 mg base)/3 mL solution for nebulization 3 ml INHALATION Q4H.RT Qty: 180 RF: 6 Combivent Respimat 20-100 mcg/actuation mist 1 puff inhalation Q6H Qty: 4 RF: 6 cholecalciferol (vitamin D3) 2,000 UNIT tablet 4,000 unit PO DAILY RF: 0 sennosides 1 TABLET tablet 1 tab PO DAILY PRN (Reason: Constipation) RF: 0 ferrous sulfate 325 MG tablet 325 mg PO DAILY RF: 0 melatonin 3 MG capsule 3 mg PO QHS RF: 0 cyanocobalamin (vitamin B-12) 500 mcg tablet 500 mcg PO DAILY@0800 RF: 0 multivitamin 1 EACH tablet 1 ea PO DAILY RF: 0 acetaminophen 325 MG tablet 650 mg PO Q6H RF: 0 calcium carbonate 500 MG tablet 300 mg PO DAILY RF: 0 ondansetron 4 MG tablet 4 mg PO Q6H PRN PRN (Reason: Nausea) RF: 0 biotin 5,000 MCG tablet, sublingual 5,000 mcg sublingual DAILY RF: 0 nutritional supplements 237 ML liquid 1,000 ml PO DAILY RF: 0 isosorbide mononitrate 30 MG tablet extended release 24 hr 30 mg PO DAILY RF: 0 famotidine 20 MG tablet 20 mg PO DAILY RF: 0 pantoprazole 40 MG tablet,delayed release (DR/EC) 40 mg PO BID RF: 0 gabapentin 300 MG capsule 600 mg PO TID RF: 0 aspirin 81 MG tablet,chewable 81 mg PO DAILY@0800 RF: 0 lisinopril 2.5 MG tablet 2.5 mg PO DAILY RF: 0 tizanidine 4 MG capsule 4 mg PO Q8H PRN PRN (Reason: Muscle Spasm) RF: 0 ascorbic acid (vitamin C) 500 MG tablet 500 mg PO DAILY RF: 0 atorvastatin 80 mg tablet 80 mg PO DAILY RF: 0 albuterol sulfate 1.25 mg/3 mL solution for nebulization 1.25 mg continuous nebulization Q6H PRN PRN (Reason: Sob &/Or Wheezing) Qty: 90 RF: 6 Primary Care Provider: Sarita Grey Referrals: Sarita Grey MD [Primary Care Provider] - 1-2 Weeks Disposition Disposition: Home, Self Care
[2021-02-28] MEDS: Ondansetron ODT 4 MG Tablet PO (16:09)
[2021-02-28] MEDS: oxyCODONE 5 MG Tablet PO (16:09)
== END 2021-02-28 17:12 | disposition home or self-care (01) ==
PROVIDERS: Emergency Provider Emergency Medicine; PCP Internal Medicine
DX: R07.89 Other chest pain (principal); I25.10 Atherosclerotic heart disease of native coronary artery without angina pectoris; Z87.891 Personal history of nicotine dependence
CPT/HCPCS: 71046; 74018; 99282; J7030

== ENCOUNTER → 2021-07-04 | Outpatient (CLI) | payer MEDICARE, MEDICAID, SELFPAY ==
--- NOTE | 2021-07-04 14:44 | CT_ITS ---
rScriptor Unformatted Report Format: Options: n 2f 2i act cap dr henson wm wcta sl lj Gender: Female Age: 66 years Exam: CT Low Dose CT Chest for Lung Cancer Screening Comparison: July 22, 2020 History: smoker and gt; 40 pack years quit 2010 Contrast: Extensive pulmonary emphysema. Bibasilar atelectatic changes are noted. No evidence of a lung mass or suspicious pulmonary nodule. Main pulmonary artery measures 4 cm in diameter which raises the possibility of pulmonary arterial hypertension. The severe S-shaped scoliosis of the thoracolumbar spine again seen. CT/Low Dose CT Lung Screening IMPRESSION: No evidence of lung mass or suspicious pulmonary nodule. Prominent pulmonary emphysema. Bibasilar atelectasis. Question pulmonary arterial hypertension. ACR Lung CT Screening Reporting T Data System (Lung-RADS) score: 1S - Negative. Additional clinically significant or potentially clinically significant findings are described. Recommend continued annual screening with low-dose CT (LDCT) in 12 months. Electronically Signed: Rangel Cole MD at 15:42 EDT ,
== END | disposition home or self-care (01) ==
PROVIDERS: PCP Internal Medicine; Visit Provider Nurse Practitioner Acute Care
DX: F17.210 Nicotine dependence, cigarettes, uncomplicated (principal)
CPT/HCPCS: 71271

== ENCOUNTER → 2021-07-05 | Outpatient (CLI) | payer MEDICARE, MEDICAID, SELFPAY ==
[2021-07-05 13:10] LABS: Anion Gap 6 (5-15); BUN 21 mg/dL (7-18); Calcium,Total 8.6 mg/dL (8.5-10.1); Chloride 106 mmol/L (98-107); Creatinine, Serum 0.68 mg/dL (0.55-1.02); EST Glomerular Filtration Rate 93 mL/min (>60); Est Glom Filt Rate - Afr Amer 112 mL/min (>60); Glucose 95 mg/dL (74-106); Potassium 4.3 mmol/L (3.5-5.1); Sodium Level 140 mmol/L (136-145)
[2021-07-05 13:11] LABS: BNP,B-Type NATRIURETIC PEPTIDE 60.5 pg/mL (0-100)
== END | disposition home or self-care (01) ==
LOC: LAB 12:06
PROVIDERS: PCP Internal Medicine; Referring Provider Internal Medicine Cardiovascular Disease; Visit Provider Internal Medicine Cardiovascular Disease
DX: R06.00 Dyspnea, unspecified (principal); I48.0 Paroxysmal atrial fibrillation; R00.2 Palpitations; I25.10 Atherosclerotic heart disease of native coronary artery without angina pectoris; I34.0 Nonrheumatic mitral (valve) insufficiency
CPT/HCPCS: 36415; 80048; 83880

== ENCOUNTER 2021-08-28 19:22 | Emergency (ER) | payer MEDICARE, MEDICAID, SELFPAY ==
[2021-08-28 19:23] VITALS: BP 107/87; PULSE 65; RESP 24; TEMP 36.8; O2SAT 98; BMI 25.3
--- NOTE | 2021-08-28 19:56 | EKG12_ITS ---
Test Reason : CP Blood Pressure : / mmHG Vent. Rate : 063 BPM Atrial Rate : 063 BPM P-R Int : 196 ms QRS Dur : 090 ms QT Int : 428 ms P-R-T Axes : 054 037 044 degrees QTc Int : 437 ms Normal sinus rhythm Normal ECG Confirmed by YRIS COYLE, YAYA ([id number]), design editor GOMEZ SOW ([id number]) on 08/30/2021 8:27:24 AM Referred By: JUAN ANTONIO Confirmed By:YAYA ARNDT MD
--- NOTE | 2021-08-28 20:01 | EX.ED.DYSGE1 ---
HPI History of Present Illness Chief Complaint: Chest Pain Detail of Chief Complaint: Left chest wall pain Informant: patient Onset/Context/Timing Onset: Days (4 to 5 days) Context: Gradual Onset Timing: Waxes and wanes Location: Around left lower ribs. Current Severity: Moderate Maximum Severity: Moderate Worsened by: Movement, palpation Narrative Narrative: Patient presents with left-sided chest pain. She points to the left lower ribs and states it wraps around to her back. She had injections by Dr. Short recently but states it did not work. She takes oxycodone daily but states that does not seem to be helping either. No recent fall or injury. [facility] Medical History (Updated 08/28/21 @ 23:[address] Nancy Burt MD) Anxiety and depression Aspiration pneumonia Atherosclerotic heart disease of [place] coronary artery without angina pectoris COPD (chronic obstructive pulmonary disease) Duodenal ulcer, acute with obstruction Enterocutaneous fistula Gastroparesis GERD (gastroesophageal reflux disease) History of smoking Hypoxia Malnutrition of moderate degree Nonrheumatic mitral (valve) insufficiency Osteoporosis Paroxysmal atrial fibrillation Respiratory failure Scoliosis Home Medications cholecalciferol (vitamin D3) 50 mcg (2,000 unit) tablet 4,000 unit PO DAILY vitamin 05/24/18 [History Last Taken 03/27/20 09:00] ferrous sulfate 325 mg (65 mg iron) tablet 325 mg PO DAILY supplement 03/22/19 [History Last Taken 03/27/20 15:00] melatonin 3 mg capsule 3 mg PO QHS insomnia 03/22/19 [History Last Taken 03/27/20 21:00] sennosides 8.6 mg tablet 1 tab PO DAILY PRN Constipation 03/22/19 [History Last Taken Unknown] acetaminophen 325 mg tablet 650 mg PO Q6H pain 08/23/19 [History Last Taken 03/27/20 15:00] biotin 5,000 mcg sublingual tablet 5,000 mcg sublingual DAILY health maintenance 08/23/19 [History Last Taken 03/27/20 08:00] calcium carbonate 500 mg calcium (1,250 mg) tablet 300 mg PO DAILY health maintenance 08/23/19 [History Last Taken 03/27/20 09:00] multivitamin 1 ea PO DAILY vitamin 08/23/19 [History Last Taken 03/27/20 09:00] nutritional supplements 0.06 gram-1.5 kcal/mL oral liquid 1,000 ml PO DAILY 08/23/19 [History Last Taken Unknown] ondansetron 4 mg disintegrating tablet 4 mg PO Q4H PRN PRN Nausea 08/23/19 [History Last Taken 03/27/20 21:00] ascorbic acid (vitamin C) 500 mg tablet 500 mg PO DAILY vitamin 03/28/20 [History Last Taken 03/27/20 09:00] aspirin 81 mg chewable tablet 81 mg PO DAILY@0800 health maintenance 03/28/20 [History Last Taken 03/27/20 09:00] gabapentin 300 mg capsule 600 mg PO TID pain 03/28/20 [History Last Taken 03/27/20 23:00] isosorbide mononitrate 30 mg tablet,extended release 24 hr 30 mg PO DAILY Heart 03/28/20 [History Last Taken 03/27/20 08:00] lisinopril 2.5 mg tablet 2.5 mg PO DAILY BP 03/28/20 [History Last Taken 03/27/20 21:00] pantoprazole 40 mg tablet,delayed release 40 mg PO BID stomach 03/28/20 [History Last Taken 03/27/20 21:00] tizanidine 4 mg capsule 4 mg PO Q8H PRN PRN Muscle Spasm 03/28/20 [History Last Taken 03/27/20 12:00] duloxetine 60 mg capsule,delayed release 60 mg PO DAILY 04/19/20 [History Last Taken Unknown] atorvastatin 80 mg tablet 80 mg PO QHS cholesterol 04/21/20 [History Last Taken Unknown] metoprolol succinate 25 mg tablet,extended release 24 hr 25 mg PO DAILY 04/21/20 [History Last Taken Unknown] albuterol sulfate 90 mcg/actuation aerosol inhaler 2 puff inhalation Q4H PRN PRN Wheezing #8.5 grams 01/20/21 [Rx Last Taken Unknown] cyanocobalamin (vitamin B-12) 500 mcg tablet 1,000 mcg PO DAILY@0800 vitamin 01/20/21 [History Last Taken Unknown] albuterol sulfate 1.25 mg/3 mL solution for nebulization 1.25 mg (3 mL) continuous nebulization Q6H PRN PRN Sob &/Or Wheezing #90 mL 02/18/21 [Rx Last Taken Unknown] oxycodone-acetaminophen 5 mg-325 mg tablet (Percocet) 1 tab PO Q6H PRN pain 3 days #10 tabs 02/28/21 [Rx Last Taken Unknown] furosemide 40 mg tablet (Lasix) 40 mg PO DAILY #90 tabs 07/05/21 [Rx Last Taken Unknown] ipratropium 0.5 mg-albuterol 3 mg (2.5 mg base)/3 mL nebulization soln 3 ml inhalation Q4H PRN shortness of breath or wheezing #180 mL 07/19/21 [Rx Last Taken Unknown] budesonide 160 mcg-glycopyr 9 mcg-formot 4.8 mcg/actuation HFA inhaler (Breztri Aerosphere) 2 inh inhalation BID #10.7 grams 08/10/21 [Rx Last Taken Unknown] lidocaine 5 % topical patch (Lidoderm) 1 patch topical DAILY #15 ea 08/28/21 [Rx Last Taken Unknown] Allergy/AdvReac Type Severity Reaction Status Date / Time dicyclomine HCl [From Bentyl] Allergy Hives Verified 08/10/21 09:01 Family History Father Myocardial infarction Son Esophageal cancer Surgical History History of exploratory laparotomy (12/29/19) History of jejunostomy History of jejunostomy tube placement (12/29/19) History of left heart catheterization (02/02/20) History of partial gastrectomy History of transesophageal echocardiography (EDGAR) (02/12/20) Social History household members: none housing: apartment Smoking Status: Former smoker quit date: 03/05/05 details: No alcohol consumption substance use type: does not use ROS ROS ED Constitutional Constitutional ED: Denies chills or fever(s) Eyes Eyes: Denies change in vision or discharge from eye(s) ENT ENT ED: Denies discharge from eye(s), rhinorrhea or sore throat Cardiovascular Cardiovascular: Reports chest pain; Denies palpitations Respiratory/Chest Respiratory/Chest: Denies cough or dyspnea Gastrointestinal Gastrointestinal: Denies abdominal pain, nausea or vomiting Genitourinary Genitourinary ED: Denies difficulty urinating or dysuria Musculoskeletal Musculoskeletal: Reports back pain; Denies extremity pain Integumentary Denies Abrasions or rash Neurologic Neurologic: Denies headache(s) or weakness Allergic/Immunologic Allergic/Immunologic ED: Denies lip swelling or urticaria EXAM Physical Exam Const Vital Signs: 08/28/21 19:23 08/28/21 19:55 08/28/21 20:24 Temperature 98.3 F Temperature Source Oral Pulse Rate 65 76 Respiratory Rate 24 H 20 H Respiratory Effort Normal Non-Labored Blood Pressure 107/87 H 113/67 Blood Pressure Mean 93 82 Pulse Ox 98 99 Oxygen Delivery Method Nasal Cannula Nasal Cannula Oxygen Flow Rate (L/min) 3.5 3 08/28/21 21:00 08/28/21 22:00 08/28/21 23:54 Temperature Temperature Source Pulse Rate 70 64 62 Respiratory Rate 18 23 H 17 Respiratory Effort Blood Pressure 110/69 115/69 108/50 L Blood Pressure Mean 82 84 Pulse Ox 100 98 97 Oxygen Delivery Method Nasal Cannula Nasal Cannula Oxygen Flow Rate (L/min) 3 3 Positive well nourished and well developed General Appearance ED: well developed HEENT Reports normocephalic and head/scalp atraumatic Eyes PERRL and EOMs intact bilaterally Neck supple Chest Wall inspection of chest normal Chest Narrative: Reproducible chest wall tenderness around the left lower ribs. Resp normal respiratory effort and clear to auscultation bilaterally Cardio regular rate and regular rhythm GI normal to inspection, nondistended, normoactive bowel sounds Palpation: soft Back/Spine Back/Spine Narrative: Left lower posterior rib tenderness. Extremity normal to inspection Neuro oriented x3 and no sensory deficits noted Sensorium / Orientation: alert Motor Exam: strength 5/5 throughout Psych Mood & Affect: anxious Skin no rashes or lesions noted MDM MDM MDM Narrative Medical decision making narrative: Patient is given morphine and Zofran. Lab work, EKG, chest x-ray obtained. Lab Data Attestation: I reviewed the patient's lab results. Labs: Laboratory Results - last 24 hr 08/28/21 08/28/21 08/28/21 19:40 19:40 22:35 WBC 6.0 RBC 3.58 L Hgb 10.9 L Hct 35.4 L MCV 98.9 MCH 30.4 MCHC 30.8 L RDW Std Deviation 47.4 H RDW Coeff of Kendy 13.4 Plt Count 218 MPV 11.4 Immature Gran % (Auto) 0.300 Neut % (Auto) 67.3 Lymph % (Auto) 24.6 Sunflower % (Auto) 7.0 Eos % (Auto) 0.5 Baso % (Auto) 0.3 Absolute Neuts (auto) 4.0 Absolute Lymphs (auto) 1.47 Nucleated RBC % 0 Sodium 142 Potassium 4.0 Chloride 109 H Carbon Dioxide 28.0 Anion Gap 5 BUN 15 Creatinine 0.67 Estim Creat Clear Calc 70.30 Est GFR (MDRD) Af Amer 114 Est GFR (MDRD) Non-Af 94 BUN/Creatinine Ratio 22.5 H Glucose 96 Calcium 8.3 L Troponin I High Sens 5 4 Radiography Chest X-Ray - ED: 1 View, Read by ED Physician and Chronic Changes Diagnostic Testing: Clinical Impression(s) from Imaging Studies Chest X-Ray 08/28/21 20:10 IMPRESSION: Low lung volumes and suspicion of mild increased atelectasis at the right lung base. Prominent scoliosis again noted. Electronically Signed: Anna Marie Garcia MD at 21:12 EDT , EKG Initial EKG: Attestation: I personally reviewed and interpreted this EKG as follows: Interpretation: Sinus Rhythm (Sinus at 63 with no acute ischemia.) Treatment and Re-Evaluation Narrative: Nursing staff advised that her morphine had worn off and was having increased pain. She is given a small dose of Dilaudid along with a Lidoderm patch. Lab work is unremarkable with negative troponin. Chest x-ray reveals chronic changes per my interpretation. Radiology interpretation also reviewed. On repeat exam patient is resting comfortably but jumps and has spasms when I awaken her. She does have tizanidine at home that she can take. Although she is prescribed Percocet she states he is only taking it once a day. I encouraged her to take it every 6 hours to keep on top of the pain. I also wrote her prescription for Lidoderm patches. Patient is to call Dr. Short tomorrow to update with her symptoms. Return instructions provided. Discharge Plan Triage Chief Complaint: Chest Pain ED Provider: Nancy Burt Dx/Rx/DC Orders Clinical Impression: Chest wall pain Instructions: ED Chest Pain, Noncardiac Prescriptions: New lidocaine [Lidoderm] 5 % adhesive patch,medicated 1 patch topical DAILY Qty: 15 0RF Rx Instructions: leave on most painful area for up to 12 hrs No Action duloxetine 60 mg capsule,delayed release(DR/EC) 60 mg PO DAILY metoprolol succinate 25 mg tablet extended release 24 hr 25 mg PO DAILY albuterol sulfate 90 mcg/actuation HFA aerosol inhaler 2 puff INHALATION Q4H PRN PRN (Reason: Wheezing) Qty: 8.5 3RF furosemide [Lasix] 40 mg tablet 40 mg PO DAILY Qty: 90 3RF Breztri Aerosphere 160-9-4.8 mcg/actuation HFA aerosol inhaler 2 inh inhalation BID Qty: 10.7 6RF cholecalciferol (vitamin D3) 2,000 UNIT tablet 4,000 unit PO DAILY sennosides 1 TABLET tablet 1 tab PO DAILY PRN (Reason: Constipation) ferrous sulfate 325 MG tablet 325 mg PO DAILY melatonin 3 MG capsule 3 mg PO QHS cyanocobalamin (vitamin B-12) 500 mcg tablet 1,000 mcg PO DAILY@0800 multivitamin 1 EACH tablet 1 ea PO DAILY acetaminophen 325 MG tablet 650 mg PO Q6H calcium carbonate 500 MG tablet 300 mg PO DAILY ondansetron 4 MG tablet 4 mg PO Q4H PRN PRN (Reason: Nausea) biotin 5,000 MCG tablet, sublingual 5,000 mcg sublingual DAILY nutritional supplements 237 ML liquid 1,000 ml PO DAILY Rx Instructions: 50ML/HR X'S 10 HOURS isosorbide mononitrate 30 MG tablet extended release 24 hr 30 mg PO DAILY pantoprazole 40 MG tablet,delayed release (DR/EC) 40 mg PO BID gabapentin 300 MG capsule 600 mg PO TID aspirin 81 MG tablet,chewable 81 mg PO DAILY@0800 lisinopril 2.5 MG tablet 2.5 mg PO DAILY tizanidine 4 MG capsule 4 mg PO Q8H PRN PRN (Reason: Muscle Spasm) ascorbic acid (vitamin C) 500 MG tablet 500 mg PO DAILY atorvastatin 80 mg tablet 80 mg PO QHS oxycodone-acetaminophen [Percocet] 5-325 mg tablet 1 tab PO Q6H PRN (Reason: pain) 3 Days Qty: 10 0RF albuterol sulfate 1.25 mg/3 mL solution for nebulization 1.25 mg continuous nebulization Q6H PRN PRN (Reason: Sob &/Or Wheezing) Qty: 90 6RF Rx Instructions: J44.9 COPD ipratropium-albuterol 0.5 mg-3 mg(2.5 mg base)/3 mL solution for nebulization 3 ml inhalation Q4H PRN (Reason: shortness of breath or wheezing) Qty: 180 6RF Rx Instructions: J44.9 Primary Care Provider: Sarita Grey Referrals: Matthew Aguilar MD [STAFF PHYSICIAN] - As soon as possible Sarita Grey MD [Primary Care Provider] - Disposition Disposition: Home, Self Care Discharge Date/Time: 08/28/21 23:58
--- NOTE | 2021-08-28 20:10 | RAD_ITS ---
EXAM: XR CHEST, 1 VIEW CLINICAL INDICATION: cp TECHNIQUE: Frontal view of the chest. This report was created using [employer] report generation technology. COMPARISON: February 28, 2021. April 01, 2020. FINDINGS: LUNGS AND PLEURAL SPACES: Low lung volumes and mild bibasilar atelectasis. Increased presumed atelectasis at the right lung base with persistent stable slight blunting of the right lateral costophrenic angle. No pneumothorax. No effusion. HEART: Stable normal heart size. MEDIASTINUM: Central airways and mediastinal contour are unremarkable. BONES/JOINTS: Again noted marked S-shaped thoracolumbar scoliosis. SOFT TISSUES: Unremarkable. VASCULATURE: Stable mild peripheral calcification of the aortic arch. No evidence of aortic aneurysm. RAD/Chest 1 View (Portable) IMPRESSION: Low lung volumes and suspicion of mild increased atelectasis at the right lung base. Prominent scoliosis again noted. Electronically Signed: Anna Marie Garcia MD at 21:12 EDT ,
[2021-08-28 20:13] LABS: Absolute Lymphocyte Count 1.47 X10^3/uL (0.83-4.51); Basophil# 0.02 X10^3/uL; Basophil% 0.3 % (0-1); Eosinophil# 0.03 X10^3/uL; Eosinophils% 0.5 % (0-5); Hematocrit 35.4 % (37-47); Hemoglobin 10.9 g/dL (12.0-15.0); Lymphocyte # 1.47 X10^3/ul (0.83-4.51); Lymphocyte % 24.6 % (19-41); Mean Corp Hgb Conc 30.8 g/dL (32-36); Mean Corpuscular Hgb 30.4 pg (27.0-32.0); Mean Corpuscular Volume 98.9 fL (81-99); Mean Platelet Vol. 11.4 fl (6.2-12.0); Monocyte# 0.42 X10^3/uL; NRBC Flagged by Analyzer 0 % (0-5); Neutrophil # 4.01 X10^3/uL (2.7-7.7); Neutrophil % 67.3 % (47-70); Platelet Count 218 K/mm3 (150-450); RBC Distribution Width CV 13.4 % (11.6-14.6); RBC Distribution Width SD 47.4 fl (35.1-43.9); Red Blood Count 3.58 M/mm3 (4.2-5.4)
[2021-08-28] MEDS: Ondansetron 4 MG/2 ML Vial IV (20:23)
[2021-08-28] MEDS: Morphine 4 MG/ML Syringe IV (20:23)
[2021-08-28 20:24] VITALS: BP 113/67; PULSE 76; RESP 20; O2SAT 99
[2021-08-28 20:39] LABS: Anion Gap 5 (5-15); BUN 15 mg/dL (7-18); BUN/Creat Ratio 22.5 RATIO (10-20); Calcium,Total 8.3 mg/dL (8.5-10.1); Chloride 109 mmol/L (98-107); Creatinine, Serum 0.67 mg/dL (0.55-1.02); EST Glomerular Filtration Rate 94 mL/min (>60); Est Glom Filt Rate - Afr Amer 114 mL/min (>60); Glucose 96 mg/dL (74-106); Sodium Level 142 mmol/L (136-145); Troponin-I HS 5 pg/mL (3.0-54.0)
[2021-08-28 21:00] VITALS: BP 110/69; PULSE 70; RESP 18; O2SAT 100
[2021-08-28 22:00] VITALS: BP 115/69; PULSE 64; RESP 23; O2SAT 98
[2021-08-28] MEDS: HYDROmorphone 0.5 MG/0.5 ML SYRINGE IV (22:42)
[2021-08-28] MEDS: Lidocaine 5% Patch 1 PATCH TOPICAL (22:48)
[2021-08-28 23:26] LABS: Troponin-I HS 4 pg/mL (3.0-54.0)
[2021-08-28 23:54] VITALS: BP 108/50; PULSE 62; RESP 17; O2SAT 97
[2021-08-28] MEDS: oxyCODONE 5 MG Tablet PO (23:55)
== END 2021-08-28 23:58 | disposition home or self-care (01) ==
PROVIDERS: Emergency Provider Emergency Medicine; PCP Internal Medicine; Visit Provider Emergency Medicine
DX: R07.89 Other chest pain (principal); J44.9 Chronic obstructive pulmonary disease, unspecified; I48.0 Paroxysmal atrial fibrillation; I25.10 Atherosclerotic heart disease of native coronary artery without angina pectoris; K21.9 Gastro-esophageal reflux disease without esophagitis; Z79.82 Long term (current) use of aspirin; Z79.899 Other long term (current) drug therapy; Z87.891 Personal history of nicotine dependence
CPT/HCPCS: 71045; 80048; 84484; 85025; 93005; 96374; 96375; 99285; A4216; J2405

== ENCOUNTER 2021-09-06 12:08 | Observation (INO) | payer MEDICARE, MEDICAID, SELFPAY ==
[2021-09-06] VITALS (9 sets, daily range): BP systolic 95–120; BP diastolic 55–76; PULSE 72–86; RESP 15–20; TEMP 36.6–36.8; O2SAT 94–98; BMI 22.7; BMI 23.1
--- NOTE | 2021-09-06 12:34 | EKG12_ITS ---
Test Reason : CHEST OTHER Blood Pressure : / mmHG Vent. Rate : 070 BPM Atrial Rate : 070 BPM P-R Int : 180 ms QRS Dur : 096 ms QT Int : 410 ms P-R-T Axes : 036 037 040 degrees QTc Int : 442 ms Normal sinus rhythm Normal ECG Confirmed by YRIS COYLE, YAYA ([id number]), science editor GOMEZ SOW ([id number]) on 09/08/2021 9:00:14 AM Referred By: JUAN ANTONIO Confirmed By:YAYA ARNDT MD
[2021-09-06 12:55] LABS: Absolute Lymphocyte Count 1.49 X10^3/uL (0.83-4.51); Basophil# 0.02 X10^3/uL; Basophil% 0.2 % (0-1); Eosinophil# 0.11 X10^3/uL; Eosinophils% 1.3 % (0-5); Hematocrit 41.4 % (37-47); Hemoglobin 12.9 g/dL (12.0-15.0); Lymphocyte # 1.49 X10^3/ul (0.83-4.51); Lymphocyte % 18.2 % (19-41); Mean Corp Hgb Conc 31.2 g/dL (32-36); Mean Corpuscular Hgb 30.8 pg (27.0-32.0); Mean Corpuscular Volume 98.8 fL (81-99); Mean Platelet Vol. 10.5 fl (6.2-12.0); Monocyte# 0.53 X10^3/uL; Monocyte% 6.5 % (0-10); NRBC Flagged by Analyzer 0 % (0-5); Neutrophil % 73.4 % (47-70); Platelet Count 240 K/mm3 (150-450); RBC Distribution Width CV 13.4 % (11.6-14.6); RBC Distribution Width SD 48.2 fl (35.1-43.9); Red Blood Count 4.19 M/mm3 (4.2-5.4); White Blood Count 8.2 K/mm3 (4.4-11.0)
[2021-09-06] MEDS: Ondansetron 4 MG/2 ML Vial IV (13:04)
[2021-09-06] MEDS: HYDROmorphone 1 MG/ML Syringe IV (13:04)
[2021-09-06 13:06] LABS: Anion Gap 5 (5-15); BUN 20 mg/dL (7-18); BUN/Creat Ratio 31.1 RATIO (10-20); Calcium,Total 8.7 mg/dL (8.5-10.1); Chloride 101 mmol/L (98-107); Creatinine, Serum 0.64 mg/dL (0.55-1.02); EST Glomerular Filtration Rate 98 mL/min (>60); Est Glom Filt Rate - Afr Amer 119 mL/min (>60); Estimated Creatinine Clearance 65.89 ml/min; Glucose 98 mg/dL (74-106); Potassium 4.1 mmol/L (3.5-5.1); Sodium Level 137 mmol/L (136-145)
--- NOTE | 2021-09-06 13:15 | RAD_ITS ---
STUDY: X-RAY CHEST REASON FOR EXAM: Female, 66 years old. Left back pain TECHNIQUE: Single AP portable view of the chest. COMPARISON: Comparison is made with prior examination dated 08/28/2021. FINDINGS: The lungs are clear and expanded. There is no demonstrated pleural abnormality. There is moderate cardiac enlargement. Normal mediastinum and chepe. Normal visualized pulmonary arteries. There is atherosclerotic calcification of the aortic arch with tortuosity. There is a dextroscoliosis of the thoracic spine. Levoscoliosis of the lumbar spine. Normal visualized ribs, clavicles, and shoulders. There is no demonstrated abnormality of the visualized soft tissue structures of the upper abdomen. RAD/Chest 1 View (Portable) IMPRESSION: Cardiomegaly. Lungs are clear. Electronically Signed: Josh Crooks MD at 13:48 EDT ,
[2021-09-06] MEDS: Albuterol 2.5 MG/3 ML VIAL.NEB. INHALATION (13:59)
--- NOTE | 2021-09-06 14:33 | EDS_ITS ---
HPI History of Present Illness Chief Complaint: Chest Other Detail of Chief Complaint: Intractable back pain, rib pain Informant: patient Onset/Context/Timing Onset: Weeks Context: Gradual Onset Timing: Waxes and wanes Current Severity: Severe Maximum Severity: Severe Narrative Narrative: Patient presents secondary to intractable back pain and left rib pain. She is currently in pain management. She had undergone facet injections with no improvement in her pain. Patient was seen in the emergency room on August 28 with similar. Work-up at that time was unremarkable. I received a phone call from the nurse practitioner at the pain management office today stating that they were sending her to the emergency room. They have not had success and getting her pain under control. They state that she is having trouble caring for herself at home and will need placement. Patient has had no additional injuries or falls. She is currently on oxycodone 5 mg every 6 hours as well as gabapentin. [facility] Medical History (Updated 09/06/21 @ 14:[address] Nancy Burt MD) Anxiety and depression Aspiration pneumonia Atherosclerotic heart disease of [place] coronary artery without angina pectoris COPD (chronic obstructive pulmonary disease) Duodenal ulcer, acute with obstruction Enterocutaneous fistula Gastroparesis GERD (gastroesophageal reflux disease) History of smoking Hypoxia Malnutrition of moderate degree Nonrheumatic mitral (valve) insufficiency Osteoporosis Paroxysmal atrial fibrillation Respiratory failure Scoliosis Home Medications cholecalciferol (vitamin D3) 50 mcg (2,000 unit) tablet 4,000 unit PO DAILY vitamin 05/24/18 [History Last Taken 03/27/20 09:00] ferrous sulfate 325 mg (65 mg iron) tablet 325 mg PO DAILY supplement 03/22/19 [History Last Taken 03/27/20 15:00] melatonin 3 mg capsule 3 mg PO QHS insomnia 03/22/19 [History Last Taken 03/27/20 21:00] sennosides 8.6 mg tablet 1 tab PO DAILY PRN Constipation 03/22/19 [History Last Taken Unknown] acetaminophen 325 mg tablet 650 mg PO Q6H pain 08/23/19 [History Last Taken 03/27/20 15:00] biotin 5,000 mcg sublingual tablet 5,000 mcg sublingual DAILY health maintenance 08/23/19 [History Last Taken 03/27/20 08:00] calcium carbonate 500 mg calcium (1,250 mg) tablet 300 mg PO DAILY health maintenance 08/23/19 [History Last Taken 03/27/20 09:00] multivitamin 1 ea PO DAILY vitamin 08/23/19 [History Last Taken 03/27/20 09:00] nutritional supplements 0.06 gram-1.5 kcal/mL oral liquid 1,000 ml PO DAILY 08/23/19 [History Last Taken Unknown] ondansetron 4 mg disintegrating tablet 4 mg PO Q4H PRN PRN Nausea 08/23/19 [History Last Taken 03/27/20 21:00] ascorbic acid (vitamin C) 500 mg tablet 500 mg PO DAILY vitamin 03/28/20 [History Last Taken 03/27/20 09:00] aspirin 81 mg chewable tablet 81 mg PO DAILY@0800 health maintenance 03/28/20 [History Last Taken 03/27/20 09:00] gabapentin 300 mg capsule 600 mg PO TID pain 03/28/20 [History Last Taken 03/27/20 23:00] isosorbide mononitrate 30 mg tablet,extended release 24 hr 30 mg PO DAILY Heart 03/28/20 [History Last Taken 03/27/20 08:00] lisinopril 2.5 mg tablet 2.5 mg PO DAILY BP 03/28/20 [History Last Taken 03/27/20 21:00] pantoprazole 40 mg tablet,delayed release 40 mg PO BID stomach 03/28/20 [History Last Taken 03/27/20 21:00] tizanidine 4 mg capsule 4 mg PO Q8H PRN PRN Muscle Spasm 03/28/20 [History Last Taken 03/27/20 12:00] duloxetine 60 mg capsule,delayed release 60 mg PO DAILY 04/19/20 [History Last Taken Unknown] atorvastatin 80 mg tablet 80 mg PO QHS cholesterol 04/21/20 [History Last Taken Unknown] metoprolol succinate 25 mg tablet,extended release 24 hr 25 mg PO DAILY 04/21/20 [History Last Taken Unknown] albuterol sulfate 90 mcg/actuation aerosol inhaler 2 puff inhalation Q4H PRN PRN Wheezing #8.5 grams 01/20/21 [Rx Last Taken Unknown] cyanocobalamin (vitamin B-12) 500 mcg tablet 1,000 mcg PO DAILY@0800 vitamin 01/20/21 [History Last Taken Unknown] albuterol sulfate 1.25 mg/3 mL solution for nebulization 1.25 mg (3 mL) continuous nebulization Q6H PRN PRN Sob &/Or Wheezing #90 mL 02/18/21 [Rx Last Taken Unknown] oxycodone-acetaminophen 5 mg-325 mg tablet (Percocet) 1 tab PO Q6H PRN pain 3 days #10 tabs 02/28/21 [Rx Last Taken Unknown] furosemide 40 mg tablet (Lasix) 40 mg PO DAILY #90 tabs 07/05/21 [Rx Last Taken Unknown] ipratropium 0.5 mg-albuterol 3 mg (2.5 mg base)/3 mL nebulization soln 3 ml inhalation Q4H PRN shortness of breath or wheezing #180 mL 07/19/21 [Rx Last Taken Unknown] budesonide 160 mcg-glycopyr 9 mcg-formot 4.8 mcg/actuation HFA inhaler (Breztri Aerosphere) 2 inh inhalation BID #10.7 grams 08/10/21 [Rx Last Taken Unknown] lidocaine 5 % topical patch (Lidoderm) 1 patch topical DAILY #15 ea 08/28/21 [Rx Last Taken Unknown] Allergy/AdvReac Type Severity Reaction Status Date / Time dicyclomine HCl [From Bentyl] Allergy Hives Verified 09/06/21 12:11 Family History Father Myocardial infarction Son Esophageal cancer Surgical History History of exploratory laparotomy (12/29/19) History of jejunostomy History of jejunostomy tube placement (12/29/19) History of left heart catheterization (02/02/20) History of partial gastrectomy History of transesophageal echocardiography (EDGAR) (02/12/20) Social History household members: none housing: apartment Smoking Status: Former smoker quit date: 03/05/05 details: No alcohol consumption substance use type: does not use ROS ROS ED Constitutional Constitutional ED: Denies chills or fever(s) Eyes Eyes: Denies change in vision or discharge from eye(s) ENT ENT ED: Denies discharge from eye(s), rhinorrhea or sore throat Cardiovascular Cardiovascular: Reports chest pain; Denies palpitations Respiratory/Chest Respiratory/Chest: Denies cough or dyspnea Gastrointestinal Gastrointestinal: Reports other Details: Weight loss ; Denies abdominal pain, diarrhea, nausea or vomiting Genitourinary Genitourinary ED: Denies difficulty urinating or dysuria Musculoskeletal Musculoskeletal: Reports back pain; Denies extremity pain Integumentary Denies Abrasions or rash Neurologic Neurologic: Reports weakness; Denies headache(s) Psychiatric Psychiatric: Reports anxiety; Denies depression Allergic/Immunologic Allergic/Immunologic ED: Denies lip swelling or urticaria EXAM Physical Exam Const Vital Signs: 09/06/21 12:09 09/06/21 13:03 09/06/21 14:00 Temperature 97.9 F Temperature Source Temporal Pulse Rate 79 79 80 Respiratory Rate 16 19 H 18 Blood Pressure 95/60 120/67 Blood Pressure Mean 71 84 Pulse Ox 94 98 Oxygen Delivery Method Room Air Nasal Cannula Oxygen Flow Rate (L/min) 2 Positive well nourished and well developed General Appearance ED: well developed HEENT Reports normocephalic and head/scalp atraumatic Eyes PERRL and EOMs intact bilaterally Neck supple Chest Wall inspection of chest normal and palpation of chest normal Resp normal respiratory effort and clear to auscultation bilaterally Cardio regular rate and regular rhythm Rate: tachycardic GI non-tender Auscultation: hypoactive bowel sounds Palpation: soft Back/Spine no CVA tenderness Back/Spine Narrative: Significant scoliosis noted to her back. No overlying skin change. Tenderness in the left thoracic paraspinal region. Tenderness to the left ribs with no crepitus. Extremity normal to inspection Neuro oriented x3 and no sensory deficits noted Sensorium / Orientation: alert Motor Exam: strength 5/5 throughout Psych Mood & Affect: anxious Skin no rashes or lesions noted MDM MDM MDM Narrative Medical decision making narrative: Patient was given 1 mg of Dilaudid for pain control. She was given an albuterol treatment as she states that she was due for this. Lab work obtained. Lab Data Labs: Laboratory Results - last 24 hr 09/06/21 09/06/21 12:50 12:50 WBC 8.2 RBC 4.19 L Hgb 12.9 Hct 41.4 MCV 98.8 MCH 30.8 MCHC 31.2 L RDW Std Deviation 48.2 H RDW Coeff of Kendy 13.4 Plt Count 240 MPV 10.5 Immature Gran % (Auto) 0.400 Neut % (Auto) 73.4 H Lymph % (Auto) 18.2 L [place] % (Auto) 6.5 Eos % (Auto) 1.3 Baso % (Auto) 0.2 Absolute Neuts (auto) 6.0 Absolute Lymphs (auto) 1.49 Nucleated RBC % 0 Sodium 137 Potassium 4.1 Chloride 101 Carbon Dioxide 31.0 Anion Gap 5 BUN 20 H Creatinine 0.64 Estim Creat Clear Calc 65.89 Est GFR (MDRD) Af Amer 119 Est GFR (MDRD) Non-Af 98 BUN/Creatinine Ratio 31.1 H Glucose 98 Calcium 8.7 Radiography Chest X-Ray - ED: 1 View, Read by ED Physician and Chronic Changes Diagnostic Testing: Clinical Impression(s) from Imaging Studies Chest X-Ray 09/06/21 13:15 IMPRESSION: Cardiomegaly. Lungs are clear. Electronically Signed: Josh Crooks MD at 13:48 EDT , EKG Initial EKG: Attestation: I personally reviewed and interpreted this EKG as follows: Interpretation: Sinus Rhythm (Sinus at 70 with no acute ischemia.) Treatment and Re-Evaluation Narrative: Lab work is unremarkable. Chest x-ray reveals chronic changes with scoliosis. No acute findings noted. EKG reveals no acute ischemia. I spoke with social work. The patient's insurance does not allow me to directly get her placed into a rehab or extended care facility. She will require at least observation overnight with PT and OT evaluation and a referral. I will speak with the hospitalist. Discharge Plan Triage Chief Complaint: Chest Other ED Provider: Nancy Burt Dx/Rx/DC Orders Clinical Impression: Intractable back pain, Declining functional status, Chest wall pain Prescriptions: No Action duloxetine 60 mg capsule,delayed release(DR/EC) 60 mg PO DAILY metoprolol succinate 25 mg tablet extended release 24 hr 25 mg PO DAILY albuterol sulfate 90 mcg/actuation HFA aerosol inhaler 2 puff INHALATION Q4H PRN PRN (Reason: Wheezing) Qty: 8.5 3RF furosemide [Lasix] 40 mg tablet 40 mg PO DAILY Qty: 90 3RF Breztri Aerosphere 160-9-4.8 mcg/actuation HFA aerosol inhaler 2 inh inhalation BID Qty: 10.7 6RF cholecalciferol (vitamin D3) 2,000 UNIT tablet 4,000 unit PO DAILY sennosides 1 TABLET tablet 1 tab PO DAILY PRN (Reason: Constipation) ferrous sulfate 325 MG tablet 325 mg PO DAILY melatonin 3 MG capsule 3 mg PO QHS cyanocobalamin (vitamin B-12) 500 mcg tablet 1,000 mcg PO DAILY@0800 multivitamin 1 EACH tablet 1 ea PO DAILY acetaminophen 325 MG tablet 650 mg PO Q6H calcium carbonate 500 MG tablet 300 mg PO DAILY ondansetron 4 MG tablet 4 mg PO Q4H PRN PRN (Reason: Nausea) biotin 5,000 MCG tablet, sublingual 5,000 mcg sublingual DAILY nutritional supplements 237 ML liquid 1,000 ml PO DAILY Rx Instructions: 50ML/HR X'S 10 HOURS isosorbide mononitrate 30 MG tablet extended release 24 hr 30 mg PO DAILY pantoprazole 40 MG tablet,delayed release (DR/EC) 40 mg PO BID gabapentin 300 MG capsule 600 mg PO TID aspirin 81 MG tablet,chewable 81 mg PO DAILY@0800 lisinopril 2.5 MG tablet 2.5 mg PO DAILY tizanidine 4 MG capsule 4 mg PO Q8H PRN PRN (Reason: Muscle Spasm) ascorbic acid (vitamin C) 500 MG tablet 500 mg PO DAILY atorvastatin 80 mg tablet 80 mg PO QHS oxycodone-acetaminophen [Percocet] 5-325 mg tablet 1 tab PO Q6H PRN (Reason: pain) 3 Days Qty: 10 0RF lidocaine [Lidoderm] 5 % adhesive patch,medicated 1 patch topical DAILY Qty: 15 0RF Rx Instructions: leave on most painful area for up to 12 hrs albuterol sulfate 1.25 mg/3 mL solution for nebulization 1.25 mg continuous nebulization Q6H PRN PRN (Reason: Sob &/Or Wheezing) Qty: 90 6RF Rx Instructions: J44.9 COPD ipratropium-albuterol 0.5 mg-3 mg(2.5 mg base)/3 mL solution for nebulization 3 ml inhalation Q4H PRN (Reason: shortness of breath or wheezing) Qty: 180 6RF Rx Instructions: J44.9 Primary Care Provider: Sarita Grey Referrals: Sarita Grey MD [Primary Care Provider] - Disposition Disposition: Acute Care Hospital [facility]
--- NOTE | 2021-09-06 16:50 | PCM.HP.STD ---
HPI - General General Date of Admission: 09/06/21 Date of Service: 09/06/21 Chief Complaint: pain. 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 Patient had an epidural in her back about 2 weeks ago was feeling slightly better but over the past few days it is progressively gotten worse and is more unbearable. Patient has been unable to care for herself as well. Patient was at pain management but they are concerned and sent the patient to the emergency room. In the emergency room, patient had a chest x-ray and received 1 mg of hydromorphone and the hospitalist was contacted for admission. Patient denies any falls. [facility] Medical History (Updated 09/06/21 @ 16:[address] Jerrell Cintron, ) Anxiety and depression Aspiration pneumonia Atherosclerotic heart disease of [place] coronary artery without angina pectoris COPD (chronic obstructive pulmonary disease) Duodenal ulcer, acute with obstruction Enterocutaneous fistula Gastroparesis GERD (gastroesophageal reflux disease) History of smoking Hypoxia Malnutrition of moderate degree Nonrheumatic mitral (valve) insufficiency Osteoporosis Paroxysmal atrial fibrillation Respiratory failure Scoliosis Home Medications cholecalciferol (vitamin D3) 50 mcg (2,000 unit) tablet 4,000 unit PO DAILY vitamin 05/24/18 [History Last Taken 09/05/21] ferrous sulfate 325 mg (65 mg iron) tablet 325 mg PO DAILY supplement 03/22/19 [History Last Taken 09/05/21] melatonin 3 mg capsule 3 mg PO QHS insomnia 03/22/19 [History Last Taken 09/05/21] sennosides 8.6 mg tablet 1 tab PO BID 03/22/19 [History Last Taken 09/06/21] biotin 5,000 mcg sublingual tablet 5,000 mcg sublingual DAILY health maintenance 08/23/19 [History Last Taken 09/06/21] calcium carbonate 500 mg calcium (1,250 mg) tablet 500 mg PO DAILY health maintenance 08/23/19 [History Last Taken 09/05/21] multivitamin 1 ea PO DAILY vitamin 08/23/19 [History Last Taken 09/05/21] nutritional supplements 0.06 gram-1.5 kcal/mL oral liquid 1,000 ml PO DAILY 08/23/19 [History Last Taken 09/05/21] ondansetron 4 mg disintegrating tablet 4 mg PO Q4H PRN PRN Nausea 08/23/19 [History Last Taken 09/06/21] ascorbic acid (vitamin C) 500 mg tablet 500 mg PO DAILY vitamin 03/28/20 [History Last Taken 09/06/21] gabapentin 300 mg capsule 600 mg PO TID pain 03/28/20 [History Last Taken 09/06/21] isosorbide mononitrate 30 mg tablet,extended release 24 hr 30 mg PO DAILY Heart 03/28/20 [History Last Taken 09/06/21] lisinopril 2.5 mg tablet 2.5 mg PO DAILY BP 03/28/20 [History Last Taken 09/06/21] pantoprazole 40 mg tablet,delayed release 40 mg PO BID stomach 03/28/20 [History Last Taken 09/06/21] tizanidine 4 mg capsule 4 mg PO Q8H PRN PRN Muscle Spasm 03/28/20 [History Last Taken 09/06/21] duloxetine 60 mg capsule,delayed release 60 mg PO DAILY 04/19/20 [History Last Taken 09/06/21] atorvastatin 80 mg tablet 80 mg PO QHS cholesterol 04/21/20 [History Last Taken 09/05/21] metoprolol succinate 25 mg tablet,extended release 24 hr 25 mg PO DAILY 04/21/20 [History Last Taken 09/05/21] albuterol sulfate 90 mcg/actuation aerosol inhaler 2 puff inhalation Q4H PRN PRN Wheezing #8.5 grams 01/20/21 [Rx Last Taken 09/05/21] cyanocobalamin (vitamin B-12) 500 mcg tablet 1,000 mcg PO DAILY@0800 vitamin 01/20/21 [History Last Taken 09/06/21] oxycodone-acetaminophen 5 mg-325 mg tablet (Percocet) 1 tab PO Q6H PRN pain 3 days #10 tabs 02/28/21 [Rx Last Taken 09/06/21] furosemide 40 mg tablet (Lasix) 40 mg PO DAILY #90 tabs 07/05/21 [Rx Last Taken 09/06/21] ipratropium 0.5 mg-albuterol 3 mg (2.5 mg base)/3 mL nebulization soln 3 ml inhalation Q4H PRN shortness of breath or wheezing #180 mL 07/19/21 [Rx Last Taken 09/06/21] budesonide 160 mcg-glycopyr 9 mcg-formot 4.8 mcg/actuation HFA inhaler (Breztri Aerosphere) 2 inh inhalation BID #10.7 grams 08/10/21 [Rx Last Taken 09/06/21] lidocaine 5 % topical patch (Lidoderm) 1 patch topical DAILY #15 ea 08/28/21 [Rx Last Taken Unknown] aspirin 81 mg tablet,delayed release 81 mg PO DAILY health 09/06/21 [History Last Taken 09/06/21] Allergy/AdvReac Type Severity Reaction Status Date / Time dicyclomine HCl [From Bentyl] Allergy Hives Verified 09/06/21 12:11 Family History (Updated 09/06/21 @ 16:[address] Jerrell Cintron DO) Father Myocardial infarction Son Esophageal cancer Other Scoliosis Surgical History History of exploratory laparotomy (12/29/19) History of jejunostomy History of jejunostomy tube placement (12/29/19) History of left heart catheterization (02/02/20) History of partial gastrectomy History of transesophageal echocardiography (EDGAR) (02/12/20) Social History household members: none housing: apartment Smoking Status: Former smoker quit date: 03/05/05 details: No alcohol consumption substance use type: does not use ROS ROS Narrative Patient has occasional paresthesias in extremities. Denies any saddle anesthesia. Has lost weight recently. All review of systems were negative except as mentioned above in the history of present illness and the other review of systems. Vital Signs Vital Signs Vital Signs: 09/06/21 12:09 09/06/21 13:03 09/06/21 14:00 Temperature 36.6 C Temperature Source Temporal Pulse Rate 79 79 80 Respiratory Rate 16 19 H 18 Blood Pressure 95/60 120/67 Blood Pressure Mean 71 84 Pulse Ox 94 98 Oxygen Delivery Method Room Air Nasal Cannula Oxygen Flow Rate (L/min) 2 09/06/21 15:00 09/06/21 15:58 Temperature 36.7 C Temperature Source Temporal Pulse Rate 76 72 Respiratory Rate 15 18 Blood Pressure 105/66 113/76 Blood Pressure Mean 79 88 Pulse Ox 95 97 Oxygen Delivery Method Room Air Room Air Oxygen Flow Rate (L/min) Weight Weight: 47.627 kg Body Mass Index (BMI) 22.7 Physical Exam Const alert and no apparent distress Constitutional Narrative: Cachectic General Appearance: cooperative HEENT normocephalic Resp normal respiratory effort, no retractions, no use of accessory muscles and clear to auscultation bilaterally Cardio regular rate, regular rhythm, S1 normal heart sound and S2 normal heart sound GI normal to inspection, nondistended, normoactive bowel sounds Extremity normal to inspection Skin Skin Narrative: No rashes over the left side of the rib cage to suggest shingles. Psych affect normal Results Lab / Micro Data Attestation: I reviewed the patient's lab results. Result Diagrams: 09/06/21 12:50 09/06/21 12:50 Labs: Laboratory Results - last 24 hr 09/06/21 12:50: WBC 8.2, RBC 4.19 L, Hgb 12.9, Hct 41.4, MCV 98.8, MCH 30.8, MCHC 31.2 L, RDW Std Deviation 48.2 H, RDW Coeff of Kendy 13.4, Plt Count 240, MPV 10.5, Immature Gran % (Auto) 0.400, Neut % (Auto) 73.4 H, Lymph % (Auto) 18.2 L, [place] % (Auto) 6.5, Eos % (Auto) 1.3, Baso % (Auto) 0.2, Absolute Neuts (auto) 6.0, Absolute Lymphs (auto) 1.49, Nucleated RBC % 0 09/06/21 12:50: Sodium 137, Potassium 4.1, Chloride 101, Carbon Dioxide 31.0, Anion Gap 5, BUN 20 H, Creatinine 0.64, Estim Creat Clear Calc 65.89, Est GFR (MDRD) Af Amer 119, Est GFR (MDRD) Non-Af 98, BUN/Creatinine Ratio 31.1 H, Glucose 98, Calcium 8.7 Radiology Impression Chest X-Ray 09/06/21 13:15 IMPRESSION: Cardiomegaly. Lungs are clear. Electronically Signed: Josh Crooks MD at 13:48 EDT , Assessment & Plan Assessment/Plan (1) Intractable back pain: PLAN: Pain has been ongoing but more intense lately. Did not begin immediately after the epidural that she had. I doubt hematoma or abscess but will check an MRI of anatomy. Patient does have prominent scoliosis. She denies any falls so that seems to lead away from this being a compression fracture. Check an MRI Change pain medications: Fentanyl patch, as needed oxycodone, scheduled acetaminophen. May consider NSAIDs as well. (2) Declining functional status: PLAN: PT OT evaluate and treat. Patient may need senior living facility when she is ready for discharge. (3) Protein calorie malnutrition: QUALIFIERS: Protein-calorie malnutrition severity: moderate Qualified Code(s): E44.0 - Moderate protein-calorie malnutrition PLAN: Patient has lost weight recently that she describes unintentional. Consult nutrition for recommendations Start supplements PLAN: Plan VTE prophylaxis: Not indicated given observation status. Charges/Coding Visit Charges OBSV E&M: 63928 Initial observation care L2
[2021-09-06] MEDS: oxyCODONE 5 MG Tablet 10 MG PO ×2 (17:37→22:08)
[2021-09-06] MEDS: tiZANidine HCl 2 MG Tablet 4 MG PO (17:38)
[2021-09-06] MEDS: Budesonide Respules 0.5 MG/2 ML AMPUL.NEB. INHALATION (19:01)
[2021-09-06] MEDS: fentaNYL 25 MCG Patch TD (20:02)
[2021-09-06] MEDS: Gabapentin 300 MG Capsule 600 MG PO (22:08)
[2021-09-06] MEDS: Acetaminophen 500 MG Tablet 1000 MG PO (22:09)
[2021-09-06] MEDS: Atorvastatin Calcium 80 MG Tablet PO (22:09)
[2021-09-06] MEDS: Pantoprazole Sodium 40 MG Tablet PO (22:09)
[2021-09-06] MEDS: MELATONIN 3 MG TABLET PO (22:10)
[2021-09-06] MEDS: Ondansetron ODT 4 MG Tablet PO (22:16)
[2021-09-07] VITALS (8 sets, daily range): BP systolic 96–120; BP diastolic 60–70; PULSE 67–92; RESP 16–20; TEMP 36.6–36.7; O2SAT 93–97
[2021-09-07] MEDS: tiZANidine HCl 2 MG Tablet 4 MG PO (03:39)
[2021-09-07] MEDS: oxyCODONE 5 MG Tablet 10 MG PO ×4 (03:39→18:56)
[2021-09-07] MEDS: Acetaminophen 500 MG Tablet 1000 MG PO ×3 (05:05→22:06)
[2021-09-07] MEDS: Gabapentin 300 MG Capsule 600 MG PO ×3 (05:05→22:06)
[2021-09-07] MEDS: Ondansetron ODT 4 MG Tablet PO ×2 (05:09→13:22)
[2021-09-07] MEDS: Budesonide Respules 0.5 MG/2 ML AMPUL.NEB. INHALATION ×2 (07:54→19:43)
--- NOTE | 2021-09-07 08:04 | PCM.PN.HOSP ---
Subjective Subjective still with back and chest pain on the left--no improvement. Objective Data Objective Data Vital Signs: Vital Signs Temp Pulse Resp BP Pulse Ox O2 Del Method O2 Flow Rate 36.7 C 70 18 109/60 95 Nasal Cannula 3 09/07/21 03:45 09/07/21 03:45 09/07/21 03:45 09/07/21 03:45 09/07/21 03:45 09/07/21 04:00 09/07/21 03:45 Oxygen Flow Rate (L/min) 3 Oxygen Delivery Method Nasal Cannula Weight: 48.563 kg Body Mass Index (BMI) 23.1 Intake & Output: Intake and Output for Last 24 Hours 09/05/21 09/06/21 09/07/21 23:59 23:59 23:59 Intake Total 250 / 250 Balance 250 / 250 Lab / Micro Data Result Diagrams: 09/06/21 12:50 09/06/21 12:50 Labs: Laboratory Results - last 24 hr 09/06/21 12:50: WBC 8.2, RBC 4.19 L, Hgb 12.9, Hct 41.4, MCV 98.8, MCH 30.8, MCHC 31.2 L, RDW Std Deviation 48.2 H, RDW Coeff of Kendy 13.4, Plt Count 240, MPV 10.5, Immature Gran % (Auto) 0.400, Neut % (Auto) 73.4 H, Lymph % (Auto) 18.2 L, [place] % (Auto) 6.5, Eos % (Auto) 1.3, Baso % (Auto) 0.2, Absolute Neuts (auto) 6.0, Absolute Lymphs (auto) 1.49, Nucleated RBC % 0 09/06/21 12:50: Sodium 137, Potassium 4.1, Chloride 101, Carbon Dioxide 31.0, Anion Gap 5, BUN 20 H, Creatinine 0.64, Estim Creat Clear Calc 65.89, Est GFR (MDRD) Af Amer 119, Est GFR (MDRD) Non-Af 98, BUN/Creatinine Ratio 31.1 H, Glucose 98, Calcium 8.7 Radiography Diagnostic Testing: Radiology Impression Chest X-Ray 09/06/21 13:15 IMPRESSION: Cardiomegaly. Lungs are clear. Electronically Signed: Josh Crooks MD at 13:48 EDT , Physical Exam Const alert and no apparent distress HEENT head/scalp atraumatic and moist oral mucous membranes Neuro Sensorium / Orientation: awake and alert Psych affect normal Assessment & Plan Assessment/Plan (1) Intractable back pain: PLAN: Pain has been ongoing but more intense lately. Did not begin immediately after the epidural that she recenlty had. I doubt hematoma or abscess but will check an MRI of anatomy. Patient does have prominent scoliosis. She denies any falls so that seems to lead away from this being a compression fracture. Check an MRI Change pain medications: Fentanyl patch, as needed oxycodone, scheduled acetaminophen. May consider NSAIDs as well. (2) Declining functional status: PLAN: PT OT evaluate and treat. Patient may need [facility] facility when she is ready for discharge. (3) Protein calorie malnutrition: QUALIFIERS: Protein-calorie malnutrition severity: moderate Qualified Code(s): E44.0 - Moderate protein-calorie malnutrition PLAN: Patient has lost weight recently that she describes unintentional. Consult nutrition for recommendations Start supplements PLAN: Plan VTE prophylaxis: Not indicated given observation status. Charges/Coding Visit Charges Inpatient E&M: 85536 [facility] L1
[2021-09-07] MEDS: Lidocaine 5% Patch 1 PATCH TOPICAL (08:14)
[2021-09-07] MEDS: Ascorbic Acid 500 MG Tablet PO (08:14)
[2021-09-07] MEDS: Pantoprazole Sodium 40 MG Tablet PO ×2 (08:14→22:07)
[2021-09-07] MEDS: Aspirin E.C. 81 MG Tablet PO (08:14)
[2021-09-07] MEDS: DULoxetine Hcl 60 MG Capsule PO (08:15)
--- NOTE | 2021-09-07 11:50 | CASEMGMT ---
DARNELL VOGEL Face to Face with patient for initial transition planning/care coordination assessment. DARNELL VOGEL introduced self and role at [facility]. Patient sitting in chair, alert and oriented. Patient willing to participate in assessment and is able to answer all questions appropriately. Care providers, pharmacy, and demographics verified. Patient wishes to discharge to SNF as recommended per therapy. Patient was provided a list of SNf providers including quality and resource use data and consistent with the patient?s preferred geographic region, medical needs, and insurance network. The patient?s preferred provider is Joslyn Manzo. Patient states he has no further needs or concerns at this time. SW updated regarding request for SNF and patient's preferred choice of [facility]. CM to follow for discharge planning needs that may arise. PCP: John Specialists: LEANNE Sidhu [facility] Prescription Benefit: yes Living Will/HPOA: yes, son Carlos Burrell LNOK: son, sister Living Arrangements: Patient lives alone in an single story home with 3 steps and railing to enter the home. Patient states she is independent Transportation: self, son DME/HHC: patient states she has shower chair, raised toilet, hospital bed, grab bars, walker, and oxygen at 3lpm through [employer] with portable tanks. DARNELL VOGEL called [employer] and confirmed oxygen order for 2lpm continuously and 4lpm with exertion. Patient states she has been to [facility] previously. Disposition Plan: Patient to discharge to [facility] pending acceptance and precert. Chelsea MODI, RN, CM
--- NOTE | 2021-09-07 12:41 | CASEMGMT ---
Discharge Field Mechanic/Site Lead Bren Discharge Field Mechanic/Site Lead call Mira at [facility]. Beds are available. Bren faxed over referral. Bren Gonzalez Discharge Field Mechanic/Site Lead
--- NOTE | 2021-09-07 13:35 | RAD.NOTE ---
25 mcg fentanyl patch removed at this time with DARNELL Koroma as witness. Patch was placed in RX destroyer and waste completed in accudose.
--- NOTE | 2021-09-07 13:39 | NURSING ---
Patient off floor to MRI
--- NOTE | 2021-09-07 14:03 | NURSING ---
MRI called and said that patient was not able to tolerate the scan d/t pain. She was refusing to continue with scan. She is on her way back to the floor. Dr. Cintron was notified of same.
--- NOTE | 2021-09-07 14:51 | CASEMGMT ---
Addendum entered by Yahaira Swift 09/07/21 15:22: Social Work SW met w/pt to check on history of mental health. Pt states she has never needed psych placement, has never needed case management for mental health. Pt does have anxiety and depression, and takes buspar, pt states this helps. SW let pt know we are still waiting to hear back from [facility] on if they can take pt. SW will continue to follow, will complete PAS/RR closer to discharge. SALEEM Ortiz Original Note: Social Work SW called Mira at [facility], the referral was not received. SW will re-send to Mira at [facility]. SALEEM Ortiz
--- NOTE | 2021-09-07 15:05 | CASEMGMT ---
DARNELL VOGEL NOTE: Intro role of CM to patient and REES form explained re: Observation status for treatment of intractable. Explained hospitalization will be paid per her insurance policy for Outpatient billing and condition will continue to be evaluated for Inpt necessity. Also let pt know that [facility] sends paper in the billing packet with their phone number if questions arise. Pt verbalizes understanding and does not have further questions. Form signed, copy made and placed in chart, and original given to pt. Armin MODI RN CM
[2021-09-07] MEDS: fentaNYL 25 MCG Patch TD (15:21)
[2021-09-07] MEDS: Atorvastatin Calcium 80 MG Tablet PO (22:06)
[2021-09-07] MEDS: MELATONIN 3 MG TABLET PO (22:07)
[2021-09-08] VITALS (7 sets, daily range): BP systolic 95–118; BP diastolic 56–70; PULSE 68–77; RESP 17–20; TEMP 36.6–36.9; O2SAT 93–98
[2021-09-08] MEDS: tiZANidine HCl 2 MG Tablet 4 MG PO ×3 (01:53→21:43)
[2021-09-08] MEDS: oxyCODONE 5 MG Tablet 10 MG PO ×5 (01:53→21:43)
[2021-09-08] MEDS: Ondansetron ODT 4 MG Tablet PO ×4 (01:53→21:42)
[2021-09-08] MEDS: Acetaminophen 500 MG Tablet 1000 MG PO ×3 (05:38→21:27)
[2021-09-08] MEDS: Gabapentin 300 MG Capsule 600 MG PO ×3 (05:38→21:43)
--- NOTE | 2021-09-08 05:55 | CT_ITS ---
INDICATION: back pain EXAMINATION: CT THORACIC SPINE - CT Spine Thoracic W/ Contrast Injection TECHNIQUE: Helically acquired images were obtained of the thoracic spine. 2D reformats were reviewed. A radiation dose optimization technique was used for this scan. IV Contrast dosage and agent: None. COMPARISON: None. FINDINGS: VERTEBRAE: Demineralization of the thoracic vertebrae. Mild loss of height of the T6 and T7 vertebrae. VERTEBRAL ALIGNMENT: Scoliosis of the thoracic spine. Levoscoliosis of the lumbar spine. Increased kyphosis. DISCS: Multilevel disc space narrowing. VISUALIZED THORAX: Coronary artery calcification. Atherosclerotic plaque of the thoracic aorta. Patchy infiltrates in both lower lobes more prominent at the left lung base. CT/Spine Thoracic WITH Contrast IMPRESSION: Diffuse demineralization of the thoracic vertebrae with loss of height of mid dorsal vertebrae. Dextroscoliosis of the thoracic spine and levoscoliosis of the lumbar spine. Patchy bibasilar pulmonary infiltrates. Electronically Signed: Josh Crooks MD at 9:14 EDT ,
[2021-09-08] MEDS: Ipratropium/Albuterol Sulfate 3 ML AMPUL.NEB INHALATION (07:09)
[2021-09-08] MEDS: Budesonide Respules 0.5 MG/2 ML AMPUL.NEB. INHALATION ×2 (07:09→19:35)
--- NOTE | 2021-09-08 07:18 | PCM.PN.HOSP ---
Subjective Subjective Will with back pain. Minimal relief with current treatment. Objective Data Objective Data Vital Signs: Vital Signs Temp Pulse Resp BP Pulse Ox O2 Del Method O2 Flow Rate 36.6 C 68 18 95/61 96 Nasal Cannula 3 09/08/21 02:28 09/08/21 02:28 09/08/21 02:28 09/08/21 02:28 09/08/21 02:28 09/08/21 06:00 09/08/21 06:00 Oxygen Flow Rate (L/min) 3 Oxygen Delivery Method Nasal Cannula Weight: 48.9 kg Body Mass Index (BMI) 23.1 Intake & Output: Intake and Output for Last 24 Hours 09/06/21 09/07/21 09/08/21 23:59 23:59 23:59 Intake Total 250 / 250 400 / 400 Balance 250 / 250 400 / 400 Medical Nutrition Assessment Dietitian: Malnutrition Criteria Met Start: 09/07/21 10:57 Freq: Status: Active Protocol: Document 09/07/21 10:38 AG (Rec: 09/07/21 10:57 [id number]) Nutrition Malnutrition Evidence of Malnutrition Exists Yes Malnutrition (moderate): Acute Illness/Injury Evidenced By Suboptimal Energy Intake ( Moderate),Weight Loss (Severe) ,Physical Changes (Moderate) Clinical Problem Acute Disease or Injury Related Malnutrition Etiology moderate, acute malnutrition related to inadequate energy intake with suspected malfunctioning g-tube Signs/Symptoms as evidenced by estimated PO/ Enteral intake meeting <75% of estimated energy needs >7 days; unintentional wt loss of 12.9#/11% x 2 weeks; mild muscle wasting/fat loss in upper extremities, clavicles, temples, and orbital areas per physical exam Status Active Problem Recommendation Dietitian Recommendations/Changes 1) Continue regular diet as tolerated; will cut up meats at pt request d/t poor dentition. Do not anticipate PO intake to provide a significant amount of nutrition at this time. 2) Will d/c Ensure Enlive- pt refusing. 3) Via J-tube: Osmolite 1.2 at 50mL/hour continuously w/ 100mL H2O flush every 4 hours to provide 1440 calories, 66.6 g protein, and 1584mL total fluid/day. As ordered, enteral nutrition meets >75% of estimated protein/calorie needs. 4) Daily wts. 5) May need further evaluation of jtube if signs of malfunctioning occur. 6) Follows w/ dietitian at [facility] ; likely ok to resume home enteral nutrition as previously prescribed upon discharge from [facility]. Lab / Micro Data Result Diagrams: 09/06/21 12:50 09/06/21 12:50 Physical Exam Const alert and no apparent distress HEENT head/scalp atraumatic Resp normal respiratory effort, no retractions and no use of accessory muscles Cardio regular rate, regular rhythm, S1 normal heart sound and S2 normal heart sound GI normal to inspection, nondistended, normoactive bowel sounds and soft to palpation Assessment & Plan Assessment/Plan (1) Intractable back pain: PLAN: Pain has been ongoing but more intense lately. Did not begin immediately after the epidural that she recenlty had. I doubt hematoma or abscess but will check an MRI of anatomy. Patient does have prominent scoliosis. She denies any falls so that seems to lead away from this being a compression fracture. Change pain medications: Fentanyl patch, as needed oxycodone, scheduled acetaminophen. May consider NSAIDs as well. Secondary to vertebral compression fractures as well as patient's chronic pain Increase fentanyl from 25-50 and add scheduled about ketorolac for the next 24 hours. (2) Declining functional status: PLAN: PT OT evaluate and treat. Patient may need jail facility when she is ready for discharge. (3) Protein calorie malnutrition: QUALIFIERS: Protein-calorie malnutrition severity: moderate Qualified Code(s): E44.0 - Moderate protein-calorie malnutrition PLAN: Patient has lost weight recently that she describes unintentional. Consult nutrition for recommendations Start supplements (4) Compression fracture of body of thoracic vertebra: PLAN: Complicated by the patient's scoliosis. Check 25-hydroxy vitamin D level. PLAN: Plan VTE prophylaxis: Not indicated given observation status. Charges/Coding Visit Charges OBSV E&M: 69283 Initial observation care L2
[2021-09-08] MEDS: Ascorbic Acid 500 MG Tablet PO (08:42)
[2021-09-08] MEDS: DULoxetine Hcl 60 MG Capsule PO (08:42)
[2021-09-08] MEDS: Aspirin E.C. 81 MG Tablet PO (08:42)
[2021-09-08] MEDS: Lidocaine 5% Patch 1 PATCH TOPICAL (08:43)
[2021-09-08] MEDS: Pantoprazole Sodium 40 MG Tablet PO ×2 (08:43→21:27)
[2021-09-08] MEDS: Glycerin/Hypromellose/PEG400 15 ml Bottle 2 DRP EACH EYE (08:59)
--- NOTE | 2021-09-08 09:30 | CASEMGMT ---
Social Work DIDI spoke w/Nancy in admissions at [facility], she inquired about pt's tube feed, states they would need to order it and are not sure when they would have it. DIDI spoke w/pt, asked her about her tube feed. She states she can have some brought in from home if needed. She also asked about the flush bags they use, she states she has double bags she uses and can have someone bring those in as well. DIDI explained will let [facility] know, they will likely start precert today but it is not anticipated they will get precert until tomorrow. Pt states understanding. Pt then went on to talk about various losses over the last four years, support given. DIDI spoke w/Nancy at [facility], let her know that pt can bring in some formula and the double flush bags to hold her over until they can order. Nancy states they can order today and she will start precert. DIDI also asked if they have counseling services for patients as pt may benefit from grief counseling. Nancy states they do offer this. This will be put on the discharge instructions to have pt seen at [facility] for counseling. Plan: [facility] skilled, pending precert. DIDI will continue to follow. SALEEM Ortiz
[2021-09-08] MEDS: busPIRone 5 MG Tablet PO ×2 (12:25→21:26)
[2021-09-08 15:57] LABS: Vitamin D,25 Hydroxy 54.8 ng/mL
[2021-09-08] MEDS: 0.9% Saline Lock 10 ML Syringe IV (17:17)
[2021-09-08] MEDS: Ketorolac 15 MG/ML Vial IV (17:17)
[2021-09-08] MEDS: Atorvastatin Calcium 80 MG Tablet PO (21:26)
[2021-09-08] MEDS: MELATONIN 3 MG TABLET PO (21:26)
[2021-09-09] VITALS (7 sets, daily range): BP systolic 103–109; BP diastolic 55–62; PULSE 65–85; RESP 16–18; TEMP 36.6–36.8; O2SAT 94–96
[2021-09-09] MEDS: Ketorolac 15 MG/ML Vial IV ×3 (00:32→12:45)
[2021-09-09] MEDS: 0.9% Saline Lock 10 ML Syringe IV ×2 (00:33→06:03)
[2021-09-09] MEDS: Gabapentin 300 MG Capsule 600 MG PO ×2 (06:03→14:30)
[2021-09-09] MEDS: busPIRone 5 MG Tablet PO ×2 (06:03→12:45)
[2021-09-09] MEDS: Ondansetron ODT 4 MG Tablet PO ×2 (06:03→14:30)
[2021-09-09] MEDS: Acetaminophen 500 MG Tablet 1000 MG PO ×2 (06:04→14:30)
[2021-09-09] MEDS: oxyCODONE 5 MG Tablet 10 MG PO ×2 (06:04→09:58)
[2021-09-09] MEDS: Budesonide Respules 0.5 MG/2 ML AMPUL.NEB. INHALATION (07:30)
--- NOTE | 2021-09-09 07:48 | PN.HOSP_ITS ---
Subjective Subjective Still with pain, but improved. Objective Data Objective Data Vital Signs: Vital Signs Temp Pulse Resp BP Pulse Ox O2 Del Method O2 Flow Rate 36.6 C 68 16 109/56 L 94 Nasal Cannula 3 09/09/21 06:20 09/09/21 06:20 09/09/21 06:20 09/09/21 06:20 09/09/21 06:20 09/09/21 06:20 09/09/21 06:20 Oxygen Flow Rate (L/min) 3 Oxygen Delivery Method Nasal Cannula Weight: 48.9 kg Body Mass Index (BMI) 23.1 Intake & Output: Intake and Output for Last 24 Hours 09/07/21 09/08/21 09/09/21 23:59 23:59 23:59 Intake Total 400 / 400 1456 / 1456 1203.33 / 1203.33 Balance 400 / 400 1456 / 1456 1203.33 / 1203.33 Medical Nutrition Assessment Dietitian: Malnutrition Criteria Met Start: 09/07/21 10:57 Freq: Status: Active Protocol: Document 09/07/21 10:38 AG (Rec: 09/07/21 10:57 [id number]) Nutrition Malnutrition Evidence of Malnutrition Exists Yes Malnutrition (moderate): Acute Illness/Injury Evidenced By Suboptimal Energy Intake ( Moderate),Weight Loss (Severe) ,Physical Changes (Moderate) Clinical Problem Acute Disease or Injury Related Malnutrition Etiology moderate, acute malnutrition related to inadequate energy intake with suspected malfunctioning g-tube Signs/Symptoms as evidenced by estimated PO/ Enteral intake meeting <75% of estimated energy needs >7 days; unintentional wt loss of 12.9#/11% x 2 weeks; mild muscle wasting/fat loss in upper extremities, clavicles, temples, and orbital areas per physical exam Status Active Problem Recommendation Dietitian Recommendations/Changes 1) Continue regular diet as tolerated; will cut up meats at pt request d/t poor dentition. Do not anticipate PO intake to provide a significant amount of nutrition at this time. 2) Will d/c Ensure Enlive- pt refusing. 3) Via J-tube: Osmolite 1.2 at 50mL/hour continuously w/ 100mL H2O flush every 4 hours to provide 1440 calories, 66.6 g protein, and 1584mL total fluid/day. As ordered, enteral nutrition meets >75% of estimated protein/calorie needs. 4) Daily wts. 5) May need further evaluation of jtube if signs of malfunctioning occur. 6) Follows w/ dietitian at [facility] ; likely ok to resume home enteral nutrition as previously prescribed upon discharge from [facility]. Lab / Micro Data Result Diagrams: 09/06/21 12:50 09/06/21 12:50 Labs: Laboratory Results - last 24 hr 09/08/21 14:50: Vitamin D 25-Hydroxy 54.8 Radiography Diagnostic Testing: Radiology Impression Thoracic Spine CT 09/08/21 05:55 IMPRESSION: Diffuse demineralization of the thoracic vertebrae with loss of height of mid dorsal vertebrae. Dextroscoliosis of the thoracic spine and levoscoliosis of the lumbar spine. Patchy bibasilar pulmonary infiltrates. Electronically Signed: Josh Crooks MD at 9:14 EDT , Physical Exam Const alert and no apparent distress Assessment & Plan Assessment/Plan (1) Intractable back pain: PLAN: Pain has been ongoing but more intense lately. Did not begin immediately after the epidural that she recenlty had. I doubt hematoma or abscess but will check an MRI of anatomy. Patient does have prominent scoliosis. She denies any falls so that seems to lead away from this being a compression fracture. Change pain medications: Fentanyl patch, as needed oxycodone, scheduled acetaminophen. May consider NSAIDs as well. Secondary to vertebral compression fractures as well as patient's chronic pain Increase fentanyl from 25-50 and add scheduled about ketorolac for the next 24 hours. (2) Declining functional status: PLAN: PT OT evaluate and treat. intermediate facility when she is ready for discharge. Plan for SNF today. (3) Protein calorie malnutrition: QUALIFIERS: Protein-calorie malnutrition severity: moderate Qualified Code(s): E44.0 - Moderate protein-calorie malnutrition PLAN: Patient has lost weight recently that she describes unintentional. Consult nutrition for recommendations Start supplements (4) Compression fracture of body of thoracic vertebra: PLAN: Complicated by the patient's scoliosis. 25-hydroxy vitamin D level 54.8. Vitamin D replacment not indicated. PLAN: Plan VTE prophylaxis: Not indicated given observation status. Charges/Coding Visit Charges OBSV E&M: 56927 Subsequent observation care L2
[2021-09-09] MEDS: Isosorbide Mononitrate 30 MG Tablet PO (09:57)
[2021-09-09] MEDS: Aspirin E.C. 81 MG Tablet PO (09:57)
[2021-09-09] MEDS: DULoxetine Hcl 60 MG Capsule PO (09:57)
[2021-09-09] MEDS: Menthol/Lanolin/Calamine/Znox 113 GM Tube 1 APPLIC TOPICAL (09:59)
[2021-09-09] MEDS: Ascorbic Acid 500 MG Tablet PO (09:59)
[2021-09-09] MEDS: Furosemide 40 MG Tablet PO (10:00)
[2021-09-09] MEDS: Lidocaine 5% Patch 1 PATCH TOPICAL (10:00)
[2021-09-09] MEDS: Pantoprazole Sodium 40 MG Tablet PO (10:01)
[2021-09-09] MEDS: Lisinopril 2.5 MG Tablet PO (10:02)
[2021-09-09] MEDS: Metoprolol(XL)Succ 25 MG Tablet PO (10:02)
--- NOTE | 2021-09-09 12:23 | PCM.TXEXTCAR ---
Diet Diet Order/Speech Therapy: 09/06/21 17:05 Diet: Regular - General Food consistency:: Regular Liquid Consistency:: Regular/Thin Diet Comments: please cut up meats into small pieces Routine Orders/Code Status Code Status: Full Code Therapies Weight Bearing: Full weight bearing Physical Therapy: Eval and Treat Occupational Therapy: Eval and Treat Problem/Diagnosis (1) Intractable back pain: Status: Acute Code(s): M54.9 - Dorsalgia, unspecified Plan: Pain has been ongoing but more intense lately. Did not begin immediately after the epidural that she recenlty had. I doubt hematoma or abscess but will check an MRI of anatomy. Patient does have prominent scoliosis. She denies any falls so that seems to lead away from this being a compression fracture. (2) Declining functional status: Status: Acute Code(s): R53.81 - Other malaise Plan: PT OT evaluate and treat. half-way facility when she is ready for discharge. Plan for SNF today. (3) Protein calorie malnutrition: Status: Acute Code(s): E46 - Unspecified protein-calorie malnutrition Plan: Patient has lost weight recently that she describes unintentional. Consult nutrition for recommendations Start supplements (4) Compression fracture of body of thoracic vertebra: Status: Acute Code(s): S22.000A - Wedge compression fracture of unspecified thoracic vertebra, initial encounter for closed fracture Plan: Complicated by the patient's scoliosis. 25-hydroxy vitamin D level 54.8. Vitamin D replacment not indicated. Plan VTE prophylaxis: Not indicated given observation status. Allergies/Procedures Done in Hospital Allergies dicyclomine HCl [From Bentyl] Allergy (Verified 09/06/21 12:11) Hives Procedures: None Type of Care/Length of Stay Estimated LOS: Convalescent Care Less Than 30 days Type of Care Needed: Skilled Rehab Potential: Good Prognosis: Good Additional Orders/Day of Discharge Additional Orders: Please assess pt for grief counseling at SNF Day of Discharge: 09/09/21 Dietary and Speech Recommendations Dietitian Recommendations/Changes: 1) Continue regular diet as tolerated; will cut up meats at pt request d/t poor dentition. Do not anticipate PO intake to provide a significant amount of nutrition at this time. 2) Via J-tube: Osmolite 1.2 at 50mL/hour continuously w/ 100mL H2O flush every 4 hours to provide 1440 calories, 66.6 g protein, and 1584mL total fluid/day. As ordered, enteral nutrition meets >75% of estimated protein/calorie needs. 3) Daily wts. Discharge Plan Admission Admit Date/Time: 09/06/21 16:43 Primary Reason for Your Visit: intractable back pain Attending Provider: Jerrell Cintron Primary Care Provider: Sarita Grey Discharge Orders/Prescriptions Prescriptions: New fentanyl 50 mcg/hr Patch 72 Hour 50 mcg transdermal Q3D 3 Days Qty: 1 0RF acetaminophen 500 mg Tablet 1,000 mg PO Q8 Qty: 0 0RF Artificial Tears(as-[id number]) 1-0.2-0.2 % Drops 2 drp EACH EYE Q1H PRN (Reason: DRY EYES) Qty: 0 0RF lidocaine [Lidoderm] 5 % adhesive patch,medicated 1 patch topical DAILY Qty: 15 0RF Rx Instructions: leave on most painful area for up to 12 hrs ibuprofen 400 mg tablet 400 mg PO Q6H PRN (Reason: fever or pain) Qty: 14 0RF oxycodone 5 mg Tablet 10 mg PO Q6H PRN (Reason: pain (scale score 7-10)) 3 Days Qty: 12 0RF Continued duloxetine 60 mg capsule,delayed release(DR/EC) 60 mg PO DAILY metoprolol succinate 25 mg tablet extended release 24 hr 25 mg PO DAILY albuterol sulfate 90 mcg/actuation HFA aerosol inhaler 2 puff INHALATION Q4H PRN PRN (Reason: Wheezing) Qty: 8.5 3RF furosemide [Lasix] 40 mg tablet 40 mg PO DAILY Qty: 90 3RF Breztri Aerosphere 160-9-4.8 mcg/actuation HFA aerosol inhaler 2 inh inhalation BID Qty: 10.7 6RF cholecalciferol (vitamin D3) 2,000 UNIT tablet 4,000 unit PO DAILY sennosides 1 TABLET tablet 1 tab PO BID ferrous sulfate 325 MG tablet 325 mg PO DAILY melatonin 3 MG capsule 3 mg PO QHS cyanocobalamin (vitamin B-12) 500 mcg tablet 1,000 mcg PO DAILY@0800 multivitamin 1 EACH tablet 1 ea PO DAILY calcium carbonate 500 MG tablet 500 mg PO DAILY ondansetron 4 MG tablet 4 mg PO Q4H PRN PRN (Reason: Nausea) biotin 5,000 MCG tablet, sublingual 5,000 mcg sublingual DAILY nutritional supplements 237 ML liquid 1,000 ml PO DAILY Label Comments: pt states they are on 50 ml/hr osmelite 1.5 around the clock with 100 ml flush q 4hrs Rx Instructions: 50ML/HR X'S 10 HOURS isosorbide mononitrate 30 MG tablet extended release 24 hr 30 mg PO DAILY pantoprazole 40 MG tablet,delayed release (DR/EC) 40 mg PO BID gabapentin 300 MG capsule 600 mg PO TID lisinopril 2.5 MG tablet 2.5 mg PO DAILY tizanidine 4 MG capsule 4 mg PO Q8H PRN PRN (Reason: Muscle Spasm) ascorbic acid (vitamin C) 500 MG tablet 500 mg PO DAILY atorvastatin 80 mg tablet 80 mg PO QHS lidocaine [Lidoderm] 5 % adhesive patch,medicated 1 patch topical DAILY Qty: 15 0RF Rx Instructions: leave on most painful area for up to 12 hrs aspirin 81 mg tablet,delayed release (DR/EC) 81 mg PO DAILY Label Comments: TAKE 1 TABLET BY MOUTH ONCE DAILY buspirone 5 mg tablet 5 mg PO TID Label Comments: TAKE 1 TABLET BY MOUTH THREE TIMES DAILY FOR ANXIETY ipratropium-albuterol 0.5 mg-3 mg(2.5 mg base)/3 mL solution for nebulization 3 ml inhalation Q4H PRN (Reason: shortness of breath or wheezing) Qty: 180 6RF Rx Instructions: J44.9 Discontinued oxycodone-acetaminophen [Percocet] 5-325 mg tablet 1 tab PO Q6H PRN (Reason: pain) 3 Days Qty: 10 0RF Referrals / Follow Up: Sarita Grey MD [Primary Care Provider] - Within 2 Weeks Disposition Disposition (needs filled in before D/C Order can be placed): Detention Facility (1) Protein calorie malnutrition Qualifiers: Protein-calorie malnutrition severity: moderate Qualified Code(s): E44.0 - Moderate protein-calorie malnutrition
--- NOTE | 2021-09-09 12:32 | DS.PCM_ITS ---
Providers Date of Admission: 09/06/21 Primary Care Physician: Dr. Sarita Grey MD Reason For Visit: INTRACTABLE BACK PAIN Diagnosis Discharge Diagnosis (1) Intractable back pain: Status: Acute Code(s): M54.9 - Dorsalgia, unspecified Plan: Pain has been ongoing but more intense lately. Did not begin immediately after the epidural that she recenlty had. I doubt hematoma or abscess but will check an MRI of anatomy. Patient does have prominent scoliosis. She denies any falls so that seems to lead away from this being a compression fracture. Fentanyl 50 mcg, Oxycodone 10 mg Q6 PRN, scheduled acetaminophen, lidoderm patch. Follow up with Dr. Short. (2) Declining functional status: Status: Acute Code(s): R53.81 - Other malaise Plan: PT OT evaluate and treat. [facility] facility when she is ready for discharge. Plan for SNF today. (3) Protein calorie malnutrition: Status: Acute Code(s): E46 - Unspecified protein-calorie malnutrition Qualifiers: Protein-calorie malnutrition severity: moderate Qualified Code(s): E44.0 - Moderate protein-calorie malnutrition Plan: Patient has lost weight recently that she describes unintentional. Consult nutrition for recommendations Start supplements (4) Compression fracture of body of thoracic vertebra: Status: Acute Code(s): S22.000A - Wedge compression fracture of unspecified thoracic vertebra, initial encounter for closed fracture Plan: Complicated by the patient's scoliosis. 25-hydroxy vitamin D level 54.8. Vitamin D replacment not indicated. Plan VTE prophylaxis: Not indicated given observation status. Medications at Discharge Home Medications cholecalciferol (vitamin D3) 50 mcg (2,000 unit) tablet 4,000 unit PO DAILY vitamin 05/24/18 ferrous sulfate 325 mg (65 mg iron) tablet 325 mg PO DAILY supplement 03/22/19 melatonin 3 mg capsule 3 mg PO QHS insomnia 03/22/19 sennosides 8.6 mg tablet 1 tab PO BID 03/22/19 biotin 5,000 mcg sublingual tablet 5,000 mcg sublingual DAILY health maintenance 08/23/19 calcium carbonate 500 mg calcium (1,250 mg) tablet 500 mg PO DAILY health maintenance 08/23/19 multivitamin 1 ea PO DAILY vitamin 08/23/19 nutritional supplements 0.06 gram-1.5 kcal/mL oral liquid 1,000 ml PO DAILY 08/23/19 ondansetron 4 mg disintegrating tablet 4 mg PO Q4H PRN PRN Nausea 08/23/19 ascorbic acid (vitamin C) 500 mg tablet 500 mg PO DAILY vitamin 03/28/20 gabapentin 300 mg capsule 600 mg PO TID pain 03/28/20 isosorbide mononitrate 30 mg tablet,extended release 24 hr 30 mg PO DAILY Heart 03/28/20 lisinopril 2.5 mg tablet 2.5 mg PO DAILY BP 03/28/20 pantoprazole 40 mg tablet,delayed release 40 mg PO BID stomach 03/28/20 tizanidine 4 mg capsule 4 mg PO Q8H PRN PRN Muscle Spasm 03/28/20 duloxetine 60 mg capsule,delayed release 60 mg PO DAILY 04/19/20 atorvastatin 80 mg tablet 80 mg PO QHS cholesterol 04/21/20 metoprolol succinate 25 mg tablet,extended release 24 hr 25 mg PO DAILY 04/21/20 albuterol sulfate 90 mcg/actuation aerosol inhaler 2 puff inhalation Q4H PRN PRN Wheezing #8.5 grams 01/20/21 cyanocobalamin (vitamin B-12) 500 mcg tablet 1,000 mcg PO DAILY@0800 vitamin 01/20/21 furosemide 40 mg tablet (Lasix) 40 mg PO DAILY #90 tabs 07/05/21 ipratropium 0.5 mg-albuterol 3 mg (2.5 mg base)/3 mL nebulization soln 3 ml inhalation Q4H PRN shortness of breath or wheezing #180 mL 07/19/21 budesonide 160 mcg-glycopyr 9 mcg-formot 4.8 mcg/actuation HFA inhaler (Breztri Aerosphere) 2 inh inhalation BID #10.7 grams 08/10/21 lidocaine 5 % topical patch (Lidoderm) 1 patch topical DAILY #15 ea 08/28/21 aspirin 81 mg tablet,delayed release 81 mg PO DAILY health 09/06/21 buspirone 5 mg tablet 5 mg PO TID 09/07/21 acetaminophen 500 mg tablet 1,000 mg PO Q8 #0 tabs 09/09/21 fentanyl 50 mcg/hr transdermal patch 50 mcg transdermal Q3D 3 days #1 ea 09/09/21 ibuprofen 400 mg tablet 400 mg PO Q6H PRN fever or pain #14 tabs 09/09/21 lidocaine 5 % topical patch (Lidoderm) 1 patch topical DAILY #15 ea 09/09/21 oxycodone 5 mg tablet 10 mg PO Q6H PRN pain (scale score 7-10) 3 days #12 tabs 09/09/21 peg [id number] 1 %-0.2 %-0.2 % eye drops (Artificial Tears ([id number])) 2 drp EACH EYE Q1H PRN DRY EYES #0 mL 09/09/21 Hospital Course Operations None Procedures None Summary of Care Provided Minutes Spent on Discharge: 32 Medical Records Data Medical Nutrition Assessment Dietitian: Malnutrition Criteria Met Start: 09/07/21 10:57 Freq: Status: Active Protocol: Document 09/07/21 10:38 AG (Rec: 09/07/21 10:57 AG [id number]) Nutrition Malnutrition Evidence of Malnutrition Exists Yes Malnutrition (moderate): Acute Illness/Injury Evidenced By Suboptimal Energy Intake ( Moderate),Weight Loss (Severe) ,Physical Changes (Moderate) Clinical Problem Acute Disease or Injury Related Malnutrition Etiology moderate, acute malnutrition related to inadequate energy intake with suspected malfunctioning g-tube Signs/Symptoms as evidenced by estimated PO/ Enteral intake meeting <75% of estimated energy needs >7 days; unintentional wt loss of 12.9#/11% x 2 weeks; mild muscle wasting/fat loss in upper extremities, clavicles, temples, and orbital areas per physical exam Status Active Problem Recommendation Dietitian Recommendations/Changes 1) Continue regular diet as tolerated; will cut up meats at pt request d/t poor dentition. Do not anticipate PO intake to provide a significant amount of nutrition at this time. 2) Will d/c Ensure Enlive- pt refusing. 3) Via J-tube: Osmolite 1.2 at 50mL/hour continuously w/ 100mL H2O flush every 4 hours to provide 1440 calories, 66.6 g protein, and 1584mL total fluid/day. As ordered, enteral nutrition meets >75% of estimated protein/calorie needs. 4) Daily wts. 5) May need further evaluation of jtube if signs of malfunctioning occur. 6) Follows w/ dietitian at [facility] ; likely ok to resume home enteral nutrition as previously prescribed upon discharge from [facility]. Weight / BMI Weight Weight: 48.9 kg Body Mass Index (BMI) 23.1 ABG / Lab / Microbiology Data Result Diagrams: 09/06/21 12:50 09/06/21 12:50 Laboratory: Laboratory Results - last 24 hr 09/08/21 14:50: Vitamin D 25-Hydroxy 54.8 Microbiology: Microbiology 09/09/21 11:15 Nasal Secretion SARS-CoV-2 Antigen (Rapid) - Final Meaningful Use Info Meaningful Use Diagnoses (Choose all that apply): None applicable Discharge Plan Admission Admit Date/Time: 09/06/21 16:43 Primary Reason for Your Visit: intractable back pain Attending Provider: Jerrell Cintron Primary Care Provider: Sarita Grey Discharge Orders/Prescriptions Prescriptions: New fentanyl 50 mcg/hr Patch 72 Hour 50 mcg transdermal Q3D 3 Days Qty: 1 0RF acetaminophen 500 mg Tablet 1,000 mg PO Q8 Qty: 0 0RF Artificial Tears([id number]) 1-0.2-0.2 % Drops 2 drp EACH EYE Q1H PRN (Reason: DRY EYES) Qty: 0 0RF lidocaine [Lidoderm] 5 % adhesive patch,medicated 1 patch topical DAILY Qty: 15 0RF Rx Instructions: leave on most painful area for up to 12 hrs ibuprofen 400 mg tablet 400 mg PO Q6H PRN (Reason: fever or pain) Qty: 14 0RF oxycodone 5 mg Tablet 10 mg PO Q6H PRN (Reason: pain (scale score 7-10)) 3 Days Qty: 12 0RF Continued duloxetine 60 mg capsule,delayed release(DR/EC) 60 mg PO DAILY metoprolol succinate 25 mg tablet extended release 24 hr 25 mg PO DAILY albuterol sulfate 90 mcg/actuation HFA aerosol inhaler 2 puff INHALATION Q4H PRN PRN (Reason: Wheezing) Qty: 8.5 3RF furosemide [Lasix] 40 mg tablet 40 mg PO DAILY Qty: 90 3RF Breztri Aerosphere 160-9-4.8 mcg/actuation HFA aerosol inhaler 2 inh inhalation BID Qty: 10.7 6RF cholecalciferol (vitamin D3) 2,000 UNIT tablet 4,000 unit PO DAILY sennosides 1 TABLET tablet 1 tab PO BID ferrous sulfate 325 MG tablet 325 mg PO DAILY melatonin 3 MG capsule 3 mg PO QHS cyanocobalamin (vitamin B-12) 500 mcg tablet 1,000 mcg PO DAILY@0800 multivitamin 1 EACH tablet 1 ea PO DAILY calcium carbonate 500 MG tablet 500 mg PO DAILY ondansetron 4 MG tablet 4 mg PO Q4H PRN PRN (Reason: Nausea) biotin 5,000 MCG tablet, sublingual 5,000 mcg sublingual DAILY nutritional supplements 237 ML liquid 1,000 ml PO DAILY Label Comments: pt states they are on 50 ml/hr osmelite 1.5 around the clock with 100 ml flush q 4hrs Rx Instructions: 50ML/HR X'S 10 HOURS isosorbide mononitrate 30 MG tablet extended release 24 hr 30 mg PO DAILY pantoprazole 40 MG tablet,delayed release (DR/EC) 40 mg PO BID gabapentin 300 MG capsule 600 mg PO TID lisinopril 2.5 MG tablet 2.5 mg PO DAILY tizanidine 4 MG capsule 4 mg PO Q8H PRN PRN (Reason: Muscle Spasm) ascorbic acid (vitamin C) 500 MG tablet 500 mg PO DAILY atorvastatin 80 mg tablet 80 mg PO QHS lidocaine [Lidoderm] 5 % adhesive patch,medicated 1 patch topical DAILY Qty: 15 0RF Rx Instructions: leave on most painful area for up to 12 hrs aspirin 81 mg tablet,delayed release (DR/EC) 81 mg PO DAILY Label Comments: TAKE 1 TABLET BY MOUTH ONCE DAILY buspirone 5 mg tablet 5 mg PO TID Label Comments: TAKE 1 TABLET BY MOUTH THREE TIMES DAILY FOR ANXIETY ipratropium-albuterol 0.5 mg-3 mg(2.5 mg base)/3 mL solution for nebulization 3 ml inhalation Q4H PRN (Reason: shortness of breath or wheezing) Qty: 180 6RF Rx Instructions: J44.9 Discontinued oxycodone-acetaminophen [Percocet] 5-325 mg tablet 1 tab PO Q6H PRN (Reason: pain) 3 Days Qty: 10 0RF Referrals / Follow Up: Sarita Grey MD [Primary Care Provider] - Within 2 Weeks Disposition Disposition (needs filled in before D/C Order can be placed): Detention Facility Charges/Coding Visit Charges OBSV E&M: 93120 Observation care discharge
--- NOTE | 2021-09-09 13:37 | CASEMGMT ---
Social Work Precert has been obtained and pt can discharge to [facility] today. Mira at [place] confirms they do have needed supplies for artificial nutrition. Physician notified and pt has been discharged. PASRR completed and faxed along with orders to [facility]. Pt notified of insurance auth and is agreeable to discharge today. 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 Pt, Joslyn Ema, pt son and nursing notified of discharge plan. Plan: Joslyn Boo, skilled level of care. JUNIOR Sullivan
--- NOTE | 2021-09-09 15:05 | NURSING ---
Report called spoke to Maria Elena Patient going to [facility].
== END 2021-09-09 15:50 | disposition skilled nursing facility (03) ==
LOC: ED 14:38 → MS3 16:44
PROVIDERS: Emergency Provider Emergency Medicine; PCP Internal Medicine
DX: M48.54XA Collapsed vertebra, not elsewhere classified, thoracic region, initial encounter for fracture (principal); E44.0 Moderate protein-calorie malnutrition; J44.9 Chronic obstructive pulmonary disease, unspecified; I48.0 Paroxysmal atrial fibrillation; I25.10 Atherosclerotic heart disease of native coronary artery without angina pectoris; R07.89 Other chest pain; Z87.891 Personal history of nicotine dependence; R53.81 Other malaise; R07.81 Pleurodynia; Z79.82 Long term (current) use of aspirin; Z79.899 Other long term (current) drug therapy; F41.9 Anxiety disorder, unspecified; F32.A Depression, unspecified; M41.9 Scoliosis, unspecified; Z68.23 Body mass index [BMI] 23.0-23.9, adult
CPT/HCPCS: 36415; 71045; 72129; 80048; 82306; 85025; 87426; 93005; 94640; 96374; 96375; 96376; 97116; 97162; 97166; 97530; 97535; 97802; 97803; 99218; 99285; J7030; Q9967; A4216; G0378; J2405

== ENCOUNTER 2021-11-11 12:54 | Emergency (ER) | payer MEDICARE, MEDICAID, SELFPAY ==
[2021-11-11 12:54] VITALS: BP 119/69; O2SAT 96
[2021-11-11 12:55] VITALS: BP 130/100; PULSE 87; RESP 16; TEMP 36.8; O2SAT 98; BMI 24.4
--- NOTE | 2021-11-11 15:40 | EDS_ITS ---
HPI History of Present Illness Chief Complaint: Other, Pain/Inj Informant: patient Onset/Context/Timing Onset: Today Context: Sudden Onset Timing: Continuous Quality: Dysfunctional jejunostomy tube Location: Left upper quadrant Worsened by: Nothing Relieved by: Nothing Narrative Narrative: Patient presents with a broken jejunostomy tube. Patient states she does not know exactly how it happened but may have hit it with a pair of scissors. Patient states that the home health nurses were also manipulating the tube and it became worse. Patient has the tube clamped and there is no discharge or drainage. Patient is able to tolerate some liquids by mouth. Patient denies any fevers or chills. Patient denies any nausea or vomiting. PFSH PFSH Medical History Anxiety and depression Aspiration pneumonia Atherosclerotic heart disease of [place] coronary artery without angina pectoris Chronic hypoxemic respiratory failure Compression fracture of body of thoracic vertebra COPD (chronic obstructive pulmonary disease) Duodenal ulcer, acute with obstruction Dyspnea Enterocutaneous fistula Gastroparesis GERD (gastroesophageal reflux disease) History of smoking Hypoxia Malnutrition of moderate degree Nicotine dependence, cigarettes, in remission Nonrheumatic mitral (valve) insufficiency Osteoporosis Paroxysmal atrial fibrillation Pounding heartbeat Protein calorie malnutrition Respiratory failure Scoliosis Scoliosis Smoking greater than 40 pack years Home Medications cholecalciferol (vitamin D3) 50 mcg (2,000 unit) tablet 4,000 unit PO DAILY vitamin 05/24/18 [History Last Taken 09/05/21] ferrous sulfate 325 mg (65 mg iron) tablet 325 mg PO DAILY supplement 03/22/19 [History Last Taken 09/05/21] melatonin 3 mg capsule 3 mg PO QHS insomnia 03/22/19 [History Last Taken 09/05/21] sennosides 8.6 mg tablet 1 tab PO BID 03/22/19 [History Last Taken 09/06/21] biotin 5,000 mcg sublingual tablet 5,000 mcg sublingual DAILY health maintenance 08/23/19 [History Last Taken 09/06/21] calcium carbonate 500 mg calcium (1,250 mg) tablet 500 mg PO DAILY health maintenance 08/23/19 [History Last Taken 09/05/21] multivitamin 1 ea PO DAILY vitamin 08/23/19 [History Last Taken 09/05/21] nutritional supplements 0.06 gram-1.5 kcal/mL oral liquid 1,000 ml PO DAILY 08/23/19 [History Last Taken 09/05/21] ondansetron 4 mg disintegrating tablet 4 mg PO Q4H PRN PRN Nausea 08/23/19 [History Last Taken 09/06/21] ascorbic acid (vitamin C) 500 mg tablet 500 mg PO DAILY vitamin 03/28/20 [History Last Taken 09/06/21] gabapentin 300 mg capsule 600 mg PO TID pain 03/28/20 [History Last Taken 09/06/21] isosorbide mononitrate 30 mg tablet,extended release 24 hr 30 mg PO DAILY Heart 03/28/20 [History Last Taken 09/06/21] lisinopril 2.5 mg tablet 2.5 mg PO DAILY BP 03/28/20 [History Last Taken 09/06/21] pantoprazole 40 mg tablet,delayed release 40 mg PO BID stomach 03/28/20 [History Last Taken 09/06/21] tizanidine 4 mg capsule 4 mg PO Q8H PRN PRN Muscle Spasm 03/28/20 [History Last Taken 09/06/21] duloxetine 60 mg capsule,delayed release 60 mg PO DAILY 04/19/20 [History Last Taken 09/06/21] atorvastatin 80 mg tablet 80 mg PO QHS cholesterol 04/21/20 [History Last Taken 09/05/21] metoprolol succinate 25 mg tablet,extended release 24 hr 25 mg PO DAILY 04/21/20 [History Last Taken 09/05/21] albuterol sulfate 90 mcg/actuation aerosol inhaler 2 puff inhalation Q4H PRN PRN Wheezing #8.5 grams 01/20/21 [Rx Last Taken 09/05/21] cyanocobalamin (vitamin B-12) 500 mcg tablet 1,000 mcg PO DAILY@0800 vitamin 01/20/21 [History Last Taken 09/06/21] furosemide 40 mg tablet (Lasix) 40 mg PO DAILY #90 tabs 07/05/21 [Rx Last Taken 09/06/21] ipratropium 0.5 mg-albuterol 3 mg (2.5 mg base)/3 mL nebulization soln 3 ml inhalation Q4H PRN shortness of breath or wheezing #180 mL 07/19/21 [Rx Last Taken 09/06/21] budesonide 160 mcg-glycopyr 9 mcg-formot 4.8 mcg/actuation HFA inhaler (Breztri Aerosphere) 2 inh inhalation BID #10.7 grams 08/10/21 [Rx Last Taken 09/06/21] lidocaine 5 % topical patch (Lidoderm) 1 patch topical DAILY #15 ea 08/28/21 [Rx Last Taken Unknown] aspirin 81 mg tablet,delayed release 81 mg PO DAILY health 09/06/21 [History Last Taken 09/06/21] buspirone 5 mg tablet 5 mg PO TID 09/07/21 [History Last Taken Unknown] acetaminophen 500 mg tablet 1,000 mg PO Q8 #0 tabs 09/09/21 [Rx Last Taken Unknown] fentanyl 50 mcg/hr transdermal patch 50 mcg transdermal Q3D 3 days #1 ea 09/09/21 [Rx Last Taken Unknown] ibuprofen 400 mg tablet 400 mg PO Q6H PRN fever or pain #14 tabs 09/09/21 [Rx Last Taken Unknown] lidocaine 5 % topical patch (Lidoderm) 1 patch topical DAILY #15 ea 09/09/21 [Rx Last Taken Unknown] oxycodone 5 mg tablet 10 mg PO Q6H PRN pain (scale score 7-10) 3 days #12 tabs 09/09/21 [Rx Last Taken Unknown] peg [id number] 1 %-0.2 %-0.2 % eye drops (Artificial Tears ([id number])) 2 drp EACH EYE Q1H PRN DRY EYES #0 mL 09/09/21 [Rx Last Taken Unknown] Allergy/AdvReac Type Severity Reaction Status Date / Time dicyclomine HCl [From Bentyl] Allergy Hives Verified 09/06/21 12:11 Family History (Updated 09/06/21 @ 16:[address] Jerrell Cintron DO) Father Myocardial infarction Son Esophageal cancer Other Scoliosis Surgical History History of exploratory laparotomy (12/29/19) History of jejunostomy History of jejunostomy tube placement (12/29/19) History of left heart catheterization (02/02/20) History of partial gastrectomy History of transesophageal echocardiography (EDGAR) (02/12/20) Social History household members: none housing: apartment Smoking Status: Former smoker quit date: 03/05/05 details: No alcohol consumption substance use type: does not use ROS ROS ED Constitutional Constitutional ED: Denies chills or fever(s) Eyes Eyes: Denies blurry vision or change in vision ENT ENT ED: Denies rhinorrhea or sore throat Cardiovascular Cardiovascular: Denies chest pain or palpitations Respiratory/Chest Respiratory/Chest: Denies cough or dyspnea Gastrointestinal Gastrointestinal: Denies nausea or vomiting Genitourinary Genitourinary ED: Denies dysuria or hematuria Musculoskeletal Musculoskeletal: Reports back pain; Denies neck pain Integumentary Denies abscess or rash Neurologic Neurologic: Denies headache(s) or weakness Allergic/Immunologic Allergic/Immunologic ED: Denies mouth swelling or urticaria EXAM Physical Exam Const Vital Signs: 11/11/21 12:55 11/11/21 12:54 11/11/21 13:25 Temperature 98.2 F Temperature Source Temporal Pulse Rate 87 Respiratory Rate 16 Respiratory Effort Normal Respiratory Pattern Normal Blood Pressure 130/100 H 119/69 Blood Pressure Mean 110 85 Pulse Ox 98 96 Oxygen Delivery Method Nasal Cannula Nasal Cannula Oxygen Flow Rate (L/min) 3 3 Positive well nourished and well developed General Appearance ED: well developed and NAD HEENT Reports moist mucous membranes Neck supple and no JVD Resp normal respiratory effort and clear to auscultation bilaterally Cardio regular rate, regular rhythm and no murmurs GI normal to inspection, nondistended, normoactive bowel sounds and non-tender Palpation: soft Extremity normal to inspection General Extremety ED: Negative for edema or tenderness General Extremity: Negative for edema Neuro oriented x3, CN's II-XII intact bilaterally and no sensory deficits noted Sensorium / Orientation: alert Motor Exam: strength 5/5 throughout Psych mental status grossly normal Skin no rashes or lesions noted MDM MDM MDM Narrative Medical decision making narrative: I discussed the case with Dr. Villegas. Since it is a jejunostomy tube, she is unable to care for this patient. Case was discussed with the transfer line at [facility] to transfer the patient to [facility] where her surgeon who put in the jejunostomy tube can care for her. I am currently awaiting acceptance. Care of the patient was turned over to the oncoming physician pending the transfer. Discharge Plan Triage Chief Complaint: Other, Pain/Inj ED Provider: Jerrell Inman Dx/Rx/DC Orders Clinical Impression: Jejunostomy tube leak Prescriptions: No Action duloxetine 60 mg capsule,delayed release(DR/EC) 60 mg PO DAILY metoprolol succinate 25 mg tablet extended release 24 hr 25 mg PO DAILY albuterol sulfate 90 mcg/actuation HFA aerosol inhaler 2 puff INHALATION Q4H PRN PRN (Reason: Wheezing) Qty: 8.5 3RF furosemide [Lasix] 40 mg tablet 40 mg PO DAILY Qty: 90 3RF Breztri Aerosphere 160-9-4.8 mcg/actuation HFA aerosol inhaler 2 inh inhalation BID Qty: 10.7 6RF cholecalciferol (vitamin D3) 2,000 UNIT tablet 4,000 unit PO DAILY sennosides 1 TABLET tablet 1 tab PO BID ferrous sulfate 325 MG tablet 325 mg PO DAILY melatonin 3 MG capsule 3 mg PO QHS cyanocobalamin (vitamin B-12) 500 mcg tablet 1,000 mcg PO DAILY@0800 multivitamin 1 EACH tablet 1 ea PO DAILY calcium carbonate 500 MG tablet 500 mg PO DAILY ondansetron 4 MG tablet 4 mg PO Q4H PRN PRN (Reason: Nausea) biotin 5,000 MCG tablet, sublingual 5,000 mcg sublingual DAILY nutritional supplements 237 ML liquid 1,000 ml PO DAILY Label Comments: pt states they are on 50 ml/hr osmelite 1.5 around the clock with 100 ml fl ush q 4hrs Rx Instructions: 50ML/HR X'S 10 HOURS isosorbide mononitrate 30 MG tablet extended release 24 hr 30 mg PO DAILY pantoprazole 40 MG tablet,delayed release (DR/EC) 40 mg PO BID gabapentin 300 MG capsule 600 mg PO TID lisinopril 2.5 MG tablet 2.5 mg PO DAILY tizanidine 4 MG capsule 4 mg PO Q8H PRN PRN (Reason: Muscle Spasm) ascorbic acid (vitamin C) 500 MG tablet 500 mg PO DAILY atorvastatin 80 mg tablet 80 mg PO QHS lidocaine [Lidoderm] 5 % adhesive patch,medicated 1 patch topical DAILY Qty: 15 0RF Rx Instructions: leave on most painful area for up to 12 hrs aspirin 81 mg tablet,delayed release (DR/EC) 81 mg PO DAILY Label Comments: TAKE 1 TABLET BY MOUTH ONCE DAILY buspirone 5 mg tablet 5 mg PO TID Label Comments: TAKE 1 TABLET BY MOUTH THREE TIMES DAILY FOR ANXIETY fentanyl 50 mcg/hr Patch 72 Hour 50 mcg transdermal Q3D 3 Days Qty: 1 0RF acetaminophen 500 mg Tablet 1,000 mg PO Q8 Qty: 0 0RF Artificial Tears([id number]) 1-0.2-0.2 % Drops 2 drp EACH EYE Q1H PRN (Reason: DRY EYES) Qty: 0 0RF lidocaine [Lidoderm] 5 % adhesive patch,medicated 1 patch topical DAILY Qty: 15 0RF Rx Instructions: leave on most painful area for up to 12 hrs ibuprofen 400 mg tablet 400 mg PO Q6H PRN (Reason: fever or pain) Qty: 14 0RF oxycodone 5 mg Tablet 10 mg PO Q6H PRN (Reason: pain (scale score 7-10)) 3 Days Qty: 12 0RF ipratropium-albuterol 0.5 mg-3 mg(2.5 mg base)/3 mL solution for nebulization 3 ml inhalation Q4H PRN (Reason: shortness of breath or wheezing) Qty: 180 6RF Rx Instructions: J44.9 Primary Care Provider: Sarita Grey Referrals: Sarita Grey MD [Primary Care Provider] -
[2021-11-11 16:57] VITALS: BP 117/78; PULSE 80; RESP 16; O2SAT 99
[2021-11-11 23:11] VITALS: BP 95/57; PULSE 71; RESP 20; O2SAT 94
== END 2021-11-11 23:13 | disposition short-term general hospital (02) ==
PROVIDERS: Emergency Provider Emergency Medicine; PCP Internal Medicine; Visit Provider Emergency Medicine
DX: K94.13 Enterostomy malfunction (principal); I25.10 Atherosclerotic heart disease of native coronary artery without angina pectoris; Z87.891 Personal history of nicotine dependence
CPT/HCPCS: 87811; 99285

== ENCOUNTER 2021-11-16 12:04 | Emergency (ER) | payer MEDICARE, MEDICAID, SELFPAY ==
[2021-11-16 12:06] VITALS: BP 143/76; PULSE 47; RESP 22; TEMP 37.2; O2SAT 97; BMI 23.7
--- NOTE | 2021-11-16 13:44 | EDS_ITS ---
HPI History of Present Illness Chief Complaint: Diarrhea Informant: patient Narrative Narrative: Patient was sent in by her primary physician because she might be dehydrated. Patient has a PEG tube that has been in since 2019. It was just replaced. But she had no problems with the replacement. She states she has been under a lot of stress at home. She has had deaths in the family. When she gets stressed she will get diarrhea. That is a typical pattern. She had about 4 episodes of diarrhea Sunday, 3 Sunday, 2 Sunday and then she has had several today. No blood. She states she has never had abdominal pain at any time. No distention. No nausea or vomiting. She has Zofran at home if she feels nauseated but she is not needed this. She just states that when she gets stressed this happens. She was sent in here for IV fluids because of her dehydration. Nothing really makes better or worse. PFSH PFSH Medical History Anxiety and depression Aspiration pneumonia Atherosclerotic heart disease of [place] coronary artery without angina pectoris Chronic hypoxemic respiratory failure Compression fracture of body of thoracic vertebra COPD (chronic obstructive pulmonary disease) Duodenal ulcer, acute with obstruction Dyspnea Enterocutaneous fistula Gastroparesis GERD (gastroesophageal reflux disease) History of smoking Hypoxia Malnutrition of moderate degree Nicotine dependence, cigarettes, in remission Nonrheumatic mitral (valve) insufficiency Osteoporosis Paroxysmal atrial fibrillation Pounding heartbeat Protein calorie malnutrition Respiratory failure Scoliosis Scoliosis Smoking greater than 40 pack years Home Medications cholecalciferol (vitamin D3) 50 mcg (2,000 unit) tablet 4,000 unit PO DAILY vitamin 05/24/18 [History Last Taken 09/05/21] ferrous sulfate 325 mg (65 mg iron) tablet 325 mg PO DAILY supplement 03/22/19 [History Last Taken 09/05/21] melatonin 3 mg capsule 3 mg PO QHS insomnia 03/22/19 [History Last Taken 09/05/21] sennosides 8.6 mg tablet 1 tab PO BID 03/22/19 [History Last Taken 09/06/21] biotin 5,000 mcg sublingual tablet 5,000 mcg sublingual DAILY health maintenance 08/23/19 [History Last Taken 09/06/21] calcium carbonate 500 mg calcium (1,250 mg) tablet 500 mg PO DAILY health maintenance 08/23/19 [History Last Taken 09/05/21] multivitamin 1 ea PO DAILY vitamin 08/23/19 [History Last Taken 09/05/21] nutritional supplements 0.06 gram-1.5 kcal/mL oral liquid 1,000 ml PO DAILY 08/23/19 [History Last Taken 09/05/21] ondansetron 4 mg disintegrating tablet 4 mg PO Q4H PRN PRN Nausea 08/23/19 [History Last Taken 09/06/21] ascorbic acid (vitamin C) 500 mg tablet 500 mg PO DAILY vitamin 03/28/20 [History Last Taken 09/06/21] gabapentin 300 mg capsule 600 mg PO TID pain 03/28/20 [History Last Taken 09/06/21] isosorbide mononitrate 30 mg tablet,extended release 24 hr 30 mg PO DAILY Heart 03/28/20 [History Last Taken 09/06/21] lisinopril 2.5 mg tablet 2.5 mg PO DAILY BP 03/28/20 [History Last Taken 09/06/21] pantoprazole 40 mg tablet,delayed release 40 mg PO BID stomach 03/28/20 [History Last Taken 09/06/21] tizanidine 4 mg capsule 4 mg PO Q8H PRN PRN Muscle Spasm 03/28/20 [History Last Taken 09/06/21] duloxetine 60 mg capsule,delayed release 60 mg PO DAILY 04/19/20 [History Last Taken 09/06/21] atorvastatin 80 mg tablet 80 mg PO QHS cholesterol 04/21/20 [History Last Taken 09/05/21] metoprolol succinate 25 mg tablet,extended release 24 hr 25 mg PO DAILY 04/21/20 [History Last Taken 09/05/21] albuterol sulfate 90 mcg/actuation aerosol inhaler 2 puff inhalation Q4H PRN PRN Wheezing #8.5 grams 01/20/21 [Rx Last Taken 09/05/21] cyanocobalamin (vitamin B-12) 500 mcg tablet 1,000 mcg PO DAILY@0800 vitamin 01/20/21 [History Last Taken 09/06/21] furosemide 40 mg tablet (Lasix) 40 mg PO DAILY #90 tabs 07/05/21 [Rx Last Taken 09/06/21] ipratropium 0.5 mg-albuterol 3 mg (2.5 mg base)/3 mL nebulization soln 3 ml inhalation Q4H PRN shortness of breath or wheezing #180 mL 07/19/21 [Rx Last Taken 09/06/21] budesonide 160 mcg-glycopyr 9 mcg-formot 4.8 mcg/actuation HFA inhaler (Breztri Aerosphere) 2 inh inhalation BID #10.7 grams 08/10/21 [Rx Last Taken 09/06/21] lidocaine 5 % topical patch (Lidoderm) 1 patch topical DAILY #15 ea 08/28/21 [Rx Last Taken Unknown] aspirin 81 mg tablet,delayed release 81 mg PO DAILY health 09/06/21 [History Last Taken 09/06/21] buspirone 5 mg tablet 5 mg PO TID 09/07/21 [History Last Taken Unknown] acetaminophen 500 mg tablet 1,000 mg PO Q8 #0 tabs 09/09/21 [Rx Last Taken Unknown] fentanyl 50 mcg/hr transdermal patch 50 mcg transdermal Q3D 3 days #1 ea 09/09/21 [Rx Last Taken Unknown] ibuprofen 400 mg tablet 400 mg PO Q6H PRN fever or pain #14 tabs 09/09/21 [Rx Last Taken Unknown] lidocaine 5 % topical patch (Lidoderm) 1 patch topical DAILY #15 ea 09/09/21 [Rx Last Taken Unknown] oxycodone 5 mg tablet 10 mg PO Q6H PRN pain (scale score 7-10) 3 days #12 tabs 09/09/21 [Rx Last Taken Unknown] peg [id number] 1 %-0.2 %-0.2 % eye drops (Artificial Tears ([id number])) 2 drp EACH EYE Q1H PRN DRY EYES #0 mL 09/09/21 [Rx Last Taken Unknown] Allergy/AdvReac Type Severity Reaction Status Date / Time dicyclomine HCl [From Bentyl] Allergy Hives Verified 11/16/21 12:06 Family History Father Myocardial infarction Son Esophageal cancer Other Scoliosis Surgical History History of exploratory laparotomy (12/29/19) History of jejunostomy History of jejunostomy tube placement (12/29/19) History of left heart catheterization (02/02/20) History of partial gastrectomy History of transesophageal echocardiography (EDGAR) (02/12/20) Social History household members: none housing: apartment Smoking Status: Former smoker quit date: 03/05/05 details: No alcohol consumption substance use type: does not use ROS ROS ED Constitutional Constitutional ED: Denies chills, fever(s) or subjective ENT ENT ED: Denies rhinorrhea or sore throat Cardiovascular Cardiovascular: Denies chest pain, palpitations or racing heartbeat Respiratory/Chest Respiratory/Chest: Denies cough Gastrointestinal Gastrointestinal: Reports diarrhea; Denies abdominal pain, constipation, melena, nausea or vomiting Genitourinary Genitourinary ED: Denies dysuria or hematuria Musculoskeletal Musculoskeletal: Denies myalgias Integumentary Denies rash Neurologic Neurologic: Denies headache(s) Psychiatric Psychiatric: Reports anxiety; Denies suicidal ideation or suicidal thoughts Endocrine Endocrinology: Denies polydipsia or polyuria Hematologic/Lymphatic Hematologic/Lymphatic: Denies easy bleeding or easy bruising Allergic/Immunologic Allergic/Immunologic ED: Denies urticaria EXAM Physical Exam Const Vital Signs: 11/16/21 12:06 11/16/21 14:30 Temperature 98.9 F Temperature Source Temporal Pulse Rate 47 L 83 Respiratory Rate 22 H 16 Blood Pressure 143/76 H 111/57 L Blood Pressure Mean 98 75 Pulse Ox 97 99 Oxygen Delivery Method Nasal Cannula Nasal Cannula Oxygen Flow Rate (L/min) 4 3 Positive well nourished and well developed General Appearance ED: well developed HEENT Reports moist mucous membranes; Denies dry mucous membranes Mouth ED: No dry mucous membranes Mouth: No dry mucous membranes Eyes General Eye ED: Negative for scleral icterus Neck no lymphadenopathy Chest Wall inspection of chest normal Resp normal respiratory effort and clear to auscultation bilaterally Auscultation: Negative for rales, rhonchi or wheezes Cardio regular rate and regular rhythm Rate: Negative for tachycardic GI normal to inspection, nondistended, normoactive bowel sounds, non-tender, non- distended and no masses GI Narrative: PEG tube site looks clean. Tube looks new. Abdomen is not distended. There is no tenderness anywhere. It has normal bowel sounds. Back/Spine no CVA tenderness Neuro Sensorium / Orientation: alert Skin no rashes or lesions noted MDM MDM MDM Narrative Medical decision making narrative: Patient CBC is normal. Electrolytes are normal. X-rays are normal. Patient has a history of diarrhea with stress. She is not suicidal. She is given a little bit of IV fluids here. She has Zofran at home if needed. I think she is safe for discharge. Lab Data Attestation: I reviewed the patient's lab results. Labs: Laboratory Results - last 24 hr 11/16/21 11/16/21 12:15 12:15 WBC 7.7 RBC 4.58 Hgb 14.0 Hct 44.0 MCV 96.1 MCH 30.6 MCHC 31.8 L RDW Std Deviation 47.8 H RDW Coeff of Kendy 13.4 Plt Count 339 MPV 11.0 Immature Gran % (Auto) 0.100 Neut % (Auto) 67.1 Lymph % (Auto) 23.9 [place] % (Auto) 7.4 Eos % (Auto) 1.2 Baso % (Auto) 0.3 Absolute Neuts (auto) 5.2 Absolute Lymphs (auto) 1.85 Nucleated RBC % 0 Sodium 139 Potassium 4.3 Chloride 102 Carbon Dioxide 27.0 Anion Gap 10 BUN 18 Creatinine 0.83 Estim Creat Clear Calc 54.94 Est GFR (MDRD) Af Amer 89 Est GFR (MDRD) Non-Af 74 BUN/Creatinine Ratio 21.8 H Glucose 96 Calcium 9.4 Radiography Diagnostic Testing: Clinical Impression(s) from Imaging Studies Acute Abdomen Series 11/16/21 14:05 IMPRESSION: Nonspecific bowel gas pattern. Increased markings in both lungs suggestive of scarring. Electronically Signed: Josh Crooks MD at 14:44 EDT , Discharge Plan Triage Chief Complaint: Diarrhea ED Provider: Chilango Grossman Dx/Rx/DC Orders Clinical Impression: Diarrhea, Mild dehydration Instructions: ED Diarrhea, Unknown Cause Prescriptions: No Action duloxetine 60 mg capsule,delayed release(DR/EC) 60 mg PO DAILY metoprolol succinate 25 mg tablet extended release 24 hr 25 mg PO DAILY albuterol sulfate 90 mcg/actuation HFA aerosol inhaler 2 puff INHALATION Q4H PRN PRN (Reason: Wheezing) Qty: 8.5 3RF furosemide [Lasix] 40 mg tablet 40 mg PO DAILY Qty: 90 3RF Breztri Aerosphere 160-9-4.8 mcg/actuation HFA aerosol inhaler 2 inh inhalation BID Qty: 10.7 6RF cholecalciferol (vitamin D3) 2,000 UNIT tablet 4,000 unit PO DAILY sennosides 1 TABLET tablet 1 tab PO BID ferrous sulfate 325 MG tablet 325 mg PO DAILY melatonin 3 MG capsule 3 mg PO QHS cyanocobalamin (vitamin B-12) 500 mcg tablet 1,000 mcg PO DAILY@0800 multivitamin 1 EACH tablet 1 ea PO DAILY calcium carbonate 500 MG tablet 500 mg PO DAILY ondansetron 4 MG tablet 4 mg PO Q4H PRN PRN (Reason: Nausea) biotin 5,000 MCG tablet, sublingual 5,000 mcg sublingual DAILY nutritional supplements 237 ML liquid 1,000 ml PO DAILY Label Comments: pt states they are on 50 ml/hr osmelite 1.5 around the clock with 100 ml flush q 4hrs Rx Instructions: 50ML/HR X'S 10 HOURS isosorbide mononitrate 30 MG tablet extended release 24 hr 30 mg PO DAILY pantoprazole 40 MG tablet,delayed release (DR/EC) 40 mg PO BID gabapentin 300 MG capsule 600 mg PO TID lisinopril 2.5 MG tablet 2.5 mg PO DAILY tizanidine 4 MG capsule 4 mg PO Q8H PRN PRN (Reason: Muscle Spasm) ascorbic acid (vitamin C) 500 MG tablet 500 mg PO DAILY atorvastatin 80 mg tablet 80 mg PO QHS lidocaine [Lidoderm] 5 % adhesive patch,medicated 1 patch topical DAILY Qty: 15 0RF Rx Instructions: leave on most painful area for up to 12 hrs aspirin 81 mg tablet,delayed release (DR/EC) 81 mg PO DAILY Label Comments: TAKE 1 TABLET BY MOUTH ONCE DAILY buspirone 5 mg tablet 5 mg PO TID Label Comments: TAKE 1 TABLET BY MOUTH THREE TIMES DAILY FOR ANXIETY fentanyl 50 mcg/hr Patch 72 Hour 50 mcg transdermal Q3D 3 Days Qty: 1 0RF acetaminophen 500 mg Tablet 1,000 mg PO Q8 Qty: 0 0RF Artificial Tears([id number]) 1-0.2-0.2 % Drops 2 drp EACH EYE Q1H PRN (Reason: DRY EYES) Qty: 0 0RF lidocaine [Lidoderm] 5 % adhesive patch,medicated 1 patch topical DAILY Qty: 15 0RF Rx Instructions: leave on most painful area for up to 12 hrs ibuprofen 400 mg tablet 400 mg PO Q6H PRN (Reason: fever or pain) Qty: 14 0RF oxycodone 5 mg Tablet 10 mg PO Q6H PRN (Reason: pain (scale score 7-10)) 3 Days Qty: 12 0RF ipratropium-albuterol 0.5 mg-3 mg(2.5 mg base)/3 mL solution for nebulization 3 ml inhalation Q4H PRN (Reason: shortness of breath or wheezing) Qty: 180 6RF Rx Instructions: J44.9 Primary Care Provider: Sarita Grey Referrals: Sarita Grey MD [Primary Care Provider] - As soon as possible Disposition Disposition: Home, Self Care
[2021-11-16 13:52] LABS: Absolute Lymphocyte Count 1.85 X10^3/uL (0.83-4.51); Absolute Neutrophil Count 5.2 X10^3/uL (2.0-7.7); Basophil# 0.02 X10^3/uL; Basophil% 0.3 % (0-1); Eosinophil# 0.09 X10^3/uL; Eosinophils% 1.2 % (0-5); Lymphocyte # 1.85 X10^3/ul (0.83-4.51); Lymphocyte % 23.9 % (19-41); Mean Corp Hgb Conc 31.8 g/dL (32-36); Mean Corpuscular Hgb 30.6 pg (27.0-32.0); Mean Corpuscular Volume 96.1 fL (81-99); Monocyte# 0.57 X10^3/uL; Monocyte% 7.4 % (0-10); NRBC Flagged by Analyzer 0 % (0-5); Neutrophil # 5.19 X10^3/uL (2.7-7.7); Neutrophil % 67.1 % (47-70); Platelet Count 339 K/mm3 (150-450); RBC Distribution Width CV 13.4 % (11.6-14.6); RBC Distribution Width SD 47.8 fl (35.1-43.9); Red Blood Count 4.58 M/mm3 (4.2-5.4); White Blood Count 7.7 K/mm3 (4.4-11.0)
[2021-11-16 14:05] LABS: Anion Gap 10 (5-15); BUN 18 mg/dL (7-18); BUN/Creat Ratio 21.8 RATIO (10-20); Calcium,Total 9.4 mg/dL (8.5-10.1); Chloride 102 mmol/L (98-107); Creatinine, Serum 0.83 mg/dL (0.55-1.02); EST Glomerular Filtration Rate 74 mL/min (>60); Est Glom Filt Rate - Afr Amer 89 mL/min (>60); Estimated Creatinine Clearance 54.94 ml/min; Glucose 96 mg/dL (74-106); Potassium 4.3 mmol/L (3.5-5.1); Sodium Level 139 mmol/L (136-145)
--- NOTE | 2021-11-16 14:05 | RAD_ITS ---
STUDY: X-RAY - ACUTE ABDOMINAL SERIES REASON FOR EXAM: Female, 66 years old. Diarrhea TECHNIQUE: Single view of the chest. Supine, and erect view(s) of the abdomen were obtained. COMPARISON: None. FINDINGS: Increased interstitial markings in both lungs more prominent in the right lung suggestive of scarring. Normal size heart. Normal mediastinum and chepe. Normal visualized pulmonary arteries. Normal visualized aortic arch and descending thoracic aorta. A jejunostomy tube is seen in the left mid abdomen. A pessary device is seen in the region of the uterine cervix. Dextroscoliosis of the thoracic spine and levoscoliosis of the lumbar spine. RAD/Acute Abdomen Inc Chest IMPRESSION: Nonspecific bowel gas pattern. Increased markings in both lungs suggestive of scarring. Electronically Signed: Josh Crooks MD at 14:44 EDT ,
[2021-11-16 14:30] VITALS: BP 111/57; PULSE 83; RESP 16; O2SAT 99
--- NOTE | 2021-11-16 15:30 | CM.ED ---
Social Work Consult: Resources/support Referral source: RN This director social welfare met with patient in room. Introduced self and director social welfare role. Patient agreeable to speak with this director social welfare. Patient reports to have a lot going on right now. Patient recently was discharged from a skilled stay at [facility] and lives at home alone. Patient has a feeding tube and wears O2 continuous. Patient reports that patient spouse in August 2017 and I just get lonely now. Patient tearful throughout conversation and talking about multiple family members that patient has lost in the past few years. Patient reports to be diagnosed with Depression and Anxiety and to take BuSpar and Cymbalta. Patient denies suicidal thoughts, plans, intents and reports desire to live for family and grandchildren. Patient states main fear is dying. Patient states I don't want to . This director social welfare normalizing patient emotions/feelings. Patient states to have [facility] and that was really nice. Patient reports to drive self and to be working on getting stronger again. Patient reports intent to go camping with family in a few weeks. Patient reports difficulty staying socialized and involved. This director social welfare inquired about counseling services for patient. Patient reports to have decided against counseling services due to all the doctors I already see. This director social welfare educating patient on the possible benefits of counseling and how this could be a support for patient and assisting patient in working through resent looses and current fears. Patient agreeable to this director social welfare providing patient with list of local counseling resources for patient. Patient also concerned about loosing patient home if patient needs to go to a longterm watermaster. Patient states to be taking care of self at home independently currently. During conversation with patient ED doctor came into room and informed patient that patient is medically cleared for discharge to the community. Patient relieved to discover that patient did not need to go into the hospital and then maybe back to a longterm. Patient reports to have own care at the ED and plans to drive self home. Patient able to collect self throughout conversation. This director social welfare provided active listening and support. This director social welfare encouraged patient to look into counseling for support, patient voiced understanding and thanked this director social welfare. No further services requested or indicated. Madeline BURGOS, SALEEM
[2021-11-16 15:42] VITALS: BP 121/68; PULSE 74; RESP 18; O2SAT 95
== END 2021-11-16 15:48 | disposition home or self-care (01) ==
PROVIDERS: Emergency Provider Emergency Medicine; PCP Internal Medicine; Visit Provider Emergency Medicine
DX: R19.7 Diarrhea, unspecified (principal); J44.9 Chronic obstructive pulmonary disease, unspecified; I48.0 Paroxysmal atrial fibrillation; E86.0 Dehydration; I25.10 Atherosclerotic heart disease of native coronary artery without angina pectoris; F32.A Depression, unspecified; F41.9 Anxiety disorder, unspecified; K21.9 Gastro-esophageal reflux disease without esophagitis; Z87.891 Personal history of nicotine dependence; Z79.899 Other long term (current) drug therapy; Z79.82 Long term (current) use of aspirin
CPT/HCPCS: 74022; 80048; 85025; 96360; 96361; 99283; J7040; A4216

== ENCOUNTER → 2021-12-15 | Outpatient (CLI) | payer MEDICARE, MEDICAID, SELFPAY ==
[2021-12-15 13:16] LABS: Base Excess 4 mmol/L (-2 to +2); Bicarbonate 28.1 mmol/L (22-26); Blood Gas Specimen Type ART; PO2 65 mmHG (75-100); SITE L Brach; SO2 93 % (95-99); Total Carbon Dioxide 29 mmol/L; pCO2 42.3 mmHg (35-45); pH 7.43 (7.35-7.45)
== END | disposition home or self-care (01) ==
LOC: LAB 11:49 → PSN 11:50
PROVIDERS: PCP Internal Medicine; Referring Provider Nurse Practitioner Acute Care; Visit Provider Nurse Practitioner Acute Care
DX: J44.9 Chronic obstructive pulmonary disease, unspecified (principal)
CPT/HCPCS: 36600; 82803

== ENCOUNTER → 2022-04-20 | Outpatient (CLI) | payer MEDICARE, MEDICAID, SELFPAY ==
[2022-04-20 09:56] LABS: Base Excess 4 mmol/L (-2 to +2); Bicarbonate 27.5 mmol/L (22-26); Blood Gas Specimen Type ART; O2 Delivery Device Cannula; PO2 67 mmHG (75-100); SITE L Brach; SO2 94 % (95-99); Total Carbon Dioxide 29 mmol/L; pCO2 38.8 mmHg (35-45); pH 7.46 (7.35-7.45)
== END | disposition home or self-care (01) ==
LOC: PSN 09:25
PROVIDERS: PCP Internal Medicine; Visit Provider Nurse Practitioner Acute Care
DX: J44.9 Chronic obstructive pulmonary disease, unspecified (principal)
CPT/HCPCS: 36600; 82803

== ENCOUNTER → 2022-05-09 | Outpatient (CLI) | payer MEDICARE, MEDICAID, SELFPAY ==
--- NOTE | 2022-05-09 13:58 | ECHOD_ITS ---
Reason For Study: DYSPNEA Procedure This was a 2D Doppler, Color Flow transthoracic echocardiogram. Exam performed in department. Left Ventricle Normal LV size. Left ventricular systolic function is normal. The estimated ejection fraction is 60 %. Mild segmental systolic dysfunction (see wall motion). Infero-Basal: Akinetic. Right Ventricle Normal RV size. Normal systolic function. Atria Normal left atrium. Normal right atrium. Mitral Valve Normal mitral valve. Mild (1+) eccentric mitral valve insufficiency. Tricuspid Valve Normal tricuspid valve. Mild (1+) tricuspid valve insufficiency. Pulmonary artery systolic pressure is 35 mmHg. Aortic Valve Trisinus/trileaflet aortic valve. Trivial aortic valve insufficiency. Pulmonic Valve Normal pulmonic valve. Mild-Moderate (1-2+) pulmonic valve insufficiency. Great Vessels Normal aortic root. The pulmonary artery is normal size. Normal inferior vena cava. Pericardium/Pleural No pericardial effusion. MMode/2D Measurements & Calculations LVIDd: 4.2 cm IVSd: 0.84 cm Ao root diam: 3.5 cm LVIDs: 3.5 cm LVPWd: 0.73 cm RVDd: 3.1 cm FS: 17.0 % LAV(MOD-sp4): 50.4 ml RVOT diam: 2.5 cm LVAd ap4: 26.3 cm2 LVLd ap4: 7.8 cm EDV(MOD-sp4): 72.2 ml EDV(sp4-el): 75.1 ml LVAs ap4: 16.3 cm2 LVLs ap4: 6.7 cm ESV(MOD-sp4): 36.5 ml ESV(sp4-el): 33.7 ml EF(MOD-sp4): 49.4 % EF(sp4-el): 55.1 % SV(MOD-sp4): 35.6 ml SV(sp4-el): 41.4 ml LA A4 area: 20.2 cm2 LA dimension(2D): 3.4 cm RA A4 area: 11.3 cm2 Time Measurements MV dec time: 0.30 sec Doppler Measurements & Calculations MV E max kayden: 56.0 cm/sec Lat Peak E' Kayden: 13.1 cm/sec Med Peak E' Kayden: 5.1 cm/sec MV A max kayden: 56.0 cm/sec E/E' lat: 4.3 E/E' med: 11.0 MV E/A: 1.0 MV V2 max: 63.1 cm/sec Ao V2 max: 110.3 cm/sec MV max P.6 mmHg MV dec slope: 228.0 cm/sec2 Ao max P.9 mmHg MV V2 mean: 45.6 cm/sec Ao V2 mean: 78.0 cm/sec MV mean P.88 mmHg Ao mean P.8 mmHg MV V2 VTI: 25.3 cm Ao V2 VTI: 22.1 cm AV (velocity ratio): 0.79 LV V1 max: 92.9 cm/sec MR max kayden: 492.3 cm/sec TV V2 max: 257.4 cm/sec LV V1 max P.5 mmHg MR max P.9 mmHg TV max P.5 mmHg LV V1 mean P.8 mmHg LV V1 mean: 62.4 cm/sec LV V1 VTI: 17.4 cm PA V2 max: 98.2 cm/sec SV(RVOT): 62.9 ml PA max PG (full): 2.2 mmHg PI dec slope: 75.7 cm/sec2 PA V2 mean: 62.1 cm/sec PA mean PG (full): 0.81 mmHg TR max kayden: 283.1 cm/sec TR max P.1 mmHg ECHO/Echo Complete Interpretation Summary Normal LV size. Left ventricular systolic function is normal. The estimated ejection fraction is 60 %. Infero-Basal: Akinetic. Mild segmental systolic dysfunction (see wall motion). Mild (1+) eccentric mitral valve insufficiency. Pulmonary artery systolic pressure is 35 mmHg. Mild-Moderate (1-2+) pulmonic valve insufficiency. Ordering Physician: Ale Barakat Referring Physician: Ale Barakat Performed By: Gin Vann RCS
== END | disposition home or self-care (01) ==
LOC: CVS 13:55
PROVIDERS: PCP Internal Medicine; Referring Provider Nurse Practitioner Acute Care; Visit Provider Nurse Practitioner Acute Care
DX: R06.00 Dyspnea, unspecified (principal)
CPT/HCPCS: 93306

== ENCOUNTER → 2022-07-06 | Outpatient (CLI) | payer MEDICARE, MEDICAID, SELFPAY ==
--- NOTE | 2022-07-06 16:56 | CT_ITS ---
STUDY: LOW DOSE CT LUNG CANCER SCREENING REASON FOR EXAM: Female, 67 years old. Smoker , 40 pack years RADIATION DOSAGE (If Supplied By Facility): CTDIvol = ( 1.53 ) mGy, DLP = ( 38.95 ) mGycm TECHNIQUE: No contrast was administered. Low dose technique was utilized (average mAS-38 and kVp 120). 1.25 mm axial source images with a slice interval of 1.25-mm were reconstructed in lung windows. 2.5 mm axial source images with a slice interval of 2.5-mm were reconstructed in lung windows. 5.0 mm axial source images with a slice interval of 5.0-mm were reconstructed in soft tissue windows. COMPARISON: CT chest July 04, 2021. FINDINGS: Diffuse centrilobular emphysematous changes and associated septal thickening. Subsegmental atelectasis in the lung bases associated with scoliosis. No nodule or mass. No focal consolidation or pleural effusion. No pneumothorax. Mild cardiomegaly. Coronary artery calcification is present. No pericardial effusion. Dilatation of the ascending aorta, 3.6 cm diameter. Mild atherosclerotic calcification of the thoracic aorta and tortuosity associated with scoliosis. Enlarged caliber main pulmonary artery suggesting pulmonary arterial hypertension. No mediastinal or hilar adenopathy. Heterogeneous appearance of the thyroid gland, right thyroid nodule. Mild tracheobronchial calcifications. Esophagus is unremarkable. Severe S-shaped scoliosis of the thoracolumbar spine. No acute abnormality in the visualized upper abdomen. CT/Low Dose CT Lung Screening IMPRESSION: Emphysema. Pulmonary arterial hypertension. Scoliosis. LUNG-RADS 2. Recommend continued annual low-dose screening chest CT. IMPORTANT NOTES FOR USE: ACR Lung-RADS Version 1.1 Assessment Categories Release Date: 2018 Category: Coded 0-4 bases on nodule(s) with highest degree of suspicion. Negative screen is defined as categories 1 and 2; a positive screen is defined as categories 3 and 4. Category 3 and 4A nodules that are unchanged on interval CT should be coded as category 2, and individuals returned to screening in 12 months. Category 4X: Category 3 or 4 nodules with additional imaging findings that increase the suspicion of lung cancer, such as spiculation, GGN that doubles in size in 1 year, enlarged lymph notes, etc. Category Modifiers: S (significant finding unrelated to lung cancer) Electronically Signed: Tomy Nickerson MD at 22:17 EDT ,
== END | disposition home or self-care (01) ==
LOC: CT 16:53
PROVIDERS: PCP Internal Medicine; Referring Provider Nurse Practitioner Acute Care; Visit Provider Nurse Practitioner Acute Care
DX: F17.210 Nicotine dependence, cigarettes, uncomplicated (principal)
CPT/HCPCS: 71271

== ENCOUNTER → 2023-07-12 | Outpatient (CLI) | payer MEDICARE, MEDICAID, SELFPAY ==
--- NOTE | 2023-07-12 11:01 | CT_ITS ---
STUDY: LOW DOSE CT LUNG CANCER SCREENING REASON FOR EXAM: Female, 68 years old. previous smoker RADIATION DOSAGE (If Supplied By Facility): CTDIvol = ( 1.53 ) mGy, DLP = ( 45.36 ) mGycm TECHNIQUE: No contrast was administered. Low dose technique was utilized (average mAS-38 and kVp 120). 1.25 mm axial source images with a slice interval of 1.25-mm were reconstructed in lung windows. 2.5 mm axial source images with a slice interval of 2.5-mm were reconstructed in lung windows. 5.0 mm axial source images with a slice interval of 5.0-mm were reconstructed in soft tissue windows. COMPARISON: 07/06/2022 Emphysema: Mild emphysema. No change in left lower lobe discoid atelectasis or scarring. No noncalcified nodule or mass. Endobronchial lesion: None Aorta: Some calcified plaque in the aortic arch but no thoracic aortic aneurysm. CORONARY ARTERIES: Coronary artery calcification is seen. Heart: No cardiomegaly. Pulmonary artery: Normal Mediastinal nodes: Normal Other chest and abdominal findings: Severe S-shaped scoliosis with dextroscoliosis of the thoracic spine and levoscoliosis of the thoracolumbar spine with deformity of the chest and abdomen. CT/Low Dose CT Lung Screening IMPRESSION: Lung-RADS category 1 - Continue annual screening with LDCT in 12 months. IMPORTANT NOTES FOR USE: ACR Lung-RADS Version 1.1 Assessment Categories Release Date: 2018 Category: Coded 0-4 bases on nodule(s) with highest degree of suspicion. Negative screen is defined as categories 1 and 2; a positive screen is defined as categories 3 and 4. Category 3 and 4A nodules that are unchanged on interval CT should be coded as category 2, and individuals returned to screening in 12 months. Category 4X: Category 3 or 4 nodules with additional imaging findings that increase the suspicion of lung cancer, such as spiculation, GGN that doubles in size in 1 year, enlarged lymph notes, etc. Category Modifiers: S (significant finding unrelated to lung cancer) Electronically Signed: Jose Cunha MD at 9:38 EDT ,
== END | disposition home or self-care (01) ==
PROVIDERS: PCP Internal Medicine; Referring Provider Nurse Practitioner Acute Care; Visit Provider Nurse Practitioner Acute Care
DX: F17.210 Nicotine dependence, cigarettes, uncomplicated (principal)
CPT/HCPCS: 71271

== ENCOUNTER → 2024-07-12 | Outpatient (CLI) | payer MEDICARE, MEDICAID, SELFPAY ==
--- NOTE | 2024-07-12 09:01 | CT_ITS ---
PROCEDURE: LOW DOSE CT LUNG SCREENING 07/12/2024 REASON FOR EXAM: SMOKER TECHNIQUE: Low Dose CT Lung screening without contrast. Coronal and Sagittal reconstruction series were provided. One or more dose reduction techniques were used (e.g., Automated exposure control, adjustment of the mA and/or kV according to patient size, use of iterative reconstruction technique). REFERENCE LINK: [place] Lung-RADS RADIATION DOSE SUMMARY: CTDlvol: 2.01 mGy DLP: 63.6 mGycm COMPARISON: None. FINDINGS: PULMONARY NODULES: (Only nodules >3mm are reported) Nodules described below are on series 2 unless otherwise specified. Moderate emphysema. Bilateral basilar atelectatic pulmonary changes in the lower lobes. Normal unenhanced main pulmonary artery and right and left pulmonary arteries. Normal bilateral peripheral pulmonary arteries. Normal thoracic aorta and visualized great vessels. There is no demonstrated aortic aneurysm. Normal heart and pericardium. Normal mediastinum. Normal hilar regions. Normal visualized trachea and bronchi. Normal pleura. Mild osteopenia. Diffuse spondylosis. S shaped scoliosis. CT/Low Dose CT Lung Screening IMPRESSION: Moderate emphysema. Bilateral basilar atelectatic pulmonary changes. Coronary artery calcification (CAC) is is present Lung-RADS Category: 2 BENIGN (BASED ON IMAGING FEATURES OR INDOLENT BEHAVIOR). RECOMMEND 12-MONTH SCREENING LDCT. Reading Location: [place] [id number]
== END | disposition home or self-care (01) ==
LOC: CT 08:58
PROVIDERS: PCP Internal Medicine; Referring Provider Nurse Practitioner Acute Care; Visit Provider Nurse Practitioner Acute Care
DX: F17.210 Nicotine dependence, cigarettes, uncomplicated (principal)
CPT/HCPCS: 71271

== ENCOUNTER → 2024-10-10 | Outpatient (CLI) | payer MEDICARE, MEDICAID, SELFPAY ==
--- NOTE | 2024-10-10 13:01 | ECHOD_ITS ---
Reason For Study Reason For Study: SOB Procedure This was a 2D Doppler, Color Flow transthoracic echocardiogram. Exam performed in department. Left Ventricle Normal LV size. The left ventricular ejection fraction is 50 %. Mild segmental systolic dysfunction (see wall motion). Stage 1 diastolic dysfunction. Anterior [place] : Mildly hypokinetic. Basal inferoseptal: Akinetic. Infero-Basal: Akinetic. Right Ventricle Normal RV size. Normal systolic function. Atria Normal left atrium. Normal right atrium. Mitral Valve Normal mitral valve. Mild (1+) eccentric mitral valve insufficiency. Tricuspid Valve Normal tricuspid valve. Mild (1+) tricuspid valve insufficiency. Pulmonary artery systolic pressure is 30 mmHg. Aortic Valve Trisinus/trileaflet aortic valve. Mild (1+) aortic valve insufficiency. Pulmonic Valve Normal pulmonic valve. Great Vessels Normal sized aortic root. The pulmonary artery is normal size. Inferior vena cava collapse with respiration. Pericardium/Pleural No pericardial effusion. MMode/2D Measurements & Calculations LVIDd: 4.1 cm IVSd: 0.81 cm Ao root diam: 3.3 cm LVIDs: 3.1 cm LVPWd: 0.76 cm RVDd: 3.5 cm FS: 24.5 % LAV(MOD-bp): 18.7 ml LVAd ap4: 27.2 cm2 LVAd ap2: 22.5 cm2 LAV(MOD-bp) Indexed: 14.7 ml/m2 LVLd ap4: 8.0 cm LVLd ap2: 7.5 cm LAV(MOD-sp2): 11.0 ml EDV(MOD-sp4): 76.1 ml EDV(MOD-sp2): 54.6 ml LAV(MOD-sp4): 24.3 ml EDV(sp4-el): 79.1 ml EDV(sp2-el): 57.0 ml LVAs ap4: 16.1 cm2 LVAs ap2: 16.9 cm2 LVLs ap4: 6.8 cm LVLs ap2: 7.0 cm ESV(MOD-sp4): 32.9 ml ESV(MOD-sp2): 35.6 ml ESV(sp4-el): 32.4 ml ESV(sp2-el): 34.5 ml EF(MOD-sp4): 56.7 % EF(MOD-sp2): 34.8 % EF(sp4-el): 59.0 % SV(MOD-sp4): 43.2 ml SV(MOD-sp2): 19.0 ml SV(sp4-el): 46.7 ml SI(MOD-sp4): 34.1 ml/m2 SI(MOD-sp2): 15.0 ml/m2 LA A4 area: 13.0 cm2 LA dimension(2D): 2.4 cm RA A4 area: 10.6 cm2 TAPSE: 1.8 cm Time Measurements MV dec time: 0.22 sec Doppler Measurements & Calculations MV E max kayden: 79.7 cm/sec Lat Peak E' Kayden: 15.5 cm/sec Med Peak E' Kayden: 9.3 cm/sec MV A max kayden: 81.8 cm/sec E/E' lat: 5.1 E/E' med: 8.5 MV E/A: 0.97 Ao V2 max: 88.7 cm/sec LV V1 max: 77.4 cm/sec MV dec slope: 362.0 cm/sec2 Ao max P.1 mmHg LV V1 max P.4 mmHg Ao V2 mean: 57.1 cm/sec LV V1 mean P.2 mmHg Ao mean P.5 mmHg LV V1 mean: 51.2 cm/sec Ao V2 VTI: 18.6 cm LV V1 VTI: 14.9 cm AV (velocity ratio): 0.80 PA V2 max: 58.9 cm/sec TR max kayden: 255.1 cm/sec TR max P.0 mmHg ECHO/Echo Complete Interpretation Summary Normal LV size. The left ventricular ejection fraction is 50 %. Stage 1 diastolic dysfunction. Mild segmental systolic dysfunction (see wall motion). Ordering Physician: Kaylyn Payne Referring Physician: Sarita Grey M.D. Performed By: Janki Ya RDCS
== END | disposition home or self-care (01) ==
LOC: CVS 12:57
PROVIDERS: PCP Internal Medicine; Referring Provider Nurse Practitioner Gerontology; Visit Provider Nurse Practitioner Gerontology
DX: R06.00 Dyspnea, unspecified (principal)
CPT/HCPCS: 93306

== ENCOUNTER 2025-01-13 11:25 | Emergency (ER) | payer MEDICARE, MEDICAID, SELFPAY ==
[2025-01-13 11:26] VITALS: BP 133/107; PULSE 68; RESP 18; TEMP 36.5; O2SAT 96; BMI 17.6
--- NOTE | 2025-01-13 15:30 | EX.ED.DYSGE1 ---
HPI History of Present Illness Chief Complaint: Wound Check Informant: patient Onset/Context/Timing Onset: Today Context: Sudden Onset Timing: Continuous Location: Abdomen Worsened by: Nothing Relieved by: Nothing Narrative Narrative: Patient presents because her feeding tube fell out today. Patient states he fell around 6 AM today. Patient states it was a small feeding tube. Patient states she is scheduled to have it replaced this month. Patient denies any abdominal pain. Patient denies any nausea or vomiting. Patient denies any fevers but admits to subjective chills. Patient denies any other complaints. [facility] Medical History Compression fracture of body of thoracic vertebra Protein calorie malnutrition Chest wall pain Declining functional status Intractable back pain Pounding heartbeat Dyspnea Smoking greater than 40 pack years Scoliosis Nicotine dependence, cigarettes, in remission Chronic hypoxemic respiratory failure Atherosclerotic heart disease of [place] coronary artery without angina pectoris Anxiety and depression Osteoporosis Scoliosis Enterocutaneous fistula Malnutrition of moderate degree Gastroparesis GERD (gastroesophageal reflux disease) History of smoking COPD (chronic obstructive pulmonary disease) Paroxysmal atrial fibrillation Nonrheumatic mitral (valve) insufficiency Aspiration pneumonia Respiratory failure Hypoxia Duodenal ulcer, acute with obstruction Home Medications Medication Instructions Recorded Last Taken Type ferrous sulfate 325 mg (65 mg 325 mg PO DAILY supplement 03/22/19 09/05/21 History iron) tablet melatonin 3 mg capsule 3 mg PO QHS insomnia 03/22/19 09/05/21 History calcium carbonate 500 mg PO DAILY health maintenance 08/23/19 09/05/21 History multivitamin 1 ea PO DAILY vitamin 08/23/19 09/05/21 History ascorbic acid (vitamin C) 500 mg 500 mg PO DAILY vitamin 03/28/20 09/06/21 History tablet pantoprazole 40 mg tablet,delayed 40 mg PO BID stomach 03/28/20 09/06/21 History release tizanidine 4 mg capsule 4 mg PO Q8H PRN PRN Muscle Spasm 03/28/20 09/06/21 History atorvastatin 80 mg tablet 80 mg PO QHS cholesterol 04/21/20 09/05/21 History metoprolol succinate 25 mg 25 mg PO DAILY 04/21/20 09/05/21 History tablet,extended release 24 hr gabapentin 600 mg tablet 600 mg PO TID 04/18/22 Unknown History magnesium hydroxide 400 mg/5 mL 30 ml PO DAILY PRN 04/18/22 Unknown History oral suspension (Milk of Magnesia) miconazole nitrate 2 % topical 1 applic topical BID 04/18/22 Unknown History powder sennosides 8.6 mg-docusate sodium 2 tab-cap PO BID 04/18/22 Unknown History 50 mg tablet (Senna-S) sodium phosphates 19 gram-7 118 ml WI ONCE PRN 04/18/22 Unknown History gram/118 mL enema (Fleet Enema) oxycodone 5 mg tablet 5 mg PO Q6H PRN 08/08/22 Unknown History albuterol sulfate 90 mcg/actuation 2 puff inhalation Q4H PRN PRN 02/12/23 Unknown Rx aerosol inhaler Wheezing #8.5 grams acetaminophen 500 mg tablet 500 mg PO Q8 PRN 05/04/23 Unknown History albuterol sulfate 2.5 mg/3 mL 2.5 mg inhalation Q4-6H PRN 05/04/23 Unknown History (0.083 %) solution for nebulization aspirin 325 mg tablet,delayed 325 mg PO DAILY 05/04/23 Unknown History release cholecalciferol (vitamin D3) 50 2,000 unit PO DAILY vitamin 05/04/23 Unknown History mcg (2,000 unit) tablet dextran 70-hypromellose eye drops 1 drp ophthalmic (eye) 4-6XD PRN 05/04/23 Unknown History duloxetine 30 mg capsule,delayed 30 mg PO DAILY 05/04/23 Unknown History release duloxetine 60 mg capsule,delayed 60 mg PO DAILY 05/04/23 Unknown History release estradiol 0.01% (0.1 mg/gram) 1 g vaginal 3XW 05/04/23 Unknown History vaginal cream fluticasone propionate 110 2 puff inhalation BID 05/04/23 Unknown History mcg/actuation HFA aerosol inhaler nutritional supplements 0.06 ml PO 05/04/23 Unknown History gram-1.5 kcal/mL oral liquid (Osmolite 1.5 Germán) ondansetron 4 mg disintegrating 4 mg PO Q6H PRN Nausea 05/04/23 Unknown History tablet oxybutynin chloride 10 mg 10 mg PO DAILY 05/04/23 Unknown History tablet,extended release 24 hr polyethylene glycol 3350 17 17 g PO BID 05/04/23 Unknown History gram/dose oral powder (Miralax) sucralfate 100 mg/mL oral 10 ml PO BID 05/04/23 Unknown History suspension wheat dextrin 3 gram/3.5 gram oral 1 packet PO DAILY 05/04/23 Unknown History powder packet (Benefiber Clear Sugar Free(dextrin)) buspirone 10 mg tablet 10 mg PO BID 01/09/24 Unknown History morphine 15 mg tablet,extended 15 mg PO BID 01/09/24 Unknown History release budesonide 160 mcg-glycopyr 9 2 inh inhalation BID #3 ea 01/25/24 Unknown Rx mcg-formot 4.8 mcg/actuation HFA inhaler (Breztri Aerosphere) furosemide 40 mg tablet (Lasix) 40 mg PO DAILY #90 tabs 07/04/24 Unknown Rx ipratropium 0.5 mg-albuterol 3 mg 3 ml inhalation Q4H PRN shortness 07/09/24 Unknown Rx (2.5 mg base)/3 mL nebulization of breath or wheezing #180 mL soln benzonatate 100 mg capsule 100 mg PO BID PRN cough 08/19/24 Unknown History guaifenesin 600 mg tablet, 600 mg PO Q12H PRN 08/19/24 Unknown History extended release 12 hr (Mucus Relief ER) Allergy/AdvReac Type Severity Reaction Status Date / Time dicyclomine HCl (From Bentyl) Allergy Hives Verified 01/13/25 11:26 Family History (Reviewed 08/19/24 @ 13:57 by Ale Barakat DRAW BENCH OPERATOR HELPER, DRAW BENCH OPERATOR HELPER-C) Father Myocardial infarction Son Esophageal cancer Other Scoliosis Surgical History History of esophagogastroduodenoscopy (05/01/23) History of jejunostomy tube placement (05/01/23) History of exploratory laparotomy (12/29/19) History of jejunostomy History of partial gastrectomy History of left heart catheterization (02/02/20) History of transesophageal echocardiography (EDGAR) (02/12/20) Social History household members: none housing: apartment Smoking Status: Former smoker quit date: 03/05/05 details: No alcohol consumption substance use type: does not use ROS ROS ED Constitutional Constitutional ED: Reports chills and subjective; Denies fever(s) Eyes Eyes: Denies blurry vision or change in vision ENT ENT ED: Denies rhinorrhea or sore throat Cardiovascular Cardiovascular: Denies chest pain or palpitations Respiratory/Chest Respiratory/Chest: Denies cough or dyspnea Gastrointestinal Gastrointestinal: Denies nausea or vomiting Genitourinary Genitourinary ED: Denies dysuria or hematuria Musculoskeletal Musculoskeletal: Reports back pain; Denies neck pain Integumentary Denies abscess or rash Neurologic Neurologic: Denies headache(s) or weakness Allergic/Immunologic Allergic/Immunologic ED: Denies mouth swelling or urticaria EXAM Physical Exam Const Vital Signs: 01/13/25 11:26 01/13/25 16:04 Temperature 97.7 F L Temperature Source Oral Pulse Rate 68 69 Respiratory Rate 18 14 Blood Pressure 133/107 H 108/64 Blood Pressure Mean 115 78 Pulse Ox 96 98 Oxygen Delivery Method Nasal Cannula Nasal Cannula Oxygen Flow Rate (L/min) 3 2 Positive well nourished and well developed General Appearance ED: well developed and NAD HEENT Reports moist mucous membranes Neck supple and no JVD Resp normal respiratory effort and clear to auscultation bilaterally Cardio regular rate and regular rhythm GI non-tender and non-distended Palpation: soft Neuro oriented x3, CN's II-XII intact bilaterally and no sensory deficits noted Sensorium / Orientation: alert Motor Exam: strength 5/5 throughout Psych mental status grossly normal MDM MDM MDM Narrative Medical decision making narrative: Patient's feeding tube is 14 [place]ic. There are only a 20, 22, and 24 Icelandic tubes available from endoscopy. A 14 [place]ic Cintron catheter was inserted into the PEG tube. Gastrografin x-ray will be obtained to assess for tube placement. Patient tolerated the procedure well. Radiography Diagnostic Testing: Clinical Impression(s) from Imaging Studies KUB X-Ray 01/13/25 15:55 IMPRESSION: PEG tube appears positioned within the stomach with injected enteric contrast opacifying the stomach lumen and proximal small bowel. Small amount of amorphous density at the ostomy site is suspicious for small amount of contrast leakage into the adjacent soft tissues. No free air appreciated. Reading Location: [facility] Gastrografin patient KUB was obtained. There is 1 view. On my independent interpretation, PEG tube is positioned in the stomach. There is no free air noted. Radiologist also interpreted the x-rays and agrees. Treatment and Re-Evaluation :: Patient was advised of her findings. 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 Patient was instructed to return if worse in any way. Patient understood and was agreeable with plan reviewed all questions were answered. Discharge Plan Triage Chief Complaint: Wound Check ED Provider: Jerrell Inman Dx/Rx/DC Orders Clinical Impression: PEG tube malfunction, Elevated blood pressure reading Instructions: ED Feeding Tube Replace With Cintron Prescriptions: No Action metoprolol succinate 25 mg tablet extended release 24 hr 25 mg PO DAILY duloxetine 60 mg capsule,delayed release(DR/EC) 60 mg PO DAILY Rx Instructions: TAKE 1 CAPSULE BY MOUTH ONCE DAILY, IN ADDITION TO 30MG CAPSULE DAILY. polyethylene glycol 3350 [Miralax] 17 gram/dose powder 17 g PO BID miconazole nitrate 2 % powder 1 applic topical BID Fleet Enema 19-7 gram/118 mL enema 118 ml WI ONCE PRN magnesium hydroxide [Milk of Magnesia] 400 mg/5 mL suspension 30 ml PO DAILY PRN gabapentin 600 mg tablet 600 mg PO TID sennosides-docusate sodium [Senna-S] 8.6-50 mg tablet 2 tab-cap PO BID oxycodone 5 mg tablet 5 mg PO Q6H PRN duloxetine 30 mg capsule,delayed release(DR/EC) 30 mg PO DAILY Patient Comments: TAKE 1 CAPSULE BY MOUTH ONCE DAILY, IN ADDITION TO 60MG CAPSULE DAILY. Rx Instructions: TAKE 1 CAPSULE BY MOUTH ONCE DAILY, IN ADDITION TO 60MG CAPSULE DAILY. albuterol sulfate 90 mcg/actuation HFA aerosol inhaler 2 puff INHALATION Q4H PRN PRN (Reason: Wheezing) Qty: 8.5 3RF estradiol 0.01 % (0.1 mg/gram) cream 1 g vaginal 3XW acetaminophen 500 mg tablet 500 mg PO Q8 PRN albuterol sulfate 2.5 mg /3 mL (0.083 %) solution for nebulization 2.5 mg inhalation Q4-6H PRN fluticasone propionate 110 mcg/actuation HFA aerosol inhaler 2 puff inhalation BID oxybutynin chloride 10 mg tablet extended release 24hr 10 mg PO DAILY sucralfate 100 mg/mL suspension 10 ml PO BID Benefiber Clear SF (dextrin) 3 gram/3.5 gram powder in packet 1 packet PO DAILY Rx Instructions: mix into at least 4 oz water or juice before administering dextran 70-hypromellose Drops 1 drp ophthalmic (eye) 4-6XD PRN Osmolite 1.5 Germán 0.06 gram-1.5 kcal/mL liquid PO aspirin 325 mg tablet,delayed release (DR/EC) 325 mg PO DAILY buspirone 10 mg tablet 10 mg PO BID morphine 15 mg tablet extended release 15 mg PO BID benzonatate 100 mg capsule 100 mg PO BID PRN (Reason: cough) guaifenesin [Mucus Relief ER] 600 mg tablet extended release 12hr 600 mg PO Q12H PRN cholecalciferol (vitamin D3) 50 mcg (2,000 unit) tablet 2,000 unit PO DAILY ferrous sulfate 325 MG tablet 325 mg PO DAILY melatonin 3 MG capsule 3 mg PO QHS multivitamin 1 EACH tablet 1 ea PO DAILY calcium carbonate 500 MG tablet 500 mg PO DAILY ondansetron 4 mg tablet,disintegrating 4 mg PO Q6H PRN (Reason: Nausea) pantoprazole 40 MG tablet,delayed release (DR/EC) 40 mg PO BID tizanidine 4 MG capsule 4 mg PO Q8H PRN PRN (Reason: Muscle Spasm) ascorbic acid (vitamin C) 500 MG tablet 500 mg PO DAILY atorvastatin 80 mg tablet 80 mg PO QHS Breztri Aerosphere 160-9-4.8 mcg/actuation HFA aerosol inhaler 2 inh inhalation BID Qty: 3 3RF furosemide [Lasix] 40 mg tablet 40 mg PO DAILY Qty: 90 3RF ipratropium-albuterol 0.5 mg-3 mg(2.5 mg base)/3 mL solution for nebulization 3 ml inhalation Q4H PRN (Reason: shortness of breath or wheezing) Qty: 180 6RF Rx Instructions: J44.9 Primary Care Provider: Sarita Grey Referrals: Sarita Grey MD [Primary Care Provider, Internal Medicine] Print Language: Amharic Disposition Disposition: Home, Self Care D/C Safety Score for UGIB Assessment [place] Bleeding Score (GBS): Stratifies upper GI bleeding patients who are "low-risk" and candidates for outpatient management. Hemoglobin, BUN, Recent Vital Signs: Pulse Rate 69 Blood Pressure 108/64 Total Risk Score: 1 Score Interpretation: Score of 0: A GBS of 0 is a “Low Risk” GI bleed, and is highly sensitive (99.6% in a 2007 retrospective study) for predicting which patients did not require any “medical intervention”: blood transfusion, endoscopy, or surgery. This was confirmed in a 2009 [facility] study where patients with a score of 0 were actually discharged and had no GI bleeding mortality at 6 month followup Score above 0: A GBS greater than zero suggests a “High Risk” GI bleed that is likely to require “medical intervention”: transfusion, endoscopy, or surgery. A higher GBS also correlated with a higher likelihood of needing intervention Scores >/= 6 are associated with >50% risk of needing intervention D/C Safety Score for LGIB Assessment Assessment Tool: Readmission and adverse event risk in patients with acute lower GI bleeding. Age, in years: 40-69 Hemoglobin and Recent Vital Signs: Pulse Rate 69 01/13/25 16:04 Blood Pressure 108/64 01/13/25 16:04 Probability of safe discharge: 99% Total Risk Score: 1 Score Interpretation: Probability Percentage of safe discharge (absence of rebleeding, blood transfusion, therapeutic intervention, 28 day readmission, or ) Score of 8 or below: Consider discharge, with appropriate precautions. Score of 9 or above: Discharge NOT recommended. Consider admission with further workup and resuscitation as necessary.
--- NOTE | 2025-01-13 15:55 | RAD_ITS ---
PROCEDURE: ABDOMEN SINGLE VIEW 01/13/2025 REASON FOR EXAM: PEG TUBE PLACEMENT TECHNIQUE: Procedure Code: RADABD Modality: DX Procedure: ABDOMEN SINGLE VIEW COMPARISON: 11/16/2021 FINDINGS: Percutaneous gastrostomy tube projects over the left upper abdomen. Enteric contrast is injected and opacifies the stomach lumen and propagates into the proximal small bowel. There is small amount of localized amorphous density at the gastrostomy entry point, which may reflect small amount of contrast leakage at the ostomy site. No appreciable free air. Nonobstructive bowel gas pattern. Pessary device noted in the pelvis. Multilevel degenerative changes of the spine with severe thoracolumbar S-shaped scoliosis. RAD/Abdomen Single View IMPRESSION: PEG tube appears positioned within the stomach with injected enteric contrast o pacifying the stomach lumen and proximal small bowel. Small amount of amorphous density at the ostomy site is suspicious for small amount of contrast leakage into the adjacent soft tissues. No free air appreciated. Reading Location: [id number]
[2025-01-13 16:04] VITALS: BP 108/64; PULSE 69; RESP 14; O2SAT 98
== END 2025-01-13 17:20 | disposition home or self-care (01) ==
PROVIDERS: Emergency Provider Emergency Medicine; PCP Internal Medicine; Visit Provider Emergency Medicine
DX: K94.23 Gastrostomy malfunction (principal); J44.9 Chronic obstructive pulmonary disease, unspecified; I48.0 Paroxysmal atrial fibrillation; R03.0 Elevated blood-pressure reading, without diagnosis of hypertension; F41.9 Anxiety disorder, unspecified; F32.A Depression, unspecified; I25.10 Atherosclerotic heart disease of native coronary artery without angina pectoris; K21.9 Gastro-esophageal reflux disease without esophagitis; I34.0 Nonrheumatic mitral (valve) insufficiency; M81.0 Age-related osteoporosis without current pathological fracture; Z79.82 Long term (current) use of aspirin; Z79.51 Long term (current) use of inhaled steroids; Z79.899 Other long term (current) drug therapy; Z90.49 Acquired absence of other specified parts of digestive tract; Z87.891 Personal history of nicotine dependence
CPT/HCPCS: 74018; 99282; A4216